=== PATIENT | male | born 1940 | race Caucasian/White ===

== ENCOUNTER 2016-08-16 10:55 | Inpatient (IN) | payer OTHER ==
[~2016-08-16] VITALS: Ht 175.3 cm; Wt 77.0 kg
[~2016-08-16 10:55] MED LIST: ALFU10TA30 PO; ASCA500 PO; ASPI81TA28 PO; CARV12.52 PO; CHOLTAB3 PO; CRAN200C PO; DTRSR4 PO; FINA5TAB PO; GABA-113 PO; GARL10007 PO; GARL400T4 PO; INSU70IN2 SC; LISI-725 PO; METF500T5 PO; MISCCAP63 PO; MULT-506 PO; OMEG10007 PO; PRLSR20 PO; RANI300T2 PO
--- NOTE | 2016-08-16 11:28 | EMERGENCY ROOM VISIT NOTE ---
History Report prepared by Pamela: Aaron Esquivel Under the Supervision of: Dr. Philip Barillas D.O. First contact with patient: 11:16 Chief Complaint: ABNORMAL LABS Stated Complaint: ABNORMAL LAB, BACK PAIN History of Present Illness The patient is a 75 year old male who presents to the Emergency Room with complaints of abnormal labs and constant back pain for the past few days that radiates into his legs. The patient states that his labs had an elevated blood count. The patient states that he got labs due to right sided chest pain, and he had fevers and chills last night, and he has some abdominal pain. He denies any nausea or vomiting. The patient states that he has never had problems like this before. The patient has an extensive history of back issues, and he has spinal stenosis and a ruptured disc which he had surgery for. He states that he has some leg numbness which is intermittent and chronic. He additionally has a history of diabetes, arthritis, and gout, and he denies any history of cancer, leukemia, or tuberculosis. Additionally he denies any tobacco or alcohol use. He states that he had an MRI for his back about a year ago. Source of History: patient Onset: past few days Position: back (lower), other (global) Quality: other (abnormal labs) Timing: constant Associated Symptoms: + fevers, + chills, + abdominal pain, No nausea, No vomiting Review of Systems See HPI for pertinent positives & negatives. A total of 10 systems reviewed and were otherwise negative. Past Medical & Surgical Medical Problems: (1) Back pain (2) Diabetes (3) Hypertension (4) Spinal stenosis Family History Diabetes mellitus Heart disease Hypertension Social History Smoking Status: Never Smoker Alcohol Use: none Marital Status: Housing Status: lives with significant other Occupation Status: retired Current/Historical Medications Scheduled Albuterol Hfa (Ventolin Hfa), 2-4 PUFFS INH Q6H Alfuzosin Hcl (Uroxatral), 10 MG PO DAILY Ascorbic Acid (Vitamin C), 500 MG PO DAILY Aspirin (Aspirin Ec), 81 MG PO DAILY Baclofen (Lioresal), 10 MG PO TID Carvedilol (Coreg), 12.5 MG PO BID Cranberry (Vaccinium Macrocarp (Cranberry Extract), 200 MG PO DAILY Finasteride (Proscar), 5 MG PO DAILY Fish Oil (Purcell-3), 1 CAP PO DAILY Gabapentin (Neurontin), 300 MG PO TID Insulin Isophan/Regular (Novolin 70/30), 25-26 UNITS SC QAM Insulin Isophan/Regular (Novolin 70/30), 15-16 UNITS SC QPM Lisinopril (Zestril), 20 MG PO DAILY Metformin Hcl Er (Glucophage Er), 500 MG PO BID Misc Natural Products ([facility]), 1 CAP PO DAILY Multivitamin (Multivitamin), 1 TAB PO DAILY Omeprazole (Prilosec), 20 MG PO DAILY Miscellaneous Medications Garlic (Garlic) Glucostix Blood Test Strips (River[employer] Ultra Blue) Naproxen (Aleve), 220 MG PO Allergies Coded Allergies: Terazosin (Verified Allergy, Unknown, unkn, 08/16/16) Physical Exam Vital Signs Date Time Temp Pulse Resp B/P (MAP) Pulse Ox O2 Delivery O2 Flow Rate FiO2 08/16/16 14:13 58 18 191/83 99 Room Air 08/16/16 12:30 58 08/16/16 12:27 61 18 142/71 96 Room Air 08/16/16 11:29 97 Room Air 08/16/16 10:59 36.4 70 18 153/67 95 Room Air Physical Exam GENERAL: Patient is awake, alert, and somewhat anxious appearing and uncomfortable. EYES: The conjunctivae are clear. The pupils are round and reactive. EARS, NOSE, MOUTH AND THROAT: The nose is without any evidence of any deformity. Mucous membranes are moist tongue is midline NECK: The neck is nontender and supple. RESPIRATORY: Normal respiratory effort is noted there is no evidence of wheezing rhonchi or rales CARDIOVASCULAR: Regular rate and rhythm noted there no murmurs rubs or gallops normal S1 normal S2 GASTROINTESTINAL: The abdomen is mildly distended but soft. No guarding or rigidity. BACK: Severe lumbar midline tenderness to percussion. Range of motion limited secondary to pain. MUSCULOSKELETAL/EXTREMITIES: There is no evidence of gross deformity full range of motion is noted in the hips and shoulders SKIN: Trace pedal edema bilaterally NEUROLOGIC: Patient is awake alert and oriented x3. Patellar reflex absent bilaterally. Great toe raise absent on the right. Achilles tendon reflex absent bilaterally. Medical Decision & Procedures ER Provider Diagnostic Interpretation: Radiology results as stated below per my review and radiologist interpretation: CHEST ONE VIEW PORTABLE CLINICAL HISTORY: Sepsis sepsis. Dyspnea. COMPARISON STUDY: 04/27/2015 FINDINGS: The bones soft tissues and hemidiaphragms are normal. The cardiomediastinal silhouette is normal. The lungs are clear. The pulmonary vasculature is normal. IMPRESSION: Negative chest. Electronically signed by: William Reddy M.D. 08/16/2016 12:01 PM Dictated Date/Time: 08/16/2016 12:01 PM MRI OF THE LUMBAR SPINE WITH AND WITHOUT CONTRAST CLINICAL HISTORY: Low back pain. Elevated white blood cell count. COMPARISON STUDY: No previous studies for comparison. TECHNIQUE: Utilizing a 1.5 Mayelin magnet and dedicated coil, multiplanar, multiecho imaging of the lumbar spine was performed before and after uneventful IV administration of 7.8 mL of Gadavist. FINDINGS: For purposes of numbering on this examination, the L5-S1 disc space is assigned to axial image 23 of 25. Alignment lumbar spine is anatomic. Vertebral body heights are maintained. There is a 2 cm T1 and T2 hyperintense lesion within the left aspect of the L1 vertebral body consistent with a hemangioma. Discogenic changes with disc space narrowing at L4-L5 are noted. There is diffuse marrow signal abnormality with markedly diminished signal within the marrow on the T1-weighted sequence throughout visualized skeletal structures. Conus terminates at the mid L1 level. There is no intracanalicular mass or fluid collection. Note is made of mild edema and enhancement within the paraspinal musculature of the lumbar spine. There is no fluid collection. L1-2: The central canal and neural foramen are patent. L2-3: The central canal and neural foramen are patent. L3-4: Is mild disc bulge with ligamentous hypertrophy and facet arthrosis. There is mild to moderate narrowing of the central canal and lateral recesses. Neural foramen are patent. L4-5: There are findings suggestive of a right hemilaminotomy at this level. There is disc space narrowing. There is a small central/right paracentral disc protrusion. There is moderate narrowing of the right lateral recess and mild narrowing of the central canal. L5-S1: Central canal and neural foramen are patent. There is an annular tear with mild disc bulge. IMPRESSION: 1. Diffuse marrow signal abnormality throughout visualized skeletal structures which is suspicious for a marrow replacement process such as leukemia. 2. Mild to moderate central canal stenosis at L3-L4 due to disc bulge, ligamentous hypertrophy and facet arthrosis. 3. Central/right paracentral disc protrusion at L4-5 with moderate narrowing of the right lateral recess and mild narrowing of the central canal. Fine suggestive of a right hemilaminotomy at this level. 4. Mild edema and enhancement within the paraspinal musculature which is nonspecific. Electronically signed by: Hermes Hodge M.D. 08/16/2016 1:42 PM Dictated Date/Time: 08/16/2016 1:[address] SCAN OF THE BRAIN WITHOUT IV CONTRAST CLINICAL HISTORY: Headache. COMPARISON STUDY: No priors. TECHNIQUE: Unenhanced axial CT scan of the brain is performed from the vertex to the skull base. FINDINGS: Brain parenchyma: There are age-related involutional changes noting mild subcortical and periventricular microangiopathic change. There is no hemorrhage, mass effect, or evidence of acute territorial ischemia by CT criteria. Jackson-white matter is preserved. No extra-axial fluid collection is seen. Ventricles, sulci, cisterns: Prominent secondary to involutional change. Intracranial vasculature: There is atherosclerotic calcification of the cavernous carotid and vertebral arteries. Calvarium: The skeletal structures are osteopenic. No destructive bony lesion is seen. Sinuses and mastoids: The visualized paranasal sinuses are clear. The mastoid air cells are well pneumatized. Orbits: The bony orbits are grossly intact. IMPRESSION: Age-related changes as above with no hemorrhage, mass effect, or evidence of acute territorial ischemia by CT criteria. Electronically signed by: Surya Pearl M.D. 08/16/2016 3:49 PM Dictated Date/Time: 08/16/2016 3:[address] OF THE ABDOMEN AND PELVIS WITH CONTRAST CLINICAL HISTORY: Chronic leukemia. COMPARISON STUDY: None. TECHNIQUE: Following IV administration of 89 mL of [id number]-320, axial images of the abdomen and pelvis were obtained from the lung bases to the proximal femurs. Images were reviewed in the axial, sagittal, and coronal planes. IV contrast was administered without complication. CT DOSE: 1192.64 mGy.cm FINDINGS: The spleen is mildly enlarged. No enlarged abdominal or pelvic lymph nodes are present. There is an indeterminate 1.8 cm left adrenal nodule. The liver, kidneys and pancreas are unremarkable. There is no biliary or pancreatic ductal dilatation. Major vasculature of the abdomen and pelvis is patent. There is no evidence for a bowel obstruction. Note is made of extensive sigmoid diverticulosis without evidence for acute diverticulitis. The appendix is normal. Prostate gland is moderately enlarged. There is no hydronephrosis. There are no suspicious osseous lesions. Diffuse marrow replacement shown on MRI is not appreciated on this study due to technique. IMPRESSION: 1. No acute process within the abdomen or pelvis. 2. Extensive sigmoid diverticulosis without evidence for acute diverticulitis. 3. No abdominal or pelvic lymphadenopathy. 4. 1.8 cm left adrenal nodule. While indeterminate, this is statistically benign. Electronically signed by: Hermes Hodge M.D. 08/16/2016 3:51 PM Dictated Date/Time: 08/16/2016 3:45 PM Laboratory Results 08/16/16 11:21 Red Blood Count 3.94, Mean Corpuscular Volume 94.9, Mean Corpuscular Hemoglobin 31.5, Mean Corpuscular Hemoglobin Concent 33.2, Mean Platelet Volume 10.4 08/16/16 11:21 Test 08/16/16 11:09 08/16/16 11:21 08/16/16 11:38 08/16/16 11:47 Urine Color YELLOW Urine Appearance CLEAR (CLEAR) Urine pH 5.0 (4.5-7.5) Urine Specific [place] 1.021 (1.000-1.030) Urine Protein NEG (NEG) Urine Glucose (UA) 3+ (NEG) Urine Ketones NEG (NEG) Urine Occult Blood NEG (NEG) Urine Nitrite NEG (NEG) Urine Bilirubin NEG (NEG) Urine Urobilinogen NEG (NEG) Urine Leukocyte Esterase NEG (NEG) Urine WBC (Auto) 1-5 /hpf (0-5) Urine RBC (Auto) 0-4 /hpf (0-4) Urine Hyaline Casts (Auto) 0 /lpf (0-5) Urine Epithelial Cells (Auto) 0-5 /lpf (0-5) Urine Bacteria (Auto) NEG (NEG) White Blood Count 42.15 K/uL (4.8-10.8) Red Blood Count 3.94 M/uL (4.7-6.1) Hemoglobin 12.4 g/dL (14.0-18.0) Hematocrit 37.4 % (42-52) Mean Corpuscular Volume 94.9 fL (80-100) Mean Corpuscular Hemoglobin 31.5 pg (25-34) Mean Corpuscular Hemoglobin Concent 33.2 g/dl (32-36) Platelet Count 251 K/uL (130-400) Mean Platelet Volume 10.4 fL (7.4-10.4) RDW Standard Deviation 51.2 fL (36.4-46.3) RDW Coefficient of Variation 14.7 % (11.5-14.5) Neutrophils % (Manual) 87.8 % Lymphocytes % (Manual) 4.3 % Monocytes % (Manual) 5.2 % Eosinophils % (Manual) 0.9 % Metamyelocytes % 0.9 % Myelocytes % 0.9 % Neutrophils # (Manual) 37.01 K/uL (1.4-6.5) Total Absolute Neutrophils 37.01 K/uL (1.4-6.5) Lymphocytes # (Manual) 1.81 K/uL (1.2-3.4) Total Absolute Lymphocytes 1.81 K/uL (1.2-3.4) Monocytes # (Manual) 2.19 K/uL (0.11-0.59) Eosinophils # (Manual) 0.38 K/uL (0-0.5) Metamyelocytes # 0.38 K/uL (0-0) Myelocytes # 0.38 K/uL (0-0) Hypogranular Neutrophils 1+ Toxic Granulation 1+ Dohle Bodies 1+ Erythrocyte Sedimentation Rate 31 mm/hr (0-14) Prothrombin Time 11.6 SECONDS (9.0-12.0) Prothromb Time International Ratio 1.1 (0.9-1.1) Activated Partial Thromboplast Time 29.2 SECONDS (21.0-31.0) Partial Thromboplastin Ratio 1.1 Anion Gap 9.0 mmol/L (3-11) Est Creatinine Clear Calc Drug Dose 52.4 ml/min Estimated GFR () 67.7 Estimated GFR (Non- 58.4 BUN/Creatinine Ratio 14.5 (10-20) Uric Acid 6.6 mg/dl (2.6-7.2) Calcium Level 9.0 mg/dl (8.5-10.1) Phosphorus Level 2.6 mg/dl (2.5-4.9) Magnesium Level 2.0 mg/dl (1.8-2.4) Total Bilirubin 0.8 mg/dl (0.2-1) Aspartate Amino Transf (AST/SGOT) 21 U/L (15-37) Alanine Aminotransferase (ALT/SGPT) 26 U/L (12-78) Alkaline Phosphatase 144 U/L (45-117) Total Creatine Kinase 298 U/L (39-308) Creatine Kinase MB 13.2 ng/ml (0.5-3.6) Creatine Kinase MB Ratio 4.4 (0-3.0) Troponin I < 0.015 ng/ml (0-0.045) C-Reactive Protein 0.91 mg/dl (0-0.29) Pro-B-Type Natriuretic Peptide 253 pg/ml (0-1800) Total Protein 7.3 gm/dl (6.4-8.2) Albumin 3.4 gm/dl (3.4-5.0) Globulin 3.9 gm/dl (2.5-4.0) Albumin/Globulin Ratio 0.9 (0.9-2) Lipase 62 U/L (73-393) Beta-Hydroxybutyric Acid 1.45 mg/dL (0.2-2.81) Lactate Dehydrogenase 247 U/L (87-241) Bedside Lactic Acid Venous 2.78 mmol/L (0.90-1.70) Laboratory results per my review. Medications Administered Medications (Trade) Dose Ordered Sig/Karla Route Start Time Stop Time Status Last Admin Dose Admin Sodium Chloride 1,000 ml @ 999 mls/hr Q1H1M STAT IV 08/16/16 11:48 08/16/16 12:48 DC 08/16/16 12:07 999 MLS/HR Sodium Chloride 1,000 ml @ 200 mls/hr Q5H STAT IV 08/16/16 11:48 08/16/16 16:47 DC 08/16/16 13:26 200 MLS/HR Vancomycin HCl 1600 mg/Sodium Chloride 532 ml @ 200 mls/hr ONE STAT IV 08/16/16 11:48 08/16/16 14:27 DC 08/16/16 13:26 200 MLS/HR Ceftriaxone Sodium 2000 mg/ Dextrose 70 ml @ 140 mls/hr ONE STAT IV 08/16/16 11:58 08/16/16 12:27 DC 08/16/16 11:58 140 MLS/HR ECG Indication: other (Abnromal labs and back pain) Rate (beats per minute): 61 Rhythm: normal sinus Findings: no ectopy, other (Diffuse T Wave flattening, no ST segment abnormalities) Comparison ECG Date: no prior available ED Course 1116: The patient was evaluated in room C3. A complete history and physical examination were performed. 1148: Vancomycin HCl 1600mg/ Sodium Chloride 532 ml @ 200 mls/hr, Rocephin Inj 2gm IV, NSS 1,000 ml @ 200 mls/hr IV, NSS 1,000 ml @ 999 mls/hr IV 1158: Ceftriaxone odium 2000mg/ Dextrose 70ml @ 140ml/hr IV 1231: I reevaluated the patient, and he was doing okay. 1422: I discussed the patient's case with Murray Villagomez. She is going to evaluate the patient for further treatment. Medical Decision Differential diagnosis: Etiologies such as musculoskeletal, disc herniation, fracture, aortic disease, metastatic disease, cord compression, discitis, infection, renal colic, gastrointestinal, acute exacerbation of chronic back pain, sciatica, cauda equina, as well as others were entertained. Patient was found to have a slightly elevated blood pressure due to circumstances. I do not believe that the patient requires hypertension monitoring. Medication Reconciliation: I attest that I have personally reviewed the patient' s current medications list. The patient is a 75-year-old male who presented to the emergency department for an evaluation of low back pain. The patient has had ongoing back pain for quite some time. He states he had an MRI approximately 1 year ago but no surgical intervention was required at that time. The patient follow-up with his primary care physician and was found to have a very elevated white blood cell count. He was sent to the emergency department for further evaluation. The patient did have a peripheral smear as an outpatient and this revealed possible leukemoid reaction or reactive elevated white blood cell count. It was not severely indicative of leukemia. For this reason I was concerned that the patient's back pain could be a result of an epidural abscess. For this reason MRI was obtained in the emergency department. I discussed the patient's MRI report with him. He was initially treated with IV antibiotics however his MRI does appear to be more consistent with leukemia or some other bone marrow abnormality with distraction of the lumbar spine. I discussed his case with the on-call [facility] hospitalist. They've agreed to evaluate the patient in emergency department for further management and disposition. Consults Time Called: 1414 Consulting Physician: Murray Villagomez Returned Call: 1422 I discussed the patient's case with Murray Villagomez. She is going to evaluate the patient for further treatment. Impression Primary Impression: Low back pain Additional Impressions: Leukemia Leukemoid reaction Scribe Attestation The scribe's documentation has been prepared under my direction and personally reviewed by me in its entirety. I confirm that the note above accurately reflects all work, treatment, procedures, and medical decision making performed by me. Departure Information Dispostion Being Evaluated By Hospitalist Referrals Royce Gaviria M.D. (PCP) Patient Instructions My [facility] Problem Qualifiers Primary Impression: Low back pain Chronicity: acute Back pain laterality: midline Sciatica presence: unspecified whether sciatica present Qualified Codes: M54.5 - Low back pain Additional Impressions: Leukemia Leukemia type: unspecified Leukemia Active/Remission status: without remission Qualified Codes: C95.90 - Leukemia, unspecified not having achieved remission
[2016-08-16 11:43] LABS: URINE APPEARANCE CLEAR (CLEAR); URINE BILIRUBIN NEG (NEG); URINE COLOR YELLOW; URINE EPITHELIAL CELL AUTO 0-5 /lpf (0-5); URINE NITRITE NEG (NEG); URINE SPECIFIC GRAVITY 1.021 (1.000-1.030); UROBILINOGEN NEG (NEG); ZZUR CULT IF INDIC CLEAN CATCH NO
[2016-08-16 11:44] LABS: MANUAL MICROSCOPIC REQUIRED? NO; REVIEW REQ? NO
[2016-08-16] MEDS ORDERED: VNTHFA/IN INH (11:47)
[2016-08-16] MEDS ORDERED: NAPR1TAB9 PO (11:47)
[2016-08-16] MEDS ORDERED: BACL10TA PO (11:47)
[2016-08-16] MEDS ORDERED: ASCA500 (11:47)
[2016-08-16] MEDS ORDERED: GLUC-221 (11:47)
[2016-08-16] MEDS ORDERED: CEFTRIAXONE SOD INJ 1 GM ADDVIAL IV STA (11:48)
[2016-08-16] MEDS ORDERED: VANCOMYCIN INJ 1,600 MG in SODIUM CHLORIDE 0.9% 500ML 500 ML IV STA (11:48)
[2016-08-16] MEDS ORDERED: SODIUM CHLORIDE 0.9% 1000ML 1,000 ML IV STA ×2 (11:48)
[2016-08-16] MEDS ORDERED: CEFTRIAXONE SOD INJ 2000 MG in DEXTROSE 5% 50ML IV STA (11:58)
--- NOTE | 2016-08-16 12:02 | DIAGNOSTIC IMAGING REPORT ---
CHEST ONE VIEW PORTABLE CLINICAL HISTORY: Sepsis sepsis. Dyspnea. COMPARISON STUDY: 04/27/2015 FINDINGS: The bones soft tissues and hemidiaphragms are normal. The cardiomediastinal silhouette is normal. The lungs are clear. The pulmonary vasculature is normal. IMPRESSION: Negative chest. Electronically signed by: William Reddy M.D. 08/16/2016 12:01 PM Dictated Date/Time: 08/16/2016 12:01 PM
[2016-08-16 12:04] LABS: INR 1.1 (0.9-1.1); PARTIAL THROMBOPLASTIN RATIO 1.1; PROTHROMBIN TIME (PATIENT) 11.6 SECONDS (9.0-12.0)
[2016-08-16 12:18] LABS: ALT/SGPT 26 U/L (12-78); BLOOD UREA NITROGEN 17 mg/dl (7-18); BUN/CREATININE RATIO 14.5 (10-20); C-REACTIVE PROTEIN 0.91 mg/dl (0-0.29); CARBON DIOXIDE 23 mmol/L (21-32); CHLORIDE 104 mmol/L (98-107); GLUCOSE 301 mg/dl (70-99); POTASSIUM 4.5 mmol/L (3.5-5.1); SODIUM 136 mmol/L (136-145); URIC ACID 6.6 mg/dl (2.6-7.2)
[2016-08-16 12:20] LABS: ALB/GLOB RATIO 0.9 (0.9-2); AST/SGOT 21 U/L (15-37); PHOSPHORUS 2.6 mg/dl (2.5-4.9)
[2016-08-16 12:28] LABS: ALKALINE PHOSPHATASE 144 U/L (45-117); BETA-HYDROXYBUTYRATE 1.45 mg/dL (0.2-2.81); CKMB/CK RATIO 4.4 (0-3.0)
[2016-08-16 12:29] LABS: HEMATOCRIT 37.4 % (42-52); MEAN CELL VOLUME 94.9 fL (80-100); MEAN CORPUSCULAR HEMOGLOBIN 31.5 pg (25-34); MEAN CORPUSCULAR HGB CONC 33.2 g/dl (32-36); MEAN PLATELET VOLUME 10.4 fL (7.4-10.4); PLATELET COUNT 251 K/uL (130-400); RED BLOOD COUNT 3.94 M/uL (4.7-6.1); WHITE BLOOD COUNT 42.15 K/uL (4.8-10.8)
[2016-08-16 12:45] LABS: COMPLETE YES; DOHLE BODIES 1+; EOSINOPHIL % 0.9 %; LYMPH ABS # 1.81 K/uL (1.2-3.4); LYMPHOCYTE % 4.3 %; META ABS # 0.38 K/uL (0-0); METAMYELOCYTE % 0.9 %; MYELOCYTE % 0.9 %; NEUTROPHILS % 87.8 %; TOXIC GRANULATION 1+
[2016-08-16] MEDS ORDERED: GADAVIST IV PRN (13:15)
--- NOTE | 2016-08-16 13:43 | DIAGNOSTIC IMAGING REPORT ---
MRI OF THE LUMBAR SPINE WITH AND WITHOUT CONTRAST CLINICAL HISTORY: Low back pain. Elevated white blood cell count. COMPARISON STUDY: No previous studies for comparison. TECHNIQUE: Utilizing a 1.5 Mayelin magnet and dedicated coil, multiplanar, multiecho imaging of the lumbar spine was performed before and after uneventful IV administration of 7.8 mL of Gadavist. FINDINGS: For purposes of numbering on this examination, the L5-S1 disc space is assigned to axial image 23 of 25. Alignment lumbar spine is anatomic. Vertebral body heights are maintained. There is a 2 cm T1 and T2 hyperintense lesion within the left aspect of the L1 vertebral body consistent with a hemangioma. Discogenic changes with disc space narrowing at L4-L5 are noted. There is diffuse marrow signal abnormality with markedly diminished signal within the marrow on the T1-weighted sequence throughout visualized skeletal structures. Conus terminates at the mid L1 level. There is no intracanalicular mass or fluid collection. Note is made of mild edema and enhancement within the paraspinal musculature of the lumbar spine. There is no fluid collection. L1-2: The central canal and neural foramen are patent. L2-3: The central canal and neural foramen are patent. L3-4: Is mild disc bulge with ligamentous hypertrophy and facet arthrosis. There is mild to moderate narrowing of the central canal and lateral recesses. Neural foramen are patent. L4-5: There are findings suggestive of a right hemilaminotomy at this level. There is disc space narrowing. There is a small central/right paracentral disc protrusion. There is moderate narrowing of the right lateral recess and mild narrowing of the central canal. L5-S1: Central canal and neural foramen are patent. There is an annular tear with mild disc bulge. IMPRESSION: 1. Diffuse marrow signal abnormality throughout visualized skeletal structures which is suspicious for a marrow replacement process such as leukemia. 2. Mild to moderate central canal stenosis at L3-L4 due to disc bulge, ligamentous hypertrophy and facet arthrosis. 3. Central/right paracentral disc protrusion at L4-5 with moderate narrowing of the right lateral recess and mild narrowing of the central canal. Fine suggestive of a right hemilaminotomy at this level. 4. Mild edema and enhancement within the paraspinal musculature which is nonspecific. Electronically signed by: Hermes Hodge M.D. 08/16/2016 1:42 PM Dictated Date/Time: 08/16/2016 1:18 PM
[2016-08-16] MEDS ORDERED: DEXTROSE 50% 50 ML SYR IV PRN (15:15)
[2016-08-16] MEDS ORDERED: GLUCAGON FOR INJ 1 MG VIAL SQ PRN (15:15)
[2016-08-16] MEDS ORDERED: POLYETHYLENE (MIRALAX) 17 GM PACK PO PRN (15:15)
[2016-08-16] MEDS ORDERED: ALUMINUM/MAGNESIUM/SIMETH (MAALOX MAX) 30 ML UDC PO PRN (15:15)
[2016-08-16] MEDS ORDERED: ACETAMINOPHEN 325 MG TAB PO PRN (15:15)
[2016-08-16] MEDS ORDERED: GLUCOSE 10 TABS/TUBE PO PRN (15:15)
[2016-08-16] MEDS ORDERED: ALBUTEROL HFA 8 GM INHALER INH PRN (15:15)
[2016-08-16] MEDS ORDERED: SODIUM CHLORIDE 0.9% 1000ML 1,000 ML IV SCH (15:15)
[2016-08-16] MEDS ORDERED: GLUCOSE 40% GEL 15 GM TUBE PO PRN (15:15)
[2016-08-16] MEDS ORDERED: ZOLPIDEM TARTRATE 5 MG TAB PO PRN (15:15)
[2016-08-16] MEDS ORDERED: ONDANSETRON INJ 2 MG/ML 2 ML VIAL IV PRN (15:15)
[2016-08-16] MEDS ORDERED: MAGNESIUM HYDROXIDE SUSP 30 ML UDC PO PRN (15:15)
--- NOTE | 2016-08-16 15:15 | History and Physical ---
History & Physical Date & Time of Service: Aug 16, 2016 at 15:15 Chief Complaint: Abnormal Lab, Back Pain Primary Care Physician: Royce Gaviria M.D. 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 , BPH, reflux esophagitis presented to ED with complain of intractable back pain Pt has been experiencing low back pain with pain radiation to right knee, dorsum of leg and rt foot for weeks Has chronic rt foot drop ever since his lumber spinal surgery in [address] Gibbs for back pain , had epidural steroid injection with no benefit has been taking gabapentin , baclofen and Naproxen PRN -which provides some improvement with discomfort last week -pt experienced chills , night sweats -was seen by his family physician lab work shows WBC elevated 38 K in 08/04/16 repeat blood work ordered a week later 08/11/16 -WBC unchanged 38 K /Hb 11 .9 / platelet 271 Peripheral smear on 08/11/16 : leukocytosis with absolute neutrophilia, monocytosis , lymphopenia , most likely reactive process /leukemoid reaction consider flow cytometry /and bone marrow biopsy if clinically indicated pt is schedule to see Hematology /Oncology Dr Jackson tomorrow his back pain continues to worsen to the point , unable to ambulate on his own asked by his PCP to follow at ED at [facility] for further evaluation during my interview , pt appears to be comfortable back pain 7/10 as long as he is lying flat , worse pain is when he tries to get up or bend over lab work shows persisted leukocytosis WBC 42 K MRI of lumber spine diffuse marrow abnormality throughout skeletal structure suspicious for marrow replacement process as Leukemia Past Medical/Surgical History Medical Problems: (1) Diabetes Status: Chronic (2) Hypertension Status: Chronic (3) Spinal stenosis Status: Chronic Family History Diabetes mellitus Heart disease Hypertension Social History Smoking Status: Never Smoker Marital Status: Occupational Status: retired Allergies Coded Allergies: Terazosin (Verified Allergy, Unknown, unkn, 08/16/16) Home Medications Scheduled Albuterol Hfa (Ventolin Hfa), 2-4 PUFFS INH Q6H Alfuzosin Hcl (Uroxatral), 10 MG PO DAILY Ascorbic Acid (Vitamin C), 500 MG PO DAILY Aspirin (Aspirin Ec), 81 MG PO DAILY Baclofen (Lioresal), 10 MG PO TID Carvedilol (Coreg), 12.5 MG PO BID Cranberry (Vaccinium Macrocarp (Cranberry Extract), 200 MG PO DAILY Finasteride (Proscar), 5 MG PO DAILY Fish Oil ([place]-3), 1 CAP PO DAILY Gabapentin (Neurontin), 300 MG PO TID Insulin Isophan/Regular (Novolin 70/30), 25-26 UNITS SC QAM Insulin Isophan/Regular (Novolin 70/30), 15-16 UNITS SC QPM Lisinopril (Zestril), 20 MG PO DAILY Metformin Hcl Er (Glucophage Er), 500 MG PO BID Misc Natural Products (Prostate Health), 1 CAP PO DAILY Multivitamin (Multivitamin), 1 TAB PO DAILY Omeprazole (Prilosec), 20 MG PO DAILY Miscellaneous Medications Garlic (Garlic) Glucostix Blood Test Strips ([facility] Ultra Blue) Naproxen (Aleve), 220 MG PO Physical Exam Vital Signs Date Time Temp Pulse Resp B/P (MAP) Pulse Ox O2 Delivery O2 Flow Rate FiO2 08/16/16 14:13 58 18 191/83 99 Room Air 08/16/16 12:30 58 08/16/16 12:27 61 18 142/71 96 Room Air 08/16/16 11:29 97 Room Air 08/16/16 10:59 36.4 70 18 153/67 95 Room Air General Appearance: no apparent distress Head: normocephalic, atraumatic Eyes: sclerae normal Neck: no adenopathy, thyroid normal Respiratory/Chest: chest non-tender, lungs clear, normal breath sounds, no respiratory distress Cardiovascular: regular rate, rhythm, no edema, no JVD Abdomen/GI: normal bowel sounds, non tender, soft Back: + pertinent finding (TENDERNESS ON PALPATION OF RT ILLIAC CREST AREA ) Extremities/Musculoskelatal: no calf tenderness, normal capillary refill, no pedal edema, + pertinent finding (PAIN ON LOW BACK / MOSTLY RT ILLIAC SPINE AREA WITH RADIATION TO RT KNEE, FOOT , RT FOOT DROP -CHRONIC ) Neurologic/Psych: alert, normal mood/affect, oriented x 3, + motor weakness ( ON RT LEG ), + pertinent finding (RT FOOT DROP ) Skin: normal color, warm/dry, no rash, + rash Lymphatic: no adenopathy Diagnostics Laboratory Results Results Past 24 Hours Test 08/16/16 11:09 08/16/16 11:21 08/16/16 11:38 08/16/16 11:47 Range/Units Urine Color YELLOW Urine Appearance CLEAR CLEAR Urine pH 5.0 4.5-7.5 Urine Specific [place] 1.021 1.000-1.030 Urine Protein NEG NEG Urine Glucose (UA) 3+ NEG Urine Ketones NEG NEG Urine Occult Blood NEG NEG Urine Nitrite NEG NEG Urine Bilirubin NEG NEG Urine Urobilinogen NEG NEG Urine Leukocyte Esterase NEG NEG Urine WBC (Auto) 1-5 0-5 /hpf Urine RBC (Auto) 0-4 0-4 /hpf Urine Hyaline Casts (Auto) 0 0-5 /lpf Urine Epithelial Cells (Auto) 0-5 0-5 /lpf Urine Bacteria (Auto) NEG NEG White Blood Count 42.15 4.8-10.8 K/uL Red Blood Count 3.94 4.7-6.1 M/uL Hemoglobin 12.4 14.0-18.0 g/dL Hematocrit 37.4 42-52 % Mean Corpuscular Volume 94.9 80-100 fL Mean Corpuscular Hemoglobin 31.5 25-34 pg Mean Corpuscular Hemoglobin Concent 33.2 32-36 g/dl Platelet Count 251 130-400 K/uL Mean Platelet Volume 10.4 7.4-10.4 fL RDW Standard Deviation 51.2 36.4-46.3 fL RDW Coefficient of Variation 14.7 11.5-14.5 % Neutrophils % (Manual) 87.8 % Lymphocytes % (Manual) 4.3 % Monocytes % (Manual) 5.2 % Eosinophils % (Manual) 0.9 % Metamyelocytes % 0.9 % Myelocytes % 0.9 % Neutrophils # (Manual) 37.01 1.4-6.5 K/uL Total Absolute Neutrophils 37.01 1.4-6.5 K/uL Lymphocytes # (Manual) 1.81 1.2-3.4 K/uL Total Absolute Lymphocytes 1.81 1.2-3.4 K/uL Monocytes # (Manual) 2.19 0.11-0.59 K/uL Eosinophils # (Manual) 0.38 0-0.5 K/uL Metamyelocytes # 0.38 0-0 K/uL Myelocytes # 0.38 0-0 K/uL Hypogranular Neutrophils 1+ Toxic Granulation 1+ Dohle Bodies 1+ Erythrocyte Sedimentation Rate 31 0-14 mm/hr Prothrombin Time 11.6 9.0-12.0 SECONDS Prothromb Time International Ratio 1.1 0.9-1.1 Activated Partial Thromboplast Time 29.2 21.0-31.0 SECONDS Partial Thromboplastin Ratio 1.1 Sodium Level 136 136-145 mmol/L Potassium Level 4.5 3.5-5.1 mmol/L Chloride Level 104 98-107 mmol/L Carbon Dioxide Level 23 21-32 mmol/L Anion Gap 9.0 3-11 mmol/L Blood Urea Nitrogen 17 7-18 mg/dl Creatinine 1.20 0.60-1.40 mg/dl Est Creatinine Clear Calc Drug Dose 52.4 ml/min Estimated GFR () 67.7 Estimated GFR (Non- 58.4 BUN/Creatinine Ratio 14.5 10-20 Random Glucose 301 70-99 mg/dl Uric Acid 6.6 2.6-7.2 mg/dl Calcium Level 9.0 8.5-10.1 mg/dl Phosphorus Level 2.6 2.5-4.9 mg/dl Magnesium Level 2.0 1.8-2.4 mg/dl Total Bilirubin 0.8 0.2-1 mg/dl Aspartate Amino Transf (AST/SGOT) 21 15-37 U/L Alanine Aminotransferase (ALT/SGPT) 26 12-78 U/L Alkaline Phosphatase 144 45-117 U/L Total Creatine Kinase 298 39-308 U/L Creatine Kinase MB 13.2 0.5-3.6 ng/ml Creatine Kinase MB Ratio 4.4 0-3.0 Troponin I < 0.015 0-0.045 ng/ml C-Reactive Protein 0.91 0-0.29 mg/dl Pro-B-Type Natriuretic Peptide 253 0-1800 pg/ml Total Protein 7.3 6.4-8.2 gm/dl Albumin 3.4 3.4-5.0 gm/dl Globulin 3.9 2.5-4.0 gm/dl Albumin/Globulin Ratio 0.9 0.9-2 Lipase 62 73-393 U/L Beta-Hydroxybutyric Acid 1.45 0.2-2.81 mg/dL Lactate Dehydrogenase 247 87-241 U/L Bedside Lactic Acid Venous 2.78 0.90-1.70 mmol/L Microbiology Results 08/16/16 Blood Culture, Received Pending 08/16/16 Blood Culture, Received Pending Diagnostic Radiology MRI OF LUMBER SPINE WITH AND WITHOUT CONTRAST : IMPRESSION: 1. Diffuse marrow signal abnormality throughout visualized skeletal structures which is suspicious for a marrow replacement process such as leukemia. 2. Mild to moderate central canal stenosis at L3-L4 due to disc bulge, ligamentous hypertrophy and facet arthrosis. 3. Central/right paracentral disc protrusion at L4-5 with moderate narrowing of the right lateral recess and mild narrowing of the central canal. Fine suggestive of a right hemilaminotomy at this level. 4. Mild edema and enhancement within the paraspinal musculature which is nonspecific. Impression Assessment and Plan INTRACTABLE BACK PAIN : due to bone marrow involvement in lumber spine symptom of back pain has been ongoing /chronic for past number of week , getting progressively worse no complain of bowel or bladder incontinence MRI of lumber spine : Diffuse marrow signal abnormality throughout visualized skeletal structures which is suspicious for a marrow replacement process such as leukemia. MRI OF LUMBER SPINE W/O CONTRAST ON 11/19/14 : spinal stenosis at L3-L , rightward disc fragment at L4-L5 impinging on nerve root has chronic rt foot drop since his lumber spinal surgery in 2000 case D/w Dr Salomon Ferguson detention deputy Hematology /Oncology pt can be admitted for pain control will need bone marrow biopsy for definitive Dx -can be done as out pt will do CT head with out contrast ( chronic headache ) CT abdomen /pelvis with IV contrast for further staging purposes cont out pain Meds of Gabapentin , Baclofen will D/C Naproxen-hx of GERD PRN Dilaudid ordered pain management consulted POSSIBLE LEUKEMIA : marked leukocytosis without any focus of infection has night sweats peripheral smear ordered for Pathology to review with evaluation for myeloproliferative disorder /leukemia repeat CBC with diff in Am Heme onc consulted TYPE 2 DM : well controlled recent Hb A1c 6.8 insulin SSI /Lantus ordered hold Novolin 70/30 insulin and PO Metformin HTN : BP was elevated in ER possible due to intractable pain Cont out pt med : Coreg 12.5 mg PO BID Lisinopril 20 mg daily pain control PRN Hydralazine 10 mg Q8hrs PRN > 160 mm hg HX OF COPD : stable , no wheeze, SOB or hypoxia cont PRN INH BPH : no urinary symptom cont Proscar GERD : cont PPI avoid NSAID 's FULL CODE : d/w pt DVT PROPHYLAXIS : Moderate to high risk sub q Lovenox DISPOSITION : expected to be discharged home when medically stable pt is a ,lives alone PT/OT eval will be requested prior to discharge will benefit form home health visiting nurse Medicine follow up with Dr Holder will need Heme/onc follow up as out pt Level of Care Med/Surg Resuscitation Status FULL RESUSCITATION VTE Prophylaxis VTE Risk Assessment Done? Y/N: Yes Risk Level: Moderate Given or contraindicated: Enoxaparin (Lovenox)SQ Additional Copies To Royce Gaviria M.D. Patel, Nilesh A., M.D.
[2016-08-16] MEDS ORDERED: OPTIRAY 320 IV PRN (15:30)
--- NOTE | 2016-08-16 15:51 | DIAGNOSTIC IMAGING REPORT ---
CT SCAN OF THE BRAIN WITHOUT IV CONTRAST CLINICAL HISTORY: Headache. COMPARISON STUDY: No priors. TECHNIQUE: Unenhanced axial CT scan of the brain is performed from the vertex to the skull base. FINDINGS: Brain parenchyma: There are age-related involutional changes noting mild subcortical and periventricular microangiopathic change. There is no hemorrhage, mass effect, or evidence of acute territorial ischemia by CT criteria. Jackson-white matter is preserved. No extra-axial fluid collection is seen. Ventricles, sulci, cisterns: Prominent secondary to involutional change. Intracranial vasculature: There is atherosclerotic calcification of the cavernous carotid and vertebral arteries. Calvarium: The skeletal structures are osteopenic. No destructive bony lesion is seen. Sinuses and mastoids: The visualized paranasal sinuses are clear. The mastoid air cells are well pneumatized. Orbits: The bony orbits are grossly intact. IMPRESSION: Age-related changes as above with no hemorrhage, mass effect, or evidence of acute territorial ischemia by CT criteria. Electronically signed by: Surya Pearl M.D. 08/16/2016 3:49 PM Dictated Date/Time: 08/16/2016 3:47 PM
--- NOTE | 2016-08-16 15:52 | DIAGNOSTIC IMAGING REPORT ---
CT OF THE ABDOMEN AND PELVIS WITH CONTRAST CLINICAL HISTORY: Chronic leukemia. COMPARISON STUDY: None. TECHNIQUE: Following IV administration of 89 mL of [id number]-320, axial images of the abdomen and pelvis were obtained from the lung bases to the proximal femurs. Images were reviewed in the axial, sagittal, and coronal planes. IV contrast was administered without complication. CT DOSE: 1192.64 mGy.cm FINDINGS: The spleen is mildly enlarged. No enlarged abdominal or pelvic lymph nodes are present. There is an indeterminate 1.8 cm left adrenal nodule. The liver, kidneys and pancreas are unremarkable. There is no biliary or pancreatic ductal dilatation. Major vasculature of the abdomen and pelvis is patent. There is no evidence for a bowel obstruction. Note is made of extensive sigmoid diverticulosis without evidence for acute diverticulitis. The appendix is normal. Prostate gland is moderately enlarged. There is no hydronephrosis. There are no suspicious osseous lesions. Diffuse marrow replacement shown on MRI is not appreciated on this study due to technique. IMPRESSION: 1. No acute process within the abdomen or pelvis. 2. Extensive sigmoid diverticulosis without evidence for acute diverticulitis. 3. No abdominal or pelvic lymphadenopathy. 4. 1.8 cm left adrenal nodule. While indeterminate, this is statistically benign. Electronically signed by: Hermes Hodge M.D. 08/16/2016 3:51 PM Dictated Date/Time: 08/16/2016 3:45 PM
[2016-08-16 16:52] VITALS: BP 175/90; PULSE 58; TEMP 36.4; O2SAT 98
[2016-08-16] MEDS: INSULIN ASPART 100 UNITS/ML 3 ML PEN SC SCH ×2 (17:00→21:01)
[2016-08-16] MEDS ORDERED: HYDROmorphone INJ 1 MG/ML SYR IV PRN (17:15)
[2016-08-16 17:25] VITALS: BP 169/78
[2016-08-16 18:00] VITALS: BMI 25.5
[2016-08-16 19:50] VITALS: BP 179/86; PULSE 63
[2016-08-16] MEDS: BACLOFEN 10 MG TAB PO SCH (19:55)
[2016-08-16] MEDS: CARVEDILOL 12.5 MG TAB PO SCH (19:55)
[2016-08-16] MEDS: GABAPENTIN 300 MG CAP PO SCH (19:55)
[2016-08-16] MEDS: ENOXAPARIN 40 MG/0.4 ML SYR SQ SCH (19:57)
--- NOTE | 2016-08-16 21:27 | Medical Consult ---
Consultation Date of Consultation: Aug 16, 2016. Attending Physician: Martita Storm M.D. History of Present Illness Hematology Consult: Evaluation and management of leukocytosis. Date of consultation: 08/16/2016: Consultation requested by Dr. Medina. HPI: 75 -year-old male, who has quite a few comorbid conditions mainly in the form of hypertension, diabetes mellitus, COPD, significant DJD, S/P surgical intervention in 2000, BPH, reflux esophagitis, has chronic back pain but for the last few weeks he complained of increasing lower back pain with some radicular pain involving lower extremities mainly in the right leg, he has chronic right foot drop since the lumbar spine surgery (2000). He follows up with Dr. Gibbs for the chronic back pain, had received epidural injection in the past, the last injection was received about 1 1/2 year back. He takes Neurontin, baclofen and naproxen for the simple treatment of back pain but unfortunately he's been continue to get worse, recently he was seen by his primary-care provider, blood workup done earlier showed leukocytosis, WBC count was around 38,000, mild anemia with a multiple of around 12 g/dL noted, normal platelet count. Now he's admitted hospital for increasing lower back pain. I reviewed his medical records. - WBC 8300, H&H of 15/42, Platelet count of 230,000 (04/27/2015) - WBC 38,300, H&H of 12.1/36, MCV 96, Platelet count of 269,000. Immature WBCs noted. (08/04/2016). - WBC 38,800, H&H of 11.9/36.6, MCV 100, Platelet count of 277,000. (08/11/2016). - Peripheral smear reviewed by the pathologist suggest macrocytic normochromic RBCs, left shift noted, neutrophilia noted, immature WBC noted. (08/11/2016). Blood workup done on 08/16/2016: - WBC 42,000, H&H of 12.4/37, MCV 94, Platelet count of 251, immature WBCs in the form of myelocytes and metamyelocytes present. - ESR --> 31 - BUN/Creatinine: 17/1.2, normal liver function test other than slightly elevated alkaline phosphatase of 144. - PT 11.6, PTT 29.2. IMAGING: - Lumbar spine MRI done on 08/16/2016 for evaluation of lower back pain suggest diffuse bone marrow signal changes throughout the visualized the bony structures suspicious for the bony replacement process. DJD with central canal stenosis with disk bulging noted. - CT scan of the head --> negative. - CT scan of the abdomen and pelvis done on 08/16/2016 showed mild splenomegaly noted, no intra-abdominal lymphadenopathy, no liver lesions. I saw him at bedside, his daughter and son-in-law that at bedside. Started him on hydromorphone for the pain management, he says that he is somewhat comfortable, denies any abdominal discomfort, no fever, no nausea, no vomiting, no leg edema, no bleeding from any sites, no headache, no focal medical symptom other than some chronic right foot drop. REVIEW OF SYSTEMS: GENERAL: No change in weight, some generalized weakness present, mild fatigue, no fever, sweats or chills. SKIN: No skin rash, no bruising. HEAD: No headache, no dizziness. EYES: No change in the vision, no diplopia, EARS: No earache ,no tinnitus, NOSE: No epistaxis, No nasal discharge or stuffiness, MOUTH: No sores, no dysphagia, no hoarseness of voice, NECK: No lumps, No swelling in thyroid area. No stiffness. PULMONARY: No cough, No shortness of breath, no hemoptysis, no chest pain, No wheezing. CARDIOVASCULAR: No anginal chest pain, no PND, no orthopnea. No palpitation, no leg edema. No syncope. GASTRIINTESTINAL: No abdominal pain, no nausea or vomiting. No diarrhea, No constipation. No blood in stool or black tarry stools. No abdominal distention. UROLOGIC: No burning urination. No hematuria. MUSCULOSKELETAL: No joint pain, No joint swelling, no muscle weakness. HEMATOLOGIC: No anemia in the past, no bleeding disorder, No bruising NEUROLOGIC: No seizures, no focal weakness, no speech difficulty, No memory disturbances. No tingling or numbness of the extremities. PSYCHRIATRIC: No depression. No anxiety. No psychosis. PAST MEDICAL/SURGICAL HISTORY: hypertension, diabetes mellitus, COPD, significant DJD, S/P surgical intervention in 2000, BPH, reflux esophagitis SOCIAL HISTORY: non-smoker, denies any EtOH abuse. FAMILY HISTORY: not significant family history of cancer diagnosis. MEDICATIONS: please review his chart for detail list of medications. ALLERGY: reported to have allergic to Terazosin. PHYSICAL EXAMINATION: GENERAL: Patient appears well, alert and oriented X3, cooperative. Not in any distress. Patient appears to be healthy and does not appeared to be depressed or anxious. HEENT: No icterus, no pallor, Throat and pharynx normal. Sinuses are non-tender. NECK: Supple and without lymphadenopathy or masses. No JVD. ABDOMEN: Soft, non-tender, no hepatomegaly, no splenomegaly. Bowel sounds are normal. NEURO exam: without any focal findings other than chronic right foot drop. EXTREMITIES: No finger clubbing, No cyanosis. No leg edema. SKIN is normal. Color, texture and tuggor are normal. No skin rash. LYMPH NODES: No palpable cervical, axillary, supraclavicular lymph nodes. LABS: as outlined above. ASSESSEMENT AND PLAN: 75-year-old female, who has few other comorbid conditions , also has chronic back pain related to underlying DJD, he had a surgical intervention only 2000, received the local store injection therapy under the guidance of Dr. Gibbs, the last injection was received over 1 1/2 year back but lately had increasing lower back pain with somewhat radicular pain in the right lower extremity, has chronic right foot drop since 2000 surgery, had a normal blood count earlier but the recent blood workup shows leukocytosis, mainly noticed to have polymorphonuclear leukocytosis but immature to babies noted, mild anemia with hemoglobin level around 12.5 g/dL, normal platelet count , imaging study showed bone marrow replacing process as well as my splenomegaly , overlooking the picture appears to be chronic myeloproliferative disorder. He's admitted hospital for increasing back pain which could be led to the bone marrow infiltrative process in addition to the underlying DJD. He will be seen by the pain specialist. Regarding myeloproliferative disorder, would like to send blood for following genetic mutations: BCR-ABL gene rearrangement, JAK2 mutation, MPL mutation,CALR mutation. Will consider for bone marrow examination is an outpatient. Would like to check LDH, uric acid level. Thanks for the consultation. Dr. Salomon Ferguson Hem/Onc (This note was completed using the dictation program Fluency Direct. As such, there may be misspellings, word substitutions, or other variations that should not change the essence of the clinical content of this encounter note. If there is need for further clarification, please direct questions to the provider listed above.) Past Medical/Surgical History Medical Problems: (1) Leukemia Status: Acute (2) Leukemoid reaction Status: Acute (3) Low back pain Status: Acute (4) Pleuritic chest pain Status: Acute Family History Diabetes mellitus Heart disease Hypertension Social History Smoking Status: Never Smoker Marital Status: Housing Status: lives with significant other Occupation Status: retired Allergies Coded Allergies: Terazosin (Verified Allergy, Unknown, unkn, 08/16/16) Current Inpatient Medications Current Inpatient Medications Medications (Trade) Dose Ordered Sig/Karla Route Start Time Stop Time Status Last Admin Dose Admin Gadobutrol (Gadavist) 7.8 mmol UD PRN IV 08/16/16 13:15 08/20/16 13:14 Enoxaparin Sodium (Lovenox Inj) 40 mg Q24H SQ 08/16/16 21:00 09/15/16 20:59 Acetaminophen (Tylenol Tab) 650 mg Q4H PRN PO 08/16/16 15:15 09/15/16 15:14 Al Hydrox/Mg Hydrox/Simethicone (Maalox Max Susp) 15 ml Q4H PRN PO 08/16/16 15:15 09/15/16 15:14 Magnesium Hydroxide (Milk Of Magnesia Susp) 30 ml Q6H PRN PO 08/16/16 15:15 09/15/16 15:14 Polyethylene (Miralax Powder Packet) 17 gm DAILY PRN PO 08/16/16 15:15 09/15/16 15:14 Zolpidem Tartrate (Ambien Tab) 5 mg HSZ PRN PO 08/16/16 15:15 09/15/16 15:14 Ondansetron HCl (Zofran Inj) 4 mg Q6H PRN IV 08/16/16 15:15 09/15/16 15:14 Insulin Aspart (novoLOG ASPART) SLIDING SCALE If C... ACHS SC 08/16/16 17:00 09/15/16 16:59 08/16/16 21:01 3 UNITS Glucose (Glucose 40% Gel) 15-30 GRAMS 15 GRAMS... UD PRN PO 08/16/16 15:15 09/15/16 15:14 Glucose (Glucose Chew Tab) 4-8 Tablets 4 Tabl... UD PRN PO 08/16/16 15:15 09/15/16 15:14 Dextrose (Dextrose 50% 50ML Syringe) 25-50ML OF 50% DW IV FOR... UD PRN IV 08/16/16 15:15 09/15/16 15:14 Glucagon (Glucagon Inj) 1 mg UD PRN SQ 08/16/16 15:15 09/15/16 15:14 Albuterol (Ventolin Hfa Inhaler) 2 puffs Q6H PRN INH 08/16/16 15:15 09/15/16 15:14 Alfuzosin HCl (Uroxatral Tab) 10 mg DAILY PO 08/17/16 08:00 09/16/16 08:59 Ascorbic Acid (Vitamin C Tab) 500 mg DAILY PO 08/17/16 08:00 09/16/16 08:59 Aspirin (Ecotrin Tab) 81 mg DAILY PO 08/17/16 08:00 09/16/16 08:59 Baclofen (Lioresal Tab) 10 mg TID PO 08/16/16 20:00 09/15/16 20:59 08/16/16 19:55 10 MG Carvedilol (Coreg Tab) 12.5 mg BID PO 08/16/16 20:00 09/15/16 20:59 08/16/16 19:55 12.5 MG Finasteride (Proscar Tab) 5 mg DAILY PO 08/17/16 08:00 09/16/16 08:59 Fish Oil ([place]-3 (Purified Fish Oil) Cap) 1 gm DAILY PO 08/17/16 08:00 09/16/16 08:59 Gabapentin (Neurontin Cap) 300 mg TID PO 08/16/16 20:00 09/15/16 20:59 08/16/16 19:55 300 MG Lisinopril (Zestril Tab) 20 mg DAILY PO 08/17/16 08:00 09/16/16 08:59 Multivitamins (Multivitamin Tab) 1 tab DAILY PO 08/17/16 08:00 09/16/16 08:59 Pantoprazole Sodium (Protonix Tab) 40 mg QAM PO 08/17/16 08:00 09/16/16 08:59 Sodium Chloride 1,000 ml @ 80 mls/hr [id number] IV 08/16/16 15:15 08/17/16 03:44 08/16/16 17:18 80 MLS/HR Ioversol (Optiray 320) 100 ml UD PRN IV 08/16/16 15:30 08/20/16 15:29 Hydromorphone HCl (Dilaudid Inj) 1 mg Q4H PRN IV 08/16/16 17:15 08/30/16 17:14 Physical Exam Date Time Temp Pulse Resp B/P (MAP) Pulse Ox O2 Delivery O2 Flow Rate FiO2 08/16/16 18:00 Room Air 08/16/16 17:25 169/78 (108) 08/16/16 16:52 36.4 58 19 175/90 (118) 98 Room Air 08/16/16 16:28 70 18 160/75 97 08/16/16 16:05 70 18 160/75 97 Room Air 08/16/16 14:13 58 18 191/83 99 Room Air 08/16/16 12:30 58 08/16/16 12:27 61 18 142/71 96 Room Air 08/16/16 11:29 97 Room Air 08/16/16 10:59 36.4 70 18 153/67 95 Room Air Laboratory Results Last 24 Hours Test 08/16/16 11:09 08/16/16 11:21 08/16/16 11:38 08/16/16 11:47 Urine Color YELLOW Urine Appearance CLEAR Urine pH 5.0 Urine Specific [place] 1.021 Urine Protein NEG Urine Glucose (UA) 3+ Urine Ketones NEG Urine Occult Blood NEG Urine Nitrite NEG Urine Bilirubin NEG Urine Urobilinogen NEG Urine Leukocyte Esterase NEG Urine WBC (Auto) 1-5 /hpf Urine RBC (Auto) 0-4 /hpf Urine Hyaline Casts (Auto) 0 /lpf Urine Epithelial Cells (Auto) 0-5 /lpf Urine Bacteria (Auto) NEG White Blood Count 42.15 K/uL Red Blood Count 3.94 M/uL Hemoglobin 12.4 g/dL Hematocrit 37.4 % Mean Corpuscular Volume 94.9 fL Mean Corpuscular Hemoglobin 31.5 pg Mean Corpuscular Hemoglobin Concent 33.2 g/dl Platelet Count 251 K/uL Mean Platelet Volume 10.4 fL RDW Standard Deviation 51.2 fL RDW Coefficient of Variation 14.7 % Neutrophils % (Manual) 87.8 % Lymphocytes % (Manual) 4.3 % Monocytes % (Manual) 5.2 % Eosinophils % (Manual) 0.9 % Metamyelocytes % 0.9 % Myelocytes % 0.9 % Neutrophils # (Manual) 37.01 K/uL Total Absolute Neutrophils 37.01 K/uL Lymphocytes # (Manual) 1.81 K/uL Total Absolute Lymphocytes 1.81 K/uL Monocytes # (Manual) 2.19 K/uL Eosinophils # (Manual) 0.38 K/uL Metamyelocytes # 0.38 K/uL Myelocytes # 0.38 K/uL Hypogranular Neutrophils 1+ Toxic Granulation 1+ Dohle Bodies 1+ Erythrocyte Sedimentation Rate 31 mm/hr Prothrombin Time 11.6 SECONDS Prothromb Time International Ratio 1.1 Activated Partial Thromboplast Time 29.2 SECONDS Partial Thromboplastin Ratio 1.1 Sodium Level 136 mmol/L Potassium Level 4.5 mmol/L Chloride Level 104 mmol/L Carbon Dioxide Level 23 mmol/L Anion Gap 9.0 mmol/L Blood Urea Nitrogen 17 mg/dl Creatinine 1.20 mg/dl Est Creatinine Clear Calc Drug Dose 52.4 ml/min Estimated GFR () 67.7 Estimated GFR (Non- 58.4 BUN/Creatinine Ratio 14.5 Random Glucose 301 mg/dl Uric Acid 6.6 mg/dl Calcium Level 9.0 mg/dl Phosphorus Level 2.6 mg/dl Magnesium Level 2.0 mg/dl Total Bilirubin 0.8 mg/dl Aspartate Amino Transf (AST/SGOT) 21 U/L Alanine Aminotransferase (ALT/SGPT) 26 U/L Alkaline Phosphatase 144 U/L Total Creatine Kinase 298 U/L Creatine Kinase MB 13.2 ng/ml Creatine Kinase MB Ratio 4.4 Troponin I < 0.015 ng/ml C-Reactive Protein 0.91 mg/dl Pro-B-Type Natriuretic Peptide 253 pg/ml Total Protein 7.3 gm/dl Albumin 3.4 gm/dl Globulin 3.9 gm/dl Albumin/Globulin Ratio 0.9 Lipase 62 U/L Beta-Hydroxybutyric Acid 1.45 mg/dL Lactate Dehydrogenase 247 U/L Bedside Lactic Acid Venous 2.78 mmol/L Test 08/16/16 17:02 08/16/16 20:34 Bedside Glucose 72 mg/dl 229 mg/dl
[2016-08-16 21:40] VITALS: BP 133/76; PULSE 62
[2016-08-16 23:00] VITALS: BP 131/73; PULSE 66; TEMP 36.5; O2SAT 98
[2016-08-17 03:57] VITALS: BP 168/72; PULSE 70; TEMP 36.8; O2SAT 100
[2016-08-17 06:15] LABS: BUN/CREATININE RATIO 16.1 (10-20); CREATININE 0.91 mg/dl (0.60-1.40); HEMATOCRIT 32.6 % (42-52); MAGNESIUM 1.9 mg/dl (1.8-2.4); MEAN CELL VOLUME 95.9 fL (80-100); MEAN CORPUSCULAR HEMOGLOBIN 31.8 pg (25-34); MEAN CORPUSCULAR HGB CONC 33.1 g/dl (32-36); MEAN PLATELET VOLUME 10.3 fL (7.4-10.4); PLATELET COUNT 188 K/uL (130-400); POTASSIUM 4.5 mmol/L (3.5-5.1); WHITE BLOOD COUNT 39.82 K/uL (4.8-10.8)
[2016-08-17 06:23] LABS: DOHLE BODIES 2+; LYMPH ABS # 2.43 K/uL (1.2-3.4); LYMPHOCYTE % 6.1 %; MYELOCYTE % 0.9 %; NEUTROPHILS % 92.1 %; TOXIC GRANULATION OCCASIONAL
[2016-08-17 07:10] LABS: CALCIUM 8.8 mg/dl (8.5-10.1)
[2016-08-17 07:39] VITALS: BP 143/76; PULSE 53; TEMP 36.7; O2SAT 98
[2016-08-17] MEDS ORDERED: ALFUZosin TAB 10 MG TAB PO SCH (08:00)
[2016-08-17] MEDS: GABAPENTIN 300 MG CAP PO SCH ×2 (08:37→14:31)
[2016-08-17] MEDS: CARVEDILOL 12.5 MG TAB PO SCH ×2 (08:37→19:55)
[2016-08-17] MEDS: BACLOFEN 10 MG TAB PO SCH ×3 (08:38→19:56)
[2016-08-17] MEDS: LISINOPRIL 20 MG TAB PO SCH (08:38)
[2016-08-17] MEDS: ASPIRIN 81 MG ECTAB PO SCH (08:39)
[2016-08-17] MEDS: FINASTERIDE 5 MG TAB PO SCH (08:39)
[2016-08-17] MEDS: ASCORBIC ACID 500 MG TAB PO SCH (08:40)
[2016-08-17] MEDS: PANTOprazole SOD 40 MG TAB PO SCH (08:40)
[2016-08-17] MEDS: MULTIVITAMIN TAB PO SCH (08:41)
[2016-08-17] MEDS: OMEGA-3 (PURIFIED FISH OIL) 1 GM CAP PO SCH (08:41)
[2016-08-17] MEDS: INSULIN ASPART 100 UNITS/ML 3 ML PEN SC SCH ×4 (08:43→20:01)
[2016-08-17 08:45] VITALS: O2SAT 98
[2016-08-17] MEDS ORDERED: TRAMADOL HCL 50 MG TAB PO PRN (09:45)
--- NOTE | 2016-08-17 10:03 | Pain Management Consultation ---
Pain Management Consultation Date of Consultation Aug 17, 2016. Reason for Consultation Low back pain History Mr. Yang is a 75 year old white male that has been seen at the [facility] for acute low back pain. Patient states that over the last week he has been experiencing night sweats as well as increased low back pain. He saw his PCP and found to have leukocytosis. Recnt lumbar MRI is suspicious for leukemia and he is following up with hematology regarding treatment options. Patient reports a deep aching pain into the low back, bilateral hips, and along both legs to the mid calves. He denies any specific dermatomal pattern into the leg pain. Patient has been taking Naproxen, Tylenol , and applying OTC cream onto the area with mild relief. Patient states that the pain is aggravated by twisting, bending, and walking. Pain is rated 4/10 currently. He does have a prior history of lumbar surgery in 2000 which did result in a chronic right foot drop. He denies any bowel/bladder incontinence, saddle anesthesia, or falls. Case discussed with Dr. Couch Past Medical/Surgical History (1) Hypertension (2) Diabetes (3) Low back pain (4) Leukemia (5) Leukemoid reaction (6) GERD (gastroesophageal reflux disease) (7) Dyslipidemia Family History Diabetes mellitus Heart disease Hypertension Social / Work History Smoking Status: Never smoker Smokeless Tobacco Use: No Alcohol Use: none Drug Use: none Marital Status: Housing Status: lives alone Occupation: retired Allergies Coded Allergies: Terazosin (Verified Allergy, Unknown, unkn, 08/16/16) Medications Current Inpatient Medications Medications (Trade) Dose Ordered Sig/Karla Route Start Time Stop Time Status Last Admin Dose Admin Gadobutrol (Gadavist) 7.8 mmol UD PRN IV 08/16/16 13:15 08/20/16 13:14 Enoxaparin Sodium (Lovenox Inj) 40 mg Q24H SQ 08/16/16 21:00 09/15/16 20:59 Acetaminophen (Tylenol Tab) 650 mg Q4H PRN PO 08/16/16 15:15 09/15/16 15:14 08/17/16 03:57 650 MG Al Hydrox/Mg Hydrox/Simethicone (Maalox Max Susp) 15 ml Q4H PRN PO 08/16/16 15:15 09/15/16 15:14 Magnesium Hydroxide (Milk Of Magnesia Susp) 30 ml Q6H PRN PO 08/16/16 15:15 09/15/16 15:14 Polyethylene (Miralax Powder Packet) 17 gm DAILY PRN PO 08/16/16 15:15 09/15/16 15:14 Zolpidem Tartrate (Ambien Tab) 5 mg HSZ PRN PO 08/16/16 15:15 09/15/16 15:14 Ondansetron HCl (Zofran Inj) 4 mg Q6H PRN IV 08/16/16 15:15 09/15/16 15:14 Insulin Aspart (novoLOG ASPART) SLIDING SCALE If C... ACHS SC 08/16/16 17:00 09/15/16 16:59 08/17/16 08:43 4 UNITS Glucose (Glucose 40% Gel) 15-30 GRAMS 15 GRAMS... UD PRN PO 08/16/16 15:15 09/15/16 15:14 Glucose (Glucose Chew Tab) 4-8 Tablets 4 Tabl... UD PRN PO 08/16/16 15:15 09/15/16 15:14 Dextrose (Dextrose 50% 50ML Syringe) 25-50ML OF 50% DW IV FOR... UD PRN IV 08/16/16 15:15 09/15/16 15:14 Glucagon (Glucagon Inj) 1 mg UD PRN SQ 08/16/16 15:15 09/15/16 15:14 Albuterol (Ventolin Hfa Inhaler) 2 puffs Q6H PRN INH 08/16/16 15:15 09/15/16 15:14 Alfuzosin HCl (Uroxatral Tab) 10 mg DAILY PO 08/17/16 08:00 09/16/16 08:59 Ascorbic Acid (Vitamin C Tab) 500 mg DAILY PO 08/17/16 08:00 09/16/16 08:59 08/17/16 08:40 500 MG Aspirin (Ecotrin Tab) 81 mg DAILY PO 08/17/16 08:00 09/16/16 08:59 08/17/16 08:39 81 MG Baclofen (Lioresal Tab) 10 mg TID PO 08/16/16 20:00 09/15/16 20:59 08/17/16 08:38 10 MG Carvedilol (Coreg Tab) 12.5 mg BID PO 08/16/16 20:00 09/15/16 20:59 08/17/16 08:37 12.5 MG Finasteride (Proscar Tab) 5 mg DAILY PO 08/17/16 08:00 09/16/16 08:59 08/17/16 08:39 5 MG Fish Oil ([place]-3 (Purified Fish Oil) Cap) 1 gm DAILY PO 08/17/16 08:00 09/16/16 08:59 08/17/16 08:41 1 GM Gabapentin (Neurontin Cap) 300 mg TID PO 08/16/16 20:00 09/15/16 20:59 08/17/16 08:37 300 MG Lisinopril (Zestril Tab) 20 mg DAILY PO 08/17/16 08:00 09/16/16 08:59 08/17/16 08:38 20 MG Multivitamins (Multivitamin Tab) 1 tab DAILY PO 08/17/16 08:00 09/16/16 08:59 08/17/16 08:41 1 TAB Pantoprazole Sodium (Protonix Tab) 40 mg QAM PO 08/17/16 08:00 09/16/16 08:59 08/17/16 08:40 40 MG Ioversol (Optiray 320) 100 ml UD PRN IV 08/16/16 15:30 08/20/16 15:29 Hydromorphone HCl (Dilaudid Inj) 1 mg Q4H PRN IV 08/16/16 17:15 08/30/16 17:14 Review of Systems Denies any constitutional, cardiac, pulmonary, neurological, GI, , extremity, endocrine, neuro, ENT, dermatological, or musculoskeletal complaints other than stated in HPI Physical Exam Height & Weight: Height 5 feet, 9.00 inches. Weight 77.300 (Kilograms) 170 (Pounds) Last Vital Signs Documentation Date Time Temp Pulse Resp B/P (MAP) Pulse Ox O2 Delivery O2 Flow Rate FiO2 08/17/16 07:39 36.7 53 98 143/76 (98) 98 Room Air Exam: GENERAL: Mr. Yang is a 75 y/o white male that appears his stated age. Speech and cognition is intact. Mood and affect is appropriate. Sitting quietly in the hospital bed, in no acute distress. HEAD: Normocephalic; atraumatic. EYES: Pupils are round, equal, and reactive to light; EOM intact. ENT: No external ear discharge or lesions. No rhinorrhea or epistaxis. No mucosal lesions. CHEST: Regular chest respiration and excursion. EXTREMITIES: Chronic right foot drop, otherwise 5/5 strength of the bilateral lower extremities. Negative SLR bilaterally. Mild diffuse tenderness of the bilateral hips, thighs and knees. BACK: Full ROM. Mild diffuse lumbosacral tenderness. No paravertebral, quadratus lumborum, gluteal, or piriformis muscle spasm or myoneural trigger point noted. NEURO: CN II-XII grossly intact with no focal deficits noted. Gait was not observed. SKIN: No lesions, erythema, or rashes noted. Laboratory Laboratory Results (Last CBC): 08/17/16 05:44 Red Blood Count 3.40 L, Mean Corpuscular Volume 95.9, Mean Corpuscular Hemoglobin 31.8, Mean Corpuscular Hemoglobin Concent 33.1, Mean Platelet Volume 10.3 Imaging MRI Findings 08/16/16 Lumbar MRI 1. Diffuse marrow signal abnormality throughout visualized skeletal structures which is suspicious for a marrow replacement process such as leukemia. 2. Mild to moderate central canal stenosis at L3-L4 due to disc bulge, ligamentous hypertrophy and facet arthrosis. 3. Central/right paracentral disc protrusion at L4-5 with moderate narrowing of the right lateral recess and mild narrowing of the central canal. Fine suggestive of a right hemilaminotomy at this level. 4. Mild edema and enhancement within the paraspinal musculature which is nonspecific. [place] Drug Monitoring Program Search Results: patient reviewed within database, no issues identified Assessment 1. Acute low back pain 2. Leukemia Recommendations 1. Will increase Gabapentin from 300mg TID to 300mg, 300mg, and 600mg daily. 2. Continue Baclofen 10mg TID 3. Voltaren gel and Lidocaine patches were ordered for the patient. 4. Tramadol was ordered. He is adamant about not taking narcotics but is agreeable to have it ordered in case of increased pain. 5. He will take Tylenol for pain. 6. Will add Cymbalta 20mg daily [employer] Voice Recognition This chart was completed in part utilizing [employer]OTRADE Voice Recognition Software. Random word insertions, pronoun errors, and incomplete sentences are an occasional consequence of this system due to software limitations and ambient noise. Any questions or concerns about the content, text or information contained within the body of this dictation should be directly addressed to the provider for clarification.
[2016-08-17 11:35] VITALS: BP 148/76; PULSE 52; TEMP 36.4; O2SAT 99
[2016-08-17] MEDS: DICLOFENAC SOD 1% GEL 100 GM TUBE EXT SCH ×2 (11:50→17:19)
[2016-08-17] MEDS: LIDODERM (LIDOCAINE) PATCH 5% TD SCH (11:50)
[2016-08-17 12:46] VITALS: Ht 175.3 cm; Wt 77.0 kg
[2016-08-17 14:12] LABS: COMPLETE YES
[2016-08-17 15:09] VITALS: BP 158/65; PULSE 51; TEMP 36.4; O2SAT 97
--- NOTE | 2016-08-17 16:25 | Discharge Instructions ---
Discharge Instructions Date of Service Aug 17, 2016. 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 Instructions / Follow-Up Instructions / Follow-Up HOSPITAL FOLLOW UP ON 08/24/2016 @ 3:[address] Royce Gaviria MD Internal Medicine [facility] LAB WORK : COMPLETE BLOOD COUNT WITH DIFFERENTIAL ON 08/24/16 NEED TO FOLLOW UP WITH HEMATOLOGY /ONCOLOGY DR SALOMON FRAGA IN [facility] FOR BONE MARROW BIOPSY APPOINTMENT SCHEDULED ON 08/30/2016 @ 1: [address] Salomon Fraga MD Hematology/Oncology [facility] Diet Patient's current hospital diet: AHA Diet (Heart Healthy), Diabetes Type 2 Diet Discharge Diet Recommended Diet: AHA Diet (Heart Healthy), Diabetes Type 2 Diet Pending Studies Studies pending at discharge: yes List of pending studies: LAB WORK : COMPLETE BLOOD COUNT WITH DIFFERENTIAL ON 08/24/16 Medical Emergencies . Who to Call and When: Medical Emergencies: If at any time you feel your situation is an emergency, please call 911 immediately. . Non-Emergent Contact Non-Emergency issues call your: Primary Care Provider . . "Provider Documentation" section prepared by Martita Storm. . VTE Core Measure Inpt VTE Proph given/why not?: Enoxaparin (Lovenox)SQ
--- NOTE | 2016-08-17 17:43 | Progress Note ---
Internal Med Progress Note Date of Service: Aug 17, 2016. Provider Documentation: SUBJECTIVE: back pain has much improved siting on chair able to get up and ambulate , has minimum discomfort with pain radiation to ant thigh OBJECTIVE: Vital Signs-as noted below Exam: General-no sign of distress Eyes-sclera non icteric ENT-NAD Neck-no JVD Lungs-CTA , no wheeze or rales Heart-regular S1/S2 Abdomen-soft, non tender Extremities-no lower ext edema , chronic rt sided foot drop Neuro-AAO x3, no focal neurological deficit Lab data as noted below. 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 MRI OF LUMBER SPINE W/O CONTRAST ON 11/19/14 : spinal stenosis at L3-L , rightward disc fragment at L4-L5 impinging on nerve root has chronic rt foot drop since his lumber spinal surgery in [address] Salomon Ferguson Hematology /Oncology cont pain control will need bone marrow biopsy for definitive Dx -can be done as out pt PRN Dilaudid ordered pain management consulted -appreciate input : Recommend : 1. Will increase Gabapentin from 300mg TID to 300mg, 300mg, and 600mg daily. 2. Continue Baclofen 10mg TID 3. Voltaren gel and Lidocaine patches were ordered for the patient. 4. Tramadol was ordered. He is adamant about not taking narcotics but is agreeable to have it ordered in case of increased pain. 5. He will take Tylenol for pain. 6. add Cymbalta 20mg daily POSSIBLE LEUKEMIA : marked leukocytosis without any focus of infection has night sweats peripheral smear ordered for Pathology to review with evaluation for myeloproliferative disorder /leukemia Heme onc consulted -appreciate possible primary bone marrow disorder reference lab ordered for BCR-ABL gene rearrangement JAK2 mutation MPL mutation CALR mutation will be discharged home when back pain controlled office follow up for Bone Marrow biopsy in clinic TYPE 2 DM : well controlled recent Hb A1c 6.8 insulin SSI /Lantus ordered hold Novolin 70/30 insulin and PO Metformin HTN : BP was elevated in ER possible due to intractable pain improved after pain control Cont out pt med : Coreg 12.5 mg PO BID Lisinopril 20 mg daily HX OF COPD : stable , no wheeze, SOB or hypoxia cont PRN INH BPH : no urinary symptom cont Proscar GERD : cont PPI avoid NSAID 's FULL CODE : d/w pt DVT PROPHYLAXIS : Moderate to high risk sub q Lovenox DISPOSITION : Possible discharge home tomorrow 08/18/16 pt is a ,lives alone PT/OT eval will be requested prior to discharge will benefit form home health visiting nurse Medicine follow up with Dr Holder will need Heme/onc follow up as out pt Vital Signs: Date Time Temp Pulse Resp B/P (MAP) Pulse Ox O2 Delivery O2 Flow Rate FiO2 08/17/16 16:00 Room Air 08/17/16 15:09 36.4 51 18 158/65 (96) 97 Room Air 08/17/16 11:35 36.4 52 18 148/76 (100) 99 Room Air 08/17/16 08:45 98 Room Air 08/17/16 07:39 36.7 53 98 143/76 (98) 98 Room Air 08/17/16 03:57 36.8 70 20 168/72 (104) 100 Room Air 08/17/16 00:00 Room Air 08/16/16 23:00 36.5 66 16 131/73 (92) 98 Room Air 08/16/16 21:40 62 133/76 (95) 08/16/16 19:50 63 179/86 (117) Lab Results: Results Past 24 Hours Test 08/16/16 20:34 08/17/16 05:44 08/17/16 07:52 08/17/16 09:22 Range/Units Bedside Glucose 229 175 70-99 mg/dl White Blood Count 39.82 4.8-10.8 K/uL Red Blood Count 3.40 4.7-6.1 M/uL Hemoglobin 10.8 14.0-18.0 g/dL Hematocrit 32.6 42-52 % Mean Corpuscular Volume 95.9 80-100 fL Mean Corpuscular Hemoglobin 31.8 25-34 pg Mean Corpuscular Hemoglobin Concent 33.1 32-36 g/dl Platelet Count 188 130-400 K/uL Mean Platelet Volume 10.3 7.4-10.4 fL RDW Standard Deviation 51.3 36.4-46.3 fL RDW Coefficient of Variation 14.8 11.5-14.5 % Neutrophils % (Manual) 92.1 % Lymphocytes % (Manual) 6.1 % Monocytes % (Manual) 0.9 % Myelocytes % 0.9 % Neutrophils # (Manual) 36.67 1.4-6.5 K/uL Total Absolute Neutrophils 36.67 1.4-6.5 K/uL Lymphocytes # (Manual) 2.43 1.2-3.4 K/uL Total Absolute Lymphocytes 2.43 1.2-3.4 K/uL Monocytes # (Manual) 0.36 0.11-0.59 K/uL Myelocytes # 0.36 0-0 K/uL Toxic Granulation OCCASIONAL Dohle Bodies 2+ Peripheral Blood Smear Path Consult Sodium Level 140 136-145 mmol/L Potassium Level 4.5 3.5-5.1 mmol/L Chloride Level 108 98-107 mmol/L Carbon Dioxide Level 26 21-32 mmol/L Anion Gap 6.0 3-11 mmol/L Blood Urea Nitrogen 15 7-18 mg/dl Creatinine 0.91 0.60-1.40 mg/dl Est Creatinine Clear Calc Drug Dose 69.1 ml/min Estimated GFR () 94.5 Estimated GFR (Non- 81.6 BUN/Creatinine Ratio 16.1 10-20 Random Glucose 184 70-99 mg/dl Lactic Acid Level 1.0 0.4-2.0 mmol/L Calcium Level 8.8 8.5-10.1 mg/dl Magnesium Level 1.9 1.8-2.4 mg/dl Test 08/17/16 11:28 08/17/16 16:34 Range/Units Bedside Glucose 228 198 70-99 mg/dl
[2016-08-17] MEDS ORDERED: NRN300 PO (18:17)
[2016-08-17] MEDS ORDERED: NRN600 PO (18:17)
[2016-08-17] MEDS ORDERED: CYM20 PO (18:17)
[2016-08-17] MEDS ORDERED: MRLP17X PO (18:17)
[2016-08-17] MEDS ORDERED: ULT50X PO (18:17)
--- NOTE | 2016-08-17 19:22 | Hematology/Oncology Prog Note ---
Hematology/Onc Progress Note Date of Service Aug 17, 2016. Subjective I saw him at bedside, he was sitting comfortable in the bed, he says that his pain is getting better, his son was also at bedside, I reviewed his blood workup done today, WBC count is around 39,000, hemoglobin level dropped down to around 10.8 g/dL, platelet count is around 188,000. Earlier in the day blood workup has been drawn for further workup for suspected myeloproliferative disorders. It may take about 1 to 2 weeks to get result back. Hemodynamically he has remained stable other than some systolic hypertension, no fever, seen by pain specialist, started him on Neurontin and Cymbalta, also on Ultram. He is on Lovenox prophylaxis. No increasing leg edema. On exam: - Alert and oriented x3, well built man, not in any distress. - HEENT: no icterus, no pallor, Throat: Normal. - Neck: No palpable cervical lymphadenopathy. - Chest: clear to auscultation. - Abdomen: soft, nontender, no hepatomegaly, no splenomegaly. - No focal neuro deficit. - Extremities: no finger clubbing, no leg edema. I would like to see him back in the clinic in about 1 to 2 weeks, by the time will have additional blood result available for the review and then will decide about Bone marrow testing. Vital Signs Vital Signs Past 12 Hours Date Time Temp Pulse Resp B/P (MAP) Pulse Ox O2 Delivery O2 Flow Rate FiO2 08/17/16 16:00 Room Air 08/17/16 15:09 36.4 51 18 158/65 (96) 97 Room Air 08/17/16 11:35 36.4 52 18 148/76 (100) 99 Room Air 08/17/16 08:45 98 Room Air 08/17/16 07:39 36.7 53 98 143/76 (98) 98 Room Air
[2016-08-17] MEDS: GABAPENTIN 600 MG TAB PO SCH (19:54)
[2016-08-17] MEDS: ALFUZosin TAB 10 MG TAB PO SCH (19:55)
[2016-08-17] MEDS: ENOXAPARIN 40 MG/0.4 ML SYR SQ SCH (19:56)
[2016-08-17 20:08] VITALS: BP 180/79; PULSE 56; TEMP 36.9; O2SAT 98
[2016-08-17] MEDS ORDERED: VANCOMYCIN CONSULT ACTIVE PRN (23:45)
[2016-08-17] MEDS ORDERED: VANCOMYCIN INJ 2,000 MG in SODIUM CHLORIDE 0.9% 500ML 500 ML IV ONE (23:45)
[2016-08-18] VITALS (8 sets, daily range): BP systolic 128–174; BP diastolic 61–83; PULSE 52–63; TEMP 36.4–36.7; O2SAT 95–99
--- NOTE | 2016-08-18 05:32 | Pharmacy Progress Note ---
Pharmacy Antibiotic Consult Date of Service: Aug 18, 2016. Pharmacy Dosing Scope Pharmacy is consulted to initiate vanc-IV dosing therapy, order appropriate labs and adjust drug dose/frequency. Subjective The patient is a 75 year old male admitted on Aug 16, 2016 at 15:08 ordered Vanc -IV for gram+cocci in 1/2 blood cultures. Objective Height (Feet): 5 Height (Inches): 9.00 Weight (Kilograms): 77.300 Lab Results (24hrs): Test 08/17/16 05:44 08/17/16 09:22 08/17/16 16:34 08/17/16 19:31 White Blood Count 39.82 K/uL (4.8-10.8) Red Blood Count 3.40 M/uL (4.7-6.1) Hemoglobin 10.8 g/dL (14.0-18.0) Hematocrit 32.6 % (42-52) Mean Corpuscular Volume 95.9 fL (80-100) Mean Corpuscular Hemoglobin 31.8 pg (25-34) Mean Corpuscular Hemoglobin Concent 33.1 g/dl (32-36) Platelet Count 188 K/uL (130-400) Mean Platelet Volume 10.3 fL (7.4-10.4) RDW Standard Deviation 51.3 fL (36.4-46.3) RDW Coefficient of Variation 14.8 % (11.5-14.5) Neutrophils % (Manual) 92.1 % Lymphocytes % (Manual) 6.1 % Monocytes % (Manual) 0.9 % Myelocytes % 0.9 % Neutrophils # (Manual) 36.67 K/uL (1.4-6.5) Total Absolute Neutrophils 36.67 K/uL (1.4-6.5) Lymphocytes # (Manual) 2.43 K/uL (1.2-3.4) Total Absolute Lymphocytes 2.43 K/uL (1.2-3.4) Monocytes # (Manual) 0.36 K/uL (0.11-0.59) Myelocytes # 0.36 K/uL (0-0) Toxic Granulation OCCASIONAL Dohle Bodies 2+ Peripheral Blood Smear Path Consult Sodium Level 140 mmol/L (136-145) Potassium Level 4.5 mmol/L (3.5-5.1) Chloride Level 108 mmol/L (98-107) Carbon Dioxide Level 26 mmol/L (21-32) Anion Gap 6.0 mmol/L (3-11) Blood Urea Nitrogen 15 mg/dl (7-18) Creatinine 0.91 mg/dl (0.60-1.40) Est Creatinine Clear Calc Drug Dose 69.1 ml/min Estimated GFR () 94.5 Estimated GFR (Non- 81.6 BUN/Creatinine Ratio 16.1 (10-20) Random Glucose 184 mg/dl (70-99) Lactic Acid Level 1.0 mmol/L (0.4-2.0) Calcium Level 8.8 mg/dl (8.5-10.1) Magnesium Level 1.9 mg/dl (1.8-2.4) Bedside Glucose 198 mg/dl (70-99) 241 mg/dl (70-99) Test 08/18/16 04:44 Micro Results: Item Value Date Time Blood Culture - Preliminary Resulted 08/16/16 1138 Blood Gram Positive Cocci Blood Culture Received 08/16/16 1121 Blood Pending Recent Pertinent Medications Pt received Vanc 1600mg (~20mg/kg) IV x 1 in ed 08/16/16 @1326 Assessment & Plan VANC-IV: * Estimated p'kinetics: Vd~0.7L/kg, Ke~0.0625hr-1, T1/2~11hrs * Loading dose: VANC 2000 mg (~25mg/kg) IV X 1 dose then: * Maintenance Dose: VANC 1100mg IV every 12 hours. * Goal trough level estimate: between 15 - 20 mcg/mL. * Ordered VANC trough @ [facility] prior to 08/19 2200 dose Pharmacy will continue to follow and will adjust dose/frequency as necessary. Thank you
[2016-08-18 06:08] LABS: HEMATOCRIT 33.3 % (42-52); MEAN CELL VOLUME 93.8 fL (80-100); MEAN CORPUSCULAR HEMOGLOBIN 31.3 pg (25-34); MEAN CORPUSCULAR HGB CONC 33.3 g/dl (32-36); MEAN PLATELET VOLUME 9.6 fL (7.4-10.4); PLATELET COUNT 189 K/uL (130-400); RED BLOOD COUNT 3.55 M/uL (4.7-6.1); WHITE BLOOD COUNT 36.98 K/uL (4.8-10.8)
[2016-08-18 06:22] LABS: BASO % 0.2 %; BASO ABS # 0.07 K/uL (0-0.2); COMPLETE YES; DOHLE BODIES 1+; EOS % 0.2 %; IG% 3.4 %; LYMPH % 6.4 %; LYMPH ABS # 2.37 K/uL (1.2-3.4); MONO % 7.9 %; NEUT % 81.9 %
[2016-08-18] MEDS: ASPIRIN 81 MG ECTAB PO SCH (08:04)
[2016-08-18] MEDS: MULTIVITAMIN TAB PO SCH (08:05)
[2016-08-18] MEDS: DULOXETINE HCL 20 MG CAP PO SCH (08:05)
[2016-08-18] MEDS: CARVEDILOL 12.5 MG TAB PO SCH ×2 (08:05→20:18)
[2016-08-18] MEDS: PANTOprazole SOD 40 MG TAB PO SCH (08:05)
[2016-08-18] MEDS: ASCORBIC ACID 500 MG TAB PO SCH (08:05)
[2016-08-18] MEDS: LISINOPRIL 20 MG TAB PO SCH (08:05)
[2016-08-18] MEDS: BACLOFEN 10 MG TAB PO SCH ×3 (08:05→20:18)
[2016-08-18] MEDS: FINASTERIDE 5 MG TAB PO SCH (08:05)
[2016-08-18] MEDS: GABAPENTIN 300 MG CAP PO SCH ×2 (08:06→14:29)
[2016-08-18] MEDS: LIDODERM (LIDOCAINE) PATCH 5% TD SCH (08:06)
[2016-08-18] MEDS: OMEGA-3 (PURIFIED FISH OIL) 1 GM CAP PO SCH (08:06)
[2016-08-18] MEDS: DICLOFENAC SOD 1% GEL 100 GM TUBE EXT SCH ×3 (08:07→17:13)
[2016-08-18] MEDS: INSULIN ASPART 100 UNITS/ML 3 ML PEN SC SCH ×4 (08:16→20:23)
[2016-08-18] MEDS ORDERED: VLTG EXT (09:58)
[2016-08-18] MEDS: VANCOMYCIN INJ 1,100 MG in SODIUM CHLORIDE 0.9% 250ML 250 ML IV SCH ×2 (10:32→22:12)
[2016-08-18] MEDS: ENOXAPARIN 40 MG/0.4 ML SYR SQ SCH (20:17)
[2016-08-18] MEDS: GABAPENTIN 600 MG TAB PO SCH (20:18)
[2016-08-18] MEDS: ALFUZosin TAB 10 MG TAB PO SCH (20:18)
--- NOTE | 2016-08-18 20:34 | Progress Note ---
Internal Med Progress Note Date of Service: Aug 18, 2016. Provider Documentation: SUBJECTIVE: Back pain minimum able to walk independently worried about one set of blood culture being positive last night started on IV Vancomycin mentions of having cold sweat this AM no fever OBJECTIVE: Vital Signs-as noted below Exam: General-no sign of distress Eyes-sclera non icteric ENT-NAD Neck-no JVD Lungs-CTA , no wheeze or rales Heart-regular S1/S2 Abdomen-soft, non tender Extremities-no lower ext edema , chronic rt sided foot drop Neuro-AAO x3, no focal neurological deficit Lab data as noted below. 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 MRI OF LUMBER SPINE W/O CONTRAST ON 11/19/14 : spinal stenosis at L3-L , rightward disc fragment at L4-L5 impinging on nerve root has chronic rt foot drop since his lumber spinal surgery in [address] Salomon Ferguson Hematology /Oncology cont pain control will need bone marrow biopsy for definitive Dx -can be done as out pt appointment scheduled with Dr Ferguson on 08/30/16 pain management consulted -appreciate input : Recommend : 1. Will increase Gabapentin from 300mg TID to 300mg, 300mg, and 600mg daily. 2. Continue Baclofen 10mg TID 3. Voltaren gel and Lidocaine patches were ordered for the patient. 4. Tramadol was ordered. He is adamant about not taking narcotics but is agreeable to have it ordered in case of increased pain. 5. He will take Tylenol for pain. 6. 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 will be discharged home office follow up for Bone Marrow biopsy in clinic TYPE 2 DM : well controlled recent Hb A1c 6.8 insulin SSI /Lantus ordered hold Novolin 70/30 insulin and PO Metformin will be resumed on discharge HTN : BP was elevated in ER possible due to intractable pain improved after pain control Cont out pt med : Coreg 12.5 mg PO BID Lisinopril 20 mg daily HX OF COPD : stable , no wheeze, SOB or hypoxia cont PRN INH BPH : no urinary symptom cont Proscar GERD : cont PPI avoid NSAID 's FULL CODE : d/w pt DVT PROPHYLAXIS : Moderate to high risk sub q Lovenox DISPOSITION : Possible discharge home tomorrow Pt/OT eval appreciated -independent in his ADL's no further PT needed Medicine follow up with Dr Holder Heme/onc follow up as out pt with Dr Salomon Ferguson on 08/30/16 Vital Signs: Date Time Temp Pulse Resp B/P (MAP) Pulse Ox O2 Delivery O2 Flow Rate FiO2 08/18/16 19:32 36.7 59 20 156/83 (107) 95 Room Air 08/18/16 16:00 Room Air 08/18/16 15:34 36.4 59 18 160/82 (108) 97 Room Air 08/18/16 11:53 36.4 58 18 166/82 (110) 99 Room Air 08/18/16 10:19 36.7 62 18 96 Room Air 08/18/16 08:00 Room Air 08/18/16 07:27 36.7 62 18 153/77 (102) 96 Room Air 08/18/16 04:27 36.6 61 18 128/61 (83) 96 Room Air 08/18/16 00:24 36.5 63 18 174/74 (107) 98 Room Air 08/18/16 00:00 Room Air Lab Results: Results Past 24 Hours Test 08/18/16 05:25 08/18/16 07:56 08/18/16 11:25 08/18/16 16:48 Range/Units White Blood Count 36.98 4.8-10.8 K/uL Red Blood Count 3.55 4.7-6.1 M/uL Hemoglobin 11.1 14.0-18.0 g/dL Hematocrit 33.3 42-52 % Mean Corpuscular Volume 93.8 80-100 fL Mean Corpuscular Hemoglobin 31.3 25-34 pg Mean Corpuscular Hemoglobin Concent 33.3 32-36 g/dl Platelet Count 189 130-400 K/uL Mean Platelet Volume 9.6 7.4-10.4 fL Neutrophils (%) (Auto) 81.9 % Lymphocytes (%) (Auto) 6.4 % Monocytes (%) (Auto) 7.9 % Eosinophils (%) (Auto) 0.2 % Basophils (%) (Auto) 0.2 % Neutrophils # (Auto) 30.30 1.4-6.5 K/uL Lymphocytes # (Auto) 2.37 1.2-3.4 K/uL Monocytes # (Auto) 2.92 0.11-0.59 K/uL Eosinophils # (Auto) 0.08 0-0.5 K/uL Basophils # (Auto) 0.07 0-0.2 K/uL RDW Standard Deviation 50.3 36.4-46.3 fL RDW Coefficient of Variation 14.6 11.5-14.5 % Immature Granulocyte % (Auto) 3.4 % Immature Granulocyte # (Auto) 1.24 0.00-0.02 K/uL Hypogranular Neutrophils OCCASIONAL Dohle Bodies 1+ Uric Acid 5.4 2.6-7.2 mg/dl Bedside Glucose 244 270 226 70-99 mg/dl Test 08/18/16 19:57 Range/Units Bedside Glucose 239 70-99 mg/dl
[2016-08-19 04:29] VITALS: BP 157/77; PULSE 60; TEMP 36.9; O2SAT 97
[2016-08-19 06:03] LABS: HEMATOCRIT 33.6 % (42-52); MEAN CELL VOLUME 93.3 fL (80-100); MEAN CORPUSCULAR HEMOGLOBIN 30.8 pg (25-34); MEAN PLATELET VOLUME 10.2 fL (7.4-10.4); PLATELET COUNT 197 K/uL (130-400); WHITE BLOOD COUNT 40.66 K/uL (4.8-10.8)
[2016-08-19 06:24] LABS: COMPLETE YES; CREATININE 0.97 mg/dl (0.60-1.40); DOHLE BODIES 1+; LYMPH ABS # 2.11 K/uL (1.2-3.4); LYMPHOCYTE % 5.2 %; META ABS # 0.37 K/uL (0-0); METAMYELOCYTE % 0.9 %; MYELOCYTE % 0.9 %; NEUTROPHILS % 91.3 %
[2016-08-19 07:42] VITALS: BP 168/79; PULSE 62; TEMP 37.2; O2SAT 97
[2016-08-19] MEDS: LIDODERM (LIDOCAINE) PATCH 5% TD SCH (08:16)
[2016-08-19] MEDS: PANTOprazole SOD 40 MG TAB PO SCH (08:17)
[2016-08-19] MEDS: OMEGA-3 (PURIFIED FISH OIL) 1 GM CAP PO SCH (08:17)
[2016-08-19] MEDS: FINASTERIDE 5 MG TAB PO SCH (08:17)
[2016-08-19] MEDS: MULTIVITAMIN TAB PO SCH (08:17)
[2016-08-19] MEDS: DULOXETINE HCL 20 MG CAP PO SCH (08:17)
[2016-08-19] MEDS: DICLOFENAC SOD 1% GEL 100 GM TUBE EXT SCH ×2 (08:17→12:24)
[2016-08-19] MEDS: LISINOPRIL 20 MG TAB PO SCH (08:18)
[2016-08-19] MEDS: ASPIRIN 81 MG ECTAB PO SCH (08:18)
[2016-08-19] MEDS: ASCORBIC ACID 500 MG TAB PO SCH (08:18)
[2016-08-19] MEDS: CARVEDILOL 12.5 MG TAB PO SCH (08:18)
[2016-08-19] MEDS: GABAPENTIN 300 MG CAP PO SCH (08:18)
[2016-08-19] MEDS: BACLOFEN 10 MG TAB PO SCH (08:18)
[2016-08-19] MEDS: INSULIN ASPART 100 UNITS/ML 3 ML PEN SC SCH ×2 (08:38→12:23)
[2016-08-19] MEDS: VANCOMYCIN INJ 1,100 MG in SODIUM CHLORIDE 0.9% 250ML 250 ML IV SCH (10:00)
[2016-08-19] MEDS ORDERED: LISI-725 PO (10:19)
[2016-08-19] MEDS ORDERED: CARV12.52 PO (10:19)
--- NOTE | 2016-08-19 11:59 | Progress Note ---
Internal Med Progress Note Date of Service: Aug 19, 2016. Provider Documentation: SUBJECTIVE: No pain or discomfort ambulating independently no fever or chills stable to be discharged home today OBJECTIVE: Vital Signs-as noted below Exam: General-no sign of distress Eyes-sclera non icteric ENT-NAD Neck-no JVD Lungs-CTA , no wheeze or rales Heart-regular S1/S2 Abdomen-soft, non tender Extremities-no lower ext edema , chronic rt sided foot drop Neuro-AAO x3, no focal neurological deficit Lab data as noted below. 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 MRI OF LUMBER SPINE W/O CONTRAST ON 11/19/14 : spinal stenosis at L3-L , rightward disc fragment at L4-L5 impinging on nerve root has chronic rt foot drop since his lumber spinal surgery in [address] Salomon Ferguson Hematology /Oncology cont pain control will need bone marrow biopsy for definitive Dx -can be done as out pt appointment scheduled with Dr Ferguson on 08/30/16 pain management consulted -appreciate input : Recommend : 1. Will increase Gabapentin from 300mg TID to 300mg, 300mg, and 600mg daily. 2. Continue Baclofen 10mg TID 3. Voltaren gel and Lidocaine patches were ordered for the patient. 4. Tramadol was ordered. He is adamant about not taking narcotics but is agreeable to have it ordered in case of increased pain. 5. He will take Tylenol for pain. 6. 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 pt is discharged home today office follow up for Bone Marrow biopsy in clinic on 08/30/16 TYPE 2 DM : well controlled recent Hb A1c 6.8 insulin SSI /Lantus ordered hold Novolin 70/30 insulin and PO Metformin resumed on discharge HTN : BP was elevated in ER possible due to intractable pain improved after pain control Cont out pt med : Coreg 12.5 mg PO BID Lisinopril 20 mg daily HX OF COPD : stable , no wheeze, SOB or hypoxia cont PRN INH BPH : no urinary symptom cont Proscar GERD : cont PPI avoid NSAID 's FULL CODE : d/w pt DVT PROPHYLAXIS : Moderate to high risk sub q Lovenox DISPOSITION : discharge home today Pt/OT eval appreciated -independent in his ADL's no further PT needed Medicine follow up with Dr Holder Heme/onc follow up as out pt with Dr Salomon Ferguson on 08/30/16 Vital Signs: Date Time Temp Pulse Resp B/P (MAP) Pulse Ox O2 Delivery O2 Flow Rate FiO2 08/19/16 08:00 Room Air 08/19/16 07:42 37.2 62 18 168/79 (108) 97 Room Air 08/19/16 04:29 36.9 60 20 157/77 (103) 97 Room Air 08/19/16 00:00 Room Air 08/18/16 23:39 36.7 52 18 148/78 (101) 97 Room Air 08/18/16 20:00 Room Air 08/18/16 19:32 36.7 59 20 156/83 (107) 95 Room Air 08/18/16 16:00 Room Air 08/18/16 15:34 36.4 59 18 160/82 (108) 97 Room Air Lab Results: Results Past 24 Hours Test 08/18/16 16:48 08/18/16 19:57 08/19/16 05:17 08/19/16 07:35 Range/Units Bedside Glucose 226 239 231 70-99 mg/dl White Blood Count 40.66 4.8-10.8 K/uL Red Blood Count 3.60 4.7-6.1 M/uL Hemoglobin 11.1 14.0-18.0 g/dL Hematocrit 33.6 42-52 % Mean Corpuscular Volume 93.3 80-100 fL Mean Corpuscular Hemoglobin 30.8 25-34 pg Mean Corpuscular Hemoglobin Concent 33.0 32-36 g/dl Platelet Count 197 130-400 K/uL Mean Platelet Volume 10.2 7.4-10.4 fL RDW Standard Deviation 49.3 36.4-46.3 fL RDW Coefficient of Variation 14.5 11.5-14.5 % Neutrophils % (Manual) 91.3 % Lymphocytes % (Manual) 5.2 % Monocytes % (Manual) 1.7 % Metamyelocytes % 0.9 % Myelocytes % 0.9 % Neutrophils # (Manual) 37.12 1.4-6.5 K/uL Total Absolute Neutrophils 37.12 1.4-6.5 K/uL Lymphocytes # (Manual) 2.11 1.2-3.4 K/uL Total Absolute Lymphocytes 2.11 1.2-3.4 K/uL Monocytes # (Manual) 0.69 0.11-0.59 K/uL Metamyelocytes # 0.37 0-0 K/uL Myelocytes # 0.37 0-0 K/uL Hypogranular Neutrophils 1+ Dohle Bodies 1+ Creatinine 0.97 0.60-1.40 mg/dl Est Creatinine Clear Calc Drug Dose 64.8 ml/min Estimated GFR () 87.5 Estimated GFR (Non- 75.5 Test 08/19/16 11:28 Range/Units Bedside Glucose 308 70-99 mg/dl
--- NOTE | 2016-08-19 12:02 | Discharge Summary ---
Discharge Summary Date of Service Aug 19, 2016. 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 Diffuse marrow signal abnormality throughout visualized skeletal structures which is suspicious for a marrow replacement process such as leukemia. 2. Mild to moderate central canal stenosis at L3-L4 due to disc bulge, ligamentous hypertrophy and facet arthrosis. 3. Central/right paracentral disc protrusion at L4-5 with moderate narrowing of the right lateral recess and mild narrowing of the central canal. Fine suggestive of a right hemilaminotomy at this level. 4. Mild edema and enhancement within the paraspinal musculature which is nonspecific. CT ABDOMEN /PELVIS : IMPRESSION: 1. No acute process within the abdomen or pelvis. 2. Extensive sigmoid diverticulosis without evidence for acute diverticulitis. 3. No abdominal or pelvic lymphadenopathy. 4. 1.8 cm left adrenal nodule. While indeterminate, this is statistically benign. Consultations: HEMATOLOGY /ONCOLOGY PAIN MANAGEMENT Medication Reconciliation New Medications: Diclofenac Sod (Voltaren) 100 Appln/100 Gm Gel 1 APPLN EXT Q8 for 3 Days, #1 TUBE for 3 days only Duloxetine HCl (Duloxetine HCl) 20 Mg Cap 20 MG PO QAM for 30 Days, #30 CAP 2 Refills Gabapentin (Gabapentin) 600 Mg Tab 600 MG PO HS for 30 Days, #30 TAB 2 Refills Gabapentin (Gabapentin) 300 Mg Cap 300 MG PO BID for 30 Days, #30 CAP 2 Refills TAKE AT MORNING AND NOON TIME Polyethylene (Miralax) 17 Gm Pow 17 GM PO DAILY PRN for Constipation for 30 Days OVER THE COUNTER CONTINUE TO TAKE WHILE TAKING TRAMADOL TO PREVENT CONSTIPATION Tramadol HCl (Tramadol HCl) 50 Mg Tab 50 MG PO Q8 PRN for pain, #30 TAB Continued Medications: Albuterol Hfa (Ventolin Hfa) 200 Puffs/98310 Mcg Aers 2-4 PUFFS INH Q6H, #1 INHALER Alfuzosin Hcl (Uroxatral) 10 Mg Tab 10 MG PO DAILY, TAB Ascorbic Acid (Vitamin C) 500 Mg Tab 500 MG PO DAILY Baclofen (Lioresal) 10 Mg Tab 10 MG PO TID, TAB Carvedilol (Coreg) 12.5 Mg Tab 12.5 MG PO BID for 30 Days, #60 TAB (This prescription has been renewed) Cranberry (Vaccinium Macrocarp (Cranberry Extract) 200 Mg Cap 200 MG PO DAILY Finasteride (Proscar) 5 Mg Tab 5 MG PO DAILY, TAB Fish Oil ([place]-3) 1 Ea Cap 1 CAP PO DAILY, CAP Garlic (Garlic) 1,000 Mg Cap Glucostix Blood Test Strips (Onetouch Ultra Blue) 1 Ea Strp Insulin Isophan/Regular (Novolin 70/30) Susp 25-26 UNITS SC QAM, BTL Insulin Isophan/Regular (Novolin 70/30) Susp 15-16 UNITS SC QPM, BTL Lisinopril (Zestril) 20 Mg Tab 20 MG PO DAILY for 30 Days, #30 TAB (This prescription has been renewed) Metformin Hcl Er (Glucophage Er) 500 Mg Tab 500 MG PO BID, TAB Misc Natural Products (Prostate Health) 1 Cap Cap 1 CAP PO DAILY Multivitamin (Multivitamin) Tab 1 TAB PO DAILY, TAB Omeprazole (Prilosec) 20 Mg Capcr 20 MG PO DAILY, CAP Discontinued Medications: Aspirin (Aspirin Ec) 81 Mg Tab 81 MG PO DAILY Gabapentin (Neurontin) 300 Mg Cap 300 MG PO TID, CAP Naproxen (Aleve) 220 Mg Tab 220 MG PO, TAB Referrals At Discharge Follow up Referrals: Oncology/Hematology Referral - 08/30/16 with Mitchell Ferguson M.D. Physician Referral - 08/24/16 with Royce Gaviria M.D. 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 , BPH, reflux esophagitis presented to ED with complain of intractable back pain Pt has been experiencing low back pain with pain radiation to right knee, dorsum of leg and rt foot for weeks Has chronic rt foot drop ever since his lumber spinal surgery in [address] Gibbs for back pain , had epidural steroid injection with no benefit has been taking gabapentin , baclofen and Naproxen PRN -which provides some improvement with discomfort last week -pt experienced chills , night sweats -was seen by his family physician lab work shows WBC elevated 38 K in 08/04/16 repeat blood work ordered a week later 08/11/16 -WBC unchanged 38 K /Hb 11 .9 / platelet 271 Peripheral smear on 08/11/16 : leukocytosis with absolute neutrophilia, monocytosis , lymphopenia , most likely reactive process /leukemoid reaction consider flow cytometry /and bone marrow biopsy if clinically indicated pt is schedule to see Hematology /Oncology Dr Jackson tomorrow his back pain continues to worsen to the point , unable to ambulate on his own asked by his PCP to follow at ED at [facility] for further evaluation during my interview , pt appears to be comfortable back pain / as long as he is lying flat , worse pain is when he tries to get up or bend over lab work shows persisted leukocytosis WBC 42 K MRI of lumber spine diffuse marrow abnormality throughout skeletal structure suspicious for marrow replacement process as Leukemia Physical Exam (per Admitting): General Appearance: no apparent distress Head: normocephalic, atraumatic Eyes: sclerae normal Neck: no adenopathy, thyroid normal Respiratory/Chest: chest non-tender, lungs clear, normal breath sounds, no respiratory distress Cardiovascular: regular rate, rhythm, no edema, no JVD Abdomen/GI: normal bowel sounds, non tender, soft Back: + pertinent finding (TENDERNESS ON PALPATION OF RT ILLIAC CREST AREA ) Extremities/Musculoskelatal: no calf tenderness, normal capillary refill, no pedal edema, + pertinent finding (PAIN ON LOW BACK / MOSTLY RT ILLIAC SPINE AREA WITH RADIATION TO RT KNEE, FOOT , RT FOOT DROP -CHRONIC ) Neurologic/Psych: alert, normal mood/affect, oriented x 3, + motor weakness (ON RT LEG ), + pertinent finding (RT FOOT DROP ) Skin: normal color, warm/dry, no rash, + rash Lymphatic: no adenopathy Hospital Course GRAM POSITIVE COCCI 1/2 BOTTLE : contamination no source of infection noted persistent leukocytosis due to underlying bone marrow malignancy given immunocompromised status pt given Iv Vancomycin for X24 hrs no evidence of infection no weakness , malaise , no fever or chills energy /appetite remains normal stable to be discharged today INTRACTABLE BACK PAIN : symptom resolved able to ambulate in hallway no discomfort noted due to bone marrow involvement in lumber spine symptom of back pain has been ongoing /chronic for past number of week , getting progressively worse no complain of bowel or bladder incontinence MRI of lumber spine : Diffuse marrow signal abnormality throughout visualized skeletal structures which is suspicious for a marrow replacement process such as leukemia. MRI OF LUMBER SPINE W/O CONTRAST ON 11/19/14 : spinal stenosis at L3-L , rightward disc fragment at L4-L5 impinging on nerve root has chronic rt foot drop since his lumber spinal surgery in [address] Mitchell Ferguson Hematology /Oncology cont pain control will need bone marrow biopsy for definitive Dx -can be done as out pt appointment scheduled with Dr Ferguson on 08/30/16 pain management consulted -appreciate input : Recommend : 1. Will increase Gabapentin from 300mg TID to 300mg, 300mg, and 600mg daily. 2. Continue Baclofen 10mg TID 3. Voltaren gel and Lidocaine patches were ordered for the patient. 4. Tramadol was ordered. He is adamant about not taking narcotics but is agreeable to have it ordered in case of increased pain. 5. He will take Tylenol for pain. 6. 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 pt is discharged home today office follow up for Bone Marrow biopsy in clinic on 08/30/16 TYPE 2 DM : well controlled recent Hb A1c 6.8 insulin SSI /Lantus ordered hold Novolin 70/30 insulin and PO Metformin resumed on discharge HTN : BP was elevated in ER possible due to intractable pain improved after pain control Cont out pt med : Coreg 12.5 mg PO BID Lisinopril 20 mg daily HX OF COPD : stable , no wheeze, SOB or hypoxia cont PRN INH BPH : no urinary symptom cont Proscar GERD : cont PPI avoid NSAID 's FULL CODE : d/w pt DVT PROPHYLAXIS : Moderate to high risk sub q Lovenox DISPOSITION : discharge home today Pt/OT anibal appreciated -independent in his ADL's no further PT needed Medicine follow up with Dr Holder Heme/onc follow up as out pt with Dr Mitchell Ferguson on 08/30/16 Total time spent on discharge = 35 MINS This includes examination of the patient, discharge planning, medication reconciliation, and communication with other providers. Discharge Instructions Discharge Instructions Date of Service Aug 17, 2016. 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 Instructions / Follow-Up Instructions / Follow-Up HOSPITAL FOLLOW UP ON 08/24/2016 @ 3:[address] Royce Gaviria MD Internal Medicine [facility] LAB WORK : COMPLETE BLOOD COUNT WITH DIFFERENTIAL ON 08/24/16 NEED TO FOLLOW UP WITH HEMATOLOGY /ONCOLOGY DR MITCHELL FERGUSON IN [facility] [place] FOR BONE MARROW BIOPSY APPOINTMENT SCHEDULED ON 08/30/2016 @ 1: [address] Mitchell Ferguson MD Hematology/Oncology [facility] Hospital Diet Patient's current hospital diet: AHA Diet (Heart Healthy), Diabetes Type 2 Diet Discharge Diet Recommended Diet: AHA Diet (Heart Healthy), Diabetes Type 2 Diet Pending Studies Studies pending at discharge: yes List of pending studies: LAB WORK : COMPLETE BLOOD COUNT WITH DIFFERENTIAL ON 08/24/16 Medical Emergencies . Who to Call and When: Medical Emergencies: If at any time you feel your situation is an emergency, please call 911 immediately. . Non-Emergent Contact Non-Emergency issues call your: Primary Care Provider . . "Provider Documentation" section prepared by Martita Storm. . VTE Core Measure Inpt VTE Proph given/why not?: Enoxaparin (Lovenox)SQ Additional Copies To Mitchell Ferguson M.D. Pilgram, Philip A., M.D.
[2016-08-19] MEDS ORDERED: VANCOMYCIN TROUGH ONE (21:30)
[2016-08-24 13:01] LABS: NEO JAK2 MUT EXON 12 MOLECULAR See Separate Report
[2016-08-24 15:00] LABS: NEO CAL-R MOLECULAR See Separate Report; NEO MPL W515 See Separate Report
[2016-08-26] MEDS ORDERED: ULT50X PO (13:15)
[2016-08-26] MEDS ORDERED: LDDP5 TD (13:15)
[2016-08-26] MEDS ORDERED: ACET-1047 PO (13:44)
[2016-08-26] MEDS ORDERED: CYM30 PO (14:20)
[2016-08-26] MEDS ORDERED: HYDR-5688 PO (14:22)
== END 2016-08-19 13:00 | disposition home or self-care (01) | DRG 565 ==
LOC: C.EDB 10:56 → C.4E 15:08 → EDBEDREQSVC 15:22 → ENRESERV 16:03
PROVIDERS: ADMIT Hospitalist; ATTEND Hospitalist
DX: M89.8X8 Other specified disorders of bone, other site (principal); C95.90 Leukemia, unspecified not having achieved remission; E11.9 Type 2 diabetes mellitus without complications; I10 Essential (primary) hypertension; J44.9 Chronic obstructive pulmonary disease, unspecified; N40.0 Benign prostatic hyperplasia without lower urinary tract symptoms; G89.29 Other chronic pain; E78.5 Hyperlipidemia, unspecified; D72.829 Elevated white blood cell count, unspecified; Z79.82 Long term (current) use of aspirin; Z79.4 Long term (current) use of insulin

== ENCOUNTER 2016-08-22 23:51 | Inpatient (IN) | payer OTHER ==
[~2016-08-22] VITALS: Ht 175.3 cm; Wt 71.8 kg
[~2016-08-22 23:51] MED LIST changes: -ASPI81TA28 PO; +BACL10TA PO; -CHOLTAB3 PO; +CYM20 PO; -DTRSR4 PO; -GABA-113 PO; -GARL400T4 PO; +GLUC-221; +MRLP17X PO; +NRN300 PO; +NRN600 PO; -RANI300T2 PO; +ULT50X PO; +VLTG EXT; +VNTHFA/IN INH
[2016-08-23] MEDS ORDERED: POLY335019 PO (00:30)
[2016-08-23] MEDS ORDERED: TRAM-10 PO (00:30)
[2016-08-23] MEDS ORDERED: ASPI81TA28 PO (00:30)
[2016-08-23] MEDS ORDERED: DICL1GEL12 TOP (00:30)
[2016-08-23] MEDS ORDERED: GABA-113 PO ×2 (00:30)
[2016-08-23] MEDS ORDERED: LISI-725 PO (00:30)
[2016-08-23] MEDS ORDERED: DIAZEPAM INJ 5 MG/ML 2 ML CARP IV ONE (00:30)
[2016-08-23] MEDS ORDERED: DULO-24 PO (00:30)
[2016-08-23] MEDS ORDERED: CARV12.5 PO (00:30)
[2016-08-23 01:13] LABS: HEMATOCRIT 33.2 % (42-52); MEAN CELL VOLUME 93.8 fL (80-100); MEAN CORPUSCULAR HEMOGLOBIN 32.2 pg (25-34); MEAN CORPUSCULAR HGB CONC 34.3 g/dl (32-36); MEAN PLATELET VOLUME 10.3 fL (7.4-10.4); PLATELET COUNT 214 K/uL (130-400); RED BLOOD COUNT 3.54 M/uL (4.7-6.1); WHITE BLOOD COUNT 41.01 K/uL (4.8-10.8)
[2016-08-23 01:18] LABS: BASO ABS # 0.74 K/uL (0-0.2); BASOPHIL % 1.8 % (0-2); COMPLETE YES; DOHLE BODIES 1+; LYMPH ABS # 1.85 K/uL (1.2-3.4); LYMPHOCYTE % 4.5 %; NEUTROPHILS % 90.1 %
[2016-08-23 01:28] LABS: BUN/CREATININE RATIO 17.7 (10-20); CALCIUM 8.6 mg/dl (8.5-10.1); POTASSIUM 4.3 mmol/L (3.5-5.1)
[2016-08-23] MEDS ORDERED: OPTIRAY 320 IV PRN (02:00)
[2016-08-23] MEDS ORDERED: MoRPHine SULFATE 4 MG/ML 1 ML CARP IV STA (02:30)
--- NOTE | 2016-08-23 03:22 | EMERGENCY ROOM VISIT NOTE ---
History Report prepared by Pamela: Chester Bob Under the Supervision of: Dr. Ahmet Cosme D.O. First contact with patient: 00:05 Chief Complaint: NECK PAIN Stated Complaint: NECK PAIN AT BASE OF HEAD History of Present Illness The patient is a 75 year old male who presents to the Emergency Room with complaints of constant right sided neck pain that began two days prior to this visit. The patient describes the pain as "sharp" and states that it is localized to the right side. His pain is worsened with movement. The patient was admitted to the Hospital on the 16 of August and discharged on the 19 of August. Documentation from this admission states that the patient has a possible primary bone marrow disorder. The patient has a follow-up bone marrow biopsy on the 30 of August to test for Leukemia. He is currently taking Gabapentin, Tramadol, and Baclofen for his pain. He denies change in vision, fevers, chest pain, shortness of breath, nausea, vomiting, diarrhea, pain with urination, and melena. 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 A total of 10 systems reviewed and were otherwise negative. Past Medical & Surgical Medical Problems: (1) Back pain (2) Diabetes (3) Dyslipidemia (4) GERD (gastroesophageal reflux disease) (5) Hypertension (6) Spinal stenosis Family History Diabetes mellitus Heart disease Hypertension Social History Smoking Status: Never Smoker Alcohol Use: none Marital Status: Housing Status: lives with significant other Occupation Status: retired Current/Historical Medications Scheduled Albuterol Hfa (Ventolin Hfa), 2-4 PUFFS INH Q6H Alfuzosin Hcl (Uroxatral), 10 MG PO DAILY Ascorbic Acid (Vitamin C), 500 MG PO DAILY Aspirin (Aspirin Ec), 81 MG PO DAILY Baclofen (Lioresal), 10 MG PO TID Carvedilol (Coreg), 12.5 MG PO BID Cranberry (Vaccinium Macrocarp (Cranberry Extract), 200 MG PO DAILY Diclofenac Sodium (Topical) (Voltaren 1% Top Gel), 1 APPLN TOP Q8 Duloxetine HCl (Cymbalta), 20 MG PO DAILY Finasteride (Proscar), 5 MG PO DAILY Fish Oil ([place]-3), 1 CAP PO DAILY Gabapentin (Neurontin), 300 MG PO BID AT AM AND NOON Gabapentin (Neurontin), 600 MG PO HS Garlic (Garlic), 1,000 MG PO DAILY Insulin Isophan/Regular (Novolin 70/30), 25-26 UNITS SC QAM Insulin Isophan/Regular (Novolin 70/30), 15-16 UNITS SC QPM Lisinopril (Zestril), 20 MG PO DAILY Metformin Hcl Er (Glucophage Er), 500 MG PO BID Misc Natural Products ([employer] [facility]), 1 CAP PO DAILY Multivitamin (Multivitamin), 1 TAB PO DAILY Omeprazole (Prilosec), 20 MG PO DAILY Polyethylene Glycol 3350 (Miralax), 17 GM PO DAILY Scheduled PRN Tramadol (Ultram), 50 MG PO Q8H PRN for Pain Allergies Coded Allergies: Terazosin (Verified Allergy, Unknown, unkn, 08/23/16) Physical Exam Vital Signs Date Time Temp Pulse Resp B/P (MAP) Pulse Ox O2 Delivery O2 Flow Rate FiO2 08/23/16 02:44 59 18 181/81 97 Room Air 08/23/16 01:55 67 18 187/86 97 Room Air 08/23/16 00:46 60 18 166/81 93 Room Air 08/22/16 23:56 36.5 58 20 159/79 98 Room Air Physical Exam GENERAL: alert, sitting up in bed, disheveled, chronically-ill appearing, in mild distress. EYE EXAM: normal conjunctiva, PERRL and EOM's intact OROPHARYNX: no exudate, no erythema, lips, buccal mucosa, and tongue normal and mucous membranes are moist NECK: supple, able to turn the neck 90 degrees to the left, 30 degrees to right with moderate pain. extension/flexion in tact. There is acute reproducible tenderness in the bilateral cervical paraspinal region. LUNGS: Clear to auscultation. Normal chest wall mechanics HEART: no murmurs, S1 normal and S2 normal ABDOMEN: abdomen soft, non-tender, normo-active bowel sounds, no masses, no rebound or guarding. BACK: Back is symmetrical on inspection and there is no deformity, no midline tenderness, no CVA tenderness. SKIN: no rashes and no bruising UPPER EXTREMITIES: Flexion/extension at the shoulder, elbows, wrists, grasps 5/ 5 bilaterally. Sensation is intact. LOWER EXTREMITIES: No pitting edema. NEURO EXAM: Normal sensorium, cranial nerves II-XII grossly intact Medical Decision & Procedures ER Provider Diagnostic Interpretation: Radiology results as stated below per my review and the radiologist's interpretation: CT C SPINE: Lucent lesion in the occipital bone measuring approximately 1.6 cm (Series 2, Image 24). This finding is nonspecific although primary bone lesion or osseous metastatic disease is not excluded. No acute fracture or traumatic subluxation of the cervical spine. Mild degenerative changes of the cervical spine. Laboratory Results 08/23/16 00:33 Red Blood Count 3.54, Mean Corpuscular Volume 93.8, Mean Corpuscular Hemoglobin 32.2, Mean Corpuscular Hemoglobin Concent 34.3, Mean Platelet Volume 10.3 08/23/16 00:33 Test 08/23/16 00:33 08/23/16 00:41 White Blood Count 41.01 K/uL (4.8-10.8) Red Blood Count 3.54 M/uL (4.7-6.1) Hemoglobin 11.4 g/dL (14.0-18.0) Hematocrit 33.2 % (42-52) Mean Corpuscular Volume 93.8 fL (80-100) Mean Corpuscular Hemoglobin 32.2 pg (25-34) Mean Corpuscular Hemoglobin Concent 34.3 g/dl (32-36) Platelet Count 214 K/uL (130-400) Mean Platelet Volume 10.3 fL (7.4-10.4) RDW Standard Deviation 50.0 fL (36.4-46.3) RDW Coefficient of Variation 14.6 % (11.5-14.5) Neutrophils % (Manual) 90.1 % Lymphocytes % (Manual) 4.5 % Monocytes % (Manual) 3.6 % Basophils % (Manual) 1.8 % (0-2) Neutrophils # (Manual) 36.95 K/uL (1.4-6.5) Total Absolute Neutrophils 36.95 K/uL (1.4-6.5) Lymphocytes # (Manual) 1.85 K/uL (1.2-3.4) Total Absolute Lymphocytes 1.85 K/uL (1.2-3.4) Monocytes # (Manual) 1.48 K/uL (0.11-0.59) Basophils # (Manual) 0.74 K/uL (0-0.2) Dohle Bodies 1+ Anion Gap 7.0 mmol/L (3-11) Est Creatinine Clear Calc Drug Dose 60.8 ml/min Estimated GFR () 84.4 Estimated GFR (Non- 72.8 BUN/Creatinine Ratio 17.7 (10-20) Calcium Level 8.6 mg/dl (8.5-10.1) Bedside Glucose 207 mg/dl (70-99) Laboratory results per my review. Medications Administered Medications (Trade) Dose Ordered Sig/Karla Route Start Time Stop Time Status Last Admin Dose Admin Diazepam (Valium Inj) 2.5 mg NOW ONCE IV 08/23/16 00:30 08/23/16 00:31 DC 08/23/16 00:42 2.5 MG Morphine Sulfate (MoRPHine SULFATE INJ) 4 mg NOW STAT IV 08/23/16 02:30 08/23/16 02:31 DC 08/23/16 02:42 4 MG ED Course ED COURSE: Vital signs were reviewed and showed hypertensive and bradycardiac vitals The patients medical record was reviewed The above diagnostic studies were performed and reviewed. ED treatments and interventions as stated above. 0011: The patient was evaluated in room A2. A complete history and physical examination was performed. 0030: Ordered Valium 2.5 mg IV. 0230: Ordered Morphine Sulfate 4 mg IV. 0230: I discussed the case with Dr. De Jesus - Hospitalist. He will evaluate the patient for further treatment. 0235: Upon reevaluation, the patient is resting in bed.I discussed my findings with the patient and he understands and agrees with the treatment plan. Based on the patients age, coexisting illnesses, exam and lab findings the decision to treat as an inpatient was made. The patient remained stable while under my care. The patient will be evaluated for further management. Medical Decision Blood Pressure Screening: The patient was found to have a slightly elevated blood pressure due to circumstances. I do not believe that the patient requires hypertension monitoring. Medication Reconciliation: I attest that I have personally reviewed the patient' s current medication list. Differential diagnosis includes; fracture, meningitis, cervical disc protrusion , leukemia, muscle strain, mass induced. Patient is a 75-year-old male who presents the ER for upper neck pain which started just prior to discharge from the hospital 2 days ago. 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 He notes he has had continued pain and is unable to get around secondary to the pain. His primary complaint tonight is the neck pain which I believe is muscle skeletal. CT head and neck shows no acute pathology with the exception of a lesion on his occiput. He is following with hematology/oncology. He was given IV Valium with improvement along with morphine. He notes he is having too much pain to go home. I discussed case with internal medicine and he'll be watched overnight. I favor this gentleman will benefit from rehabilitation. Consults Time Called: [phone] Consulting Physician: Dr. De Jesus - Kian Returned Call: [phone] I discussed the case with Dr. Neal Langston. He will evaluate the patient for further treatment. Impression Primary Impression: Acute neck pain Additional Impressions: Low back pain Leukemia Leukocytosis Scribe Attestation The scribe's documentation has been prepared under my direction and personally reviewed by me in its entirety. I confirm that the note above accurately reflects all work, treatment, procedures, and medical decision making performed by me. Departure Information Dispostion Being Evaluated By Hospitalist Referrals Royce Gaviria M.D. (PCP) Patient Instructions My [facility] Problem Qualifiers Additional Impressions: Low back pain Chronicity: acute Back pain laterality: bilateral Sciatica presence: without sciatica Qualified Codes: M54.5 - Low back pain Leukemia Leukemia type: unspecified Leukemia Active/Remission status: without remission Qualified Codes: C95.90 - Leukemia, unspecified not having achieved remission Leukocytosis Leukocytosis type: unspecified Qualified Codes: D72.829 - Elevated white blood cell count, unspecified
[2016-08-23] MEDS ORDERED: ACETAMINOPHEN 325 MG TAB PO PRN (04:00)
[2016-08-23] MEDS ORDERED: ALUMINUM/MAGNESIUM/SIMETH (MAALOX MAX) 30 ML UDC PO PRN (04:00)
[2016-08-23] MEDS ORDERED: GLUCOSE 10 TABS/TUBE PO PRN (04:00)
[2016-08-23] MEDS ORDERED: MAGNESIUM HYDROXIDE SUSP 30 ML UDC PO PRN (04:00)
[2016-08-23] MEDS ORDERED: GLUCAGON FOR INJ 1 MG VIAL SQ PRN (04:00)
[2016-08-23] MEDS ORDERED: ONDANSETRON INJ 2 MG/ML 2 ML VIAL IV PRN (04:00)
[2016-08-23] MEDS ORDERED: POLYETHYLENE (MIRALAX) 17 GM PACK PO PRN (04:00)
[2016-08-23] MEDS ORDERED: GLUCOSE 40% GEL 15 GM TUBE PO PRN (04:00)
[2016-08-23] MEDS ORDERED: DEXTROSE 50% 50 ML SYR IV PRN (04:00)
[2016-08-23 04:30] VITALS: BP 176/75; PULSE 65; TEMP 36.5; O2SAT 99; BMI 24.4
[2016-08-23] MEDS ORDERED: PHARMACY GLYCEMIC MGMT CONSULT PRN (04:30)
[2016-08-23] MEDS ORDERED: IV FLUIDS COMPLETED PRN (04:45)
[2016-08-23] MEDS: TRAMADOL HCL 50 MG TAB PO PRN ×2 (04:57→23:55)
--- NOTE | 2016-08-23 05:05 | History and Physical ---
History & Physical Date & Time of Service: Aug 23, 2016 at 04:46 Chief Complaint: Acute Neck Pain, Low Back Pain Primary Care Physician: Royce Gaviria M.D. History of Present Illness Source: patient, clinic records, hospital records This is a 75 year old male with a PMH of lumbar spinal stenosis, HTN, DM2, PVD, likely chronic myeloproliferative disorder vs. leukemia, presents with worsening low back pain and neck pain; patient was recent admitted to the hospital due to low back pain; had pain management consultation; and medications were adjusted. During that admission, hematology/oncology was consulted due to elevated WBC; recommendation made for outpatient bone marrow biopsy on August 30. He states his pain was controlled and he was discharged home , but his pain recurred and now his neck pain is a lot worse. Denies fevers/ chills, nausea/vomiting/diarrhea, chest pain/shortness of breath. Past Medical/Surgical History Medical Problems: (1) Diabetes Status: Chronic (2) Dyslipidemia Status: Chronic (3) GERD (gastroesophageal reflux disease) Status: Chronic (4) Hypertension Status: Chronic (5) Spinal stenosis Status: Chronic Family History Diabetes mellitus Heart disease Hypertension Social History Smoking Status: Never Smoker Marital Status: Housing status: lives alone Occupational Status: retired Allergies Coded Allergies: Terazosin (Verified Allergy, Unknown, unkn, 08/23/16) Home Medications Scheduled Albuterol Hfa (Ventolin Hfa), 2-4 PUFFS INH Q6H Alfuzosin Hcl (Uroxatral), 10 MG PO DAILY Ascorbic Acid (Vitamin C), 500 MG PO DAILY Aspirin (Aspirin Ec), 81 MG PO DAILY Baclofen (Lioresal), 10 MG PO TID Carvedilol (Coreg), 12.5 MG PO BID Cranberry (Vaccinium Macrocarp (Cranberry Extract), 200 MG PO DAILY Diclofenac Sodium (Topical) (Voltaren 1% Top Gel), 1 APPLN TOP Q8 Duloxetine HCl (Cymbalta), 20 MG PO DAILY Finasteride (Proscar), 5 MG PO DAILY Fish Oil (Bandana-3), 1 CAP PO DAILY Gabapentin (Neurontin), 300 MG PO BID AT AM AND NOON Gabapentin (Neurontin), 600 MG PO HS Garlic (Garlic), 1,000 MG PO DAILY Insulin Isophan/Regular (Novolin 70/30), 25-26 UNITS SC QAM Insulin Isophan/Regular (Novolin 70/30), 15-16 UNITS SC QPM Lisinopril (Zestril), 20 MG PO DAILY Metformin Hcl Er (Glucophage Er), 500 MG PO BID Misc Natural Products ([employer]), 1 CAP PO DAILY Multivitamin (Multivitamin), 1 TAB PO DAILY Omeprazole (Prilosec), 20 MG PO DAILY Polyethylene Glycol 3350 (Miralax), 17 GM PO DAILY Scheduled PRN Tramadol (Ultram), 50 MG PO Q8H PRN for Pain Review of Systems Constitutional: No fever, No chills, No weakness Respiratory: No cough, No sputum, No shortness of breath, No dyspnea on exertion, No dyspnea at rest, No hemoptysis Cardiovascular: No chest pain, No edema, No palpitations Abdomen: No pain, No nausea, No vomiting, No diarrhea, No constipation, No GI bleeding Musculoskeletal: + joint pain (neck, low back) Genitourinary - Male: No hematuria, No dysuria, No urinary frequency, No urinary urgency Neurologic: + numbness/tingling, No weakness, No vertigo, No balance problems Psychiatric: No depression symptoms Endocrine: No fatigue Hematologic / Lymphatic: No abnormal bleeding/bruising Integumentary: No rash Allergic / Immunologic: No environmental allergies, No seasonal allergies Physical Exam Vital Signs Date Time Temp Pulse Resp B/P (MAP) Pulse Ox O2 Delivery O2 Flow Rate FiO2 08/23/16 04:19 63 18 176/80 94 08/23/16 02:44 59 18 181/81 97 Room Air 08/23/16 01:55 67 18 187/86 97 Room Air 08/23/16 00:46 60 18 166/81 93 Room Air 08/22/16 23:56 36.5 58 20 159/79 98 Room Air General Appearance: + moderate distress (secondary to pain) Head: normocephalic, atraumatic ENT: hearing grossly normal Respiratory/Chest: chest non-tender, lungs clear, normal breath sounds, no respiratory distress, no accessory muscle use Cardiovascular: regular rate, rhythm, no edema, no murmur Abdomen/GI: normal bowel sounds, non tender, soft Back: + pertinent finding (decreased neck movement, head is rotated to the left due to pain, decreased/painful ROM of back) Extremities/Musculoskelatal: normal capillary refill, no pedal edema Neurologic/Psych: no motor/sensory deficits, alert, normal mood/affect Skin: normal color Lymphatic: no adenopathy Diagnostics Laboratory Results Results Past 24 Hours Test 08/23/16 00:33 08/23/16 00:41 Range/Units White Blood Count 41.01 4.8-10.8 K/uL Red Blood Count 3.54 4.7-6.1 M/uL Hemoglobin 11.4 14.0-18.0 g/dL Hematocrit 33.2 42-52 % Mean Corpuscular Volume 93.8 80-100 fL Mean Corpuscular Hemoglobin 32.2 25-34 pg Mean Corpuscular Hemoglobin Concent 34.3 32-36 g/dl Platelet Count 214 130-400 K/uL Mean Platelet Volume 10.3 7.4-10.4 fL RDW Standard Deviation 50.0 36.4-46.3 fL RDW Coefficient of Variation 14.6 11.5-14.5 % Neutrophils % (Manual) 90.1 % Lymphocytes % (Manual) 4.5 % Monocytes % (Manual) 3.6 % Basophils % (Manual) 1.8 0-2 % Neutrophils # (Manual) 36.95 1.4-6.5 K/uL Total Absolute Neutrophils 36.95 1.4-6.5 K/uL Lymphocytes # (Manual) 1.85 1.2-3.4 K/uL Total Absolute Lymphocytes 1.85 1.2-3.4 K/uL Monocytes # (Manual) 1.48 0.11-0.59 K/uL Basophils # (Manual) 0.74 0-0.2 K/uL Dohle Bodies 1+ Sodium Level 135 136-145 mmol/L Potassium Level 4.3 3.5-5.1 mmol/L Chloride Level 102 98-107 mmol/L Carbon Dioxide Level 26 21-32 mmol/L Anion Gap 7.0 3-11 mmol/L Blood Urea Nitrogen 18 7-18 mg/dl Creatinine 1.00 0.60-1.40 mg/dl Est Creatinine Clear Calc Drug Dose 60.8 ml/min Estimated GFR () 84.4 Estimated GFR (Non- 72.8 BUN/Creatinine Ratio 17.7 10-20 Random Glucose 204 70-99 mg/dl Calcium Level 8.6 8.5-10.1 mg/dl Bedside Glucose 207 70-99 mg/dl Impression Assessment and Plan This is a 75 year old male with a PMH of lumbar spinal stenosis, HTN, DM2, PVD, likely chronic myeloproliferative disorder vs. leukemia, presents with worsening low back pain and neck pain Osteoarthritis of Back/Neck Lumbar Spinal Stenosis Cervical spine CT Lucent lesion in the occipital bone measuring approximately 1.6 cm (Series 2, Image 24). This finding is nonspecific although primary bone lesion or osseous metastatic disease is not excluded. Dilaudid PRN Lidocaine patch Gabapentin increased to 600mg TID Duloxetine pain management consultation PT/OT discharge planning evaluation = may need placement Chronic Myeloproliferative Disorder/Leukemia Hem/Onc planned for bone marrow biopsy on August 30 as outpatient WBC stable no aspirin or NSAIDs due to bone marrow biopsy scheduled possible metastasis to occiput? may need oncology referral DM2 insulin 70/30 at home will continue for now, glycemic control consultation HTN continue home medications DVT ppx subq heparin FULL CODE VTE Prophylaxis VTE Risk Assessment Done? Y/N: Yes Risk Level: High
[2016-08-23] MEDS: DICLOFENAC SOD 1% GEL 100 GM TUBE EXT SCH ×3 (06:11→21:10)
[2016-08-23] MEDS: HYDROmorphone INJ 2 MG/ML SYR/VIAL IV PRN ×2 (06:15→13:06)
[2016-08-23 06:30] LABS: INR 1.1 (0.9-1.1); PROTHROMBIN TIME (PATIENT) 11.7 SECONDS (9.0-12.0)
--- NOTE | 2016-08-23 06:30 | DIAGNOSTIC IMAGING REPORT ---
CT CERVICAL SPINE WITH CT DOSE: 305.50 mGy.cm CLINICAL HISTORY: severe neck pain history of leukemia TECHNIQUE: The patient was scanned in a dynamic helical fashion during intravenous administration of 92 cc of Optiray 320. COMPARISON STUDY: None. FINDINGS: The visualized portions lung apices reveal no evidence of pneumothorax. No apical masses are visualized. There is no pathologic adenopathy. No acute fractures are visualized. There are no traumatic subluxations. There is 17 mm lytic focus within the occipital bone near the midline. There are mild degenerative changes present. IMPRESSION: 1. No acute fractures or traumatic subluxations 2. Mild degenerative changes 3. Nonspecific 17 mm lytic focus involving the occipital bone near the midline Electronically signed by: Krishna Atwood M.D. 08/23/2016 6:28 AM Dictated Date/Time: 08/23/2016 6:25 AM
[2016-08-23] MEDS: HEPARIN SOD 5000 UNIT/0.5 ML CARP SQ SCH ×4 (07:15→21:10)
[2016-08-23 07:32] VITALS: BP 164/70; PULSE 68; TEMP 36.4; O2SAT 90
[2016-08-23] MEDS ORDERED: INSULIN HUMAN 70% NPH/30% REGULAR SC SCH ×2 (08:00→21:00)
[2016-08-23] MEDS: POLYETHYLENE (MIRALAX) 17 GM PACK PO SCH (08:00)
[2016-08-23] MEDS ORDERED: ALFUZosin TAB 10 MG TAB PO SCH (08:00)
[2016-08-23] MEDS: DULOXETINE HCL 20 MG CAP PO SCH (08:18)
[2016-08-23] MEDS: PANTOprazole SOD 40 MG TAB PO SCH (08:18)
[2016-08-23] MEDS: GABAPENTIN 600 MG TAB PO SCH ×3 (08:18→21:09)
[2016-08-23] MEDS: FINASTERIDE 5 MG TAB PO SCH (08:19)
[2016-08-23] MEDS: CARVEDILOL 12.5 MG TAB PO SCH ×2 (08:20→21:09)
[2016-08-23] MEDS: BACLOFEN 10 MG TAB PO SCH ×3 (08:20→21:10)
[2016-08-23] MEDS: MULTIVITAMIN TAB PO SCH (08:21)
[2016-08-23] MEDS: LISINOPRIL 20 MG TAB PO SCH (08:22)
[2016-08-23] MEDS: LIDODERM (LIDOCAINE) PATCH 5% TD SCH (08:26)
[2016-08-23] MEDS: INSULIN ASPART 100 UNITS/ML 3 ML PEN SC SCH ×4 (08:29→21:13)
[2016-08-23] MEDS ORDERED: NURSING DECISION MEDICATION ORDER SCH (08:45)
[2016-08-23] MEDS: INSULIN GLARGINE SOLOSTAR 100 UNITS/ML 3 ML PEN SC SCH ×2 (09:58→21:14)
[2016-08-23 10:13] VITALS: BP 176/73; PULSE 69
[2016-08-23 12:30] VITALS: BP 164/72; PULSE 64
--- NOTE | 2016-08-23 12:54 | Progress Note ---
Medicine Progress Note Date & Time of Visit: Aug 23, 2016 at 12:40. Subjective Pt was seen and examined Lying in bed with no distress with family at bedside Pt said that his back pain improved with the pain med but he continue to have severe neck pain he said that the pain med does not help with the neck pain denies any chest pain, palpitation, dizziness and sob Objective Last 8 Hrs Date Time Temp Pulse Resp B/P (MAP) Pulse Ox O2 Delivery O2 Flow Rate FiO2 08/23/16 10:13 69 176/73 (107) 08/23/16 10:07 Room Air 08/23/16 07:32 36.4 68 20 164/70 (101) 90 Room Air Physical Exam: General-No acute distress Head- atraumatic Eyes- PERRL, EOMI ENT- oropharynx clear Neck- supple, no JVD Lungs- clear to auscultation Heart- regular rhythm Abdomen- normal bowel sounds, soft Extremities-no calf tenderness Neuro- alert, oriented x 3; PERRL, EOMI; no facial palsy Skin- warm & dry Laboratory Results: Last 24 Hours Test 08/23/16 00:33 08/23/16 00:41 08/23/16 06:06 08/23/16 07:53 White Blood Count 41.01 K/uL Red Blood Count 3.54 M/uL Hemoglobin 11.4 g/dL Hematocrit 33.2 % Mean Corpuscular Volume 93.8 fL Mean Corpuscular Hemoglobin 32.2 pg Mean Corpuscular Hemoglobin Concent 34.3 g/dl Platelet Count 214 K/uL Mean Platelet Volume 10.3 fL RDW Standard Deviation 50.0 fL RDW Coefficient of Variation 14.6 % Neutrophils % (Manual) 90.1 % Lymphocytes % (Manual) 4.5 % Monocytes % (Manual) 3.6 % Basophils % (Manual) 1.8 % Neutrophils # (Manual) 36.95 K/uL Total Absolute Neutrophils 36.95 K/uL Lymphocytes # (Manual) 1.85 K/uL Total Absolute Lymphocytes 1.85 K/uL Monocytes # (Manual) 1.48 K/uL Basophils # (Manual) 0.74 K/uL Dohle Bodies 1+ Sodium Level 135 mmol/L Potassium Level 4.3 mmol/L Chloride Level 102 mmol/L Carbon Dioxide Level 26 mmol/L Anion Gap 7.0 mmol/L Blood Urea Nitrogen 18 mg/dl Creatinine 1.00 mg/dl Est Creatinine Clear Calc Drug Dose 60.8 ml/min Estimated GFR () 84.4 Estimated GFR (Non- 72.8 BUN/Creatinine Ratio 17.7 Random Glucose 204 mg/dl Calcium Level 8.6 mg/dl Bedside Glucose 207 mg/dl 190 mg/dl Prothrombin Time 11.7 SECONDS Prothromb Time International Ratio 1.1 Test 08/23/16 11:50 Bedside Glucose 250 mg/dl Assessment & Plan Osteoarthritis of Back/Neck Lumbar Spinal Stenosis Cervical spine CT showed a Nonspecific 17 mm lytic focus involving the occipital bone near the midline need to r/o any metastatic disease Continue pain control with dilaudid and lidocaine and baclofen Gabapentin increased to 600mg TID Duloxetine pain management consulted PT/OT Chronic Myeloproliferative Disorder/Leukemia Hem/Onc planned for bone marrow biopsy on August 30 as outpatient WBC 41K Case discussed with Dr. Ferguson who will see pt in consultation DM2 insulin 70/30 at home Continue monitor BS HTN BP elevated, possible related to pain continue home medications will add hydralazine prn DVT ppx subq heparin CODE STATUS FULL CODE Consultants: Pain management Hem/onc Current Inpatient Medications: Current Inpatient Medications Medications (Trade) Dose Ordered Sig/Karla Route Start Time Stop Time Status Last Admin Dose Admin Ioversol (Optiray 320) 100 ml UD PRN IV 08/23/16 02:00 08/27/16 01:59 Heparin Sodium (Porcine) (Heparin Sq 5000 Unit/0.5ml) 5,000 unit Q8 SQ 08/23/16 07:15 09/22/16 07:14 Acetaminophen (Tylenol Tab) 650 mg Q4H PRN PO 08/23/16 04:00 09/22/16 03:59 Al Hydrox/Mg Hydrox/Simethicone (Maalox Max Susp) 15 ml Q4H PRN PO 08/23/16 04:00 09/22/16 03:59 Magnesium Hydroxide (Milk Of Magnesia Susp) 30 ml Q6H PRN PO 08/23/16 04:00 09/22/16 03:59 Polyethylene (Miralax Powder Packet) 17 gm DAILY PRN PO 08/23/16 04:00 09/22/16 03:59 Ondansetron HCl (Zofran Inj) 4 mg Q6H PRN IV 08/23/16 04:00 09/22/16 03:59 Baclofen (Lioresal Tab) 10 mg TID PO 08/23/16 08:00 09/22/16 08:59 08/23/16 08:20 10 MG Carvedilol (Coreg Tab) 12.5 mg BID PO 08/23/16 08:00 09/22/16 08:59 08/23/16 08:20 12.5 MG Diclofenac Sodium (Voltaren 1% Top Gel) 1 appln Q8 EXT 08/23/16 06:00 09/22/16 05:59 08/23/16 06:11 1 APPLN Duloxetine HCl (Cymbalta Cap) 20 mg DAILY PO 08/23/16 08:00 09/22/16 08:59 08/23/16 08:18 20 MG Finasteride (Proscar Tab) 5 mg DAILY PO 08/23/16 08:00 09/22/16 08:59 08/23/16 08:19 5 MG Lisinopril (Zestril Tab) 20 mg DAILY PO 08/23/16 08:00 09/22/16 08:59 08/23/16 08:22 20 MG Multivitamins (Multivitamin Tab) 1 tab DAILY PO 08/23/16 08:00 09/22/16 08:59 08/23/16 08:21 1 TAB Tramadol HCl (Ultram Tab) 100 mg Q8H PRN PO 08/23/16 04:00 09/22/16 03:59 08/23/16 04:57 100 MG Pantoprazole Sodium (Protonix Tab) 40 mg QAM PO 08/23/16 08:00 09/22/16 07:59 08/23/16 08:18 40 MG Polyethylene (Miralax Powder Packet) 17 gm QAM PO 08/23/16 08:00 09/22/16 07:59 Hydromorphone HCl (Dilaudid Inj) 2 mg Q4 PRN IV 08/23/16 04:00 09/06/16 03:59 08/23/16 06:15 2 MG Lidocaine (Lidoderm Patch 5%) 1 patch QAM TD 08/23/16 08:00 09/22/16 08:59 08/23/16 08:26 1 PATCH Miscellaneous (Remove Lidoderm Patch) 1 ea DAILY@21 N/A 08/23/16 21:00 09/22/16 20:59 Glucose (Glucose 40% Gel) 15-30 GRAMS 15 GRAMS... UD PRN PO 08/23/16 04:00 09/22/16 03:59 Glucose (Glucose Chew Tab) 4-8 Tablets 4 Tabl... UD PRN PO 08/23/16 04:00 09/22/16 03:59 Dextrose (Dextrose 50% 50ML Syringe) 25-50ML OF 50% DW IV FOR... UD PRN IV 08/23/16 04:00 09/22/16 03:59 Glucagon (Glucagon Inj) 1 mg UD PRN SQ 08/23/16 04:00 09/22/16 03:59 Miscellaneous Information (Consult Glycemic Management Pharmacy) 1 ea UD PRN N/A 08/23/16 04:30 09/22/16 04:29 Miscellaneous (Iv Fluids Completed) 1 ea PRN PRN N/A 08/23/16 04:45 08/23/17 04:44 Gabapentin (Neurontin Tab) 600 mg TID PO 08/23/16 08:00 09/22/16 07:59 08/23/16 08:18 600 MG Insulin Aspart (novoLOG ASPART) SLIDING SCALE ACHS SC 08/23/16 06:30 09/22/16 06:29 08/23/16 08:29 10 UNITS Insulin Glargine (Lantus Solostar Pen) 10 units BID SC 08/23/16 09:00 09/22/16 08:59 08/23/16 09:58 10 UNITS Alfuzosin HCl (Uroxatral Tab) 10 mg PM PO 08/24/16 21:00 09/23/16 20:59
[2016-08-23] MEDS ORDERED: HydrALAZINE HCL 20 MG/ML VIAL IV. PRN (13:15)
--- NOTE | 2016-08-23 14:25 | Pharmacy Progress Note ---
Glycemic Control Intl Consult Date of Service Aug 23, 2016. Scope Glycemic Pharmacist consulted by Dr De Jesus on 08/23/16 for glycemic control and to write orders per [facility] inpatient glycemic control protocol. Objective Weight (Kilograms): 71.800 Accuchecks BSG (last 24hrs): Test 08/23/16 00:33 08/23/16 00:41 08/23/16 07:53 08/23/16 11:50 Random Glucose 204 mg/dl (70-99) Bedside Glucose 207 mg/dl (70-99) 190 mg/dl (70-99) 250 mg/dl (70-99) Laboratory Data (last 24hrs) Test 08/23/16 00:33 Anion Gap 7.0 mmol/L BUN/Creatinine Ratio 17.7 Blood Urea Nitrogen 18 mg/dl Creatinine 1.00 mg/dl Potassium Level 4.3 mmol/L Sodium Level 135 mmol/L White Blood Count 41.01 K/uL Red Blood Count 3.54 M/uL Hemoglobin 11.4 g/dL Hematocrit 33.2 % Mean Corpuscular Volume 93.8 fL Mean Corpuscular Hemoglobin 32.2 pg Mean Corpuscular Hemoglobin Concent 34.3 g/dl Platelet Count 214 K/uL Mean Platelet Volume 10.3 fL Recent Pertinent Medications Outpatient Anti-diabetic Regimen: * Novolin 70/30 insulin * 25-26 units SQ QAM * 15-16 units SQ QPM * Metformin 500mg PO BID * A1c = pending with tomorrow's AM labs Assessment & Plan ASSESSMENT: * Patient is a 75yo diabetic male, admitted with acute neck/back pain. Pt is being evaluated for chronic myeloproliferative disorder vs leukemia, in addition to possible metastatic disease (bone lesion). Bone marrow biopsy scheduled soon. * BSGs have been elevated since admission. * Will add Lantus and utilize Novolog for correction/prandial coverage. Will avoid using 70/30 insulin during admission, due to the difficulty in managing mixed insulins in the inpatient setting and the increased risk of hypoglycemia. PLAN FOR INPATIENT GLYCEMIC CONTROL: * Holding outpatient oral diabetes medications for now * Basal insulin with LANTUS 10 units SQ BID * Correctional Insulin with NOVOLOG per scale ACHS or Q6hrs while NPO * Parameters chosen based on data from past admission; may need to loosen parameters once basal insulin is on board * Goal Range: Low 100 mg/dL - High 140 mg/dL * Correction Factor: 15 mg/dL/unit * Nutritional / Prandial insulin per carb ratio of 1 unit per 8 grams CHO consumed * Please note that the plan above was derived based on current level of insulin resistance and hospital stress. These recommendations are appropriate for inpatient admission only. Plan of care upon discharge will need to be reassessed to avoid potential outpatient hypo/hyperglycemia. Thank you.
--- NOTE | 2016-08-23 14:49 | Pain Management Consultation ---
Pain Management Consultation Date of Consultation Aug 23, 2016. Reason for Consultation Right-sided neck and occipital pain. History Ricky Dubon is a 75-year-old male with a history of leukemia who is admitted to with complaints of experiencing right- sided neck pain and occipital pain rating and right temporal and frontal region. Pain is predominantly begins in right proximal cervical spine and radiates to to the right supraorbital region. Symptoms are characterized as sharp and stabbing. Symptoms have been present for several months but have been increasing in intensity of the last several days. Pain rated as 8/10 on visual analog scale when severe and 2/10 when minimal. Activities that exacerbate patient's symptoms include any tactile stimulation of the right side of the cervical spine or any movement of the cervical spine. Activities that alleviate patient's symptoms include none. Current treatments include none opiate analgesics and IV hydromorphone as well as tramadol and baclofen with some efficacy, however patient experiencing excessive cognitive dysfunction and sedation with the IV hydromorphone. Currently he is using topical anti-inflammatory agents as well as patches. 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 Previous evaluations, managing, laboratory evaluation and other studies include CT of the cervical spine. He denies any bowel bladder incontinence, saddle anesthesia, numbness, weakness or any other neurological symptoms. He is extremely anxious and concerned regarding his diagnosis of leukemia. Past Medical: Recently diagnosis of leukemia with workup in progress Pain Location 1 - Cervical pain 2 - Radiation of paion from cervical spine Family History Diabetes mellitus Heart disease Hypertension Social / Work History Smoking Status: Never smoker Marital Status: Housing Status: lives alone Occupation: retired Allergies Coded Allergies: Terazosin (Verified Allergy, Unknown, unkn, 08/23/16) Medications Current Inpatient Medications Medications (Trade) Dose Ordered Sig/Karla Route Start Time Stop Time Status Last Admin Dose Admin Ioversol (Optiray 320) 100 ml UD PRN IV 08/23/16 02:00 08/27/16 01:59 Heparin Sodium (Porcine) (Heparin Sq 5000 Unit/0.5ml) 5,000 unit Q8 SQ 08/23/16 07:15 09/22/16 07:14 Acetaminophen (Tylenol Tab) 650 mg Q4H PRN PO 08/23/16 04:00 09/22/16 03:59 Al Hydrox/Mg Hydrox/Simethicone (Maalox Max Susp) 15 ml Q4H PRN PO 08/23/16 04:00 09/22/16 03:59 Magnesium Hydroxide (Milk Of Magnesia Susp) 30 ml Q6H PRN PO 08/23/16 04:00 09/22/16 03:59 Polyethylene (Miralax Powder Packet) 17 gm DAILY PRN PO 08/23/16 04:00 09/22/16 03:59 Ondansetron HCl (Zofran Inj) 4 mg Q6H PRN IV 08/23/16 04:00 09/22/16 03:59 Baclofen (Lioresal Tab) 10 mg TID PO 08/23/16 08:00 09/22/16 08:59 08/23/16 12:52 10 MG Carvedilol (Coreg Tab) 12.5 mg BID PO 08/23/16 08:00 09/22/16 08:59 08/23/16 08:20 12.5 MG Diclofenac Sodium (Voltaren 1% Top Gel) 1 appln Q8 EXT 08/23/16 06:00 09/22/16 05:59 08/23/16 12:52 1 APPLN Duloxetine HCl (Cymbalta Cap) 20 mg DAILY PO 08/23/16 08:00 09/22/16 08:59 08/23/16 08:18 20 MG Finasteride (Proscar Tab) 5 mg DAILY PO 08/23/16 08:00 09/22/16 08:59 08/23/16 08:19 5 MG Lisinopril (Zestril Tab) 20 mg DAILY PO 08/23/16 08:00 09/22/16 08:59 08/23/16 08:22 20 MG Multivitamins (Multivitamin Tab) 1 tab DAILY PO 08/23/16 08:00 09/22/16 08:59 08/23/16 08:21 1 TAB Tramadol HCl (Ultram Tab) 100 mg Q8H PRN PO 08/23/16 04:00 09/22/16 03:59 08/23/16 04:57 100 MG Pantoprazole Sodium (Protonix Tab) 40 mg QAM PO 08/23/16 08:00 09/22/16 07:59 08/23/16 08:18 40 MG Polyethylene (Miralax Powder Packet) 17 gm QAM PO 08/23/16 08:00 09/22/16 07:59 Hydromorphone HCl (Dilaudid Inj) 2 mg Q4 PRN IV 08/23/16 04:00 09/06/16 03:59 08/23/16 13:06 2 MG Lidocaine (Lidoderm Patch 5%) 1 patch QAM TD 08/23/16 08:00 09/22/16 08:59 08/23/16 08:26 1 PATCH Miscellaneous (Remove Lidoderm Patch) 1 ea DAILY@21 N/A 08/23/16 21:00 09/22/16 20:59 Glucose (Glucose 40% Gel) 15-30 GRAMS 15 GRAMS... UD PRN PO 08/23/16 04:00 09/22/16 03:59 Glucose (Glucose Chew Tab) 4-8 Tablets 4 Tabl... UD PRN PO 08/23/16 04:00 09/22/16 03:59 Dextrose (Dextrose 50% 50ML Syringe) 25-50ML OF 50% DW IV FOR... UD PRN IV 08/23/16 04:00 09/22/16 03:59 Glucagon (Glucagon Inj) 1 mg UD PRN SQ 08/23/16 04:00 09/22/16 03:59 Miscellaneous Information (Consult Glycemic Management Pharmacy) 1 ea UD PRN N/A 08/23/16 04:30 09/22/16 04:29 Miscellaneous (Iv Fluids Completed) 1 ea PRN PRN N/A 08/23/16 04:45 08/23/17 04:44 Gabapentin (Neurontin Tab) 600 mg TID PO 08/23/16 08:00 09/22/16 07:59 08/23/16 12:53 600 MG Insulin Aspart (novoLOG ASPART) SLIDING SCALE ACHS SC 08/23/16 06:30 09/22/16 06:29 08/23/16 12:59 14 UNITS Insulin Glargine (Lantus Solostar Pen) 10 units BID SC 08/23/16 09:00 09/22/16 08:59 08/23/16 09:58 10 UNITS Alfuzosin HCl (Uroxatral Tab) 10 mg PM PO 08/24/16 21:00 09/23/16 20:59 Hydralazine HCl (HydrALAZINE INJ) 10 mg Q6 PRN IV. 08/23/16 13:15 09/22/16 13:14 Review of Systems Denies any recent history of fever, night sweats, unexplained weight loss, or constitutional symptoms. Otherwise, 8 point review of system has been reported to be negative. Physical Exam Height & Weight: Height 5 feet, 9.00 inches. Weight 71.800 (Kilograms) 158 (Pounds) Last Vital Signs Documentation Date Time Temp Pulse Resp B/P (MAP) Pulse Ox O2 Delivery O2 Flow Rate FiO2 08/23/16 12:30 64 164/72 (102) Room Air 08/23/16 07:32 36.4 20 90 Exam: Mr. Yang is oriented but has difficulty staying awake through the interview and the exam. Mood and affect are appropriate. Short-term and long- term memory is intact. Sensorium is clear. Inspection of the cervical spine demonstrates decreased cervical lordosis. No cutaneous lesions are noted. Range of motion in all planes is restricted and with obvious pain and discomfort. Provocative testing of the facet joints joints bilaterally is difficult to assess as patient experiences pain with touch over the right side musculature. Significant myofascial tenderness without trigger points identifiable in the paraspinous musculature. Neurologically, Spurlings maneuver is negative bilaterally. Sensory exam demonstrates tactile allodynia and hyperpathia over the greater occipital nerve , temporal area as well as frontal area. Motor strength in the upper extremity are symmetrical without deficit including intrinsic muscles of the hand. No pathologic reflexes are noted in the lower extremities. Gait is unremarkable. Laboratory Laboratory Results (Last CBC): 08/23/16 00:33 Red Blood Count 3.54 L, Mean Corpuscular Volume 93.8, Mean Corpuscular Hemoglobin 32.2, Mean Corpuscular Hemoglobin Concent 34.3, Mean Platelet Volume 10.[address]: non enhanced, reports reviewed CT Findings IMPRESSION: 1. No acute fractures or traumatic subluxations 2. Mild degenerative changes 3. Nonspecific 17 mm lytic focus involving the occipital bone near the midline Assessment 1. Right-sided cervical pain and occipital pain, possibly related to leukemia. 2. Right-sided cervical myofascial pain. 3. Occipital neuralgia. 4. Extreme fear of use of opiates due to concerns with addiction and side effects. Recommendations 1. Approximately 20 minutes were spent with the patient discussing rational use of opiates. He had difficulty following the conversation as he was too sedated from recent dose of tramadol and IV hydromorphone. He offered that he will considered the alternative but would like to have time to "think about it". 2. If he does agree, would recommend hydrocodone 5/325 every 4 hours when necessary. 3. Recommend MRI of the cervical spine--ordered. 4. If patient is agreeable, recommend trying diagnostic greater occipital nerve block
[2016-08-23] MEDS ORDERED: HYDROmorphone INJ 2 MG/ML SYR/VIAL IV PRN (15:00)
[2016-08-23 15:28] VITALS: BP 168/80; PULSE 75; TEMP 36.7; O2SAT 94
[2016-08-23] MEDS: HYDROmorphone INJ 1 MG/ML SYR IV PRN (18:51)
--- NOTE | 2016-08-23 21:05 | DIAGNOSTIC IMAGING REPORT ---
MRI OF THE CERVICAL SPINE WITHOUT CONTRAST CLINICAL HISTORY: Severe right sided cervical and occipital pain. COMPARISON: CT of the cervical spine performed earlier today. TECHNIQUE: Utilizing a 1.5 Mayelin magnet and dedicated coil, multiplanar, multiecho imaging of the cervical spine was performed without IV contrast. FINDINGS: This exam is mildly compromised by motion artifact. Cervical vertebral body heights are maintained. Marrow signal is diffusely diminished on the T1-weighted sequence. This suggests a marrow replacement process. The occipital lytic lesion shown on CT of the cervical spine from earlier today represents a T2 hyperintense abnormality on this exam which likely contains CSF. This is benign. No intracranial mass or fluid collection is present. Cervical cord signal and caliber are normal. C2-C3: The central canal and neural foramen are patent. C3-C4: The central canal and neural foramen are patent. C4-C5: The central canal and neural foramen are patent. C5-C6: There is a tiny central disc protrusion. There is minimal narrowing of the central canal. There is mild narrowing of the neural foramen. C6-C7: There is a tiny central disc protrusion. There is minimal narrowing of the central canal. Neural foramen are patent. C7-T1: Central canal and neural foramen are patent. IMPRESSION: 1. Diffuse marrow signal abnormality throughout visualized skeletal structures which suggest a marrow placement process such as leukemia. 2. No cervical spine fracture. 3. Normal cervical cord signal and caliber. 4. Mild multilevel degenerative disc disease at C5-C6 and C6-C7. Electronically signed by: Hermes Hodge M.D. 08/23/2016 9:04 PM Dictated Date/Time: 08/23/2016 8:58 PM
--- NOTE | 2016-08-23 21:18 | Hematology/Oncology Prog Note ---
Hematology/Onc Progress Note Date of Service Aug 23, 2016. Subjective 75-year-old the male, who was recently admitted at [facility] and found to have elevated white blood cell, suspecting myeloproliferative disorder, workup is in progress, now readmitted after 4 days because of increasing upper back pain in the neck for the neck region which got significantly worse that he could not ambulate well because of that, no increasing nausea or vomiting, he says that his neck feels quite stiff and cannot even move his neck quite well, also has chronic lower back pain, which is somewhat better, no radicular pain noted in the upper extremities or in the lower extremities. No focal neurological symptoms. He was ambulating with the help of the walker and cane at home. No fever. No photophobia. Does complain some occipital headache. Recent workup: - C spine CT scan done on 08/23/2016 showed 1.7 cm lytic focus noted in the occipital bone near the midline. No acute fractures or dislocations noted, mild DJD noted. Blood workup done on 08/23/2016: -WBC 47669, H&H of 11.4/33, Platelet count of 214,000. ANC is around 36,900. -BUN/Creat: 18/1.0, calcium 8.6. -BCR-ABL gene rearrangement study--> negative. -WILLIAM 2 mutation and other myeloproliferative disorder FISH--> pending. Workup done during previous hospitalization: - he's admitted hospital for increasing lower back pain. I reviewed his medical records. - WBC 8300, H&H of 15/42, Platelet count of 230,000 (04/27/2015) - WBC 38,300, H&H of 12.1/36, MCV 96, Platelet count of 269,000. Immature WBCs noted. (08/04/2016). - WBC 38,800, H&H of 11.9/36.6, MCV 100, Platelet count of 277,000. (08/11/2016). - Peripheral smear reviewed by the pathologist suggest macrocytic normochromic RBCs, left shift noted, neutrophilia noted, immature WBC noted. (08/11/2016). Blood workup done on 08/16/2016: - WBC 42,000, H&H of 12.4/37, MCV 94, Platelet count of 251, immature WBCs in the form of myelocytes and metamyelocytes present. - ESR --> 31 - BUN/Creatinine: 17/1.2, normal liver function test other than slightly elevated alkaline phosphatase of 144. - PT 11.6, PTT 29.2. IMAGING: - Lumbar spine MRI done on 08/16/2016 for evaluation of lower back pain suggest diffuse bone marrow signal changes throughout the visualized the bony structures suspicious for the bony replacement process. DJD with central canal stenosis with disk bulging noted. - CT scan of the head --> negative. - CT scan of the abdomen and pelvis done on 08/16/2016 showed mild splenomegaly noted, no intra-abdominal lymphadenopathy, no liver lesions. PAST MEDICAL/SURGICAL HISTORY: hypertension, diabetes mellitus, COPD, significant DJD, S/P surgical intervention in 2000, BPH, reflux esophagitis SOCIAL HISTORY: non-smoker, denies any EtOH abuse. FAMILY HISTORY: not significant family history of cancer diagnosis. MEDICATIONS: please review his chart for detail list of medications. ALLERGY: reported to have allergic to Terazosin. On exam: - Alert and oriented x3, well built man, not in any distress. - HEENT: no icterus, no pallor, Throat: Normal. - Neck: No palpable cervical lymphadenopathy. Significant stiffness of the neck noted, - Chest: clear to auscultation. - Abdomen: soft, nontender, no hepatomegaly, no splenomegaly. - No focal neuro deficit. - Extremities: no finger clubbing, no leg edema. Blood workup as outlined above. ASSESSMENT AND PLAN: 75-year-old male, who has few other comorbid conditions, recently he was admitted for lower back pain, found to have bone marrow changes in the lumbar spine MRI, white blood cell count is around 40,000, suspecting primary bone marrow disorder in the form of myeloproliferative disorder, workup in progress, BCR-ABL gene rearrangement study by FISH negative, JAK2 mutation and other myeloproliferative disorder FISH pending. No thrombotic complications the past. Now he is admitted for new/increasing upper back pain in the never the neck with significant stiffness, cervical spine CT scan shows lytic lesions involving the occipital bone measuring 1.6 cm. Lytic lesion is not typically seen with underlying myeloproliferative disorder and may suggest some other etiology. He had MRI of the cervical spine for further evaluation, result pending. Regarding suspected myeloproliferative disorder, his hemoglobin level has remained stable around 12 g/dL, normal platelet count, will have to wait for other diagnostic workup, he may also require a bone marrow for further evaluation in the future. He does not require any specific treatment on an emergent basis at this time. Earlier CT scan of the abdomen showed only splenomegaly, no other suspicious findings noted which can explain the lytic lesions noted in the occipital bone. I would like to have some additional workup dot but Will wait for MRI of the cervical spine result. He also says that if we have to transfer him to the other hospital, he is ready to go to [facility] for further evaluation management. Would like to get PSA, SPEP, light chain assay(ordered). Would also like to have CT scan of chest with intravenous contrast and bone scan. Presently he is on Cymbalta, baclofen, Neurontin, Lidoderm patch, hydromorphone for the symptomatic treatment. Regarding pain management, will follow-up with the recommendations by pain management team. Thanks for the consultation Dr. Salomon Ferguson Hem/Onc (This note was completed using the dictation program Fluency Direct. As such, there may be misspellings, word substitutions, or other variations that should not change the essence of the clinical content of this encounter note. If there is need for further clarification, please direct questions to the provider listed above.) Vital Signs Vital Signs Past 12 Hours Date Time Temp Pulse Resp B/P (MAP) Pulse Ox O2 Delivery O2 Flow Rate FiO2 08/23/16 16:03 Room Air 08/23/16 15:28 36.7 75 13 168/80 (109) 94 Room Air 08/23/16 12:30 64 164/72 (102) Room Air 08/23/16 10:13 69 176/73 (107) 08/23/16 10:07 Room Air
[2016-08-24] VITALS: BP 172/74; PULSE 73; TEMP 36.7; O2SAT 95
[2016-08-24 01:20] VITALS: BP 166/70
[2016-08-24] MEDS: HYDROmorphone INJ 1 MG/ML SYR IV PRN ×3 (02:38→19:57)
[2016-08-24] MEDS: HEPARIN SOD 5000 UNIT/0.5 ML CARP SQ SCH ×3 (05:33→20:41)
[2016-08-24] MEDS: DICLOFENAC SOD 1% GEL 100 GM TUBE EXT SCH ×3 (05:37→20:45)
[2016-08-24 07:28] VITALS: BP 159/71; PULSE 68; TEMP 36.6; O2SAT 98
[2016-08-24] MEDS: DULOXETINE HCL 20 MG CAP PO SCH (08:00)
[2016-08-24] MEDS: POLYETHYLENE (MIRALAX) 17 GM PACK PO SCH (08:00)
[2016-08-24] MEDS: GABAPENTIN 600 MG TAB PO SCH ×3 (08:01→19:59)
[2016-08-24] MEDS: FINASTERIDE 5 MG TAB PO SCH (08:01)
[2016-08-24] MEDS: BACLOFEN 10 MG TAB PO SCH ×3 (08:01→19:59)
[2016-08-24] MEDS: PANTOprazole SOD 40 MG TAB PO SCH (08:01)
[2016-08-24] MEDS: CARVEDILOL 12.5 MG TAB PO SCH ×2 (08:01→19:58)
[2016-08-24] MEDS: LISINOPRIL 20 MG TAB PO SCH (08:01)
[2016-08-24] MEDS: MULTIVITAMIN TAB PO SCH (08:02)
[2016-08-24] MEDS: LIDODERM (LIDOCAINE) PATCH 5% TD SCH (08:02)
[2016-08-24] MEDS: INSULIN GLARGINE SOLOSTAR 100 UNITS/ML 3 ML PEN SC SCH ×2 (08:04→20:03)
[2016-08-24 08:23] LABS: BUN/CREATININE RATIO 21.5 (10-20); CREATININE 1.1 mg/dl (0.60-1.40)
[2016-08-24 09:00] LABS: ESTIMATED AVERAGE GLUCOSE 197 mg/dl; HA1C FLAG Normal (Normal)
[2016-08-24] MEDS: INSULIN ASPART 100 UNITS/ML 3 ML PEN SC SCH ×4 (09:06→20:50)
[2016-08-24 09:10] LABS: HEMATOCRIT 34.9 % (42-52); MEAN CELL VOLUME 94.1 fL (80-100); MEAN CORPUSCULAR HEMOGLOBIN 32.3 pg (25-34); MEAN CORPUSCULAR HGB CONC 34.4 g/dl (32-36); MEAN PLATELET VOLUME 10.6 fL (7.4-10.4); PLATELET COUNT 220 K/uL (130-400); RED BLOOD COUNT 3.71 M/uL (4.7-6.1)
--- NOTE | 2016-08-24 09:58 | Pharmacy Progress Note ---
Glycemic: Assessment & Plan Date of Service Aug 24, 2016. Assessment & Plan Outpatient Anti-diabetic Regimen: * Novolin 70/30 insulin * 25-26 units SQ QAM * 15-16 units SQ QPM * Metformin 500mg PO BID * A1c = pending with tomorrow's AM labs ASSESSMENT: 08/24/16 * Patient with persistent hyperglycemia, despite the addition of basal insulin yesterday. * Will increase Lantus today and consider tightening Novolog parameters, although parameters are already fairly aggressive. * Patient with severe hyperglycemia today pre-lunch (BSG 396mg/dL). Give 8 units IV insulin x1 dose. Patient will receive quite a large dose of Novolog in addition d/t elevated BSG, so no change to correctional parameters at this time. May tighten further tomorrow. 08/23/16 * Patient is a 75yo diabetic male, admitted with acute neck/back pain. Pt is being evaluated for chronic myeloproliferative disorder vs leukemia, in addition to possible metastatic disease (bone lesion). Bone marrow biopsy scheduled soon. * BSGs have been elevated since admission. * Will add Lantus and utilize Novolog for correction/prandial coverage. Will avoid using 70/30 insulin during admission, due to the difficulty in managing mixed insulins in the inpatient setting and the increased risk of hypoglycemia. PLAN FOR INPATIENT GLYCEMIC CONTROL: * Holding outpatient oral diabetes medications for now * Increase basal insulin to LANTUS 15 units SQ BID * Correctional Insulin with NOVOLOG per scale ACHS or Q6hrs while NPO * Goal Range: Low 100 mg/dL - High 140 mg/dL * Correction Factor: 15 mg/dL/unit * Nutritional / Prandial insulin per carb ratio of 1 unit per 8 grams CHO consumed * Please note that the plan above was derived based on current level of insulin resistance and hospital stress. These recommendations are appropriate for inpatient admission only. Plan of care upon discharge will need to be reassessed to avoid potential outpatient hypo/hyperglycemia. Thank you.
--- NOTE | 2016-08-24 10:01 | Pain Management Progress Note ---
Pain Management Progress Note Date of Service Aug 24, 2016. Subjective Continues to complain of right upper cervical/occipital pain. He describes a deep aching and intermittent sharp pain. He reports difficulty moving his neck due to pain. Patient reports increased anxiety and depression related to the pain and the new leukemia diagnosis. He did try Tramadol yesterday which was mildly efficacious. He has used IV Dilaudid for pain relief but reports drowsiness, weakness, and "unable to function". Pain is currently 8/10. Mr. Yang is feeling discouraged about his diagnoses and side effects from narcotics. He denies any fevers, chills, abdominal pain, constipation, radicular symptoms. Case discussed with Dr. Couch Objective Vital Signs: Last Vital Signs Documentation Date Time Temp Pulse Resp B/P (MAP) Pulse Ox O2 Delivery O2 Flow Rate FiO2 08/24/16 07:28 36.6 68 18 159/71 (100) 98 Room Air Physical Exam: GENERAL: Mr. Yang is a 75 y/o white male that appears his stated age. Depressed mood. Does not appear in acute distress. NECK: Minimal ROM in all planes. There is tenderness along the right upper cervical joints with moderate right paracervical/trapezius muscle spasm without trigger points. No midline tenderness. NEURO: Patient is lethargic and slow to respond to questions. He is oriented x 3. Laboratory Laboratory Findings 08/24/16 07:36 Assessment 1. Right-sided cervical pain and occipital pain, possibly related to leukemia. 2. Myofascial pain. Recommendations 1. Cymbalta was increased from 20mg to 30mg daily. 2. IV Dilaudid was decreased from 1mg to 0.5mg IV x 4 hrs PRN breakthrough pain 3. I have emphasized the importance of taking Tramadol 100mg first for pain to see if effective. It is ordered for every 8 hours. 4. If oral Tramadol is not effective, he has been advised to take Hydrocodone 5 /325mg if needed. Ordered for every 8 hours. 5. Patient is lethargic and mildly confused so the instructions were also relayed to his nurse. [employer] Voice Recognition This chart was completed in part utilizing [employer] Voice Recognition Software. Random word insertions, pronoun errors, and incomplete sentences are an occasional consequence of this system due to software limitations and ambient noise. Any questions or concerns about the content, text or information contained within the body of this dictation should be directly addressed to the provider for clarification.
[2016-08-24] MEDS: TRAMADOL HCL 50 MG TAB PO PRN (10:25)
[2016-08-24] MEDS ORDERED: INSULIN REGULAR 8 UNITS in SYRINGE 7.92 ML IV SCH (11:45)
[2016-08-24 12:39] VITALS: Ht 175.3 cm; Wt 71.8 kg
[2016-08-24] MEDS ORDERED: OPTIRAY 320 IV PRN (13:00)
--- NOTE | 2016-08-24 14:48 | DIAGNOSTIC IMAGING REPORT ---
(CHEST) THORAX WITH HISTORY:75 yearsMalePossibe form of myeloproliferative disorder, r/o any mets. Patient presents with neck and back pain. History of leukemia. COMPARISON: Chest radiograph 08/16/2016, CT abdomen and pelvis 08/16/2016. TECHNIQUE: Multiple axial CT images of the chest were obtained following the intravenous administration of 89 mL Optiray 320. FINDINGS: No dominant thyroid nodule identified. There is borderline left paratracheal adenopathy with largest node seen measuring up to 1.8 x 1.0 cm seen on image 23 of the axial series. The heart is normal in size without pericardial effusion. There is mild atherosclerotic plaquing of the thoracic aorta. There is no pulmonary embolus identified. There is no pneumothorax, pleural effusion or focal airspace consolidation. Linear pleural-based subsegmental opacities of the dependent lung bases suggest areas of atelectasis. Subtle tree-in-bud opacities are present within the medial segment of the right middle lobe. There is a 4 mm noncalcified pulmonary nodule of the apical posterior segment left upper lobe. Airways are patent. The upper abdominal structures are within normal limits with exception of a 1.8 x 1.3 cm soft tissue attenuating lesion of the left adrenal gland, nonspecific. There is moderate pancreatic atrophy. Soft tissues are within normal limits. There is a hemangioma of the L1 vertebral body only partially imaged measuring 1.9 x 1.4 cm. Multilevel anterior endplate osteophytosis is present. IMPRESSION: 1. Minimal borderline left paratracheal adenopathy is likely reactive. No pathologically enlarged lymph nodes are seen by CT size criteria. 2. Subsegmental tree-in-bud opacities within the medial segment left middle lobe suggest infectious bronchiolitis. 3. 4 mm noncalcified pulmonary nodule of the left upper lobe. 4. 1.8 cm lesion of the left adrenal gland again noted. Please refer to below summary of Fleischner criteria recommendations for follow-up of incidental CT nodules (Ector Urrutia, Guidelines for management of small pulmonary nodules detected on CT scans: A statement from the Fleischner Society, Radiology 237: [id number].) SOLID NODULES Solitary nodule size: <6 mm * Low risk patients: no follow-up needed * high risk patients: optional CT at 12 months Note: newly detected indeterminate nodule in persons 35 years of age or older. * Low risk patients: minimal or absent history of smoking and/or other known risk factors * high risk patients: history of smoking or of other known risk factors (e.g. first degree relative with lung cancer, or exposure to asbestos, radon, uranium) * if a nodule up to 8 mm is partly solid or is ground glass further follow-up is required after 24 months to exclude possible slow growing adenocarcinoma (RANDAL) The above report was generated using voice recognition software. It may contain grammatical, syntax or spelling errors. Electronically signed by: Abram Whittington 08/24/2016 2:47 PM Dictated Date/Time: 08/24/2016 2:39 PM
[2016-08-24] MEDS ORDERED: SODIUM CHLORIDE 0.9% 500ML 500 ML IV SCH (19:15)
--- NOTE | 2016-08-24 19:28 | Progress Note ---
Medicine Progress Note Date & Time of Visit: Aug 24, 2016 at 19:14. Subjective Pt was seen and examined Lying in bed with no distress Pt said that he is having a lot of pain in the back of his head he said that he feels the pain is radiating to his parietal area Pt seems a little sleepy today he is very anxious denies any chest pain, palpitation, dizziness, numbness Objective Physical Exam: General-No acute distress Head- atraumatic Eyes- PERRL, EOMI ENT- oropharynx clear Neck- supple, no JVD Lungs- clear to auscultation Heart- regular rhythm Abdomen- normal bowel sounds, soft Extremities-no calf tenderness Neuro- alert, oriented x 3; PERRL, EOMI; no facial palsy Skin- warm & dry Laboratory Results: Last 24 Hours Test 08/23/16 20:33 08/23/16 21:40 08/24/16 07:19 08/24/16 07:36 Bedside Glucose 226 mg/dl 282 mg/dl Prostate Specific Antigen 1.290 ng/ml White Blood Count 50.50 K/uL Red Blood Count 3.71 M/uL Hemoglobin 12.0 g/dL Hematocrit 34.9 % Mean Corpuscular Volume 94.1 fL Mean Corpuscular Hemoglobin 32.3 pg Mean Corpuscular Hemoglobin Concent 34.4 g/dl RDW Standard Deviation 50.0 fL RDW Coefficient of Variation 14.6 % Platelet Count 220 K/uL Mean Platelet Volume 10.6 fL Sodium Level 130 mmol/L Potassium Level 5.0 mmol/L Chloride Level 99 mmol/L Carbon Dioxide Level 24 mmol/L Anion Gap 7.0 mmol/L Blood Urea Nitrogen 24 mg/dl Creatinine 1.10 mg/dl Est Creatinine Clear Calc Drug Dose 57.2 ml/min Estimated GFR () 75.2 Estimated GFR (Non- 64.9 BUN/Creatinine Ratio 21.5 Random Glucose 291 mg/dl Estimated Average Glucose 197 mg/dl Hemoglobin A1c 8.5 % Calcium Level 9.0 mg/dl Test 08/24/16 11:22 08/24/16 11:24 08/24/16 14:45 08/24/16 16:43 Bedside Glucose 396 mg/dl 412 mg/dl 328 mg/dl 196 mg/dl Assessment & Plan Osteoarthritis of Back/Neck Lumbar Spinal Stenosis Cervical spine CT showed a Nonspecific 17 mm lytic focus involving the occipital bone near the midline need to r/o any metastatic disease Continue pain control with dilaudid and lidocaine and baclofen Gabapentin increased to 600mg TID Cervical MRI showed diffuse marrow signal abnormality throughout visualized skeletal structures which suggest a marrow placement process such as leukemia. Duloxetine pain management on board PT/OT Chronic Myeloproliferative Disorder/Leukemia Hem/Onc planned for bone marrow biopsy on August 30 as outpatient WBC increased to 50K Case discussed with Dr. Ferguson recommended to get a bone scan and CT chest with contrast DM2 Hba1c 8.5- uncontrolled insulin 70/30 at home Continue monitor BS Pharmacy on board HTN BP elevated, possible related to pain continue home medications Continue hydralazine prn DVT ppx subq heparin CODE STATUS FULL CODE Consultants: Pain management Hem/onc Current Inpatient Medications: Current Inpatient Medications Medications (Trade) Dose Ordered Sig/Karla Route Start Time Stop Time Status Last Admin Dose Admin Ioversol (Optiray 320) 100 ml UD PRN IV 08/23/16 02:00 08/27/16 01:59 Heparin Sodium (Porcine) (Heparin Sq 5000 Unit/0.5ml) 5,000 unit Q8 SQ 08/23/16 07:15 09/22/16 07:14 Acetaminophen (Tylenol Tab) 650 mg Q4H PRN PO 08/23/16 04:00 09/22/16 03:59 Al Hydrox/Mg Hydrox/Simethicone (Maalox Max Susp) 15 ml Q4H PRN PO 08/23/16 04:00 09/22/16 03:59 Magnesium Hydroxide (Milk Of Magnesia Susp) 30 ml Q6H PRN PO 08/23/16 04:00 09/22/16 03:59 Polyethylene (Miralax Powder Packet) 17 gm DAILY PRN PO 08/23/16 04:00 09/22/16 03:59 Ondansetron HCl (Zofran Inj) 4 mg Q6H PRN IV 08/23/16 04:00 09/22/16 03:59 08/24/16 02:39 4 MG Baclofen (Lioresal Tab) 10 mg TID PO 08/23/16 08:00 09/22/16 08:59 08/24/16 13:11 10 MG Carvedilol (Coreg Tab) 12.5 mg BID PO 08/23/16 08:00 09/22/16 08:59 08/24/16 08:01 12.5 MG Diclofenac Sodium (Voltaren 1% Top Gel) 1 appln Q8 EXT 08/23/16 06:00 09/22/16 05:59 08/24/16 12:01 1 APPLN Finasteride (Proscar Tab) 5 mg DAILY PO 08/23/16 08:00 09/22/16 08:59 08/24/16 08:01 5 MG Lisinopril (Zestril Tab) 20 mg DAILY PO 08/23/16 08:00 09/22/16 08:59 08/24/16 08:01 20 MG Multivitamins (Multivitamin Tab) 1 tab DAILY PO 08/23/16 08:00 09/22/16 08:59 08/24/16 08:02 1 TAB Tramadol HCl (Ultram Tab) 100 mg Q8H PRN PO 08/23/16 04:00 09/22/16 03:59 08/24/16 10:25 100 MG Pantoprazole Sodium (Protonix Tab) 40 mg QAM PO 08/23/16 08:00 09/22/16 07:59 08/24/16 08:01 40 MG Polyethylene (Miralax Powder Packet) 17 gm QAM PO 08/23/16 08:00 09/22/16 07:59 Lidocaine (Lidoderm Patch 5%) 1 patch QAM TD 08/23/16 08:00 09/22/16 08:59 08/24/16 08:02 1 PATCH Miscellaneous (Remove Lidoderm Patch) 1 ea DAILY@21 N/A 08/23/16 21:00 09/22/16 20:59 08/23/16 21:10 1 EA Glucose (Glucose 40% Gel) 15-30 GRAMS 15 GRAMS... UD PRN PO 08/23/16 04:00 09/22/16 03:59 Glucose (Glucose Chew Tab) 4-8 Tablets 4 Tabl... UD PRN PO 08/23/16 04:00 09/22/16 03:59 Dextrose (Dextrose 50% 50ML Syringe) 25-50ML OF 50% DW IV FOR... UD PRN IV 08/23/16 04:00 09/22/16 03:59 Glucagon (Glucagon Inj) 1 mg UD PRN SQ 08/23/16 04:00 8/4/17 03:59 Miscellaneous Information (Consult Glycemic Management Pharmacy) 1 ea UD PRN N/A 08/23/16 04:30 09/22/16 04:29 Miscellaneous (Iv Fluids Completed) 1 ea PRN PRN N/A 08/23/16 04:45 08/23/17 04:44 Gabapentin (Neurontin Tab) 600 mg TID PO 08/23/16 08:00 09/22/16 07:59 08/24/16 13:11 600 MG Insulin Aspart (novoLOG ASPART) SLIDING SCALE ACHS SC 08/23/16 06:30 09/22/16 06:29 08/24/16 18:25 9 UNITS Alfuzosin HCl (Uroxatral Tab) 10 mg PM PO 08/24/16 21:00 09/23/16 20:59 Hydralazine HCl (HydrALAZINE INJ) 10 mg Q6 PRN IV. 08/23/16 13:15 09/22/16 13:14 08/24/16 00:05 10 MG Insulin Glargine (Lantus Solostar Pen) 15 units BID SC 08/24/16 08:00 09/23/16 07:59 08/24/16 08:04 15 UNITS Hydromorphone HCl (Dilaudid Inj) 0.5 mg Q4 PRN IV 08/24/16 12:00 09/06/16 03:59 Acetaminophen/ Hydrocodone Bitart (Macon 5/325 Tab) 1 tab Q8 PRN PO 08/24/16 08:45 09/07/16 08:44 Duloxetine HCl (Cymbalta Cap) 30 mg QAM PO 08/25/16 08:00 09/24/16 07:59 Insulin Aspart (novoLOG ASPART) SLIDING SCALE TODAY@0200 ONCE SC 08/25/16 02:00 08/25/16 02:01 Ioversol (Optiray 320) 125 ml UD PRN IV 08/24/16 13:00 08/28/16 12:59
--- NOTE | 2016-08-24 19:43 | DIAGNOSTIC IMAGING REPORT ---
BONE SCAN WHOLE BODY CLINICAL HISTORY: Myeloproliferative disorder COMPARISON STUDY: CT scan the abdomen pelvis dated 08/08/2016, CT scan of chest dated 08/24/2016 FINDINGS: Patient was injected with 27.3 mCi of technetium 99m MDP. Three-hour delayed whole body images were acquired. There is intense increased activity involving the medial aspect of the right forefoot. Plain film correlation is advocated. There is a focus of increased activity within the left wrist, likely degenerative. There is unexplained focus of increased activity visualized lateral to the left orbit. There is intense focus of increased activity at the level of the right first costochondral junction. There are no definite corresponding lesions on the recent CT scan. There are foci of increased activity involving the L4 and L5 vertebra. The findings are likely arthritic given the significant degenerative changes at the L4-5 level on the most recent scan. IMPRESSION: 1. Unexplained intense focus of increased activity involving the right first costochondral junction 2. Unexplained focus of intense increased activity involving the right medial forefoot. Plain films of the right foot are recommended in follow-up 3. Unexplained focus of increased activity involving the lateral aspect of the left orbit 4. Moderately intense foci of increased activity within the lower lumbar spine, likely arthritic Electronically signed by: Krishna Atwood M.D. 08/24/2016 7:41 PM Dictated Date/Time: 08/24/2016 7:35 PM
[2016-08-24] MEDS: ALFUZosin TAB 10 MG TAB PO SCH (20:46)
[2016-08-24 23:57] VITALS: BP 162/74; PULSE 71; O2SAT 95
[2016-08-25] MEDS: HYDROmorphone INJ 1 MG/ML SYR IV PRN (01:09)
[2016-08-25] MEDS ORDERED: INSULIN ASPART 100 UNITS/ML 3 ML PEN SC ONE (02:00)
[2016-08-25] MEDS: DICLOFENAC SOD 1% GEL 100 GM TUBE EXT SCH ×3 (05:33→21:19)
[2016-08-25] MEDS: HEPARIN SOD 5000 UNIT/0.5 ML CARP SQ SCH ×4 (05:35→21:22)
[2016-08-25 06:51] VITALS: BP 152/79; PULSE 67; TEMP 36.6; O2SAT 98
[2016-08-25 08:31] LABS: HEMATOCRIT 32.7 % (42-52); MEAN CELL VOLUME 92.1 fL (80-100); MEAN CORPUSCULAR HEMOGLOBIN 31.5 pg (25-34); MEAN CORPUSCULAR HGB CONC 34.3 g/dl (32-36); MEAN PLATELET VOLUME 10.1 fL (7.4-10.4); PLATELET COUNT 220 K/uL (130-400); RED BLOOD COUNT 3.55 M/uL (4.7-6.1); WHITE BLOOD COUNT 47.15 K/uL (4.8-10.8)
[2016-08-25] MEDS: POLYETHYLENE (MIRALAX) 17 GM PACK PO SCH (08:39)
[2016-08-25] MEDS: CARVEDILOL 12.5 MG TAB PO SCH ×2 (08:39→21:20)
[2016-08-25] MEDS: BACLOFEN 10 MG TAB PO SCH ×3 (08:39→21:21)
[2016-08-25] MEDS: LIDODERM (LIDOCAINE) PATCH 5% TD SCH (08:40)
[2016-08-25] MEDS: MULTIVITAMIN TAB PO SCH (08:40)
[2016-08-25] MEDS: PANTOprazole SOD 40 MG TAB PO SCH (08:40)
[2016-08-25] MEDS: FINASTERIDE 5 MG TAB PO SCH (08:40)
[2016-08-25] MEDS: LISINOPRIL 20 MG TAB PO SCH (08:40)
[2016-08-25] MEDS: GABAPENTIN 600 MG TAB PO SCH ×3 (08:40→21:21)
[2016-08-25] MEDS: HYDROCODONE/ACETAMOPHEN 5/325MG TAB PO PRN ×2 (08:41→21:25)
[2016-08-25 08:43] LABS: CALCIUM 8.9 mg/dl (8.5-10.1); CREATININE 1.1 mg/dl (0.60-1.40); POTASSIUM 4.3 mmol/L (3.5-5.1)
[2016-08-25] MEDS: INSULIN ASPART 100 UNITS/ML 3 ML PEN SC SCH ×4 (08:55→21:29)
[2016-08-25] MEDS: INSULIN GLARGINE SOLOSTAR 100 UNITS/ML 3 ML PEN SC SCH ×2 (08:56→21:30)
[2016-08-25] MEDS ORDERED: INSULIN REGULAR 7 UNITS in SYRINGE 6.93 ML IV ONE (11:30)
--- NOTE | 2016-08-25 11:44 | Pharmacy Progress Note ---
Glycemic Control Progress Note Date of Service Aug 25, 2016. Scope Glycemic Pharmacist consulted for glycemic control to write orders per [facility] inpatient glycemic control protocol. Objective Accuchecks BSG (last 24hrs): Test 08/24/16 14:45 08/24/16 16:43 08/24/16 20:22 08/25/16 02:05 Bedside Glucose 328 mg/dl (70-99) 196 mg/dl (70-99) 169 mg/dl (70-99) 216 mg/dl (70-99) Test 08/25/16 07:34 08/25/16 07:59 08/25/16 11:13 Bedside Glucose 160 mg/dl (70-99) 352 mg/dl (70-99) Random Glucose 165 mg/dl (70-99) HbA1c: Test 08/24/16 07:36 Hemoglobin A1c 8.5 % (4.5-5.6) H Recent Pertinent Medications Outpatient Anti-diabetic Regimen: * Novolin 70/30 insulin * 25-26 units SQ QAM * 15-16 units SQ QPM * Metformin 500mg PO BID * A1c = pending with tomorrow's AM labs The patient is currently receiving: * Basal insulin: Lantus 15 units every 12 hours * Correctional Insulin: Novolog Correction per scale ACHS Goal Range: Low 100 mg/dL - High 140 mg/dL Correction Factor: 15 mg/dL/unit * Prandial insulin: Per carb ratio of 1 unit per 8 grams CHO consumed * Oral Agents: On hold Assessment & Plan ASSESSMENT: * See progress note from 08/23 for more background info, in short: * Pt receiving SQ basal bolus insulin regimen for hyperglycemia secondary to baseline DM * Patient is currently receiving an average of 85 units of insulin per day * 30 units of basal insulin * 55 units of prandial/correctional insulin * BSGs ranging 160 - 396 mg/dl over the past 24hrs * Changes needed to insulin regimen: * AM Fasting BSG = 160 mg/dl. This is in slightly above goal range for patient based on inpatient targets and co-morbidities. Therefore Basal insulin needs to be further increased. * Post-prandial BSGs are elevated, especially at lunchtime. Tighten carb ratio. I confirmed with RN that patient is not consuming additional uncovered carbs throughout the day. * Total daily dose = 85 units (65% bolus/35% basal). Will attempt to re- distribute regimen 50%:50% basal:prandial to prevent hypo/hyperglycemia. Continue tight bolus control for now until BSGs improve with additional Lantus. Will likely back of bolus insulin on 7/8 am. PLAN FOR INPATIENT GLYCEMIC CONTROL: * Oral Agents * Continue to hold outpatient oral diabetes medications. * Regular IV insulin 7 units x 1 dose for BSG > 350 mg/dL * Basal insulin * Lantus 15-20 units SQ BID based on BSG * BSG less than 140 mg/dL -> 15 units * BSG 140 mg/dL or more -> 20 units * Bolus insulin * NovoLog per scale ACHS + 0200 check with coverage * Goal Range: Low 100 mg/dL - High 140 mg/dL * Correction Factor: 15 mg/dL/unit * Nutritional / Prandial insulin per carb ratio of 1 unit per 5 grams CHO consumed RECOMMENDATIONS FOR DISCHARGE: * * Please note that the plan above was derived based on current level of insulin resistance and hospital stress. These recommendations are appropriate for inpatient admission only. Plan of care upon discharge will need to be reassessed to avoid potential outpatient hypo/hyperglycemia. Thank you.
[2016-08-25] MEDS: DULOXETINE (CYMBALTA) 30 MG CAP PO SCH (13:17)
[2016-08-25 14:52] VITALS: BP 115/70; PULSE 63; TEMP 36.6; O2SAT 98
[2016-08-25 15:13] LABS: ALBUMIN 3.3 G/DL (3.8-4.8); FREE KAPPA 37.4 MG/L (3.3-19.4); FREE KAPPA/LAMBDA RATIO 1.59 (0.26-1.65); FREE LAMBDA 23.5 MG/L (5.7-26.3); TOTAL PROTEIN 6.3 G/DL (6.2-8.3)
--- NOTE | 2016-08-25 18:16 | Progress Note ---
Medicine Progress Note Date & Time of Visit: Aug 25, 2016 at 18:02. Subjective Pt was seen and examined sitting in chair comfortable with no distress Pt said that the pain medication helps with the pain he walked around today he said that he does have a slight blurry vision that might be related to the pain med denies any chest pain, palpitation, dizziness and sob Objective Last 8 Hrs Date Time Temp Pulse Resp B/P (MAP) Pulse Ox O2 Delivery O2 Flow Rate FiO2 08/25/16 14:52 36.6 63 18 115/70 (85) 98 Room Air 08/25/16 10:19 Room Air Physical Exam: General-No acute distress Head- atraumatic Eyes- PERRL, EOMI ENT- oropharynx clear Neck- supple, no JVD Lungs- clear to auscultation Heart- regular rhythm Abdomen- normal bowel sounds, soft Extremities-no calf tenderness Neuro- alert, oriented x 3; PERRL, EOMI; no facial palsy Skin- warm & dry Laboratory Results: Last 24 Hours Test 08/24/16 20:22 08/25/16 02:05 08/25/16 07:34 08/25/16 07:59 Bedside Glucose 169 mg/dl 216 mg/dl 160 mg/dl White Blood Count 47.15 K/uL Red Blood Count 3.55 M/uL Hemoglobin 11.2 g/dL Hematocrit 32.7 % Mean Corpuscular Volume 92.1 fL Mean Corpuscular Hemoglobin 31.5 pg Mean Corpuscular Hemoglobin Concent 34.3 g/dl RDW Standard Deviation 49.7 fL RDW Coefficient of Variation 14.5 % Platelet Count 220 K/uL Mean Platelet Volume 10.1 fL Sodium Level 134 mmol/L Potassium Level 4.3 mmol/L Chloride Level 101 mmol/L Carbon Dioxide Level 25 mmol/L Anion Gap 8.0 mmol/L Blood Urea Nitrogen 22 mg/dl Creatinine 1.10 mg/dl Est Creatinine Clear Calc Drug Dose 57.2 ml/min Estimated GFR () 75.2 Estimated GFR (Non- 64.9 BUN/Creatinine Ratio 20.0 Random Glucose 165 mg/dl Calcium Level 8.9 mg/dl Test 08/25/16 11:13 08/25/16 16:31 Bedside Glucose 352 mg/dl 153 mg/dl Assessment & Plan Osteoarthritis of Back/Neck Lumbar Spinal Stenosis Cervical spine CT showed a Nonspecific 17 mm lytic focus involving the occipital bone near the midline need to r/o any metastatic disease Continue pain control with dilaudid and lidocaine and baclofen Gabapentin increased to 600mg TID Cervical MRI showed diffuse marrow signal abnormality throughout visualized skeletal structures which suggest a marrow placement process such as leukemia. Duloxetine pain management on board his pain is better controlled today Continue pain control PT/OT Chronic Myeloproliferative Disorder/Leukemia Hem/Onc plan for bone marrow biopsy on August 30 as outpatient WBC increased to 47K today Case discussed with Dr. Ferguson Bone scan done showed: 1. Unexplained intense focus of increased activity involving the right first costochondral junction 2. Unexplained focus of intense increased activity involving the right medial forefoot. 3. Unexplained focus of increased activity involving the lateral aspect of the left orbit 4. Moderately intense foci of increased activity within the lower lumbar spine CT chest with IV Contrast showed: 4 mm noncalcified pulmonary nodule of the left upper lobe. 4. 1.8 cm lesion of the left adrenal gland again noted. DM2 Hba1c 8.5- uncontrolled insulin 70/30 at home Continue monitor BS Pharmacy on board HTN BP stable continue home medications Continue hydralazine prn DVT ppx subq heparin CODE STATUS FULL CODE DISPOSITION Possible discharge home tomorrow Consultants: Pain management Hem/onc Current Inpatient Medications: Current Inpatient Medications Medications (Trade) Dose Ordered Sig/Karla Route Start Time Stop Time Status Last Admin Dose Admin Ioversol (Optiray 320) 100 ml UD PRN IV 08/23/16 02:00 08/27/16 01:59 Heparin Sodium (Porcine) (Heparin Sq 5000 Unit/0.5ml) 5,000 unit Q8 SQ 08/23/16 07:15 09/22/16 07:14 08/25/16 05:35 5,000 UNIT Acetaminophen (Tylenol Tab) 650 mg Q4H PRN PO 08/23/16 04:00 09/22/16 03:59 Al Hydrox/Mg Hydrox/Simethicone (Maalox Max Susp) 15 ml Q4H PRN PO 08/23/16 04:00 09/22/16 03:59 Magnesium Hydroxide (Milk Of Magnesia Susp) 30 ml Q6H PRN PO 08/23/16 04:00 09/22/16 03:59 Polyethylene (Miralax Powder Packet) 17 gm DAILY PRN PO 08/23/16 04:00 09/22/16 03:59 Ondansetron HCl (Zofran Inj) 4 mg Q6H PRN IV 08/23/16 04:00 09/22/16 03:59 08/24/16 02:39 4 MG Baclofen (Lioresal Tab) 10 mg TID PO 08/23/16 08:00 09/22/16 08:59 08/25/16 13:17 10 MG Carvedilol (Coreg Tab) 12.5 mg BID PO 08/23/16 08:00 09/22/16 08:59 08/25/16 08:39 12.5 MG Diclofenac Sodium (Voltaren 1% Top Gel) 1 appln Q8 EXT 08/23/16 06:00 09/22/16 05:59 08/25/16 13:17 1 APPLN Finasteride (Proscar Tab) 5 mg DAILY PO 08/23/16 08:00 09/22/16 08:59 08/25/16 08:40 5 MG Lisinopril (Zestril Tab) 20 mg DAILY PO 08/23/16 08:00 09/22/16 08:59 08/25/16 08:40 20 MG Multivitamins (Multivitamin Tab) 1 tab DAILY PO 08/23/16 08:00 09/22/16 08:59 08/25/16 08:40 1 TAB Tramadol HCl (Ultram Tab) 100 mg Q8H PRN PO 08/23/16 04:00 09/22/16 03:59 08/24/16 10:25 100 MG Pantoprazole Sodium (Protonix Tab) 40 mg QAM PO 08/23/16 08:00 09/22/16 07:59 08/25/16 08:40 40 MG Polyethylene (Miralax Powder Packet) 17 gm QAM PO 08/23/16 08:00 09/22/16 07:59 Lidocaine (Lidoderm Patch 5%) 1 patch QAM TD 08/23/16 08:00 09/22/16 08:59 08/25/16 08:40 1 PATCH Miscellaneous (Remove Lidoderm Patch) 1 ea DAILY@21 N/A 08/23/16 21:00 09/22/16 20:59 08/24/16 20:41 1 EA Glucose (Glucose 40% Gel) 15-30 GRAMS 15 GRAMS... UD PRN PO 08/23/16 04:00 09/22/16 03:59 Glucose (Glucose Chew Tab) 4-8 Tablets 4 Tabl... UD PRN PO 08/23/16 04:00 09/22/16 03:59 Dextrose (Dextrose 50% 50ML Syringe) 25-50ML OF 50% DW IV FOR... UD PRN IV 08/23/16 04:00 09/22/16 03:59 Glucagon (Glucagon Inj) 1 mg UD PRN SQ 08/23/16 04:00 09/22/16 03:59 Miscellaneous Information (Consult Glycemic Management Pharmacy) 1 ea UD PRN N/A 08/23/16 04:30 09/22/16 04:29 Miscellaneous (Iv Fluids Completed) 1 ea PRN PRN N/A 08/23/16 04:45 08/23/17 04:44 Gabapentin (Neurontin Tab) 600 mg TID PO 08/23/16 08:00 09/22/16 07:59 08/25/16 13:17 600 MG Insulin Aspart (novoLOG ASPART) SLIDING SCALE ACHS SC 08/23/16 06:30 09/22/16 06:29 08/25/16 17:56 8 UNITS Alfuzosin HCl (Uroxatral Tab) 10 mg PM PO 08/24/16 21:00 09/23/16 20:59 08/24/16 20:46 10 MG Hydralazine HCl (HydrALAZINE INJ) 10 mg Q6 PRN IV. 08/23/16 13:15 09/22/16 13:14 08/24/16 00:05 10 MG Hydromorphone HCl (Dilaudid Inj) 0.5 mg Q4 PRN IV 08/24/16 12:00 09/06/16 03:59 08/25/16 01:09 0.5 MG Acetaminophen/ Hydrocodone Bitart ([place] 5/325 Tab) 1 tab Q8 PRN PO 08/24/16 08:45 09/07/16 08:44 08/25/16 08:41 1 TAB Duloxetine HCl (Cymbalta Cap) 30 mg QAM PO 08/25/16 08:00 09/24/16 07:59 08/25/16 13:17 30 MG Ioversol (Optiray 320) 125 ml UD PRN IV 08/24/16 13:00 08/28/16 12:59 Insulin Glargine (Lantus Solostar Pen) SEE PROTOCOL TEXT BID SC 08/25/16 20:00 09/24/16 19:59 Insulin Aspart (novoLOG ASPART) SLIDING SCALE 0200 SC 08/26/16 02:00 08/26/16 04:00
[2016-08-25 21:13] VITALS: BP 149/92; PULSE 62
[2016-08-25] MEDS: ALFUZosin TAB 10 MG TAB PO SCH (21:22)
[2016-08-26 00:07] VITALS: BP 145/75; PULSE 61; TEMP 36.4; O2SAT 97
[2016-08-26] MEDS ORDERED: INSULIN ASPART 100 UNITS/ML 3 ML PEN SC SCH (02:00)
[2016-08-26] MEDS: HEPARIN SOD 5000 UNIT/0.5 ML CARP SQ SCH ×2 (05:29→12:43)
[2016-08-26] MEDS: HYDROCODONE/ACETAMOPHEN 5/325MG TAB PO PRN ×2 (06:35→14:51)
[2016-08-26] MEDS: DICLOFENAC SOD 1% GEL 100 GM TUBE EXT SCH ×2 (06:35→13:36)
[2016-08-26 06:47] LABS: HEMATOCRIT 30.7 % (42-52); MEAN CELL VOLUME 92.7 fL (80-100); MEAN CORPUSCULAR HEMOGLOBIN 31.7 pg (25-34); MEAN CORPUSCULAR HGB CONC 34.2 g/dl (32-36); MEAN PLATELET VOLUME 10.1 fL (7.4-10.4); PLATELET COUNT 241 K/uL (130-400); RED BLOOD COUNT 3.31 M/uL (4.7-6.1); WHITE BLOOD COUNT 37.26 K/uL (4.8-10.8)
[2016-08-26 07:58] VITALS: BP 140/62; PULSE 53; TEMP 36.5; O2SAT 98
[2016-08-26] MEDS: POLYETHYLENE (MIRALAX) 17 GM PACK PO SCH (08:00)
[2016-08-26] MEDS: CARVEDILOL 12.5 MG TAB PO SCH (08:00)
[2016-08-26] MEDS: GABAPENTIN 600 MG TAB PO SCH ×2 (08:20→14:07)
[2016-08-26] MEDS: DULOXETINE (CYMBALTA) 30 MG CAP PO SCH (08:20)
[2016-08-26] MEDS: MULTIVITAMIN TAB PO SCH (08:20)
[2016-08-26] MEDS: BACLOFEN 10 MG TAB PO SCH ×2 (08:20→13:35)
[2016-08-26] MEDS: FINASTERIDE 5 MG TAB PO SCH (08:21)
[2016-08-26] MEDS: LISINOPRIL 20 MG TAB PO SCH (08:21)
[2016-08-26] MEDS: PANTOprazole SOD 40 MG TAB PO SCH (08:21)
[2016-08-26] MEDS: LIDODERM (LIDOCAINE) PATCH 5% TD SCH (08:23)
[2016-08-26] MEDS: INSULIN ASPART 100 UNITS/ML 3 ML PEN SC SCH ×2 (08:26→12:47)
[2016-08-26] MEDS: INSULIN GLARGINE SOLOSTAR 100 UNITS/ML 3 ML PEN SC SCH (08:26)
[2016-08-26 11:53] VITALS: BP 140/62; PULSE 53; TEMP 36.5; O2SAT 98
--- NOTE | 2016-08-26 13:10 | Progress Note ---
Medicine Progress Note Date & Time of Visit: Aug 26, 2016 at 12:58. Subjective Pt was seen and examined Sitting in chair comfortable with family member present in the room Pt said that he is pain is better He did not ask for the pain med this morning because pain is better control Denies any chest pain, palpitation, dizziness and SOB Objective Last 8 Hrs Date Time Temp Pulse Resp B/P (MAP) Pulse Ox O2 Delivery O2 Flow Rate FiO2 08/26/16 11:53 36.5 53 16 98 Room Air 08/26/16 10:10 Room Air 08/26/16 07:58 36.5 53 16 140/62 (88) 98 Room Air Physical Exam: General-No acute distress Head- atraumatic Eyes- PERRL, EOMI ENT- oropharynx clear Neck- supple, no JVD Lungs- clear to auscultation Heart- regular rhythm Abdomen- normal bowel sounds, soft Extremities-no calf tenderness Neuro- alert, oriented x 3; PERRL, EOMI; no facial palsy Skin- warm & dry Laboratory Results: Last 24 Hours Test 08/25/16 16:31 08/25/16 20:41 08/26/16 02:03 08/26/16 05:55 Bedside Glucose 153 mg/dl 136 mg/dl 97 mg/dl White Blood Count 37.26 K/uL Red Blood Count 3.31 M/uL Hemoglobin 10.5 g/dL Hematocrit 30.7 % Mean Corpuscular Volume 92.7 fL Mean Corpuscular Hemoglobin 31.7 pg Mean Corpuscular Hemoglobin Concent 34.2 g/dl RDW Standard Deviation 49.9 fL RDW Coefficient of Variation 14.6 % Platelet Count 241 K/uL Mean Platelet Volume 10.1 fL Test 08/26/16 07:49 08/26/16 11:44 Bedside Glucose 97 mg/dl 260 mg/dl Assessment & Plan Osteoarthritis of Back/Neck Lumbar Spinal Stenosis Cervical spine CT showed a Nonspecific 17 mm lytic focus involving the occipital bone near the midline need to r/o any metastatic disease Continue pain control with dilaudid and lidocaine and baclofen Gabapentin increased to 600mg TID Cervical MRI showed diffuse marrow signal abnormality throughout visualized skeletal structures which suggest a marrow placement process such as leukemia. Duloxetine pain management on board his pain is better controlled today Continue pain control with tramadol prn advised pt not to drive or operate any machine while taking tramadol PT/OT Chronic Myeloproliferative Disorder/Leukemia Hem/Onc plan for bone marrow biopsy on August 30 as outpatient WBC increased to 37K today Case discussed with Dr. Ferguson Bone scan done showed: 1. Unexplained intense focus of increased activity involving the right first costochondral junction 2. Unexplained focus of intense increased activity involving the right medial forefoot. 3. Unexplained focus of increased activity involving the lateral aspect of the left orbit 4. Moderately intense foci of increased activity within the lower lumbar spine CT chest with IV Contrast showed: 4 mm noncalcified pulmonary nodule of the left upper lobe. 4. 1.8 cm lesion of the left adrenal gland again noted. DM2 Hba1c 8.5- uncontrolled insulin 70/30 at home Continue monitor BS Pharmacy on board HTN BP stable continue home medications Continue hydralazine prn DVT ppx subq heparin CODE STATUS FULL CODE DISPOSITION Possible discharge home today with home health care Continue PT Consultants: Pain management Hem/onc Current Inpatient Medications: Current Inpatient Medications Medications (Trade) Dose Ordered Sig/Karla Route Start Time Stop Time Status Last Admin Dose Admin Ioversol (Optiray 320) 100 ml UD PRN IV 08/23/16 02:00 08/27/16 01:59 Heparin Sodium (Porcine) (Heparin Sq 5000 Unit/0.5ml) 5,000 unit Q8 SQ 08/23/16 07:15 09/22/16 07:14 Acetaminophen (Tylenol Tab) 650 mg Q4H PRN PO 08/23/16 04:00 09/22/16 03:59 08/26/16 02:58 650 MG Al Hydrox/Mg Hydrox/Simethicone (Maalox Max Susp) 15 ml Q4H PRN PO 08/23/16 04:00 09/22/16 03:59 Magnesium Hydroxide (Milk Of Magnesia Susp) 30 ml Q6H PRN PO 08/23/16 04:00 09/22/16 03:59 Polyethylene (Miralax Powder Packet) 17 gm DAILY PRN PO 08/23/16 04:00 09/22/16 03:59 Ondansetron HCl (Zofran Inj) 4 mg Q6H PRN IV 08/23/16 04:00 09/22/16 03:59 08/24/16 02:39 4 MG Baclofen (Lioresal Tab) 10 mg TID PO 08/23/16 08:00 09/22/16 08:59 08/26/16 08:20 10 MG Carvedilol (Coreg Tab) 12.5 mg BID PO 08/23/16 08:00 09/22/16 08:59 08/25/16 21:20 12.5 MG Diclofenac Sodium (Voltaren 1% Top Gel) 1 appln Q8 EXT 08/23/16 06:00 09/22/16 05:59 08/26/16 06:35 1 APPLN Finasteride (Proscar Tab) 5 mg DAILY PO 08/23/16 08:00 09/22/16 08:59 08/26/16 08:21 5 MG Lisinopril (Zestril Tab) 20 mg DAILY PO 08/23/16 08:00 09/22/16 08:59 08/26/16 08:21 20 MG Multivitamins (Multivitamin Tab) 1 tab DAILY PO 08/23/16 08:00 09/22/16 08:59 08/26/16 08:20 1 TAB Tramadol HCl (Ultram Tab) 100 mg Q8H PRN PO 08/23/16 04:00 09/22/16 03:59 08/24/16 10:25 100 MG Pantoprazole Sodium (Protonix Tab) 40 mg QAM PO 08/23/16 08:00 09/22/16 07:59 08/26/16 08:21 40 MG Polyethylene (Miralax Powder Packet) 17 gm QAM PO 08/23/16 08:00 09/22/16 07:59 Lidocaine (Lidoderm Patch 5%) 1 patch QAM TD 08/23/16 08:00 09/22/16 08:59 08/26/16 08:23 1 PATCH Miscellaneous (Remove Lidoderm Patch) 1 ea DAILY@21 N/A 08/23/16 21:00 09/22/16 20:59 08/25/16 21:21 1 EA Glucose (Glucose 40% Gel) 15-30 GRAMS 15 GRAMS... UD PRN PO 08/23/16 04:00 09/22/16 03:59 Glucose (Glucose Chew Tab) 4-8 Tablets 4 Tabl... UD PRN PO 08/23/16 04:00 09/22/16 03:59 Dextrose (Dextrose 50% 50ML Syringe) 25-50ML OF 50% DW IV FOR... UD PRN IV 08/23/16 04:00 09/22/16 03:59 Glucagon (Glucagon Inj) 1 mg UD PRN SQ 08/23/16 04:00 09/22/16 03:59 Miscellaneous Information (Consult Glycemic Management Pharmacy) 1 ea UD PRN N/A 08/23/16 04:30 09/22/16 04:29 Miscellaneous (Iv Fluids Completed) 1 ea PRN PRN N/A 08/23/16 04:45 08/23/17 04:44 Gabapentin (Neurontin Tab) 600 mg TID PO 08/23/16 08:00 09/22/16 07:59 08/26/16 08:20 600 MG Insulin Aspart (novoLOG ASPART) SLIDING SCALE ACHS SC 08/23/16 06:30 09/22/16 06:29 08/26/16 12:47 18 UNITS Alfuzosin HCl (Uroxatral Tab) 10 mg PM PO 08/24/16 21:00 09/23/16 20:59 08/25/16 21:22 10 MG Hydralazine HCl (HydrALAZINE INJ) 10 mg Q6 PRN IV. 08/23/16 13:15 09/22/16 13:14 08/24/16 00:05 10 MG Hydromorphone HCl (Dilaudid Inj) 0.5 mg Q4 PRN IV 08/24/16 12:00 09/06/16 03:59 08/25/16 01:09 0.5 MG Acetaminophen/ Hydrocodone Bitart ([place] 5/325 Tab) 1 tab Q8 PRN PO 08/24/16 08:45 09/07/16 08:44 08/26/16 06:35 1 TAB Duloxetine HCl (Cymbalta Cap) 30 mg QAM PO 08/25/16 08:00 09/24/16 07:59 08/26/16 08:20 30 MG Ioversol (Optiray 320) 125 ml UD PRN IV 08/24/16 13:00 08/28/16 12:59 Insulin Glargine (Lantus Solostar Pen) SEE PROTOCOL TEXT BID SC 08/25/16 20:00 09/24/16 19:59 08/26/16 08:26 15 UNITS
[2016-08-26] MEDS ORDERED: LDDP5 TD (13:15)
[2016-08-26] MEDS ORDERED: ULT50X PO (13:15)
--- NOTE | 2016-08-26 13:38 | Discharge Instructions ---
Discharge Instructions Date of Service Aug 26, 2016. Admission Reason for Admission: Acute Neck Pain, Low Back Pain Discharge Discharge Diagnosis / Problem: Osteoarthritis of Back/Neck, Chronic Myeloproliferative Disorder, DM type 2 Discharge Goals Goal(s): Decrease discomfort, Improve function, Improve disease control Activity Recommendations Activity Limitations: resume your previous activity . Instructions / Follow-Up Instructions / Follow-Up Discharge home with home health services Follow up appointment with your primary care physician Dr. Gaviria on 09/01 @ 1: 00 PM Follow up with oncology Dr. Salomon Ferguson on 08/30 @1:00 pm Continue to hold aspirin for the bone marrow biopsy Hold Voltaren cream for the biopsy Take Matthews 1 tab every 12 hrs as needed for for moderate to severe pain, hold next dose if you become drowsy take the Matthews as prescribed Do not drive or operate any machine after taking the Matthews Take Tylenol as needed for mild pain Cymbalta was increased to 30mg daily Fall precaution Continue physical therapy Monitor blood sugar Current Hospital Diet Patient's current hospital diet: Diabetes Type 2 Diet Discharge Diet Recommended Diet: Diabetes Type 2 Diet Pending Studies Studies pending at discharge: no Laboratory Results Hemoglobin A1c Test 08/24/16 07:36 Range/Units Estimated Average Glucose 197 mg/dl Hemoglobin A1c 8.5 H 4.5-5.6 % Medical Emergencies . Who to Call and When: Medical Emergencies: If at any time you feel your situation is an emergency, please call 911 immediately. . Non-Emergent Contact Non-Emergency issues call your: Primary Care Provider Call Non-Emergent contact if: your pain is not controlled, you have any medication questions . . "Provider Documentation" section prepared by Kristie Ring. . VTE Core Measure Inpt VTE Proph given/why not?: Unfractionated heparin SQ [place] Drug Monitoring Program Search Results: patient reviewed within database, no issues identified
[2016-08-26] MEDS ORDERED: ACET-1047 PO (13:44)
[2016-08-26] MEDS ORDERED: CYM30 PO (14:20)
[2016-08-26] MEDS ORDERED: HYDR-5688 PO (14:22)
--- NOTE | 2016-09-01 09:43 | Discharge Summary ---
Discharge Summary Date of Service Sep 01, 2016. Discharge Summary Admission Date: Aug 24, 2016 at 19:15 Discharge Date: Aug 26, 2016 Discharge Disposition: Home with services Principal Diagnosis: Osteoarthritis of Back/Neck Lumbar Spinal Stenosis Secondary Diagnoses/Problems: Chronic Myeloproliferative Disorder/Leukemia DM type 2 HTN Procedures: BONE SCAN WHOLE BODY CLINICAL HISTORY: Myeloproliferative disorder COMPARISON STUDY: CT scan the abdomen pelvis dated 08/08/2016, CT scan of chest dated 08/24/2016 FINDINGS: Patient was injected with 27.3 mCi of technetium 99m MDP. Three-hour delayed whole body images were acquired. There is intense increased activity involving the medial aspect of the right forefoot. Plain film correlation is advocated. There is a focus of increased activity within the left wrist, likely degenerative. There is unexplained focus of increased activity visualized lateral to the left orbit. There is intense focus of increased activity at the level of the right first costochondral junction. There are no definite corresponding lesions on the recent CT scan. There are foci of increased activity involving the L4 and L5 vertebra. The findings are likely arthritic given the significant degenerative changes at the L4-5 level on the most recent scan. IMPRESSION: 1. Unexplained intense focus of increased activity involving the right first costochondral junction 2. Unexplained focus of intense increased activity involving the right medial forefoot. Plain films of the right foot are recommended in follow-up 3. Unexplained focus of increased activity involving the lateral aspect of the left orbit 4. Moderately intense foci of increased activity within the lower lumbar spine, likely arthritic Electronically signed by: Krishna Atwood M.D. 08/24/2016 7:41 PM Dictated Date/Time: 08/24/2016 7:35 PM CHEST) THORAX WITH HISTORY:75 yearsMalePossibe form of myeloproliferative disorder, r/o any mets. Patient presents with neck and back pain. History of leukemia. COMPARISON: Chest radiograph 08/16/2016, CT abdomen and pelvis 08/16/2016. TECHNIQUE: Multiple axial CT images of the chest were obtained following the intravenous administration of 89 mL Optiray 320. FINDINGS: No dominant thyroid nodule identified. There is borderline left paratracheal adenopathy with largest node seen measuring up to 1.8 x 1.0 cm seen on image 23 of the axial series. The heart is normal in size without pericardial effusion. There is mild atherosclerotic plaquing of the thoracic aorta. There is no pulmonary embolus identified. There is no pneumothorax, pleural effusion or focal airspace consolidation. Linear pleural-based subsegmental opacities of the dependent lung bases suggest areas of atelectasis. Subtle tree-in-bud opacities are present within the medial segment of the right middle lobe. There is a 4 mm noncalcified pulmonary nodule of the apical posterior segment left upper lobe. Airways are patent. The upper abdominal structures are within normal limits with exception of a 1.8 x 1.3 cm soft tissue attenuating lesion of the left adrenal gland, nonspecific. There is moderate pancreatic atrophy. Soft tissues are within normal limits. There is a hemangioma of the L1 vertebral body only partially imaged measuring 1.9 x 1.4 cm. Multilevel anterior endplate osteophytosis is present. IMPRESSION: 1. Minimal borderline left paratracheal adenopathy is likely reactive. No pathologically enlarged lymph nodes are seen by CT size criteria. 2. Subsegmental tree-in-bud opacities within the medial segment left middle lobe suggest infectious bronchiolitis. 3. 4 mm noncalcified pulmonary nodule of the left upper lobe. 4. 1.8 cm lesion of the left adrenal gland again noted. Please refer to below summary of Fleischner criteria recommendations for follow-up of incidental CT nodules (H Renan, Guidelines for management of small pulmonary nodules detected on CT scans: A statement from the Fleischner Society, Radiology 237: [id number].) SOLID NODULES Solitary nodule size: <6 mm * Low risk patients: no follow-up needed * high risk patients: optional CT at 12 months Note: newly detected indeterminate nodule in persons 35 years of age or older. * Low risk patients: minimal or absent history of smoking and/or other known risk factors * high risk patients: history of smoking or of other known risk factors (e.g. first degree relative with lung cancer, or exposure to asbestos, radon, uranium) * if a nodule up to 8 mm is partly solid or is ground glass further follow-up is required after 24 months to exclude possible slow growing adenocarcinoma (RANDAL) The above report was generated using voice recognition software. It may contain grammatical, syntax or spelling errors. Electronically signed by: Abram Whittington 08/24/2016 2:47 PM Dictated Date/Time: 08/24/2016 2:39 PM MRI OF THE CERVICAL SPINE WITHOUT CONTRAST CLINICAL HISTORY: Severe right sided cervical and occipital pain. COMPARISON: CT of the cervical spine performed earlier today. TECHNIQUE: Utilizing a 1.5 Mayelin magnet and dedicated coil, multiplanar, multiecho imaging of the cervical spine was performed without IV contrast. FINDINGS: This exam is mildly compromised by motion artifact. Cervical vertebral body heights are maintained. Marrow signal is diffusely diminished on the T1-weighted sequence. This suggests a marrow replacement process. The occipital lytic lesion shown on CT of the cervical spine from earlier today represents a T2 hyperintense abnormality on this exam which likely contains CSF. This is benign. No intracranial mass or fluid collection is present. Cervical cord signal and caliber are normal. C2-C3: The central canal and neural foramen are patent. C3-C4: The central canal and neural foramen are patent. C4-C5: The central canal and neural foramen are patent. C5-C6: There is a tiny central disc protrusion. There is minimal narrowing of the central canal. There is mild narrowing of the neural foramen. C6-C7: There is a tiny central disc protrusion. There is minimal narrowing of the central canal. Neural foramen are patent. C7-T1: Central canal and neural foramen are patent. IMPRESSION: 1. Diffuse marrow signal abnormality throughout visualized skeletal structures which suggest a marrow placement process such as leukemia. 2. No cervical spine fracture. 3. Normal cervical cord signal and caliber. 4. Mild multilevel degenerative disc disease at C5-C6 and C6-C7. Electronically signed by: Hermes Hodge M.D. 08/23/2016 9:04 PM Dictated Date/Time: 08/23/2016 8:[address] CERVICAL SPINE WITH CT DOSE: 305.50 mGy.cm CLINICAL HISTORY: severe neck pain history of leukemia TECHNIQUE: The patient was scanned in a dynamic helical fashion during intravenous administration of 92 cc of Optiray 320. COMPARISON STUDY: None. FINDINGS: The visualized portions lung apices reveal no evidence of pneumothorax. No apical masses are visualized. There is no pathologic adenopathy. No acute fractures are visualized. There are no traumatic subluxations. There is 17 mm lytic focus within the occipital bone near the midline. There are mild degenerative changes present. IMPRESSION: 1. No acute fractures or traumatic subluxations 2. Mild degenerative changes 3. Nonspecific 17 mm lytic focus involving the occipital bone near the midline Electronically signed by: Krishna Atwood M.D. 08/23/2016 6:28 AM Dictated Date/Time: 08/23/2016 6:25 AM Consultations: Pain management Hem/onc Medication Reconciliation New Medications: Acetaminophen (Mapap) 325 Mg Tab 650 MG PO Q8 PRN for Headache or Pain for 5 Days, #30 TAB Duloxetine HCl (Duloxetine HCl) 30 Mg Cap 30 MG PO QAM for 30 Days, CAP Hydrocodone/Acetaminophen 5MG/325MG ([place] 5MG/325MG) Tab 1 TAB PO Q12 PRN for Pain for 7 Days, #14 TAB PRN PAIN. Please hold for lethargy Lidocaine (Lidocaine) 1 Patch Tdsy 1 PATCH TD QAM for 7 Days Continued Medications: Albuterol Hfa (Ventolin Hfa) 200 Puffs/69969 Mcg Aers 2-4 PUFFS INH Q6H, #1 INHALER Alfuzosin Hcl (Uroxatral) 10 Mg Tab 10 MG PO DAILY, TAB Ascorbic Acid (Vitamin C) 500 Mg Tab 500 MG PO DAILY Aspirin (Aspirin Ec) 81 Mg Tab 81 MG PO DAILY Baclofen (Lioresal) 10 Mg Tab 10 MG PO TID, TAB Carvedilol (Coreg) 12.5 Mg Tab 12.5 MG PO BID, TAB Cranberry (Vaccinium Macrocarp (Cranberry Extract) 200 Mg Cap 200 MG PO DAILY Diclofenac Sodium (Topical) (Voltaren 1% Top Gel) 1 % Gel 1 APPLN TOP Q8 FOR 3 DAYS ONLY Finasteride (Proscar) 5 Mg Tab 5 MG PO DAILY, TAB Fish Oil (Depew-3) 1 Ea Cap 1 CAP PO DAILY, CAP Gabapentin (Neurontin) 300 Mg Cap 300 MG PO BID AT AM AND NOON, CAP Gabapentin (Neurontin) 300 Mg Cap 600 MG PO HS, CAP Garlic (Garlic) 1,000 Mg Cap 1000 MG PO DAILY Insulin Isophan/Regular (Novolin 70/30) Susp 25-26 UNITS SC QAM, BTL Insulin Isophan/Regular (Novolin 70/30) Susp 15-16 UNITS SC QPM, BTL Lisinopril (Zestril) 20 Mg Tab 20 MG PO DAILY, TAB Metformin Hcl Er (Glucophage Er) 500 Mg Tab 500 MG PO BID, TAB Misc Natural Products (Prostate Health) 1 Cap Cap 1 CAP PO DAILY Multivitamin (Multivitamin) Tab 1 TAB PO DAILY, TAB Omeprazole (Prilosec) 20 Mg Capcr 20 MG PO DAILY, CAP Polyethylene Glycol 3350 (Miralax) 1 Pow Pow 17 GM PO DAILY, #527 GM TAKE DAILY WHILE TAKING TRAMADOL Discontinued Medications: Tramadol (Ultram) 50 Mg Tab 50 MG PO Q8H PRN for Pain, TAB Admission Information HPI (per Admitting provider): This is a 75 year old male with a PMH of lumbar spinal stenosis, HTN, DM2, PVD, likely chronic myeloproliferative disorder vs. leukemia, presents with worsening low back pain and neck pain; patient was recent admitted to the hospital due to low back pain; had pain management consultation; and medications were adjusted. During that admission, hematology/oncology was consulted due to elevated WBC; recommendation made for outpatient bone marrow biopsy on August 30. He states his pain was controlled and he was discharged home , but his pain recurred and now his neck pain is a lot worse. Denies fevers/ chills, nausea/vomiting/diarrhea, chest pain/shortness of breath. Physical Exam (per Admitting): General Appearance: + moderate distress (secondary to pain) Head: normocephalic, atraumatic ENT: hearing grossly normal Respiratory/Chest: chest non-tender, lungs clear, normal breath sounds, no respiratory distress, no accessory muscle use Cardiovascular: regular rate, rhythm, no edema, no murmur Abdomen/GI: normal bowel sounds, non tender, soft Back: + pertinent finding (decreased neck movement, head is rotated to the left due to pain, decreased/painful ROM of back) Extremities/Musculoskelatal: normal capillary refill, no pedal edema Neurologic/Psych: no motor/sensory deficits, alert, normal mood/affect Skin: normal color Lymphatic: no adenopathy Hospital Course Osteoarthritis of Back/Neck Lumbar Spinal Stenosis Cervical spine CT showed a Nonspecific 17 mm lytic focus involving the occipital bone near the midline need to r/o any metastatic disease Continue pain control with dilaudid and lidocaine and baclofen Gabapentin increased to 600mg TID Cervical MRI showed diffuse marrow signal abnormality throughout visualized skeletal structures which suggest a marrow placement process such as leukemia. Duloxetine pain management on board his pain is better controlled today Continue pain control with tramadol prn advised pt not to drive or operate any machine while taking tramadol PT/OT Chronic Myeloproliferative Disorder/Leukemia Hem/Onc plan for bone marrow biopsy on August 30 as outpatient WBC increased to 37K today Case discussed with Dr. Ferguson Bone scan done showed: 1. Unexplained intense focus of increased activity involving the right first costochondral junction 2. Unexplained focus of intense increased activity involving the right medial forefoot. 3. Unexplained focus of increased activity involving the lateral aspect of the left orbit 4. Moderately intense foci of increased activity within the lower lumbar spine CT chest with IV Contrast showed: 4 mm noncalcified pulmonary nodule of the left upper lobe. 4. 1.8 cm lesion of the left adrenal gland again noted. DM2 Hba1c 8.5- uncontrolled insulin 70/30 at home Continue monitor [facility] on board HTN BP stable continue home medications Continue hydralazine prn DVT ppx subq heparin CODE STATUS FULL CODE DISPOSITION Possible discharge home today with home health care Continue PT Total time spent on discharge = 35 minutes This includes examination of the patient, discharge planning, medication reconciliation, and communication with other providers. Discharge Instructions Discharge Instructions Date of Service Aug 26, 2016. Admission Reason for Admission: Acute Neck Pain, Low Back Pain Discharge Discharge Diagnosis / Problem: Osteoarthritis of Back/Neck, Chronic Myeloproliferative Disorder, DM type 2 Discharge Goals Goal(s): Decrease discomfort, Improve function, Improve disease control Activity Recommendations Activity Limitations: resume your previous activity . Instructions / Follow-Up Instructions / Follow-Up Discharge home with home health services Follow up appointment with your primary care physician Dr. Gaviria on 09/01 @ 1: 00 PM Follow up with oncology Dr. Salomon Ferguson on 08/30 @1:00 pm Continue to hold aspirin for the bone marrow biopsy Hold Voltaren cream for the biopsy Take [place] 1 tab every 12 hrs as needed for for moderate to severe pain, hold next dose if you become drowsy take the [place] as prescribed Do not drive or operate any machine after taking the [place] Take Tylenol as needed for mild pain Cymbalta was increased to 30mg daily Fall precaution Continue physical therapy Monitor blood sugar Current Hospital Diet Patient's current hospital diet: Diabetes Type 2 Diet Discharge Diet Recommended Diet: Diabetes Type 2 Diet Pending Studies Studies pending at discharge: no Laboratory Results Hemoglobin A1c Test 08/24/16 07:36 Range/Units Estimated Average Glucose 197 mg/dl Hemoglobin A1c 8.5 H 4.5-5.6 % Medical Emergencies . Who to Call and When: Medical Emergencies: If at any time you feel your situation is an emergency, please call 911 immediately. . Non-Emergent Contact Non-Emergency issues call your: Primary Care Provider Call Non-Emergent contact if: your pain is not controlled, you have any medication questions . . "Provider Documentation" section prepared by Kristie Ring. . VTE Core Measure Inpt VTE Proph given/why not?: Unfractionated heparin SQ [place] Drug Monitoring Program Search Results: patient reviewed within database, no issues identified Additional Copies To Royce Gaviria M.D.
== END 2016-08-26 15:20 | disposition home or self-care (01) | DRG 841 ==
LOC: C.EDB 23:51 → C.4E 08-23 03:56 → ENRESERV 08-23 04:05 → OBSVTOIN 08-24 19:15
PROVIDERS: ADMIT Family Medicine; ATTEND Internal Medicine
DX: C94.6 Myelodysplastic disease, not elsewhere classified (principal); C95.90 Leukemia, unspecified not having achieved remission; C79.51 Secondary malignant neoplasm of bone; M89.9 Disorder of bone, unspecified; E11.9 Type 2 diabetes mellitus without complications; E78.5 Hyperlipidemia, unspecified; K21.9 Gastro-esophageal reflux disease without esophagitis; I10 Essential (primary) hypertension; Z79.82 Long term (current) use of aspirin; Z79.4 Long term (current) use of insulin; M48.06 Spinal stenosis, lumbar region; M47.9 Spondylosis, unspecified

== ENCOUNTER 2017-03-30 07:53 | Emergency (ER) | payer OTHER ==
[~2017-03-30] VITALS: Ht 172.7 cm; Wt 81.5 kg
[~2017-03-30 07:53] MED LIST changes: +ACET-1047 PO; -ALFU10TA30 PO; -ASCA500 PO; +ASPI81TA28 PO; -BACL10TA PO; +CARV12.5 PO; -CARV12.52 PO; -CRAN200C PO; -CYM20 PO; +CYM30 PO; +DICL1GEL12 TOP; -FINA5TAB PO; +GABA-113 PO; -GARL10007 PO; -GLUC-221; +HYDR-5688 PO; +LDDP5 TD; -METF500T5 PO; -MISCCAP63 PO; -MRLP17X PO; -MULT-506 PO; -NRN300 PO; -NRN600 PO; -OMEG10007 PO; +POLY335019 PO; -PRLSR20 PO; -ULT50X PO; -VLTG EXT; -VNTHFA/IN INH
[2017-03-30 07:56] VITALS: Ht 172.7 cm; Wt 81.5 kg
[2017-03-30] MEDS ORDERED: ONDANSETRON INJ 2 MG/ML 2 ML VIAL IV STA (08:12)
[2017-03-30] MEDS ORDERED: MoRPHine SULFATE 4 MG/ML 1 ML CARP\\VIAL IV STA (08:12)
[2017-03-30] MEDS ORDERED: INSU1INJ17 SQ (08:28)
[2017-03-30] MEDS ORDERED: ALL300 PO (08:28)
[2017-03-30] MEDS ORDERED: HYDR500C3 PO (08:28)
--- NOTE | 2017-03-30 08:37 | EMERGENCY ROOM VISIT NOTE ---
History Report prepared by Pamela: Phu Roche Under the Supervision of: Dr. Shannon Atkinson M.D. First contact with patient: 08:04 Chief Complaint: SHOULDER PAIN Stated Complaint: SHOULDER PAIN History of Present Illness The patient is a 76 year old male who presents to the Emergency Room with complaints of constant left shoulder pain for one week. He notes that the pain worsened last night. He currently rates his pain a 10/10 in severity. He reports his pain is worsened with movement. He also reports red spots on his left shoulder. He notes pain in his left knee as well that began yesterday. He recently saw Dr. Ferguson on Sunday for the pain. He denies any recent falls. He notes a dry cough. He notes mild shortness of breath and slight pain to his left chest. 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 Source of History: patient Onset: one week Position: shoulder (left) Symptom Intensity: 10/10 Timing: constant Modifying Factors (Worsening): movement Associated Symptoms: + cough, + chest pain (slight pain to left chest), + SOB, + rash (red spots on left shoulder) Note: He notes left knee pain. He denies any recent falls. Review of Systems See HPI for pertinent positives & negatives. A total of 10 systems reviewed and were otherwise negative. Past Medical & Surgical Medical Problems: (1) Back pain (2) Diabetes (3) Dyslipidemia (4) GERD (gastroesophageal reflux disease) (5) Hypertension (6) Leukemia (7) Prostate disorder (8) Spinal stenosis Surgical Problems: (1) History of back surgery Family History Cancer Diabetes mellitus Heart disease Hypertension Social History Smoking Status: Never Smoker Smokeless Tobacco Use: No Alcohol Use: none Drug Use: none Marital Status: Housing Status: lives alone Occupation Status: retired Current/Historical Medications Scheduled Albuterol Hfa (Ventolin Hfa), 2-4 PUFFS INH Q6H Alfuzosin Hcl (Uroxatral), 10 MG PO DAILY Allopurinol (Allopurinol), 300 MG PO DAILY Ascorbic Acid (Vitamin C), 500 MG PO DAILY Aspirin (Aspirin Ec), 81 MG PO DAILY Baclofen (Lioresal), 10 MG PO TID Carvedilol (Coreg), 12.5 MG PO BID Cranberry (Vaccinium Macrocarp (Cranberry Extract), 200 MG PO DAILY Duloxetine HCl (Duloxetine HCl), 30 MG PO QAM Finasteride (Proscar), 5 MG PO DAILY Fish Oil (Helena-3), 1 CAP PO DAILY Gabapentin (Neurontin), 300 MG PO BID AT AM AND NOON Gabapentin (Neurontin), 600 MG PO HS Garlic (Garlic), 1,000 MG PO DAILY Insulin Isophane & Reg (Human) (Novolin 70/30 Relion), 34-35 UNITS SQ AMPM Lisinopril (Zestril), 20 MG PO DAILY Metformin Hcl Er (Glucophage Er), 1,000 MG PO BID Misc Natural Products (Prostate Health), 1 CAP PO DAILY Multivitamin (Multivitamin), 1 TAB PO DAILY Omeprazole (Prilosec), 20 MG PO DAILY Scheduled PRN Acetaminophen (Mapap), 650 MG PO Q8 PRN for Headache or Pain Hydrocodone/Acetaminophen 5MG/325MG (Champlain 5MG/325MG), 0.5-1 TABLET PO Q6 PRN for Pain Allergies Coded Allergies: Terazosin (Verified Allergy, Unknown, unkn, 03/30/17) Physical Exam Vital Signs Date Time Temp Pulse Resp B/P (MAP) Pulse Ox O2 Delivery O2 Flow Rate FiO2 03/30/17 12:19 37.1 75 18 143/87 95 03/30/17 10:46 71 03/30/17 10:00 85 18 148/82 95 Room Air 03/30/17 07:56 36.4 71 18 163/74 99 Room Air Physical Exam Vital signs reviewed. General: Chronically ill-appearing, in no significant distress. HEENT: No scleral icterus, PERRLA, neck supple. Atraumatic. Cardiovascular: Regular rate and rhythm, no extra sounds. Pulmonary: Clear to auscultation bilaterally, normal work of breathing. Abdomen: Soft, nontender, nondistended, positive bowel sounds. Musculoskeletal: Atraumatic, no peripheral edema. Diffuse tenderness along cervical spine and thoracic spine; no step-offs, no swelling, and no deformities. Tenderness to palpation over the left trapezius muscle, the deltoid , and the upper chest with a patchy erythematous rash along anterior left shoulder, no vesicles appreciated. He has discomfort with any motion of left shoulder, no appreciable deformity. Neurologic: Patient awake alert and oriented x 3 Skin: Warm, dry, no rash Medical Decision & Procedures ER Provider Diagnostic Interpretation: Radiology results as stated below per my review and radiologist interpretation: CT OF THE CERVICAL SPINE CLINICAL HISTORY: cervical radiculopathy, L shoulder pain, leukemia COMPARISON STUDY: 08/23/2016 CT DOSE: 313.77 mGy.cm TECHNIQUE: CT scan of the cervical spine was performed from the skull base to the thoracic inlet. Images are reviewed in the axial, sagittal, and coronal planes. IV contrast was not administered for this examination. A dose lowering technique was utilized adhering to the principles of ALARA. FINDINGS: The visualized portions of the lung apices reveal no evidence of pneumothorax. The prevertebral soft tissues are normal. No fractures or subluxations are visualized. There are degenerative changes most pronounced the C5-6 and C6-7 levels. It should be noted that and MRI study would be considered the test of choice for the evaluation of spinal cord, disc, and marrow abnormalities. There is a relatively stable 18 mm lytic focus involving the occipital bone near the midline. IMPRESSION: 1. No acute fractures or traumatic subluxations 2. Mild degenerative changes most pronounced the C5-6 and C6-7 levels Electronically signed by: Krishna Atwood M.D. 03/30/2017 9:49 AM Dictated Date/Time: 03/30/2017 9:45 AM LEFT SHOULDER 3 VIEWS CLINICAL HISTORY: Fall with left shoulder pain. FINDINGS: 3 views of the left shoulder are obtained. No prior studies are available for comparison at the time of dictation. The skeletal structures are osteopenic. No fracture or dislocation is seen. The glenohumeral and acromioclavicular joints are preserved. The overlying soft tissues are within normal limits. The imaged left upper lobe lung parenchyma appears clear. IMPRESSION: Osteopenia with no radiographic evidence of left shoulder fracture or dislocation. Electronically signed by: Surya Pearl M.D. 03/30/2017 10:16 AM Dictated Date/Time: 03/30/2017 10:15 AM Laboratory Results 03/30/17 08:40 Red Blood Count 2.47, Mean Corpuscular Volume 114.2, Mean Corpuscular Hemoglobin 39.3, Mean Corpuscular Hemoglobin Concent 34.4, Mean Platelet Volume 9.4 03/30/17 08:40 Test 03/30/17 08:40 03/30/17 08:50 White Blood Count 45.04 K/uL (4.8-10.8) Red Blood Count 2.47 M/uL (4.7-6.1) Hemoglobin 9.7 g/dL (14.0-18.0) Hematocrit 28.2 % (42-52) Mean Corpuscular Volume 114.2 fL (80-100) Mean Corpuscular Hemoglobin 39.3 pg (25-34) Mean Corpuscular Hemoglobin Concent 34.4 g/dl (32-36) Platelet Count 74 K/uL (130-400) Mean Platelet Volume 9.4 fL (7.4-10.4) RDW Standard Deviation 61.5 fL (36.4-46.3) RDW Coefficient of Variation 15.0 % (11.5-14.5) Neutrophils % (Manual) 94.0 % Lymphocytes % (Manual) 4.3 % Monocytes % (Manual) 1.7 % Neutrophils # (Manual) 42.34 K/uL (1.4-6.5) Total Absolute Neutrophils 42.34 K/uL (1.4-6.5) Lymphocytes # (Manual) 1.94 K/uL (1.2-3.4) Total Absolute Lymphocytes 1.94 K/uL (1.2-3.4) Monocytes # (Manual) 0.77 K/uL (0.11-0.59) Toxic Granulation 1+ Dohle Bodies 1+ Anion Gap 8.0 mmol/L (3-11) Est Creatinine Clear Calc Drug Dose 53.4 ml/min Estimated GFR () 73.0 Estimated GFR (Non- 63.0 BUN/Creatinine Ratio 15.8 (10-20) Calcium Level 8.8 mg/dl (8.5-10.1) Total Bilirubin 0.5 mg/dl (0.2-1) Direct Bilirubin 0.2 mg/dl (0-0.2) Aspartate Amino Transf (AST/SGOT) 27 U/L (15-37) Alanine Aminotransferase (ALT/SGPT) 28 U/L (12-78) Alkaline Phosphatase 121 U/L (45-117) Total Creatine Kinase 404 U/L (39-308) Creatine Kinase MB 12.7 ng/ml (0.5-3.6) Creatine Kinase MB Ratio 3.1 (0-3.0) Total Protein 7.3 gm/dl (6.4-8.2) Albumin 3.5 gm/dl (3.4-5.0) Bedside Troponin I < 0.030 ng/ml (0-0.045) Laboratory results per my review. Medications Administered Medications (Trade) Dose Ordered Sig/Karla Route Start Time Stop Time Status Last Admin Dose Admin Ondansetron HCl (Zofran Inj) 4 mg NOW STAT IV 03/30/17 08:12 03/30/17 08:17 DC 03/30/17 09:19 4 MG Fentanyl Citrate (Fentanyl Inj) 50 mcg NOW STAT IV 03/30/17 09:17 03/30/17 09:18 DC 03/30/17 09:23 50 MCG ECG Indication: other (left shoulder pain) Rate (beats per minute): 66 Rhythm: sinus rhythm Findings: nonspecific-ST abn (Inferior and Lateral), no acute ischemic change, no ectopy, other (QTC is 398) Change: Patient's electrocardiogram interpreted by me. ED Course 0810: Past medical records reviewed. The patient was evaluated in room A4B. A complete history and physical examination was performed. 0812: Ordered Zofran 4 mg Iv and Morphine Sulfate 4 mg IV 0815: The patient refused the Morphine Sulfate. 0917: Ordered Fentanyl Citrate 50 mcg IV 1038: I reassessed the patient at this time. 1136: I reassessed the patient at this time. He is resting comfortably. I discussed the results and treatment plan with the patient. I answered all pertaining questions that he had. He expressed understanding and verbalized agreement. The patient will be discharged home. 1157: I spoke with Dr. Ferguson, [facility] oncology. We discussed the patient's case. He states his myeloproliferative disease is progressing. He reports this is chronic pain. He will follow up with the him as an outpatient. Medical Decision The patient is a 76 year old male who presents to the ED with complaints of left shoulder pain. Differentials include metastatic lesions, disc herniation, bony fracture, radiculopathy, shingles, and muscular spasm. This patient was evaluated and appeared to be in significant discomfort. IV access was obtained and laboratory work was drawn. Patient is found to have an elevated white blood cell count of 45,000, platelet count is 74,000. Patient is also mildly anemic. He has not been on any chemotherapy lately. CT scan of the cervical spine was performed and reveals degenerative changes. There is no evidence of acute fracture or dislocation of the left shoulder on x-ray. Patient was advised of the findings. He did have some relief with IV Zofran and IV fentanyl. I do suspect the patient's pain is neuropathic given its distribution. I've spoken with Dr. Ferguson, the patient's oncologist who feels that this is a chronic pain. He was given a prescription for Champlain to be used as needed for severe pain. Patient also has gabapentin and baclofen to be taken as needed for muscular spasm. He'll follow-up with his physicians for reevaluation and return to the ER for worsening of symptoms or any medical concerns. Medication Reconcilliation Current Medication List: was personally reviewed by me Blood Pressure Screening Patient's blood pressure: Elevated blood pressure Blood pressure disposition: Elevated BP felt to be situational Consults Time Called: 1040 Consulting Physician: Dr. Ferguson, [facility] oncology Returned Call: [address] Ferguson, [facility] onc[facility]. We discussed the patient's case. He states his myeloproliferative disease is progressing. He reports this is chronic pain. He will follow up with the him as an outpatient. Impression Primary Impression: Neuropathic pain of left shoulder Scribe Attestation The scribe's documentation has been prepared under my direction and personally reviewed by me in its entirety. I confirm that the note above accurately reflects all work, treatment, procedures, and medical decision making performed by me. Departure Information Dispostion Home / Self-Care Prescriptions Hydrocodone/Acetaminophen 5MG/325MG (Champlain 5MG/325MG) Tab 0.5-1 TABLET PO Q6 Y for Pain, #20 TAB Prov: Shannon Atkinson M.D. 03/30/17 Referrals Royce Gaviria M.D. (PCP) Forms HOME CARE DOCUMENTATION FORM, IMPORTANT VISIT INFORMATION Patient Instructions My [facility] Additional Instructions Diagnosis: Neuropathic pain of the left shoulder Champlain one half to one tab every 6 hours as needed for severe pain. Do not drive while taking this medication. Tylenol 650 mg every 6-8 hours as needed for severe pain. Do not exceed 3 g of Tylenol and any 24 hour period. Follow-up with your physician, Dr. Ferguson, within the next several days for reevaluation. Return to the emergency department for worsening of symptoms, worsening of rash , fever or any medical concerns.
[2017-03-30 09:10] LABS: HEMATOCRIT 28.2 % (42-52); HEMOGLOBIN 9.7 g/dL (14.0-18.0); MEAN CELL VOLUME 114.2 fL (80-100); MEAN CORPUSCULAR HEMOGLOBIN 39.3 pg (25-34); MEAN CORPUSCULAR HGB CONC 34.4 g/dl (32-36); MEAN PLATELET VOLUME 9.4 fL (7.4-10.4); PLATELET COUNT 74 K/uL (130-400); RED CELL DISTRIBUTION WIDTH SD 61.5 fL (36.4-46.3); WHITE BLOOD COUNT 45.04 K/uL (4.8-10.8)
[2017-03-30 09:13] LABS: ALBUMIN 3.5 gm/dl (3.4-5.0); CALCIUM 8.8 mg/dl (8.5-10.1); CREATININE 1.12 mg/dl (0.60-1.40); POTASSIUM 4.9 mmol/L (3.5-5.1)
[2017-03-30] MEDS ORDERED: FENTANYL CITRATE INJ 50 MCG/1 ML 2 ML VIAL IV STA (09:17)
[2017-03-30 09:18] LABS: CKMB 12.7 ng/ml (0.5-3.6); TOTAL PROTEIN 7.3 gm/dl (6.4-8.2)
--- NOTE | 2017-03-30 09:51 | DIAGNOSTIC IMAGING REPORT ---
CT OF THE CERVICAL SPINE CLINICAL HISTORY: cervical radiculopathy, L shoulder pain, leukemia COMPARISON STUDY: 08/23/2016 CT DOSE: 313.77 mGy.cm TECHNIQUE: CT scan of the cervical spine was performed from the skull base to the thoracic inlet. Images are reviewed in the axial, sagittal, and coronal planes. IV contrast was not administered for this examination. A dose lowering technique was utilized adhering to the principles of ALARA. FINDINGS: The visualized portions of the lung apices reveal no evidence of pneumothorax. The prevertebral soft tissues are normal. No fractures or subluxations are visualized. There are degenerative changes most pronounced the C5-6 and C6-7 levels. It should be noted that and MRI study would be considered the test of choice for the evaluation of spinal cord, disc, and marrow abnormalities. There is a relatively stable 18 mm lytic focus involving the occipital bone near the midline. IMPRESSION: 1. No acute fractures or traumatic subluxations 2. Mild degenerative changes most pronounced the C5-6 and C6-7 levels Electronically signed by: Krishna Atwood M.D. 03/30/2017 9:49 AM Dictated Date/Time: 03/30/2017 9:45 AM
--- NOTE | 2017-03-30 10:17 | DIAGNOSTIC IMAGING REPORT ---
LEFT SHOULDER 3 VIEWS CLINICAL HISTORY: Fall with left shoulder pain. FINDINGS: 3 views of the left shoulder are obtained. No prior studies are available for comparison at the time of dictation. The skeletal structures are osteopenic. No fracture or dislocation is seen. The glenohumeral and acromioclavicular joints are preserved. The overlying soft tissues are within normal limits. The imaged left upper lobe lung parenchyma appears clear. IMPRESSION: Osteopenia with no radiographic evidence of left shoulder fracture or dislocation. Electronically signed by: Surya Pearl M.D. 03/30/2017 10:16 AM Dictated Date/Time: 03/30/2017 10:15 AM
[2017-03-30] MEDS ORDERED: VNTHFA/IN INH (11:47)
[2017-03-30] MEDS ORDERED: BACL10TA PO (11:47)
[2017-03-30] MEDS ORDERED: HYDR-5688 PO (11:55)
[2017-03-30 12:19] VITALS: BP 143/87; PULSE 75; TEMP 37.1; O2SAT 95
[2017-03-30] MEDS ORDERED: CRAN200C PO (14:51)
[2017-03-30] MEDS ORDERED: ASCA500 PO (14:51)
[2017-03-30] MEDS ORDERED: GARL10007 PO (14:51)
[2017-03-30] MEDS ORDERED: MISCCAP63 PO (14:51)
[2017-03-30] MEDS ORDERED: ALFU10TA2 PO (14:51)
[2017-03-30] MEDS ORDERED: OMEG10007 PO (14:51)
[2017-03-30] MEDS ORDERED: MULT-506 PO (14:51)
[2017-03-30] MEDS ORDERED: PRLSR20 PO (14:51)
[2017-03-30] MEDS ORDERED: FINA5TAB PO (14:51)
[2017-03-30] MEDS ORDERED: METF500T5 PO (14:51)
[2017-03-31] MEDS ORDERED: ACET-1256 PO (10:51)
== END 2017-03-30 12:20 | disposition home or self-care (01) ==
LOC: C.EDB 07:54 → C.EDA 12:20
DX: M25.512 Pain in left shoulder (principal); E11.9 Type 2 diabetes mellitus without complications; E78.5 Hyperlipidemia, unspecified; K21.9 Gastro-esophageal reflux disease without esophagitis; I10 Essential (primary) hypertension; N42.9 Disorder of prostate, unspecified; Z83.3 Family history of diabetes mellitus; Z82.49 Family history of ischemic heart disease and other diseases of the circulatory system; Z79.82 Long term (current) use of aspirin; Z79.4 Long term (current) use of insulin

== ENCOUNTER 2017-03-31 09:44 | Inpatient (IN) | payer OTHER ==
[~2017-03-31] VITALS: Ht 172.7 cm; Wt 81.2 kg
[~2017-03-31 09:44] MED LIST changes: +ALFU10TA2 PO; +ALL300 PO; +ASCA500 PO; +BACL10TA PO; +CRAN200C PO; -DICL1GEL12 TOP; +FINA5TAB PO; +GARL10007 PO; +INSU1INJ17 SQ; -INSU70IN2 SC; -LDDP5 TD; +METF500T5 PO; +MISCCAP63 PO; +MULT-506 PO; +OMEG10007 PO; -POLY335019 PO; +PRLSR20 PO; +VNTHFA/IN INH
[2017-03-31] MEDS ORDERED: SODIUM CHLORIDE 0.9% 1000ML 1,000 ML IV STA (10:23)
[2017-03-31] MEDS ORDERED: ONDANSETRON INJ 2 MG/ML 2 ML VIAL IV STA (10:23)
[2017-03-31] MEDS ORDERED: MoRPHine SULFATE 4 MG/ML 1 ML CARP\\VIAL IV STA ×2 (10:23→13:49)
--- NOTE | 2017-03-31 10:23 | EMERGENCY ROOM VISIT NOTE ---
History Report prepared by Pamela: Vicente Zurita Under the Supervision of: Dr. Mike Figueroa M.D. First contact with patient: 10:00 Chief Complaint: PAIN (GENERALIZED) Stated Complaint: PAIN IN SHOULDER, LEG,AND BACK BLK SPOTS IN FRONT History of Present Illness The patient is a 76 year old male who presents to the Emergency Room with complaints of constant, generalized, pain beginning 1.5 weeks ago. The patient states he is experiencing pain in his arms, back, shoulders, and legs. He reports he was here yesterday for similar symptoms, and his leg pain has gotten better. The patient notes he was given hydrocodone and fentanyl, but it is not helping. He states he is also experiencing black dots in his vision, a severe headache, and shortness of breath. The patient denies falling, losing consciousness, chest pain, a history of smoking, a history of COPD, a history of asthma, fevers, difficulty urinating, constipation, blood in his stool, and blood in his urine. He notes he has a history of myelodysplastic syndrome. The patient states he he was told to stop taking his cancer medication because his platelet count was low and his WBC were high. He reports he has to wait for the rest of his blood panel to stabilize before he can take his medication again. Source of History: patient Onset: 1.5 weeks ago Position: other (global) Quality: other (gout-like pain) Timing: constant Associated Symptoms: + headache, + SOB, No LOC, No fevers, No chest pain, No urinary symptoms Note: Associated symptoms: black dots in his vision Denies: constipation, blood in stool Review of Systems See HPI for pertinent positives and negatives. A total of ten systems were reviewed and were otherwise negative. Past Medical & Surgical Medical Problems: (1) Back pain (2) Diabetes (3) Dyslipidemia (4) GERD (gastroesophageal reflux disease) (5) Hypertension (6) Leukemia (7) Prostate disorder (8) Spinal stenosis Surgical Problems: (1) History of back surgery Family History Cancer Diabetes mellitus Heart disease Hypertension Social History Smoking Status: Never Smoker Alcohol Use: none Drug Use: none Marital Status: Housing Status: lives alone Occupation Status: retired Current/Historical Medications Scheduled Albuterol Hfa (Ventolin Hfa), 2-4 PUFFS INH Q6H Alfuzosin Hcl (Uroxatral), 10 MG PO DAILY Allopurinol (Allopurinol), 300 MG PO DAILY Ascorbic Acid (Vitamin C), 500 MG PO DAILY Aspirin (Aspirin Ec), 81 MG PO DAILY Baclofen (Lioresal), 10 MG PO TID Carvedilol (Coreg), 12.5 MG PO BID Cranberry (Vaccinium Macrocarp (Cranberry Extract), 200 MG PO DAILY Duloxetine HCl (Duloxetine HCl), 30 MG PO QAM Finasteride (Proscar), 5 MG PO DAILY Fish Oil ([place]-3), 1 CAP PO DAILY Gabapentin (Neurontin), 300 MG PO BID AT AM AND NOON Gabapentin (Neurontin), 600 MG PO HS Garlic (Garlic), 1,000 MG PO DAILY Insulin Isophane & Reg (Human) (Novolin 70/30 Relion), 34-35 UNITS SQ AMPM Lisinopril (Zestril), 20 MG PO DAILY Metformin Hcl Er (Glucophage Er), 1,000 MG PO BID Global [employer]cessc Natural Products (Prostate Health), 1 CAP PO DAILY Multivitamin (Multivitamin), 1 TAB PO DAILY Omeprazole (Prilosec), 20 MG PO DAILY Scheduled PRN Acetaminophen (Tylenol), 500 MG PO Q6H PRN for Pain or Fever Hydrocodone/Acetaminophen 5MG/325MG ([place]ois 5MG/325MG), 0.5-1 TABLET PO Q6 PRN for Pain Allergies Coded Allergies: Terazosin (Verified Allergy, Unknown, unkn, 03/31/17) Physical Exam Vital Signs Date Time Temp Pulse Resp B/P (MAP) Pulse Ox O2 Delivery O2 Flow Rate FiO2 03/31/17 15:55 74 161/83 99 03/31/17 15:30 73 20 161/83 97 Nasal Cannula 2.0 03/31/17 14:01 76 20 145/77 95 Room Air 03/31/17 13:45 76 03/31/17 13:00 74 20 148/72 92 Room Air 03/31/17 11:44 81 20 155/79 91 Room Air 03/31/17 10:13 70 03/31/17 09:54 36.3 74 16 151/79 95 Room Air Physical Exam Physical Exam GENERAL: He is oriented to person, place, and time. He appears well-developed and well-nourished. He does not appear distressed. ____ HENT: Exam performed. Head: Normocephalic and atraumatic. Right Ear: External ear normal. No mastoid tenderness. Left Ear: External ear normal. No mastoid tenderness. Mouth/Throat: The oropharynx is clear and moist. No trismus in the jaw. No dental abscesses or uvula swelling. No oropharyngeal exudate or tonsillar abscesses. ____ EYES: Conjunctivae and EOM are normal. Pupils are equal, round, and reactive to light. Right eye exhibits no discharge. Left eye exhibits no discharge. No scleral icterus. Funduscopic exam shows no AV nicking or papilledema bilaterally____ NECK: Normal range of motion. Neck supple. No JVD present. No spinous process tenderness present. No carotid bruit present. No rigidity. No tracheal deviation and normal range of motion present. No Brudzinski's sign and no Kernig 's sign noted. ____ CV: Normal rate, regular rhythm, normal heart sounds and intact distal pulses. There is no peripheral edema. Palpable radial pulses bue. ____ PULM/CHEST: Effort normal and breath sounds normal. No respiratory distress. No stridor. He has no wheezes. He has no rales. Chest Wall: He exhibits no tenderness. ____ ABD: The abdomen is soft. Bowel sounds are normal. He has no distension. No mass is present. There is no tenderness. There is no rebound, no guarding, no Kendrick's sign and no tenderness at McBurney's point. Rovsig negative MUSC/SKEL: Normal range of motion. There is no peripheral edema or deformity. Tenderness to palpation to the left shoulder and left popliteal area. LYMPH: No cervical adenopathy. ____ NEURO: He is alert and oriented to person, place, and time. He has normal strength. No cranial nerve deficit or sensory deficit. Coordination and gait normal. GCS eye subscore is 4. GCS verbal subscore is 5. GCS motor subscore is 6. cerbellar tests wnl. ____ SKIN: Skin is warm and dry. He is not diaphoretic. ____ PSYCH: He has a normal mood and affect. His behavior is normal. Judgment and thought content normal. ____ Medical Decision & Procedures ER Provider Diagnostic Interpretation: Radiology results as stated below per my review and radiologist interpretation: VENOUS DOPPLER LWR EXT BILA CLINICAL HISTORY: 76 years-old Male presenting with r/o dvt, pain in the shoulder, leg, and back, clinical concern for deep venous thrombosis. TECHNIQUE: Real-time grayscale and color and spectral Doppler ultrasound imaging of the veins of the bilateral lower extremities was performed. Compression and augmentation were also utilized. COMPARISON: None. FINDINGS: Right: Common femoral vein: Patent. Greater saphenous vein: Patent. Deep femoral vein: Patent. Femoral vein: Patent. Popliteal vein: Patent. Calf veins: Patent. Left: Common femoral vein: Patent. Greater saphenous vein: Patent. Deep femoral vein: Patent. Femoral vein: Patent. Popliteal vein: Patent. Calf veins: Patent. Other: None. IMPRESSION: No evidence of deep venous thrombosis. Electronically signed by: Sammy Conte M.D. 03/31/2017 12:31 PM Dictated Date/Time: 03/31/2017 12:30 PM HEAD WITHOUT CONTRAST (CT) CLINICAL HISTORY: 76 years-old Male presenting with headache w/ seeing floaters hx of myeloplastic syndrome. TECHNIQUE: Multidetector CT imaging of the head was performed without the use of intravenous contrast. IV contrast: None. A dose lowering technique was used consistent with the principles of ALARA (as low as reasonably achievable). COMPARISON: 08/16/2016. CT DOSE (mGy.cm): The estimated cumulative dose is 1141 inclusive of multiple additional CT scans. FINDINGS: Seeing Eye Dog Trainer topogram: Unremarkable. Ventricles and sulci normal in size. Periventricular and subcortical white matter hypoattenuation, nonspecific but likely indicative of chronic small vessel ischemic change. No mass effect or midline shift. No hemorrhage or acute territorial infarct. No extra-axial fluid collection. Paranasal sinuses and mastoid air cells clear. Calvarium intact. IMPRESSION: 1. Chronic small vessel ischemic change. No acute intracranial abnormality. Electronically signed by: Sammy Conte M.D. 03/31/2017 11:42 AM Dictated Date/Time: 03/31/2017 11:40 AM (CHEST FOR PE) ANGIO WITH CLINICAL HISTORY: 76 years-old Male presenting with ^sob r/o pe, left shoulder pain, clinical concern for pulmonary embolus. TECHNIQUE: Multidetector CT angiography of the chest was performed after administration of intravenous contrast. 3-D volumetric and/or maximum intensity projection (MIP) images were subsequently reconstructed for review. IV contrast: 94 mL of Optiray 320. A dose lowering technique was used consistent with the principles of ALARA (as low as reasonably achievable). COMPARISON: 08/24/2016. CT DOSE (mGy.cm): The estimated cumulative dose is 1141.07 mGy.cm. FINDINGS: Seeing Eye Dog Trainer topogram: Left hemidiaphragm elevation. Pulmonary vasculature: The study is adequate for assessment of the pulmonary vascular tree. No filling defect within the pulmonary arteries to suggest embolus. Main pulmonary artery is not enlarged. No flattening of the interventricular septum. No intracardiac filling defect. Reflux of contrast into the intrahepatic IVC. Remaining chest: On soft tissue windows, normal thyroid and thoracic inlet. No axillary, supraclavicular, hilar, or mediastinal lymphadenopathy. Atherosclerosis of the aorta. Normal heart size. Coronary artery calcification. No pericardial or pleural effusion. Nodularity of the adrenal glands, nonspecific. On lung windows, minimal dependent changes likely atelectasis. 5 mm solid pulmonary nodule in the right upper lobe (see series 6 image 192), new from prior solid 5 mm nodule at the right lower lobe (series 6 image 75), not clearly visualized on the prior exam though there was basilar atelectasis in this region previously. Mild bronchial wall thickening. Central airways patent. On bone windows, degenerative changes of the spine. IMPRESSION: 1. No evidence of pulmonary embolus. No acute intrathoracic pathology. 2. Solid pulmonary nodules measuring up to 5 mm in the right lung. Follow-up per [place] Society 2017 recommendations below. 3. Nonspecific nodularity of the adrenal glands. Attention on follow-up. Please refer to below summary of Fleischner Society 2017 recommendations for follow-up of incidental CT nodules (H Renan et al. Guidelines for management of incidental pulmonary nodules detected on CT images: From the Fleischner Society 2017. Radiology 2017; 284: 228-243.) SOLID NODULES Single nodule; size < 6 mm * Low risk patients: No routine follow-up * High risk patients: Optional CT at 12 months Single nodule; size 6-8 mm * Low risk patients: CT at 6-12 months, then consider CT at 18-24 months * High risk patients: CT at 6-12 months, then at 18-24 months Single nodule; size > 8 mm * Either low or high risk patients: Considered CT at 3 months, PET/CT, or tissue sampling Multiple nodules; size < 6 mm * Low risk patients: No routine follow up * High risk patients: Optional CT at 12 months Multiple nodules; size 6-8 mm * Low risk patients: CT at 3-6 months, then consider CT at 18-24 months * High risk patients: CT at 3-6 months, then at 18-24 months Multiple nodules; size > 8 mm * Low risk patients: CT at 3-6 months, then consider at 18-24 months * High risk patients: CT at 3-6 months, then at 18-24 months Note: These guidelines apply to incidental nodules. These guidelines do not apply to patients younger than 35 years, immunocompromised patients, or patients with cancer. * Low risk patients: Minimal or absent history of smoking and/or other known risk factors * High risk patients: History of smoking, exposure to other carcinogens, emphysema, fibrosis, upper lobe location, family history of lung cancer, etc. * If a nodule up to 8 mm is partly solid or is ground glass, further follow-up is required after 24 months to exclude possible slow growing adenocarcinoma. SUBSOLID NODULES Single ground-glass nodule * Nodule size < 6 mm: No routine follow-up * Nodule size > or = 6 mm: CT at 6-12 months to confirm persistence, then CT every 2 years until 5 years Single part-solid nodule * Nodule size < 6 mm: No routine follow-up * Nodules size > or = 6 mm: CT at 3-6 months to confirm persistence. If unchanged and solid component remains < 6 mm, annual CT should be performed for 5 years Multiple nodules * Nodule size < 6 mm: CT at 3-6 months. If stable, consider CT at 2 and 4 years. * Nodules size > or = 6 mm: CT at 3-6 months. Subsequent management based on the most suspicious nodule(s) Electronically signed by: Sammy Conte M.D. 03/31/2017 11:50 AM Dictated Date/Time: 03/31/2017 11:43 AM Laboratory Results 03/31/17 10:15 Red Blood Count 2.56, Mean Corpuscular Volume 113.3, Mean Corpuscular Hemoglobin 37.9, Mean Corpuscular Hemoglobin Concent 33.4, Mean Platelet Volume 10.0 03/31/17 11:10 Test 03/31/17 10:15 03/31/17 11:10 03/31/17 11:15 03/31/17 12:06 White Blood Count 44.34 K/uL (4.8-10.8) Red Blood Count 2.56 M/uL (4.7-6.1) Hemoglobin 9.7 g/dL (14.0-18.0) Hematocrit 29.0 % (42-52) Mean Corpuscular Volume 113.3 fL (80-100) Mean Corpuscular Hemoglobin 37.9 pg (25-34) Mean Corpuscular Hemoglobin Concent 33.4 g/dl (32-36) Platelet Count 71 K/uL (130-400) Mean Platelet Volume 10.0 fL (7.4-10.4) RDW Standard Deviation 60.8 fL (36.4-46.3) RDW Coefficient of Variation 14.9 % (11.5-14.5) Neutrophils % (Manual) 90.3 % Lymphocytes % (Manual) 4.4 % Monocytes % (Manual) 4.4 % Myelocytes % 0.9 % Neutrophils # (Manual) 40.04 K/uL (1.4-6.5) Total Absolute Neutrophils 40.04 K/uL (1.4-6.5) Lymphocytes # (Manual) 1.95 K/uL (1.2-3.4) Total Absolute Lymphocytes 1.95 K/uL (1.2-3.4) Monocytes # (Manual) 1.95 K/uL (0.11-0.59) Myelocytes # 0.40 K/uL (0-0) Toxic Vacuolation 1+ Dohle Bodies 2+ Platelet Estimate DECREASED Macrocytosis PRESENT Anion Gap 9.0 mmol/L (3-11) Est Creatinine Clear Calc Drug Dose 48.6 ml/min Estimated GFR () 65.2 Estimated GFR (Non- 56.3 BUN/Creatinine Ratio 16.1 (10-20) Lactic Acid Level 2.9 mmol/L (0.4-2.0) Calcium Level 8.8 mg/dl (8.5-10.1) Total Bilirubin 0.6 mg/dl (0.2-1) Aspartate Amino Transf (AST/SGOT) 23 U/L (15-37) Alanine Aminotransferase (ALT/SGPT) 29 U/L (12-78) Alkaline Phosphatase 117 U/L (45-117) Total Creatine Kinase 318 U/L (39-308) Troponin I < 0.015 ng/ml (0-0.045) Total Protein 7.2 gm/dl (6.4-8.2) Albumin 3.3 gm/dl (3.4-5.0) Globulin 3.9 gm/dl (2.5-4.0) Albumin/Globulin Ratio 0.9 (0.9-2) Lipase 48 U/L (73-393) Urine Color YELLOW Urine Appearance CLEAR (CLEAR) Urine pH 7.5 (4.5-7.5) Urine Specific [place] 1.022 (1.000-1.030) Urine Protein NEG (NEG) Urine Glucose (UA) 3+ (NEG) Urine Ketones 1+ (NEG) Urine Occult Blood TRACE (NEG) Urine Nitrite NEG (NEG) Urine Bilirubin NEG (NEG) Urine Urobilinogen NEG (NEG) Urine Leukocyte Esterase NEG (NEG) Urine WBC (Auto) 1-5 /hpf (0-5) Urine RBC (Auto) 0-4 /hpf (0-4) Urine Hyaline Casts (Auto) 0 /lpf (0-5) Urine Epithelial Cells (Auto) 20-30 /lpf (0-5) Urine Bacteria (Auto) NEG (NEG) Urine Crystals (NONE PRSENT) Prothrombin Time 10.9 SECONDS (9.0-12.0) Prothromb Time International Ratio 1.0 (0.9-1.1) Activated Partial Thromboplast Time 28.1 SECONDS (21.0-31.0) Partial Thromboplastin Ratio 1.1 Laboratory results reviewed by me Medications Administered Medications (Trade) Dose Ordered Sig/Karla Route Start Time Stop Time Status Last Admin Dose Admin Sodium Chloride 1,000 ml @ 125 mls/hr Q8H STAT IV 03/31/17 10:23 03/31/17 18:22 03/31/17 11:08 125 MLS/HR Morphine Sulfate (MoRPHine SULFATE INJ) 4 mg NOW STAT IV 03/31/17 10:23 03/31/17 10:27 DC 03/31/17 11:09 4 MG Ondansetron HCl (Zofran Inj) 4 mg NOW STAT IV 03/31/17 10:23 03/31/17 10:27 DC 03/31/17 11:09 4 MG Morphine Sulfate (MoRPHine SULFATE INJ) 4 mg NOW STAT IV 03/31/17 13:49 03/31/17 13:50 DC 03/31/17 14:00 4 MG ECG Indication: back/shoulder pain Rate (beats per minute): 69 Rhythm: sinus rhythm Findings: no acute ischemic change, no ectopy, other (Baseline wander and artifact. HI, QRS QTc is within normal limits. No ST depression or elevation.) Change: Patient's electrocardiogram was interpreted by me. ED Course 1013: The patient was evaluated in room A12B. A complete history and physical exam was performed 1023: Ordered Zofran Inj 4 mg IV, Morphine Sulfate 4 mg IV, Sodium Chloride 1000 ml @ 999 mls/hr IV. 1102: I reviewed the patient's EMR. The patient was seen yesterday with a WBC count of 45.04, hemoglobin of 9.7, and a platelet count of 74. Today, his WBC count shows minimal improvement at 44.34, his hemoglobin is stable at 9.7, and his platelets have mildly decreased at 71. The patient had a negative cervical spine CT and a shoulder X-ray yesterday. 1349: I re-evaluated the patient and he is still complaining of pain. I discussed the option of admission for pain managment with the patient and his family at bedside. Family states that they preferred the patient to be admitted for pain control and state they cannot keep bring him to the hospital when his pain gets out of hand, the patient verbalized agreement. Ordered Morphine Sulfate 4 mg IV 1405: I discussed the patient's case with Dr. Neal Gao Hospitalist. The patient will be evaluated for further management and care. Medical Decision I reviewed the patient's EMR. The patient was seen yesterday with a WBC count of 45.04, hemoglobin of 9.7, and a platelet count of 74. Today, his WBC count shows minimal improvement at 44.34, his hemoglobin is stable at 9.7, and his platelets have mildly decreased at 71. The patient had a negative cervical spine CT and a shoulder X-ray yesterday. Today lactic is mildly elevated. I re-evaluated the patient and he is still complaining of pain. I discussed the option of admission for pain managment with the patient and his family at bedside. Family states that they preferred the patient to be admitted for pain control and state they cannot keep bring him to the hospital when his pain gets out of hand, the patient verbalized agreement. Ordered Morphine Sulfate 4 mg IV Medication Reconcilliation Current Medication List: was personally reviewed by me Blood Pressure Screening Patient's blood pressure: Elevated blood pressure Blood pressure disposition: Elevated BP felt to be situational Consults Time Called: 1349 Consulting Physician: Dr. Neal Gao Hospitalist Returned Call: [phone] I discussed the patient's case with Dr. Neal Langston. The patient will be evaluated for further management and care. Impression Primary Impression: Uncontrolled pain Scribe Attestation The scribe's documentation has been prepared under my direction and personally reviewed by me in its entirety. I confirm that the note above accurately reflects all work, treatment, procedures, and medical decision making performed by me. The chart was completed utilizing [employer] Speech voice recognition software. Grammatical errors, random word insertions, pronoun errors, and incomplete sentences are an occasional consequence of this system due to software limitations, ambient noise, and hardware issues. Any formal questions or concerns about the content, text, or information contained within the body of this dictation should be directly addressed to the physician for clarification. Departure Information Dispostion Being Evaluated By Hospitalist Referrals Royce Gaviria M.D. (PCP) Patient Instructions My [facility]
[2017-03-31] MEDS ORDERED: OPTIRAY 320 IV PRN (10:30)
[2017-03-31] MEDS ORDERED: ACET-1256 PO (10:51)
[2017-03-31 11:01] LABS: HEMOGLOBIN 9.7 g/dL (14.0-18.0); MEAN CELL VOLUME 113.3 fL (80-100); MEAN CORPUSCULAR HEMOGLOBIN 37.9 pg (25-34); MEAN CORPUSCULAR HGB CONC 33.4 g/dl (32-36); PLATELET COUNT 71 K/uL (130-400); RED CELL DISTRIBUTION WIDTH CV 14.9 % (11.5-14.5); RED CELL DISTRIBUTION WIDTH SD 60.8 fL (36.4-46.3); WHITE BLOOD COUNT 44.34 K/uL (4.8-10.8)
--- NOTE | 2017-03-31 11:43 | DIAGNOSTIC IMAGING REPORT ---
HEAD WITHOUT CONTRAST (CT) CLINICAL HISTORY: 76 years-old Male presenting with headache w/ seeing floaters hx of myeloplastic syndrome. TECHNIQUE: Multidetector CT imaging of the head was performed without the use of intravenous contrast. IV contrast: None. A dose lowering technique was used consistent with the principles of ALARA (as low as reasonably achievable). COMPARISON: 08/16/2016. CT DOSE (mGy.cm): The estimated cumulative dose is 1141 inclusive of multiple additional CT scans. FINDINGS: Oyster Culturist topogram: Unremarkable. Ventricles and sulci normal in size. Periventricular and subcortical white matter hypoattenuation, nonspecific but likely indicative of chronic small vessel ischemic change. No mass effect or midline shift. No hemorrhage or acute territorial infarct. No extra-axial fluid collection. Paranasal sinuses and mastoid air cells clear. Calvarium intact. IMPRESSION: 1. Chronic small vessel ischemic change. No acute intracranial abnormality. Electronically signed by: Sammy Conte M.D. 03/31/2017 11:42 AM Dictated Date/Time: 03/31/2017 11:40 AM
--- NOTE | 2017-03-31 11:52 | DIAGNOSTIC IMAGING REPORT ---
(CHEST FOR PE) ANGIO WITH CLINICAL HISTORY: 76 years-old Male presenting with ^sob r/o pe, left shoulder pain, clinical concern for pulmonary embolus. TECHNIQUE: Multidetector CT angiography of the chest was performed after administration of intravenous contrast. 3-D volumetric and/or maximum intensity projection (MIP) images were subsequently reconstructed for review. IV contrast: 94 mL of Optiray 320. A dose lowering technique was used consistent with the principles of ALARA (as low as reasonably achievable). COMPARISON: 08/24/2016. CT DOSE (mGy.cm): The estimated cumulative dose is 1141.07 mGy.cm. FINDINGS: Senior Policy Associate topogram: Left hemidiaphragm elevation. Pulmonary vasculature: The study is adequate for assessment of the pulmonary vascular tree. No filling defect within the pulmonary arteries to suggest embolus. Main pulmonary artery is not enlarged. No flattening of the interventricular septum. No intracardiac filling defect. Reflux of contrast into the intrahepatic IVC. Remaining chest: On soft tissue windows, normal thyroid and thoracic inlet. No axillary, supraclavicular, hilar, or mediastinal lymphadenopathy. Atherosclerosis of the aorta. Normal heart size. Coronary artery calcification. No pericardial or pleural effusion. Nodularity of the adrenal glands, nonspecific. On lung windows, minimal dependent changes likely atelectasis. 5 mm solid pulmonary nodule in the right upper lobe (see series 6 image 192), new from prior solid 5 mm nodule at the right lower lobe (series 6 image 75), not clearly visualized on the prior exam though there was basilar atelectasis in this region previously. Mild bronchial wall thickening. Central airways patent. On bone windows, degenerative changes of the spine. IMPRESSION: 1. No evidence of pulmonary embolus. No acute intrathoracic pathology. 2. Solid pulmonary nodules measuring up to 5 mm in the right lung. Follow-up per [employer] 2017 recommendations below. 3. Nonspecific nodularity of the adrenal glands. Attention on follow-up. Please refer to below summary of Fleischner Society 2017 recommendations for follow-up of incidental CT nodules (Ector Urrutia et al. Guidelines for management of incidental pulmonary nodules detected on CT images: From the Fleischner Society 2017. Radiology 2017; 284: 228-243.) SOLID NODULES Single nodule; size < 6 mm * Low risk patients: No routine follow-up * High risk patients: Optional CT at 12 months Single nodule; size 6-8 mm * Low risk patients: CT at 6-12 months, then consider CT at 18-24 months * High risk patients: CT at 6-12 months, then at 18-24 months Single nodule; size > 8 mm * Either low or high risk patients: Considered CT at 3 months, PET/CT, or tissue sampling Multiple nodules; size < 6 mm * Low risk patients: No routine follow up * High risk patients: Optional CT at 12 months Multiple nodules; size 6-8 mm * Low risk patients: CT at 3-6 months, then consider CT at 18-24 months * High risk patients: CT at 3-6 months, then at 18-24 months Multiple nodules; size > 8 mm * Low risk patients: CT at 3-6 months, then consider at 18-24 months * High risk patients: CT at 3-6 months, then at 18-24 months Note: These guidelines apply to incidental nodules. These guidelines do not apply to patients younger than 35 years, immunocompromised patients, or patients with cancer. * Low risk patients: Minimal or absent history of smoking and/or other known risk factors * High risk patients: History of smoking, exposure to other carcinogens, emphysema, fibrosis, upper lobe location, family history of lung cancer, etc. * If a nodule up to 8 mm is partly solid or is ground glass, further follow-up is required after 24 months to exclude possible slow growing adenocarcinoma. SUBSOLID NODULES Single ground-glass nodule * Nodule size < 6 mm: No routine follow-up * Nodule size > or = 6 mm: CT at 6-12 months to confirm persistence, then CT every 2 years until 5 years Single part-solid nodule * Nodule size < 6 mm: No routine follow-up * Nodules size > or = 6 mm: CT at 3-6 months to confirm persistence. If unchanged and solid component remains < 6 mm, annual CT should be performed for 5 years Multiple nodules * Nodule size < 6 mm: CT at 3-6 months. If stable, consider CT at 2 and 4 years. * Nodules size > or = 6 mm: CT at 3-6 months. Subsequent management based on the most suspicious nodule(s) Electronically signed by: Sammy Conte M.D. 03/31/2017 11:50 AM Dictated Date/Time: 03/31/2017 11:43 AM
[2017-03-31 12:16] LABS: ALBUMIN 3.3 gm/dl (3.4-5.0); ALT/SGPT 29 U/L (12-78); BLOOD UREA NITROGEN 20 mg/dl (7-18); CALCIUM 8.8 mg/dl (8.5-10.1); CARBON DIOXIDE 24 mmol/L (21-32); CREATININE 1.23 mg/dl (0.60-1.40); GLUCOSE 235 mg/dl (70-99); LIPASE 48 U/L (73-393); POTASSIUM 4.2 mmol/L (3.5-5.1); SODIUM 132 mmol/L (136-145)
[2017-03-31 12:23] LABS: PTT PATIENT 28.1 SECONDS (21.0-31.0)
[2017-03-31 12:28] LABS: ALKALINE PHOSPHATASE 117 U/L (45-117); AST/SGOT 23 U/L (15-37); TOTAL PROTEIN 7.2 gm/dl (6.4-8.2)
--- NOTE | 2017-03-31 12:32 | DIAGNOSTIC IMAGING REPORT ---
VENOUS DOPPLER LWR EXT BILA CLINICAL HISTORY: 76 years-old Male presenting with r/o dvt, pain in the shoulder, leg, and back, clinical concern for deep venous thrombosis. TECHNIQUE: Real-time grayscale and color and spectral Doppler ultrasound imaging of the veins of the bilateral lower extremities was performed. Compression and augmentation were also utilized. COMPARISON: None. FINDINGS: Right: Common femoral vein: Patent. Greater saphenous vein: Patent. Deep femoral vein: Patent. Femoral vein: Patent. Popliteal vein: Patent. Calf veins: Patent. Left: Common femoral vein: Patent. Greater saphenous vein: Patent. Deep femoral vein: Patent. Femoral vein: Patent. Popliteal vein: Patent. Calf veins: Patent. Other: None. IMPRESSION: No evidence of deep venous thrombosis. Electronically signed by: Sammy Conte M.D. 03/31/2017 12:31 PM Dictated Date/Time: 03/31/2017 12:30 PM
--- NOTE | 2017-03-31 15:52 | DIAGNOSTIC IMAGING REPORT ---
L KNEE 3 VIEWS CLINICAL HISTORY: 76 years-old Male presenting with left knee pain. TECHNIQUE: Frontal, lateral, and sunrise views of the left knee were obtained. COMPARISON: None. FINDINGS: No significant knee joint effusion. Prominent enthesophyte at the insertion of the quadriceps tendon. No acute fracture or malalignment. Osteophytosis at the patellofemoral compartment. No radiographic soft tissue abnormality. IMPRESSION: 1. No acute osseous injury. 2. Mild degenerative changes at the patellofemoral compartment. Electronically signed by: Sammy Conte M.D. 03/31/2017 3:50 PM Dictated Date/Time: 03/31/2017 3:49 PM
[2017-03-31] MEDS ORDERED: GLUCOSE 10 TABS/TUBE PO PRN (16:15)
[2017-03-31] MEDS ORDERED: DEXTROSE 50% 50 ML SYR IV PRN (16:15)
[2017-03-31] MEDS ORDERED: GLUCAGON FOR INJ 1 MG VIAL SQ PRN (16:15)
[2017-03-31] MEDS ORDERED: DC ALL PREVIOUSLY ORDERED DIABETES MEDS ONE (16:15)
[2017-03-31] MEDS ORDERED: GLUCOSE 40% GEL 15 GM TUBE PO PRN (16:15)
[2017-03-31 17:15] VITALS: BP 169/70; PULSE 83; TEMP 36.5; O2SAT 98
--- NOTE | 2017-03-31 17:32 | History and Physical ---
History & Physical Date & Time of Service: Mar 31, 2017 at 16:15 Chief Complaint: Pain In Shoulder, Leg,And Back Blk Spots In Front Primary Care Physician: Royce Gaviria M.D. History of Present Illness Source: patient, clinic records, hospital records This is a 76 year old male with a PMH of myeloproliferative disorder, HTN, HLD, insulin dependent DM2, BPH - presents with severe cervical, L shoulder, and L knee pain. He presented to the ER on 03/30 with similar symptoms and was sent home with a prescription for [place]. He states that this did not work for his pain and he came back to the ER. He has had issues with cervical neck pain; was admitted in August 2016 with similar symptoms. Was seen by pain management then and medications were adjusted. He tells me he is extremely sensitive to narcotics as it makes him "loopy" and he wants to continue to function. He tells me he would like to continue driving as well and would avoid narcotics if it's possible. He is having extreme pain at the L shoulder, painful/tender to light palpation - no rash or skin changes noted around the area. He has trouble bending his L knee. Cervical spine CT performed yesterday (03/30) and only degenerative changes noted. Past Medical/Surgical History Medical Problems: (1) Back pain Status: Chronic (2) Diabetes Status: Chronic (3) Dyslipidemia Status: Chronic (4) GERD (gastroesophageal reflux disease) Status: Chronic (5) Hypertension Status: Chronic (6) Leukemia Status: Chronic (7) Prostate disorder Status: Chronic (8) Spinal stenosis Status: Chronic Surgical Problems: (1) History of back surgery Status: Resolved Family History Cancer Diabetes mellitus Heart disease Hypertension Social History Smoking Status: Never Smoker Drug Use: none Marital Status: Housing status: lives alone Occupational Status: retired Allergies Coded Allergies: Terazosin (Verified Allergy, Unknown, unkn, 03/31/17) Home Medications Scheduled Albuterol Hfa (Ventolin Hfa), 2-4 PUFFS INH Q6H Alfuzosin Hcl (Uroxatral), 10 MG PO DAILY Allopurinol (Allopurinol), 300 MG PO DAILY Ascorbic Acid (Vitamin C), 500 MG PO DAILY Aspirin (Aspirin Ec), 81 MG PO DAILY Baclofen (Lioresal), 10 MG PO TID Carvedilol (Coreg), 12.5 MG PO BID Cranberry (Vaccinium Macrocarp (Cranberry Extract), 200 MG PO DAILY Duloxetine HCl (Duloxetine HCl), 30 MG PO QAM Finasteride (Proscar), 5 MG PO DAILY Fish Oil (Deal-3), 1 CAP PO DAILY Gabapentin (Neurontin), 300 MG PO BID AT AM AND NOON Gabapentin (Neurontin), 600 MG PO HS Garlic (Garlic), 1,000 MG PO DAILY Insulin Isophane & Reg (Human) (Novolin 70/30 Relion), 34-35 UNITS SQ AMPM Lisinopril (Zestril), 20 MG PO DAILY Metformin Hcl Er (Glucophage Er), 1,000 MG PO BID Misc Natural Products (Prostate Health), 1 CAP PO DAILY Multivitamin (Multivitamin), 1 TAB PO DAILY Omeprazole (Prilosec), 20 MG PO DAILY Scheduled PRN Acetaminophen (Tylenol), 500 MG PO Q6H PRN for Pain or Fever Hydrocodone/Acetaminophen 5MG/325MG ([place] 5MG/325MG), 0.5-1 TABLET PO Q6 PRN for Pain Review of Systems Constitutional: No fever, No chills, No sweats, No weakness, No fatigue Eyes: No worsening of vision ENT: No hearing loss Respiratory: No cough, No sputum, No wheezing, No shortness of breath, No dyspnea on exertion Cardiovascular: No chest pain, No edema, No palpitations Abdomen: No pain, No nausea, No vomiting, No diarrhea, No constipation Musculoskeletal: + joint pain (cervical neck pain, L shoulder pain, L knee pain ), + muscle pain, No swelling, No calf pain Genitourinary - Male: No hematuria, No dysuria, No urinary frequency, No urinary urgency Neurologic: + balance problems, No paralysis, No weakness, No numbness/tingling , No vertigo Psychiatric: No depression symptoms, No anxiety, No insomnia Endocrine: No fatigue Hematologic / Lymphatic: No abnormal bleeding/bruising Integumentary: No rash Allergic / Immunologic: No environmental allergies, No seasonal allergies Physical Exam Vital Signs Date Time Temp Pulse Resp B/P (MAP) Pulse Ox O2 Delivery O2 Flow Rate FiO2 03/31/17 15:55 74 161/83 99 03/31/17 15:30 73 20 161/83 97 Nasal Cannula 2.0 03/31/17 14:01 76 20 145/77 95 Room Air 03/31/17 13:45 76 03/31/17 13:00 74 20 148/72 92 Room Air 03/31/17 11:44 81 20 155/79 91 Room Air 03/31/17 10:13 70 03/31/17 09:54 36.3 74 16 151/79 95 Room Air General Appearance: + moderate distress (secondary to pain) Head: normocephalic, atraumatic Eyes: normal inspection ENT: hearing grossly normal Neck: supple Respiratory/Chest: chest non-tender, lungs clear, normal breath sounds, no respiratory distress, no accessory muscle use Cardiovascular: regular rate, rhythm, no edema, no murmur Abdomen/GI: normal bowel sounds, non tender, soft Back: normal inspection, no CVA tenderness, no muscle spasm, normal range of motion, + pertinent finding (decreased neck ROM due to pain, no muscle spasms noted; severe pain) Extremities/Musculoskelatal: normal capillary refill, no pedal edema, + pertinent finding (painful ROM of the L shoulder, L knee; no deformities noted) Neurologic/Psych: no motor/sensory deficits, alert, normal mood/affect, oriented x 3 Skin: normal color Lymphatic: no adenopathy Diagnostics Laboratory Results Results Past 24 Hours Test 03/31/17 10:15 03/31/17 11:10 03/31/17 11:15 03/31/17 12:06 Range/Units White Blood Count 44.34 4.8-10.8 K/uL Red Blood Count 2.56 4.7-6.1 M/uL Hemoglobin 9.7 14.0-18.0 g/dL Hematocrit 29.0 42-52 % Mean Corpuscular Volume 113.3 80-100 fL Mean Corpuscular Hemoglobin 37.9 25-34 pg Mean Corpuscular Hemoglobin Concent 33.4 32-36 g/dl Platelet Count 71 130-400 K/uL Mean Platelet Volume 10.0 7.4-10.4 fL RDW Standard Deviation 60.8 36.4-46.3 fL RDW Coefficient of Variation 14.9 11.5-14.5 % Neutrophils % (Manual) 90.3 % Lymphocytes % (Manual) 4.4 % Monocytes % (Manual) 4.4 % Myelocytes % 0.9 % Neutrophils # (Manual) 40.04 1.4-6.5 K/uL Total Absolute Neutrophils 40.04 1.4-6.5 K/uL Lymphocytes # (Manual) 1.95 1.2-3.4 K/uL Total Absolute Lymphocytes 1.95 1.2-3.4 K/uL Monocytes # (Manual) 1.95 0.11-0.59 K/uL Myelocytes # 0.40 0-0 K/uL Toxic Vacuolation 1+ Dohle Bodies 2+ Platelet Estimate DECREASED Macrocytosis PRESENT Sodium Level 132 136-145 mmol/L Potassium Level 4.2 3.5-5.1 mmol/L Chloride Level 99 98-107 mmol/L Carbon Dioxide Level 24 21-32 mmol/L Anion Gap 9.0 3-11 mmol/L Blood Urea Nitrogen 20 7-18 mg/dl Creatinine 1.23 0.60-1.40 mg/dl Est Creatinine Clear Calc Drug Dose 48.6 ml/min Estimated GFR () 65.2 Estimated GFR (Non- 56.3 BUN/Creatinine Ratio 16.1 10-20 Random Glucose 235 70-99 mg/dl Lactic Acid Level 2.9 0.4-2.0 mmol/L Calcium Level 8.8 8.5-10.1 mg/dl Total Bilirubin 0.6 0.2-1 mg/dl Aspartate Amino Transf (AST/SGOT) 23 15-37 U/L Alanine Aminotransferase (ALT/SGPT) 29 12-78 U/L Alkaline Phosphatase 117 45-117 U/L Total Creatine Kinase 318 39-308 U/L Troponin I < 0.015 0-0.045 ng/ml Total Protein 7.2 6.4-8.2 gm/dl Albumin 3.3 3.4-5.0 gm/dl Globulin 3.9 2.5-4.0 gm/dl Albumin/Globulin Ratio 0.9 0.9-2 Lipase 48 73-393 U/L Urine Color YELLOW Urine Appearance CLEAR CLEAR Urine pH 7.5 4.5-7.5 Urine Specific [place] 1.022 1.000-1.030 Urine Protein NEG NEG Urine Glucose (UA) 3+ NEG Urine Ketones 1+ NEG Urine Occult Blood TRACE NEG Urine Nitrite NEG NEG Urine Bilirubin NEG NEG Urine Urobilinogen NEG NEG Urine Leukocyte Esterase NEG NEG Urine WBC (Auto) 1-5 0-5 /hpf Urine RBC (Auto) 0-4 0-4 /hpf Urine Hyaline Casts (Auto) 0 0-5 /lpf Urine Epithelial Cells (Auto) 20-30 0-5 /lpf Urine Bacteria (Auto) NEG NEG Urine Crystals NONE PRSENT Prothrombin Time 10.9 9.0-12.0 SECONDS Prothromb Time International Ratio 1.0 0.9-1.1 Activated Partial Thromboplast Time 28.1 21.0-31.0 SECONDS Partial Thromboplastin Ratio 1.1 Microbiology Results 03/31/17 Blood Culture, Received Pending 03/31/17 Blood Culture, Received Pending Diagnostic Radiology VENOUS DOPPLER LWR EXT BILA CLINICAL HISTORY: 76 years-old Male presenting with r/o dvt, pain in the shoulder, leg, and back, clinical concern for deep venous thrombosis. TECHNIQUE: Real-time grayscale and color and spectral Doppler ultrasound imaging of the veins of the bilateral lower extremities was performed. Compression and augmentation were also utilized. COMPARISON: None. FINDINGS: Right: Common femoral vein: Patent. Greater saphenous vein: Patent. Deep femoral vein: Patent. Femoral vein: Patent. Popliteal vein: Patent. Calf veins: Patent. Left: Common femoral vein: Patent. Greater saphenous vein: Patent. Deep femoral vein: Patent. Femoral vein: Patent. Popliteal vein: Patent. Calf veins: Patent. Other: None. IMPRESSION: No evidence of deep venous thrombosis. HEAD WITHOUT CONTRAST (CT) CLINICAL HISTORY: 76 years-old Male presenting with headache w/ seeing floaters hx of myeloplastic syndrome. TECHNIQUE: Multidetector CT imaging of the head was performed without the use of intravenous contrast. IV contrast: None. A dose lowering technique was used consistent with the principles of ALARA (as low as reasonably achievable). COMPARISON: 08/16/2016. CT DOSE (mGy.cm): The estimated cumulative dose is 1141 inclusive of multiple additional CT scans. FINDINGS: Nutrition Worker topogram: Unremarkable. Ventricles and sulci normal in size. Periventricular and subcortical white matter hypoattenuation, nonspecific but likely indicative of chronic small vessel ischemic change. No mass effect or midline shift. No hemorrhage or acute territorial infarct. No extra-axial fluid collection. Paranasal sinuses and mastoid air cells clear. Calvarium intact. IMPRESSION: 1. Chronic small vessel ischemic change. No acute intracranial abnormality. (CHEST FOR PE) ANGIO WITH CLINICAL HISTORY: 76 years-old Male presenting with ^sob r/o pe, left shoulder pain, clinical concern for pulmonary embolus. TECHNIQUE: Multidetector CT angiography of the chest was performed after administration of intravenous contrast. 3-D volumetric and/or maximum intensity projection (MIP) images were subsequently reconstructed for review. IV contrast: 94 mL of Optiray 320. A dose lowering technique was used consistent with the principles of ALARA (as low as reasonably achievable). COMPARISON: 08/24/2016. CT DOSE (mGy.cm): The estimated cumulative dose is 1141.07 mGy.cm. FINDINGS: Nutrition Worker topogram: Left hemidiaphragm elevation. Pulmonary vasculature: The study is adequate for assessment of the pulmonary vascular tree. No filling defect within the pulmonary arteries to suggest embolus. Main pulmonary artery is not enlarged. No flattening of the interventricular septum. No intracardiac filling defect. Reflux of contrast into the intrahepatic IVC. Remaining chest: On soft tissue windows, normal thyroid and thoracic inlet. No axillary, supraclavicular, hilar, or mediastinal lymphadenopathy. Atherosclerosis of the aorta. Normal heart size. Coronary artery calcification. No pericardial or pleural effusion. Nodularity of the adrenal glands, nonspecific. On lung windows, minimal dependent changes likely atelectasis. 5 mm solid pulmonary nodule in the right upper lobe (see series 6 image 192), new from prior solid 5 mm nodule at the right lower lobe (series 6 image 75), not clearly visualized on the prior exam though there was basilar atelectasis in this region previously. Mild bronchial wall thickening. Central airways patent. On bone windows, degenerative changes of the spine. IMPRESSION: 1. No evidence of pulmonary embolus. No acute intrathoracic pathology. 2. Solid pulmonary nodules measuring up to 5 mm in the right lung. Follow-up per [employer] Society 2017 recommendations below. 3. Nonspecific nodularity of the adrenal glands. Attention on follow-up. L KNEE 3 VIEWS CLINICAL HISTORY: 76 years-old Male presenting with left knee pain. TECHNIQUE: Frontal, lateral, and sunrise views of the left knee were obtained. COMPARISON: None. FINDINGS: No significant knee joint effusion. Prominent enthesophyte at the insertion of the quadriceps tendon. No acute fracture or malalignment. Osteophytosis at the patellofemoral compartment. No radiographic soft tissue abnormality. IMPRESSION: 1. No acute osseous injury. 2. Mild degenerative changes at the patellofemoral compartment. EKG Normal sinus rhythm Nonspecific T wave abnormality Impression Assessment and Plan This is a 76 year old male with a PMH of myeloproliferative disorder, HTN, HLD, insulin dependent DM2, BPH - presents with severe cervical, L shoulder, and L knee pain. Uncontrolled Joint Pain secondary to Myeloproliferative Disease patient presents with multiple joint pain, L shoulder, L knee, L cervical pain has had issues with this pain before Cervical CT - degenerative changes L shoulder and L knee - no acute issues plan is to check a uric acid level possibly change allopurinol to colchicine if this is gouty arthritis for now, will start tramadol PRN for pain, morphine PRN will increase gabapentin to 600mg TID, increase Cymbalta to 60mg daily continue Baclofen dose pain management consulted for further input hem/onc consulted regarding hydroxyurea, which has been held due to thrombocytopenia Insulin Dependent DM2 last ha1c on 03/20/17 = 7.2% uses NPH 70/30 35 units twice a day while inpatient, we will switch to Lantus 20 units BID and sliding scale insulin Leukocytosis and Lactic Acidosis likely secondary to Myeloproliferative Disease Hem/onc consulted, monitor and adjust accordingly BPH continue home medications DVT ppx Lovenox, monitor platelets FULL CODE VTE Prophylaxis VTE Risk Assessment Done? Y/N: Yes Risk Level: Moderate
[2017-03-31] MEDS: ACETAMINOPHEN 325 MG TAB PO PRN (17:36)
[2017-03-31] MEDS ORDERED: ENOXAPARIN 40 MG/0.4 ML SYR SQ SCH (18:00)
[2017-03-31] MEDS: ALBUTEROL HFA 8 GM INHALER INH SCH ×2 (18:00→23:52)
[2017-03-31 18:04] VITALS: BP 169/70; PULSE 83; TEMP 36.5; Ht 172.7 cm; Wt 81.2 kg
[2017-03-31] MEDS: TRAMADOL HCL 50 MG TAB PO PRN (20:07)
[2017-03-31] MEDS: CARVEDILOL 12.5 MG TAB PO SCH (20:08)
[2017-03-31] MEDS: BACLOFEN 10 MG TAB PO SCH (20:08)
[2017-03-31] MEDS: GABAPENTIN 600 MG TAB PO SCH (20:08)
[2017-03-31 20:10] VITALS: BP 158/69; PULSE 89
[2017-03-31] MEDS: INSULIN GLARGINE SOLOSTAR 100 UNITS/ML 3 ML PEN SC SCH (20:10)
[2017-03-31] MEDS: INSULIN ASPART 100 UNITS/ML 3 ML PEN SC SCH (20:10)
[2017-03-31 22:58] VITALS: BP 165/76; PULSE 81; TEMP 36.6; O2SAT 95
[2017-03-31] MEDS: MoRPHine SULFATE 2 MG/ML CARP IV PRN (23:51)
[2017-04-01] MEDS: TRAMADOL HCL 50 MG TAB PO PRN ×3 (03:40→17:45)
[2017-04-01 05:39] LABS: CALCIUM 8.3 mg/dl (8.5-10.1); CREATININE 1.26 mg/dl (0.60-1.40); POTASSIUM 4.5 mmol/L (3.5-5.1)
[2017-04-01 05:42] LABS: HEMATOCRIT 25.8 % (42-52); HEMOGLOBIN 8.7 g/dL (14.0-18.0); MEAN CELL VOLUME 113.7 fL (80-100); MEAN CORPUSCULAR HEMOGLOBIN 38.3 pg (25-34); MEAN CORPUSCULAR HGB CONC 33.7 g/dl (32-36); MEAN PLATELET VOLUME 9.9 fL (7.4-10.4); PLATELET COUNT 62 K/uL (130-400); RED CELL DISTRIBUTION WIDTH CV 15.1 % (11.5-14.5); RED CELL DISTRIBUTION WIDTH SD 61.5 fL (36.4-46.3); WHITE BLOOD COUNT 47.69 K/uL (4.8-10.8)
[2017-04-01 06:40] VITALS: BP 154/63; PULSE 83; TEMP 36.4; O2SAT 94
[2017-04-01] MEDS: ALBUTEROL HFA 8 GM INHALER INH SCH ×2 (06:40→12:53)
[2017-04-01] MEDS: MoRPHine SULFATE 2 MG/ML CARP IV PRN (07:37)
[2017-04-01] MEDS: GABAPENTIN 600 MG TAB PO SCH ×3 (07:37→19:44)
[2017-04-01] MEDS: BACLOFEN 10 MG TAB PO SCH ×3 (07:38→19:44)
[2017-04-01] MEDS: ALFUZosin TAB 10 MG TAB PO SCH (07:38)
[2017-04-01] MEDS: CARVEDILOL 12.5 MG TAB PO SCH ×2 (07:38→19:44)
[2017-04-01] MEDS: ASCORBIC ACID 500 MG TAB PO SCH (07:39)
[2017-04-01] MEDS: FINASTERIDE 5 MG TAB PO SCH (07:39)
[2017-04-01] MEDS: ASPIRIN 81 MG ECTAB PO SCH (07:40)
[2017-04-01] MEDS: ALLOPURINOL 300 MG TAB PO SCH (07:40)
[2017-04-01] MEDS: PANTOprazole SOD 40 MG TAB PO SCH (07:40)
[2017-04-01] MEDS: MULTIVITAMIN TAB PO SCH (07:40)
[2017-04-01] MEDS: LISINOPRIL 20 MG TAB PO SCH (07:41)
[2017-04-01] MEDS ORDERED: DULOXETINE (CYMBALTA) 30 MG CAP PO SCH (08:00)
[2017-04-01] MEDS: INSULIN ASPART 100 UNITS/ML 3 ML PEN SC SCH ×5 (08:32→21:13)
[2017-04-01] MEDS: INSULIN GLARGINE SOLOSTAR 100 UNITS/ML 3 ML PEN SC SCH ×2 (08:33→20:22)
[2017-04-01] MEDS ORDERED: LIDODERM (LIDOCAINE) PATCH 5% TD ONE (08:44)
--- NOTE | 2017-04-01 10:34 | Progress Note ---
Medicine Progress Note Date & Time of Visit: Apr 01, 2017 at 10:21. Subjective seen resting in bedside chair still has pain, mostly on the left shoulder, radiating to the left side of the neck, also has pain on the back of the knee denies any other symptoms Objective Last 8 Hrs Date Time Temp Pulse Resp B/P (MAP) Pulse Ox O2 Delivery O2 Flow Rate FiO2 04/01/17 06:40 36.4 83 20 154/63 (93) 94 Room Air Physical Exam: General- oriented x 3, not in distress, speaks in sentences with no effort Head- atraumatic Eyes- PERRL, EOMI, anicteric ENT- oropharynx clear Neck- supple, no JVD, no adenopathy, no thyromegaly moderate tenderness to palpation, left posterior neck Lungs- clear to auscultation bilaterally Heart- regular rhythm; no murmur, normal rate Abdomen- normal bowel sounds, soft, nontender Extremities- no pretibial edema, no calf tenderness; peripheral pulses intact Shoulder- left: (+) moderate edema, warmth, (+) exquisitely tender to touch, poor ROM due to pain Knee- left: mild tenderness, popliteal region Neuro- alert, oriented x 3; no gross focal deficits Skin- warm & dry Laboratory Results: Last 24 Hours Test 03/31/17 11:10 03/31/17 11:15 03/31/17 12:06 03/31/17 17:19 Sodium Level 132 mmol/L Potassium Level 4.2 mmol/L Chloride Level 99 mmol/L Carbon Dioxide Level 24 mmol/L Anion Gap 9.0 mmol/L Blood Urea Nitrogen 20 mg/dl Creatinine 1.23 mg/dl Est Creatinine Clear Calc Drug Dose 48.6 ml/min Estimated GFR () 65.2 Estimated GFR (Non- 56.3 BUN/Creatinine Ratio 16.1 Random Glucose 235 mg/dl Lactic Acid Level 2.9 mmol/L Uric Acid 3.6 mg/dl Calcium Level 8.8 mg/dl Total Bilirubin 0.6 mg/dl Aspartate Amino Transf (AST/SGOT) 23 U/L Alanine Aminotransferase (ALT/SGPT) 29 U/L Alkaline Phosphatase 117 U/L Total Creatine Kinase 318 U/L Troponin I < 0.015 ng/ml Total Protein 7.2 gm/dl Albumin 3.3 gm/dl Globulin 3.9 gm/dl Albumin/Globulin Ratio 0.9 Lipase 48 U/L Urine Color YELLOW Urine Appearance CLEAR Urine pH 7.5 Urine Specific Forrest 1.022 Urine Protein NEG Urine Glucose (UA) 3+ Urine Ketones 1+ Urine Occult Blood TRACE Urine Nitrite NEG Urine Bilirubin NEG Urine Urobilinogen NEG Urine Leukocyte Esterase NEG Urine WBC (Auto) 1-5 /hpf Urine RBC (Auto) 0-4 /hpf Urine Hyaline Casts (Auto) 0 /lpf Urine Epithelial Cells (Auto) 20-30 /lpf Urine Bacteria (Auto) NEG Urine Crystals Prothrombin Time 10.9 SECONDS Prothromb Time International Ratio 1.0 Activated Partial Thromboplast Time 28.1 SECONDS Partial Thromboplastin Ratio 1.1 Bedside Glucose 122 mg/dl Test 03/31/17 19:49 04/01/17 05:13 04/01/17 07:58 Bedside Glucose 203 mg/dl 241 mg/dl White Blood Count 47.69 K/uL Red Blood Count 2.27 M/uL Hemoglobin 8.7 g/dL Hematocrit 25.8 % Mean Corpuscular Volume 113.7 fL Mean Corpuscular Hemoglobin 38.3 pg Mean Corpuscular Hemoglobin Concent 33.7 g/dl RDW Standard Deviation 61.5 fL RDW Coefficient of Variation 15.1 % Platelet Count 62 K/uL Mean Platelet Volume 9.9 fL Sodium Level 132 mmol/L Potassium Level 4.5 mmol/L Chloride Level 100 mmol/L Carbon Dioxide Level 26 mmol/L Anion Gap 6.0 mmol/L Blood Urea Nitrogen 21 mg/dl Creatinine 1.26 mg/dl Est Creatinine Clear Calc Drug Dose 47.5 ml/min Estimated GFR () 63.3 Estimated GFR (Non- 54.7 BUN/Creatinine Ratio 16.6 Random Glucose 258 mg/dl Lactic Acid Level 1.0 mmol/L Calcium Level 8.3 mg/dl Magnesium Level 2.0 mg/dl Thyroid Stimulating Hormone (TSH) 2.950 uIu/ml Date/Time Source Procedure Growth Status 03/31/17 11:10 Blood Blood Culture Pending Received 03/31/17 11:00 Blood Blood Culture Pending Received Assessment & Plan This is a 76 year old male with a PMH of myeloproliferative disorder, HTN, HLD, insulin dependent DM2, BPH - presents with severe cervical, L shoulder, and L knee pain. LEFT SHOULDER, KNEE PAIN patient presents with multiple joint pain, L shoulder, L knee, L cervical pain has had issues with this pain before Cervical CT - degenerative changes L shoulder and L knee - no acute issues Uric acid level 3.6 -- start trial of Prednisone 40mg po daily monitor BSG closely - added tramadol PRN for pain, morphine PRN increased gabapentin to 600mg TID, increased Cymbalta to 60mg daily continued Baclofen dose ortho consulted pain management consulted for further input hem/onc consulted regarding hydroxyurea, which has been held due to thrombocytopenia Insulin Dependent DM2 last ha1c on 03/20/17 = 7.2% uses NPH 70/30 35 units twice a day -- on Lantus and ISS Pharmacy consulted, patient now on Prednisone HTN -- continue Co Reg, Lisinopril Leukocytosis and Lactic Acidosis likely secondary to Myeloproliferative Disease Hem/onc consulted, monitor and adjust accordingly Lung Nodule - ff up as outpatient BPH continue home medications DVT ppx SCDs only Plt < 100 Current Inpatient Medications: Current Inpatient Medications Medications (Trade) Dose Ordered Sig/Karla Route Start Time Stop Time Status Last Admin Dose Admin Ioversol (Optiray 320) 100 ml UD PRN IV 03/31/17 10:30 04/04/17 10:29 Enoxaparin Sodium (Lovenox Inj) 40 mg Q24H SQ 03/31/17 18:00 04/30/17 17:59 Acetaminophen (Tylenol Tab) 650 mg Q4H PRN PO 03/31/17 15:15 04/30/17 15:14 03/31/17 17:36 650 MG Albuterol (Ventolin Hfa Inhaler) 2 puffs Q6 INH 03/31/17 18:00 04/30/17 17:59 Alfuzosin HCl (Uroxatral Tab) 10 mg DAILY PO 04/01/17 08:00 05/01/17 08:59 04/01/17 07:38 10 MG Allopurinol (Zyloprim Tab) 300 mg DAILY PO 04/01/17 08:00 05/01/17 08:59 04/01/17 07:40 300 MG Ascorbic Acid (Vitamin C Tab) 500 mg DAILY PO 04/01/17 08:00 05/01/17 08:59 04/01/17 07:39 500 MG Aspirin (Ecotrin Tab) 81 mg DAILY PO 04/01/17 08:00 05/01/17 08:59 04/01/17 07:40 81 MG Baclofen (Lioresal Tab) 10 mg TID PO 03/31/17 20:00 04/30/17 20:59 04/01/17 07:38 10 MG Carvedilol (Coreg Tab) 12.5 mg BID PO 03/31/17 20:00 04/30/17 20:59 04/01/17 07:38 12.5 MG Duloxetine HCl (Cymbalta Cap) 60 mg QAM PO 04/01/17 08:00 05/01/17 08:59 04/01/17 07:39 60 MG Finasteride (Proscar Tab) 5 mg DAILY PO 04/01/17 08:00 05/01/17 08:59 04/01/17 07:39 5 MG Lisinopril (Zestril Tab) 20 mg DAILY PO 04/01/17 08:00 05/01/17 08:59 04/01/17 07:41 20 MG Multivitamins (Multivitamin Tab) 1 tab DAILY PO 04/01/17 08:00 05/01/17 08:59 04/01/17 07:40 1 TAB Pantoprazole Sodium (Protonix Tab) 40 mg DAILY PO 04/01/17 08:00 05/01/17 08:59 04/01/17 07:40 40 MG Gabapentin (Neurontin Tab) 600 mg TID PO 03/31/17 20:00 04/30/17 20:59 04/01/17 07:37 600 MG Tramadol HCl (Ultram Tab) 100 mg Q6 PRN PO 03/31/17 15:15 04/30/17 15:14 04/01/17 03:40 100 MG Morphine Sulfate (MoRPHine SULFATE INJ) 2 mg Q4 PRN IV 03/31/17 15:15 04/14/17 15:14 04/01/17 07:37 2 MG Insulin Glargine (Lantus Solostar Pen) 20 units Q12 SC 03/31/17 21:00 04/30/17 20:59 04/01/17 08:33 20 UNITS Insulin Aspart (novoLOG ASPART) SLIDING SCALE If C... ACHS SC 03/31/17 21:00 04/30/17 20:59 04/01/17 08:32 9 UNITS Glucose (Glucose 40% Gel) 15-30 GRAMS 15 GRAMS... UD PRN PO 03/31/17 16:15 04/30/17 16:14 Glucose (Glucose Chew Tab) 4-8 Tablets 4 Tabl... UD PRN PO 03/31/17 16:15 04/30/17 16:14 Dextrose (Dextrose 50% 50ML Syringe) 25-50ML OF 50% DW IV FOR... UD PRN IV 03/31/17 16:15 04/30/17 16:14 Glucagon (Glucagon Inj) 1 mg UD PRN SQ 03/31/17 16:15 04/30/17 16:14 Lidocaine (Lidoderm Patch 5%) 1 patch QAM TD 04/02/17 08:00 05/02/17 07:59 Miscellaneous (Remove Lidoderm Patch) 1 ea DAILY@21 N/A 04/01/17 21:00 05/01/17 20:59 Prednisone (PredniSONE TAB) 40 mg DAILY PO 04/02/17 08:00 05/02/17 07:59 UNV Miscellaneous Information (Consult Glycemic Management Pharmacy) 1 ea NOW STAT N/A 04/01/17 10:20 04/01/17 10:21 UNV
[2017-04-01] MEDS ORDERED: PHARMACY GLYCEMIC MGMT CONSULT PRN (10:37)
--- NOTE | 2017-04-01 12:02 | DIAGNOSTIC IMAGING REPORT ---
L SHOULDER MIN 2 VIEWS ROUTINE CLINICAL HISTORY: Left shoulder pain pain COMPARISON: None. DISCUSSION: The bones and joint spaces appear intact. There is no evidence of fracture, dislocation or bony disease. There is no evidence for soft tissue swelling. IMPRESSION: Negative study. The above report was generated using voice recognition software. It may contain grammatical, syntax or spelling errors. Electronically signed by: William Reddy M.D. 04/01/2017 12:01 PM Dictated Date/Time: 04/01/2017 12:00 PM
[2017-04-01] MEDS ORDERED: INSULIN HUMAN REGULAR IV BOLUS 5 UNIT in SYRINGE 0 ML IV SCH (12:30)
--- NOTE | 2017-04-01 14:13 | Pharmacy Progress Note ---
Glycemic Control Intl Consult Date of Service Apr 01, 2017. Scope Glycemic Pharmacist consulted by Dr Appiah on 04/01/17 for glycemic control and to write orders per [facility] inpatient glycemic control protocol Objective Weight (Kilograms): 81.200 Accuchecks BSG (last 24hrs): Test 03/31/17 17:19 03/31/17 19:49 04/01/17 05:13 04/01/17 07:58 Bedside Glucose 122 mg/dl (70-99) 203 mg/dl (70-99) 241 mg/dl (70-99) Random Glucose 258 mg/dl (70-99) Test 04/01/17 11:53 Bedside Glucose 291 mg/dl (70-99) Laboratory Data (last 24hrs) Test 04/01/17 05:13 Anion Gap 6.0 mmol/L BUN/Creatinine Ratio 16.6 Blood Urea Nitrogen 21 mg/dl Creatinine 1.26 mg/dl Potassium Level 4.5 mmol/L Sodium Level 132 mmol/L White Blood Count 47.69 K/uL Recent Pertinent Medications Outpatient Anti-diabetic Regimen: * Novolin 70/30 34-35 units twice daily * A1c = 7.2 % 03/20/17 The patient is currently receiving: * Basal insulin: Lantus 20 units every 12 hours * Correctional Insulin: Novolog Correction per scale ACHS Goal Range: Low 140 mg/dL - High 180 mg/dL Correction Factor: 20 mg/dL/unit * Prandial insulin: Per carb ratio of 1 unit per 10 grams CHO consumed Risk Factors for Insulin Resistance: * Steroids: prednisone 40 mg PO daily starting today * Diet: type 2 diabetic diet Assessment & Plan ASSESSMENT: * Mr Yang is a 76 y/o M with a PMH of myeloproliferative disorder, HTN, HLD , and BPH who presents with uncontrollable pain. He is a type 2 diabetic currently well controlled on insulin. He will be started on prednisone today. * The patient received his home Novoloin 70/30 prior to admission then received 20 units of Lantus last night. His blood sugar was 203 mg/dL last night. His fasting today is 241 mg/dL. He received Novolog 9 units and breakfast and his lunch blood sugar is 291 mg/dL. Gave 5 units of IV insulin to prevent blood sugar from increasing into the 300s. * The patient is not responding well to basal-bolus with Lantus and Novolog compared to his home regimen. At home, he receives around 50 units of basal insulin - with current strategy attempting to reorganize to a 50/50 split of basal-bolus. Patient's blood sugar may also be elevated secondary to stress/ pain. Therefore do not want to vicente blood sugars with Lantus. Will be more aggressive on Novolog front. * For Lantus, provided a slightly higher dose of Lantus for this evening if blood sugars are significantly elevated above 200 mg/dL. Reasonable as the patient typically receives about 50 units of basal at home. For Novolog, utilized weight-based stress of 3 especially since on prednisone dose. May need tightened again with supper. Add overnight accheck. * Tomorrow consider addition of NPH with prednisone dose. PLAN FOR INPATIENT GLYCEMIC CONTROL: * Basal insulin with LANTUS 20-25 units SQ BID * Correctional Insulin with NOVOLOG / REGULAR per scale ACHS or Q6hrs while NPO * Goal Range: Low 110 mg/dL - High 140 mg/dL * Correction Factor: 20 mg/dL/unit * Nutritional / Prandial insulin per carb ratio of 1 unit per 7 grams CHO consumed * Please note that the plan above was derived based on current level of insulin resistance and hospital stress. These recommendations are appropriate for inpatient admission only. Plan of care upon discharge will need to be reassessed to avoid potential outpatient hypo/hyperglycemia. Thank you.
--- NOTE | 2017-04-01 14:22 | Orthopedic Consultation ---
Orthopedic Consultation Date of Consultation: Apr 01, 2017. Attending Physician: Klaus Appiah MD Reason for Consultation: Left shoulder pain History of Present Illness Mr. Yang is a 76 year old right hand dominant male with a 2 week history of worsening left shoulder pain without any obvious trauma or other inciting event. He does report a history of gout (primarily in left thumb), and has had several similar episodes of left shoulder pain in the past, although never this severe. He has had a steroid injection in his shoulder in the past for one of these episodes. He has also been told by his oncologist that his gout will likely worsen with his current chemotherapy regimen. He has pain with any shoulder motion, which makes activities of daily living difficult. He does report his pain is better now than it was yesterday, after getting a pain patch and oral prednisone. He denies any fevers or chills. Past Medical/Surgical History Medical Problems: (1) Acute neck pain Status: Acute (2) Leukemia Status: Acute (3) Leukemia Status: Acute (4) Leukemoid reaction Status: Acute (5) Leukocytosis Status: Acute (6) Low back pain Status: Acute (7) Low back pain Status: Acute (8) Neuropathic pain of left shoulder Status: Acute (9) Pleuritic chest pain Status: Acute (10) Uncontrolled pain Status: Acute Family History Cancer Diabetes mellitus Heart disease Hypertension Social History Smoking Status: Unknown if Ever Smoked Drug Use: none Marital Status: Housing Status: lives alone Occupation Status: retired Allergies Coded Allergies: Terazosin (Verified Allergy, Unknown, unkn, 03/31/17) Home Medications Scheduled Albuterol Hfa (Ventolin Hfa), 2-4 PUFFS INH Q6H Alfuzosin Hcl (Uroxatral), 10 MG PO DAILY Allopurinol (Allopurinol), 300 MG PO DAILY Ascorbic Acid (Vitamin C), 500 MG PO DAILY Aspirin (Aspirin Ec), 81 MG PO DAILY Baclofen (Lioresal), 10 MG PO TID Carvedilol (Coreg), 12.5 MG PO BID Cranberry (Vaccinium Macrocarp (Cranberry Extract), 200 MG PO DAILY Duloxetine HCl (Duloxetine HCl), 30 MG PO QAM Finasteride (Proscar), 5 MG PO DAILY Fish Oil (Lake-3), 1 CAP PO DAILY Gabapentin (Neurontin), 300 MG PO BID AT AM AND NOON Gabapentin (Neurontin), 600 MG PO HS Garlic (Garlic), 1,000 MG PO DAILY Insulin Isophane & Reg (Human) (Novolin 70/30 Relion), 34-35 UNITS SQ AMPM Lisinopril (Zestril), 20 MG PO DAILY Metformin Hcl Er (Glucophage Er), 1,000 MG PO BID Misc Natural Products (Proxeon Health), 1 CAP PO DAILY Multivitamin (Multivitamin), 1 TAB PO DAILY Omeprazole (Prilosec), 20 MG PO DAILY Scheduled PRN Acetaminophen (Tylenol), 500 MG PO Q6H PRN for Pain or Fever Hydrocodone/Acetaminophen 5MG/325MG (Topanga 5MG/325MG), 0.5-1 TABLET PO Q6 PRN for Pain Current Inpatient Medications Current Inpatient Medications Medications (Trade) Dose Ordered Sig/Karla Route Start Time Stop Time Status Last Admin Dose Admin Ioversol (Optiray 320) 100 ml UD PRN IV 03/31/17 10:30 04/04/17 10:29 Acetaminophen (Tylenol Tab) 650 mg Q4H PRN PO 03/31/17 15:15 04/30/17 15:14 03/31/17 17:36 650 MG Albuterol (Ventolin Hfa Inhaler) 2 puffs Q6 INH 03/31/17 18:00 04/30/17 17:59 Alfuzosin HCl (Uroxatral Tab) 10 mg DAILY PO 04/01/17 08:00 05/01/17 08:59 04/01/17 07:38 10 MG Allopurinol (Zyloprim Tab) 300 mg DAILY PO 04/01/17 08:00 05/01/17 08:59 04/01/17 07:40 300 MG Ascorbic Acid (Vitamin C Tab) 500 mg DAILY PO 04/01/17 08:00 05/01/17 08:59 04/01/17 07:39 500 MG Aspirin (Ecotrin Tab) 81 mg DAILY PO 04/01/17 08:00 05/01/17 08:59 04/01/17 07:40 81 MG Baclofen (Lioresal Tab) 10 mg TID PO 03/31/17 20:00 04/30/17 20:59 04/01/17 07:38 10 MG Carvedilol (Coreg Tab) 12.5 mg BID PO 03/31/17 20:00 04/30/17 20:59 04/01/17 07:38 12.5 MG Duloxetine HCl (Cymbalta Cap) 60 mg QAM PO 04/01/17 08:00 05/01/17 08:59 04/01/17 07:39 60 MG Finasteride (Proscar Tab) 5 mg DAILY PO 04/01/17 08:00 05/01/17 08:59 04/01/17 07:39 5 MG Lisinopril (Zestril Tab) 20 mg DAILY PO 04/01/17 08:00 05/01/17 08:59 04/01/17 07:41 20 MG Multivitamins (Multivitamin Tab) 1 tab DAILY PO 04/01/17 08:00 05/01/17 08:59 04/01/17 07:40 1 TAB Pantoprazole Sodium (Protonix Tab) 40 mg DAILY PO 04/01/17 08:00 05/01/17 08:59 04/01/17 07:40 40 MG Gabapentin (Neurontin Tab) 600 mg TID PO 03/31/17 20:00 04/30/17 20:59 04/01/17 07:37 600 MG Tramadol HCl (Ultram Tab) 100 mg Q6 PRN PO 03/31/17 15:15 04/30/17 15:14 04/01/17 10:25 100 MG Morphine Sulfate (MoRPHine SULFATE INJ) 2 mg Q4 PRN IV 03/31/17 15:15 04/14/17 15:14 04/01/17 07:37 2 MG Insulin Aspart (novoLOG ASPART) SLIDING SCALE If C... ACHS SC 03/31/17 21:00 04/30/17 20:59 04/01/17 12:52 17 UNITS Glucose (Glucose 40% Gel) 15-30 GRAMS 15 GRAMS... UD PRN PO 03/31/17 16:15 04/30/17 16:14 Glucose (Glucose Chew Tab) 4-8 Tablets 4 Tabl... UD PRN PO 03/31/17 16:15 04/30/17 16:14 Dextrose (Dextrose 50% 50ML Syringe) 25-50ML OF 50% DW IV FOR... UD PRN IV 03/31/17 16:15 04/30/17 16:14 Glucagon (Glucagon Inj) 1 mg UD PRN SQ 03/31/17 16:15 04/30/17 16:14 Lidocaine (Lidoderm Patch 5%) 1 patch QAM TD 04/02/17 08:00 05/02/17 07:59 Miscellaneous (Remove Lidoderm Patch) 1 ea DAILY@21 N/A 04/01/17 21:00 05/01/17 20:59 Prednisone (PredniSONE TAB) 40 mg DAILY PO 04/01/17 12:00 05/01/17 11:59 04/01/17 12:53 40 MG Miscellaneous Information (Consult Glycemic Management Pharmacy) 1 ea UD PRN N/A 04/01/17 10:37 05/01/17 10:36 Insulin Glargine (Lantus Solostar Pen) SEE PROTOCOL TEXT Q12 SC 04/01/17 21:00 05/01/17 20:59 Enteral Nutritional Formula (Boost Glucose Control) 1 can HS PO 04/01/17 21:00 05/01/17 20:59 Review of Systems Constitutional: No fever, No chills, No sweats Musculoskeletal: + joint pain Physical Exam Date Time Temp Pulse Resp B/P (MAP) Pulse Ox O2 Delivery O2 Flow Rate FiO2 04/01/17 08:00 Room Air 04/01/17 06:40 36.4 83 20 154/63 (93) 94 Room Air 04/01/17 00:00 Room Air 03/31/17 22:58 36.6 81 16 165/76 (105) 95 Room Air 03/31/17 20:10 89 158/69 (98) 03/31/17 20:00 Room Air 03/31/17 18:04 36.5 83 18 169/70 Room Air 03/31/17 17:15 36.5 83 18 169/70 (103) 98 Nasal Cannula 2.0 03/31/17 15:55 74 161/83 99 03/31/17 15:30 73 20 161/83 97 Nasal Cannula 2.0 General: Pt was sleeping comfortably when I entered the room. No apparent distress. After waking, he was alert and oriented. Pleasant mood and affect. Right shoulder: Exam of right shoulder reveals no gross deformity on inspection. No obvious swelling, effusion, erythema, or induration. He is globally tender to palpation around the shoulder, with no focal tenderness. He has significant pain with any attempts at shoulder abduction or rotation, making evaluation of ROM and strength difficult. No instability. Motor and sensory intact in median, ulnar, radial, and axillary nerve distributions. Hand is warm and well perfused. General Appearance: no apparent distress Extremities/Musculoskelatal: normal inspection, normal capillary refill Laboratory Results Last 24 Hours Test 03/31/17 17:19 03/31/17 19:49 04/01/17 05:13 04/01/17 07:58 Bedside Glucose 122 mg/dl 203 mg/dl 241 mg/dl White Blood Count 47.69 K/uL Red Blood Count 2.27 M/uL Hemoglobin 8.7 g/dL Hematocrit 25.8 % Mean Corpuscular Volume 113.7 fL Mean Corpuscular Hemoglobin 38.3 pg Mean Corpuscular Hemoglobin Concent 33.7 g/dl RDW Standard Deviation 61.5 fL RDW Coefficient of Variation 15.1 % Platelet Count 62 K/uL Mean Platelet Volume 9.9 fL Sodium Level 132 mmol/L Potassium Level 4.5 mmol/L Chloride Level 100 mmol/L Carbon Dioxide Level 26 mmol/L Anion Gap 6.0 mmol/L Blood Urea Nitrogen 21 mg/dl Creatinine 1.26 mg/dl Est Creatinine Clear Calc Drug Dose 47.5 ml/min Estimated GFR () 63.3 Estimated GFR (Non- 54.7 BUN/Creatinine Ratio 16.6 Random Glucose 258 mg/dl Lactic Acid Level 1.0 mmol/L Calcium Level 8.3 mg/dl Magnesium Level 2.0 mg/dl Thyroid Stimulating Hormone (TSH) 2.950 uIu/ml Test 04/01/17 11:53 Bedside Glucose 291 mg/dl Radiology: Right shoulder Xrays and CT chest were independently reviewed by me. 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 No obvious glenohumeral joint effusion on CT. Assessment & Plan (1) Left shoulder pain Assessment & Plan: He has a 2 week history of worsening left shoulder pain without injury, but with previous history of similar left shoulder pain episodes in the past and a history of gout on allopurinol. Clinical exam not consistent with septic joint, but does have significant pain with shoulder range of motion. Peripheral WBC count markedly elevated with myeloproliferative disorder. I would recommend an ultrasound of the shoulder to evaluate for glenohumeral joint effusion. If there is an effusion, I would recommend a fluoroscopically-guided glenohumeral joint aspiration with evaluation of the joint fluid for crystals, bacteria, and cell count. If there is no effusion, I would then recommend an MRI of the shoulder to eval for other pain generators, such as osteonecrosis from myeloproliferative disorder? I am covering Orthopedic Surgery call for Dr. Purcell, who is unavailable. Zeus Maki MD Problem Qualifiers (1) Left shoulder pain: Chronicity: acute Qualified Codes: M25.512 - Pain in left shoulder
[2017-04-01 14:55] VITALS: BP 127/57; PULSE 83; TEMP 37; O2SAT 93
--- NOTE | 2017-04-01 17:23 | DIAGNOSTIC IMAGING REPORT ---
L EXTREMITY NONVASCULAR LIMITED CLINICAL HISTORY: Left shoulder pain pain TECHNIQUE: Ultrasound left shoulder COMPARISON STUDY: None FINDINGS: No evidence for joint effusion based on ultrasound criteria. Echogenicity of the subcutaneous tissues appear unremarkable. IMPRESSION: Negative study based on ultrasound criteria. The above report was generated using voice recognition software. It may contain grammatical, syntax or spelling errors. Electronically signed by: William Reddy M.D. 04/01/2017 5:21 PM Dictated Date/Time: 04/01/2017 5:21 PM
[2017-04-01] MEDS ORDERED: ALBUTEROL HFA 8 GM INHALER INH PRN (18:00)
[2017-04-01 19:42] VITALS: BP 130/68; PULSE 75
[2017-04-01] MEDS: BOOST GLUCOSE CONTROL PO SCH (20:22)
--- NOTE | 2017-04-01 22:08 | DIAGNOSTIC IMAGING REPORT ---
L UPPER EXT JOINT WITHOUT CLINICAL HISTORY: left shoulder pain, myeloproliferative disorder pain TECHNIQUE: MRI multi axial acquisition. COMPARISON STUDY: None FINDINGS: Heterogeneous bone marrow signal characteristics throughout. This includes patchy areas of abnormal signal involving the humeral neck and proximal shaft, as well as components of the glenoid and coracoid process. There are findings of nonspecific edematous change of the subcutaneous fat as well as the muscle bundles surrounding the shoulder. There is small amount of fluid within the acromioclavicular joint with moderate hypertrophic change. There is moderate tendinopathy of the supraspinatus tendon. Infraspinatus and subscapularis tendons are intact. Glenoid labrum shows a moderate degree of age-related subsidence deterioration no major tears appreciated. There is degenerative thinning of the articular services the glenohumeral joint. There is a mild Hill-Sachs type deformity lateral aspect humeral head. There is no significant joint effusion. IMPRESSION: 1. Marked geographic heterogeneity of bone marrow signal of the bulk of the osseous structures of the shoulder. 2. Although components of this potentially relate to red-yellow bone marrow differentiation, its overall appearance raises the possibility of metastatic bone marrow replacing process. 3. Generalized soft tissue edematous change of the muscular as well as subcutaneous fat around the shoulder although this predominates in the deltoid region. 4. Moderate tendinopathy of the supraspinatus possibly with a small partial tear. There is no evidence for full-thickness rotator cuff tear. 5. Moderate deterioration of the substance of the biceps tendon with considerable thinning of its diameter at the level of the bicipital groove 6. Consideration may be given to a repeat exam with gadolinium enhancement versus possibility of bone scanning or bone marrow aspiration. The above report was generated using voice recognition software. It may contain grammatical, syntax or spelling errors. Electronically signed by: William Reddy M.D. 04/01/2017 10:06 PM Dictated Date/Time: 04/01/2017 10:01 PM
[2017-04-02 00:16] VITALS: BP 148/76; PULSE 72; TEMP 36.6; O2SAT 93
[2017-04-02] MEDS ORDERED: INSULIN ASPART 100 UNITS/ML 3 ML PEN SC SCH (02:00)
[2017-04-02] MEDS ORDERED: INSULIN HUMAN REGULAR PER UNIT 5 UNITS in SYRINGE 4.95 ML IV SCH (02:15)
[2017-04-02 06:55] VITALS: BP 150/67; PULSE 69; TEMP 36.3; O2SAT 98
[2017-04-02] MEDS: DULOXETINE (CYMBALTA) 30 MG CAP PO SCH (07:37)
[2017-04-02] MEDS: ALLOPURINOL 300 MG TAB PO SCH (07:37)
[2017-04-02] MEDS: ASPIRIN 81 MG ECTAB PO SCH (07:37)
[2017-04-02] MEDS: TRAMADOL HCL 50 MG TAB PO PRN ×2 (07:37→21:12)
[2017-04-02] MEDS: GABAPENTIN 600 MG TAB PO SCH ×3 (07:37→21:09)
[2017-04-02] MEDS: BACLOFEN 10 MG TAB PO SCH ×3 (07:38→21:09)
[2017-04-02] MEDS: FINASTERIDE 5 MG TAB PO SCH (07:38)
[2017-04-02] MEDS: ALFUZosin TAB 10 MG TAB PO SCH (07:38)
[2017-04-02] MEDS: MULTIVITAMIN TAB PO SCH (07:38)
[2017-04-02] MEDS: PANTOprazole SOD 40 MG TAB PO SCH (07:38)
[2017-04-02] MEDS: LISINOPRIL 20 MG TAB PO SCH (07:38)
[2017-04-02] MEDS: ASCORBIC ACID 500 MG TAB PO SCH (07:39)
[2017-04-02] MEDS: CARVEDILOL 12.5 MG TAB PO SCH ×2 (07:40→21:09)
[2017-04-02 07:54] VITALS: BP 162/78; PULSE 68; TEMP 36.2; O2SAT 96
[2017-04-02] MEDS ORDERED: LIDODERM (LIDOCAINE) PATCH 5% TD SCH (08:00)
[2017-04-02] MEDS: INSULIN ASPART 100 UNITS/ML 3 ML PEN SC SCH ×4 (08:47→19:53)
[2017-04-02] MEDS: INSULIN HUMAN NPH SC SCH (08:48)
[2017-04-02] MEDS: INSULIN GLARGINE SOLOSTAR 100 UNITS/ML 3 ML PEN SC SCH ×2 (08:48→21:10)
[2017-04-02 09:45] VITALS: O2SAT 96
--- NOTE | 2017-04-02 09:54 | Pain Management Consultation ---
Pain Management Consultation Date of Consultation Apr 02, 2017. Reason for Consultation Left neck, left shoulder, left knee pain Pain Location 1 - 2 - 3 - History This is a 76 y/o white male that has been seen in consultation at the [facility] for left cervical, left shoulder, and left knee pain. Patient does have a significant history of myeloproliferative disorder, Diabetes , and Gout. Patient states that the pain has been gradually worsening over the last 2 weeks without any known injury. He describes a sharp, burning, and aching pain. Over the last 24 hours he states that his pain is improving. He was not able to move the left shoulder yesterday due to increased pain and now he is able to reach out with the left arm. The ROM is not back to baseline but he is pleased with the results today. He is on Prednisone PO, Lidocaine patch, Gabapentin 600mg TID, Cymbalta 30mg daily, Baclofen 10mg TID, Tramadol 100mg x 6 hours, and Morphine IV PRN. The left knee pain is almost resolved today. There is no headache, dizziness, vision changes, right sided pain, CP, SOB, dropping of objects. Case discussed with Dr. Winnie Couch Past Medical/Surgical History (1) Myeloproliferative disorder (2) Neuropathic pain of left shoulder (3) Uncontrolled pain (4) Left shoulder pain (5) Leukemia (6) Prostate disorder (7) Hypertension (8) Diabetes (9) Spinal stenosis (10) GERD (gastroesophageal reflux disease) (11) Dyslipidemia (12) History of back surgery Family History Cancer Diabetes mellitus Heart disease Hypertension Social / Work History Smoking Status: Never smoker Smokeless Tobacco Use: Yes Alcohol Use: none Marital Status: Housing Status: lives alone Occupation: retired Allergies Coded Allergies: Terazosin (Verified Allergy, Unknown, unkn, 03/31/17) Medications Current Inpatient Medications Medications (Trade) Dose Ordered Sig/Karla Route Start Time Stop Time Status Last Admin Dose Admin Ioversol (Optiray 320) 100 ml UD PRN IV 03/31/17 10:30 04/04/17 10:29 Acetaminophen (Tylenol Tab) 650 mg Q4H PRN PO 03/31/17 15:15 04/30/17 15:14 03/31/17 17:36 650 MG Alfuzosin HCl (Uroxatral Tab) 10 mg DAILY PO 04/01/17 08:00 05/01/17 08:59 04/02/17 07:38 10 MG Allopurinol (Zyloprim Tab) 300 mg DAILY PO 04/01/17 08:00 05/01/17 08:59 04/02/17 07:37 300 MG Ascorbic Acid (Vitamin C Tab) 500 mg DAILY PO 04/01/17 08:00 05/01/17 08:59 04/02/17 07:39 500 MG Aspirin (Ecotrin Tab) 81 mg DAILY PO 04/01/17 08:00 05/01/17 08:59 04/02/17 07:37 81 MG Baclofen (Lioresal Tab) 10 mg TID PO 03/31/17 20:00 04/30/17 20:59 04/02/17 07:38 10 MG Carvedilol (Coreg Tab) 12.5 mg BID PO 03/31/17 20:00 04/30/17 20:59 04/02/17 07:40 12.5 MG Finasteride (Proscar Tab) 5 mg DAILY PO 04/01/17 08:00 05/01/17 08:59 04/02/17 07:38 5 MG Lisinopril (Zestril Tab) 20 mg DAILY PO 04/01/17 08:00 05/01/17 08:59 04/02/17 07:38 20 MG Multivitamins (Multivitamin Tab) 1 tab DAILY PO 04/01/17 08:00 05/01/17 08:59 04/02/17 07:38 1 TAB Pantoprazole Sodium (Protonix Tab) 40 mg DAILY PO 04/01/17 08:00 05/01/17 08:59 04/02/17 07:38 40 MG Gabapentin (Neurontin Tab) 600 mg TID PO 03/31/17 20:00 04/30/17 20:59 04/02/17 07:37 600 MG Tramadol HCl (Ultram Tab) 100 mg Q6 PRN PO 03/31/17 15:15 04/30/17 15:14 04/02/17 07:37 100 MG Morphine Sulfate (MoRPHine SULFATE INJ) 2 mg Q4 PRN IV 03/31/17 15:15 04/14/17 15:14 04/01/17 07:37 2 MG Insulin Aspart (novoLOG ASPART) SLIDING SCALE If C... ACHS SC 03/31/17 21:00 04/30/17 20:59 04/02/17 08:47 14 UNITS Glucose (Glucose 40% Gel) 15-30 GRAMS 15 GRAMS... UD PRN PO 03/31/17 16:15 04/30/17 16:14 Glucose (Glucose Chew Tab) 4-8 Tablets 4 Tabl... UD PRN PO 03/31/17 16:15 04/30/17 16:14 Dextrose (Dextrose 50% 50ML Syringe) 25-50ML OF 50% DW IV FOR... UD PRN IV 03/31/17 16:15 04/30/17 16:14 Glucagon (Glucagon Inj) 1 mg UD PRN SQ 03/31/17 16:15 04/30/17 16:14 Lidocaine (Lidoderm Patch 5%) 1 patch QAM TD 04/02/17 08:00 05/02/17 07:59 04/02/17 07:39 1 PATCH Miscellaneous (Remove Lidoderm Patch) 1 ea DAILY@21 N/A 04/01/17 21:00 05/01/17 20:59 04/01/17 20:22 1 EA Prednisone (PredniSONE TAB) 40 mg DAILY PO 04/01/17 12:00 05/01/17 11:59 04/02/17 07:39 40 MG Miscellaneous Information (Consult Glycemic Management Pharmacy) 1 ea UD PRN N/A 04/01/17 10:37 05/01/17 10:36 Insulin Glargine (Lantus Solostar Pen) SEE PROTOCOL TEXT Q12 SC 04/01/17 21:00 05/01/17 20:59 04/02/17 08:48 25 UNITS Enteral Nutritional Formula (Boost Glucose Control) 1 can HS PO 04/01/17 21:00 05/01/17 20:59 04/01/17 20:22 1 CAN Albuterol (Ventolin Hfa Inhaler) 2 puffs Q6 PRN INH 04/01/17 18:00 04/30/17 17:59 Duloxetine HCl (Cymbalta Cap) 30 mg QAM PO 04/02/17 08:00 05/01/17 08:59 04/02/17 07:37 30 MG Insulin Human NPH (novoLIN-N NPH) 32 units DAILY SC 04/02/17 08:00 05/02/17 07:59 04/02/17 08:48 32 UNITS Review of Systems Denies any constitutional, cardiac, pulmonary, neurological, GI, , extremity, endocrine, neuro, ENT, dermatological, or musculoskeletal complaints other than stated in HPI Physical Exam Height & Weight: Height 5 feet, 8.00 inches. Weight 81.200 (Kilograms) 179 (Pounds) Last Vital Signs Documentation Date Time Temp Pulse Resp B/P (MAP) Pulse Ox O2 Delivery O2 Flow Rate FiO2 04/02/17 07:54 36.2 68 22 162/78 (106) 96 Room Air 03/31/17 17:15 2.0 Exam: GENERAL: This is a 76 y/o WM that appears his stated age. Speech and cognition is intact. Mood and affect is appropriate. Sitting quietly in the exam room, no acute distress. HEAD: Normocephalic; atraumatic. EYES: Pupils are round, equal, and reactive to light; EOM intact. ENT: No external ear discharge or lesions. No rhinorrhea or epistaxis. No mucosal lesions. NECK: Full ROM; There is no focal midline or facet joints tenderness. There is allodynia along the left trapezius muscle with mild spasm, no trigger points noted. Spurling maneuver increases axial pain. CHEST: Regular chest respiration and excursion. EXTREMITIES: Left shoulder abduction and flexion to 45. Tender over the left deltoid region. Mild tenderness along the left posterior knee. There is 4/5 right hand grasp, otherwise 5/5 strength bilaterally. NEURO: CN II-XII grossly intact with no focal deficits noted. SKIN: No lesions, erythema, or rashes noted. Laboratory Laboratory Results (Last CBC): 04/01/17 05:13 Imaging MRI Findings Left Upper extremity MRI 1. Marked geographic heterogeneity of bone marrow signal of the bulk of the osseous structures of the shoulder. 2. Although components of this potentially relate to red-yellow bone marrow differentiation, its overall appearance raises the possibility of metastatic bone marrow replacing process. 3. Generalized soft tissue edematous change of the muscular as well as subcutaneous fat around the shoulder although this predominates in the deltoid region. 4. Moderate tendinopathy of the supraspinatus possibly with a small partial tear. There is no evidence for full-thickness rotator cuff tear. 5. Moderate deterioration of the substance of the biceps tendon with considerable thinning of its diameter at the level of the bicipital groove 6. Consideration may be given to a repeat exam with gadolinium enhancement versus possibility of bone scanning or bone marrow aspiration. The above report was generated using voice recognition software. It may contain grammatical, syntax or spelling errors. Electronically signed by: William Reddy M.D. 04/01/2017 10:06 PM Dictated Date/Time: 04/01/2017 10:[address] IMPRESSION: 1. No acute fractures or traumatic subluxations 2. Mild degenerative changes most pronounced the C5-6 and C6-7 levels Electronically signed by: Krishna Atwood M.D. 03/30/2017 9:49 AM Dictated Date/Time: 03/30/2017 9:45 AM Radiology Findings L knee xray IMPRESSION: 1. No acute osseous injury. 2. Mild degenerative changes at the patellofemoral compartment. Electronically signed by: Sammy Conte M.D. 03/31/2017 3:50 PM Dictated Date/Time: 03/31/2017 3:49 PM Assessment 1. Myeloproliferative disease 2. Left cervical, shoulder, and knee pain 3. Diabetes Mellitus Recommendations 1. Patient is reporting moderate relief of symptoms with the current regimen. I suspect oral steroids are providing relief. Continue current medication regimen and see the patient tomorrow to make any further adjustments.
[2017-04-02] MEDS ORDERED: NURSING VERBAL MED ORDER ONE (11:30)
[2017-04-02] MEDS ORDERED: LIDODERM (LIDOCAINE) PATCH 5% TD ONE (11:45)
[2017-04-02] MEDS: MoRPHine SULFATE 2 MG/ML CARP IV PRN (12:29)
[2017-04-02] MEDS ORDERED: INSULIN HUMAN REGULAR IV BOLUS 3 UNIT in SYRINGE 0 ML IV SCH (14:30)
[2017-04-02] MEDS ORDERED: INSULIN IV INFUSION PROTOCOL STA (14:39)
[2017-04-02] MEDS: INSULIN REGULAR 250 UNITS in SODIUM CHLORIDE 0.9% 250ML 250 ML IV SCH ×5 (14:41→21:05)
[2017-04-02] MEDS ORDERED: SEVERE STRESS LEVEL ONE (14:45)
[2017-04-02] MEDS ORDERED: INSULIN PROTOCOL GOAL RANGE ONE (14:45)
--- NOTE | 2017-04-02 15:03 | Pharmacy Progress Note ---
Pharmacy Glycemic Short Note 2 Date of Service Apr 02, 2017. OUTPATIENT ANTIDIABETIC REGIMEN: * Novolin 70/30 premixed insulin 34-35 units SQ BIDM * Metformin 1,000mg PO BIDM Item Value Date Time Bedside Glucose 330 mg/dl H 04/02/17 1412 Bedside Glucose 392 mg/dl *H 04/02/17 1112 Bedside Glucose 237 mg/dl H 04/02/17 0757 Bedside Glucose 388 mg/dl *H 04/02/17 0156 Bedside Glucose 438 mg/dl *H 04/01/17 2009 Bedside Glucose 247 mg/dl H 04/01/17 1640 Bedside Glucose 291 mg/dl H 04/01/17 1153 Bedside Glucose 241 mg/dl H 04/01/17 0758 ASSESSMENT: * 76yo T2DM male with significant/severe steroid induced hyperglycemia * Outpatient control of diabetes is adequate based on recent A1c of 7.2% * BSGs all above 250mg/dl (and higher) despite 100+ units of SQ insulin (plus 2 IV boluses) * IV insulin infusion is needed for short term control of severe hyperglycemia PLAN FOR INPATIENT GLYCEMIC CONTROL: * Hold outpatient oral diabetes medications * Basal insulin * Continue Lantus 20-25 units SQ BID while premixed sq outpatient insulin is on hold for admission * Add NPH 32 units (0.4 units/kg) to cover steroid induced hyperglycemia secondary to 40mg of PO Prednisone Daily * Bolus insulin * NovoLog per scale ACHS or Q6hrs while NPO * Goal Range: Low 110 mg/dL - High 140 mg/dL * Correction Factor: 15 mg/dL/unit * Nutritional / Prandial insulin per carb ratio of 1 unit per 5 grams CHO consumed * IV insulin infusion per severe stress protocol * Goal range = 140 - 180 mg/dl * May discontinue/stop IV insulin infusion once SQ insulin at steady state, when, BSG < 180 mg/dl x 2 AND IV insulin infusion rate is below 2 units/hr.
[2017-04-02 15:35] VITALS: BP 128/67; PULSE 67; TEMP 36.6; O2SAT 95
[2017-04-02 15:56] LABS: HEMATOCRIT 24.5 % (42-52); HEMOGLOBIN 8.6 g/dL (14.0-18.0); MEAN CELL VOLUME 109.9 fL (80-100); MEAN CORPUSCULAR HEMOGLOBIN 38.6 pg (25-34); MEAN CORPUSCULAR HGB CONC 35.1 g/dl (32-36); MEAN PLATELET VOLUME 9.6 fL (7.4-10.4); PLATELET COUNT 74 K/uL (130-400); RED CELL DISTRIBUTION WIDTH CV 14.8 % (11.5-14.5); RED CELL DISTRIBUTION WIDTH SD 58.3 fL (36.4-46.3)
[2017-04-02 16:04] LABS: CALCIUM 8.3 mg/dl (8.5-10.1); CREATININE 1.52 mg/dl (0.60-1.40); POTASSIUM 4.8 mmol/L (3.5-5.1)
[2017-04-02] MEDS: DC IV INSULIN INFUSION SCH ×4 (17:50→23:33)
--- NOTE | 2017-04-02 18:09 | Medical Consult ---
Consultation Date of Consultation: Apr 02, 2017. Attending Physician: Klaus Appiah MD History of Present Illness ONCOLOGY HEMATOLOGY CONSULT: Evaluation and management of myeloproliferative disorder. Date of consult: 04/02/2017 HPI: 76-year-old male, a case of myeloproliferative disorder, JAK2 mutation negative, started her Hydroxyurea in September 2016. Recently I saw him in the office on 03/20/2017, platelet count was around 70,000 , WBC count was around 18,000, H&H of 9.3/, decided to hold Hydroxyurea at that time. He is also on allopurinol prophylaxis. Has underlying gout. Now he's admitted at [facility] for increasing left shoulder/ proximal humerus pain, left knee joint pain, lower extremity edema, I saw him at bedside, he is sitting in the bed, receiving IV fluid and IV insulin, seen by orthopedic, workup as follows: - Doppler evaluation --> Negative for DVT - Head CT --> Chronic vessel ischemic changes. No acute changes. - CT chest --> No evidence of pulmonary embolism, 5 mm right lung noted. Nonspecific nodular changes noted in adrenal glands. - Ultrasound of the upper extremity arrow negative for joint effusion. - Upper extremity MRI done on 04/01/2017 --> Heterogenous bone marrow signal changes in the humeral neck and proximal soft as well as component of the glenoid and coracoid process. Moderate tendinopathy of the supraspinatus tendon noted. - WBC 44,000, H&H of 9.7/29, Platelet count of 71,000 (03/31/2017) - WBC count increased to around 65,000 as of today, hemoglobin level dropped down to around 8.6 g/dL, platelet count is around 74,000. Started him on prednisone on 04/01/2017. He is on insulin, Cymbalta, Neurontin and lidocaine patch. No fever, no nausea or vomiting, no bleeding from any sites. Leg pain edema is slightly improved. Still complains of for left shoulder pain, here is significantly restricted movements which has improved to some extent. REVIEW OF SYSTEMS: GENERAL: No recent change in weight, denies weakness present, no fever. Sweats present.. SKIN: No skin rash, no bruising. HEAD: No new headache, no dizziness. EYES: No recent change in the vision, no diplopia, EARS: No earache ,no tinnitus, NOSE: No epistaxis, No nasal discharge or stuffiness, MOUTH: No sores, no dysphagia, no hoarseness of voice, NECK: No lumps, No swelling in thyroid area. No stiffness. PULMONARY: No cough, No shortness of breath at rest, no hemoptysis, no chest pain, No wheezing. CARDIOVASCULAR: No anginal chest pain, no PND, no orthopnea. No palpitation, no leg edema. No syncope. GASTRIINTESTINAL: No abdominal pain, no nausea or vomiting. No diarrhea, No constipation. No blood in stool or black tarry stools. No abdominal distention. UROLOGIC: No burning urination. No hematuria. MUSCULOSKELETAL: left shoulder pain present, left knee joint pain present but gradually better,. HEMATOLOGIC: No anemia, no bleeding disorder, No bruising. NEUROLOGIC: No seizures, no focal weakness, no speech difficulty, No memory disturbances. No tingling or numbness of the extremities. PSYCHRIATRIC: No depression. No anxiety. No psychosis. PAST MEDICAL/SURGICAL HISTORY: - Diabetes mellitus, hyperlipidemia, GERD, hypertension. - Spinal stenosis. History of back surgery. SOCIAL HISTORY: non-smoker, denies any EtOH abuse. He lives by himself. FAMILY HISTORY: not significant. MEDICATIONS: please review his chart for detailed list of medications. On exam: - Alert and oriented x3, well built man, not in any distress. - HEENT: no icterus, no pallor, Throat: Normal. - Neck: No palpable cervical lymphadenopathy. - Chest: clear to auscultation. - Abdomen: soft, nontender, no hepatomegaly, no splenomegaly. - No focal neuro deficit. - Extremities: no finger clubbing, no leg edema. LABS: as outlined above. ASSESSMENT AND PLAN: 76-year-old male, a case of myeloproliferative disorder, he presented with her leucocytosis, JAK2 mutation positive, started him on Hydroxyurea in September 2016 , recent blood workup showed drop in the platelet count around 70,000 and so decided to hold Hydroxyurea, his white blood cell count was around 18,000 at that time. Now he's admitted hospital for increasing left shoulder pain, restricted the left shoulder joint moments, since yesterday started him on prednisone therapy, on admission WBC was around 40,000, now white blood cell count has increased and 60,000, has mild anemia, stable but low platelet count around 70,000, no new bleeding complications. Recent left shoulder MRI shows some bone marrow changes in the left proximal humerus which is expected with the underlying myeloproliferative disorder. Regarding treatment for underlying myeloproliferative disorder, I do not have really good options especially with the platelet count dropping to around 70, 000 while he is off the hydroxyuera for the last 2 weeks or so. Will see how he does with the current pain management and the steroid therapy but if he continues to have increasing pain, we may consider for radiation treatment to that area. We can start hydroxyuera at a lower dose at 500 mg once-a-day and watch platelet count carefully. If platelet count dropped down to less than 50,000, will hold Hydroxyurea at that time. Thanks for the consultation. Salomon Ferguson MD Hem/Onc Past Medical/Surgical History Medical Problems: (1) Acute neck pain Status: Acute (2) Leukemia Status: Acute (3) Leukemia Status: Acute (4) Leukemoid reaction Status: Acute (5) Leukocytosis Status: Acute (6) Low back pain Status: Acute (7) Low back pain Status: Acute (8) Neuropathic pain of left shoulder Status: Acute (9) Pleuritic chest pain Status: Acute (10) Uncontrolled pain Status: Acute Family History Cancer Diabetes mellitus Heart disease Hypertension Social History Smoking Status: Unknown if Ever Smoked Smokeless Tobacco Use: Yes Alcohol Use: none Drug Use: none Marital Status: Housing Status: lives alone Occupation Status: retired Allergies Coded Allergies: Terazosin (Verified Allergy, Unknown, unkn, 03/31/17) Current Inpatient Medications Current Inpatient Medications Medications (Trade) Dose Ordered Sig/Karla Route Start Time Stop Time Status Last Admin Dose Admin Ioversol (Optiray 320) 100 ml UD PRN IV 03/31/17 10:30 04/04/17 10:29 Acetaminophen (Tylenol Tab) 650 mg Q4H PRN PO 03/31/17 15:15 04/30/17 15:14 03/31/17 17:36 650 MG Alfuzosin HCl (Uroxatral Tab) 10 mg DAILY PO 04/01/17 08:00 05/01/17 08:59 04/02/17 07:38 10 MG Allopurinol (Zyloprim Tab) 300 mg DAILY PO 04/01/17 08:00 05/01/17 08:59 04/02/17 07:37 300 MG Ascorbic Acid (Vitamin C Tab) 500 mg DAILY PO 04/01/17 08:00 05/01/17 08:59 04/02/17 07:39 500 MG Aspirin (Ecotrin Tab) 81 mg DAILY PO 04/01/17 08:00 05/01/17 08:59 04/02/17 07:37 81 MG Baclofen (Lioresal Tab) 10 mg TID PO 03/31/17 20:00 04/30/17 20:59 04/02/17 13:14 10 MG Carvedilol (Coreg Tab) 12.5 mg BID PO 03/31/17 20:00 04/30/17 20:59 04/02/17 07:40 12.5 MG Finasteride (Proscar Tab) 5 mg DAILY PO 04/01/17 08:00 05/01/17 08:59 04/02/17 07:38 5 MG Lisinopril (Zestril Tab) 20 mg DAILY PO 04/01/17 08:00 05/01/17 08:59 04/02/17 07:38 20 MG Multivitamins (Multivitamin Tab) 1 tab DAILY PO 04/01/17 08:00 05/01/17 08:59 04/02/17 07:38 1 TAB Pantoprazole Sodium (Protonix Tab) 40 mg DAILY PO 04/01/17 08:00 05/01/17 08:59 04/02/17 07:38 40 MG Gabapentin (Neurontin Tab) 600 mg TID PO 03/31/17 20:00 04/30/17 20:59 04/02/17 13:14 600 MG Tramadol HCl (Ultram Tab) 100 mg Q6 PRN PO 03/31/17 15:15 04/30/17 15:14 04/02/17 07:37 100 MG Morphine Sulfate (MoRPHine SULFATE INJ) 2 mg Q4 PRN IV 03/31/17 15:15 04/14/17 15:14 04/02/17 12:29 2 MG Insulin Aspart (novoLOG ASPART) SLIDING SCALE If C... ACHS SC 03/31/17 21:00 04/30/17 20:59 04/02/17 17:50 14 UNITS Glucose (Glucose 40% Gel) 15-30 GRAMS 15 GRAMS... UD PRN PO 03/31/17 16:15 04/30/17 16:14 Glucose (Glucose Chew Tab) 4-8 Tablets 4 Tabl... UD PRN PO 03/31/17 16:15 04/30/17 16:14 Dextrose (Dextrose 50% 50ML Syringe) 25-50ML OF 50% DW IV FOR... UD PRN IV 03/31/17 16:15 04/30/17 16:14 Glucagon (Glucagon Inj) 1 mg UD PRN SQ 03/31/17 16:15 04/30/17 16:14 Prednisone (PredniSONE TAB) 40 mg DAILY PO 04/01/17 12:00 05/01/17 11:59 04/02/17 07:39 40 MG Miscellaneous Information (Consult Glycemic Management Pharmacy) 1 ea UD PRN N/A 04/01/17 10:37 05/01/17 10:36 Insulin Glargine (Lantus Solostar Pen) SEE PROTOCOL TEXT Q12 SC 04/01/17 21:00 05/01/17 20:59 04/02/17 08:48 25 UNITS Enteral Nutritional Formula (Boost Glucose Control) 1 can HS PO 04/01/17 21:00 05/01/17 20:59 04/01/17 20:22 1 CAN Albuterol (Ventolin Hfa Inhaler) 2 puffs Q6 PRN INH 04/01/17 18:00 04/30/17 17:59 Duloxetine HCl (Cymbalta Cap) 30 mg QAM PO 04/02/17 08:00 05/01/17 08:59 04/02/17 07:37 30 MG Insulin Human NPH (novoLIN-N NPH) 32 units DAILY SC 04/02/17 08:00 05/02/17 07:59 04/02/17 08:48 32 UNITS Lidocaine (Lidoderm Patch 5%) 2 patch QAM TD 04/03/17 08:00 05/03/17 07:59 Miscellaneous (Remove Lidoderm Patch) 1 ea DAILY@21 N/A 04/02/17 21:00 05/02/17 20:59 Insulin Human Regular 250 units/ Sodium Chloride 252.5 ml @ 0 mls/hr Q24H IV 04/02/17 14:30 05/02/17 14:29 04/02/17 16:46 4.3 MLS/HR Miscellaneous Information (Dc Iv Insulin Infusion) 1 ea Q2H N/A 04/02/17 18:00 05/02/17 17:59 Physical Exam Date Time Temp Pulse Resp B/P (MAP) Pulse Ox O2 Delivery O2 Flow Rate FiO2 04/02/17 15:35 36.6 67 18 128/67 (87) 95 Room Air 67 04/02/17 09:45 96 Room Air 04/02/17 08:00 Room Air 04/02/17 07:54 36.2 68 22 162/78 (106) 96 Room Air 04/02/17 06:55 36.3 69 18 150/67 (94) 98 Room Air 04/02/17 00:25 Room Air 04/02/17 00:16 36.6 72 20 148/76 (100) 93 Room Air 04/01/17 19:50 Room Air 04/01/17 19:42 75 130/68 (88) Laboratory Results Last 24 Hours Test 04/01/17 20:09 04/02/17 01:56 04/02/17 07:57 04/02/17 11:12 Bedside Glucose 438 mg/dl 388 mg/dl 237 mg/dl 392 mg/dl Test 04/02/17 14:12 04/02/17 15:36 04/02/17 15:47 04/02/17 16:44 Bedside Glucose 330 mg/dl 298 mg/dl 270 mg/dl White Blood Count 65.20 K/uL Red Blood Count 2.23 M/uL Hemoglobin 8.6 g/dL Hematocrit 24.5 % Mean Corpuscular Volume 109.9 fL Mean Corpuscular Hemoglobin 38.6 pg Mean Corpuscular Hemoglobin Concent 35.1 g/dl Platelet Count 74 K/uL Mean Platelet Volume 9.6 fL RDW Standard Deviation 58.3 fL RDW Coefficient of Variation 14.8 % Neutrophils % (Manual) 92.2 % Lymphocytes % (Manual) 3.9 % Monocytes % (Manual) 2.6 % Myelocytes % 1.3 % Neutrophils # (Manual) 60.11 K/uL Total Absolute Neutrophils 60.11 K/uL Lymphocytes # (Manual) 2.54 K/uL Total Absolute Lymphocytes 2.54 K/uL Monocytes # (Manual) 1.70 K/uL Myelocytes # 0.85 K/uL Toxic Granulation 2+ Dohle Bodies 2+ Macrocytosis PRESENT Sodium Level 131 mmol/L Potassium Level 4.8 mmol/L Chloride Level 98 mmol/L Carbon Dioxide Level 22 mmol/L Anion Gap 11.0 mmol/L Creatinine 1.52 mg/dl Est Creatinine Clear Calc Drug Dose 39.4 ml/min Estimated GFR () 50.5 Estimated GFR (Non- 43.6 BUN/Creatinine Ratio 22.2 Random Glucose 269 mg/dl Calcium Level 8.3 mg/dl Test 04/02/17 17:47 Bedside Glucose 224 mg/dl
--- NOTE | 2017-04-02 18:28 | Orthopedic Progress Note ---
Orthopedic Progress Note Date of Service Apr 02, 2017. Subjective Additional Notes: Patient seen sitting in chair, reports slight improvement with pain. No acute issues overnight. 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 decreases strength LUE. No erythema or effusion. Date Time Temp Pulse Resp B/P (MAP) Pulse Ox O2 Delivery O2 Flow Rate FiO2 04/02/17 15:35 36.6 67 18 128/67 (87) 95 Room Air 67 04/02/17 09:45 96 Room Air 04/02/17 08:00 Room Air 04/02/17 07:54 36.2 68 22 162/78 (106) 96 Room Air 04/02/17 06:55 36.3 69 18 150/67 (94) 98 Room Air 04/02/17 00:25 Room Air 04/02/17 00:16 36.6 72 20 148/76 (100) 93 Room Air 04/01/17 19:50 Room Air 04/01/17 19:42 75 130/68 (88) Laboratory Results 24 Hours: Test 04/02/17 15:36 White Blood Count 65.20 K/uL Red Blood Count 2.23 M/uL Hemoglobin 8.6 g/dL Hematocrit 24.5 % Mean Corpuscular Volume 109.9 fL Mean Corpuscular Hemoglobin 38.6 pg Mean Corpuscular Hemoglobin Concent 35.1 g/dl Platelet Count 74 K/uL Mean Platelet Volume 9.6 fL Assessment & Plan Assessment: LUE acute on chronic atraumatic shoulder pain Plan: I discussed with the patient has MRI findings which include myeloproliferative bone marrow changes, mild to moderate DJD, tendinopathy and partial supraspinatus tear. For his rotator cuff cuff tendinopathy, partial tear and moderate DJD will recommend physical therapy. He is unable to take anti- inflammatories so would like him to continue with prednisone treatment and tylenol PRN. Would consider steroid injection in the future however not at this time secondary to difficulty controlling blood sugar and current oral prednisone treatment. Pain also likely due to underlining myeloproliferative disease, and which will refer to heme/onc consultation and recommendations. He may weight-bear as he tolerates to his left upper extremity. I do not suspect infectious processes or gouty flare at this time. (1) Left shoulder pain
[2017-04-02] MEDS ORDERED: SODIUM CHLORIDE 0.9% 1000ML 1,000 ML IV SCH (19:45)
[2017-04-02] MEDS: BOOST GLUCOSE CONTROL PO SCH (19:52)
[2017-04-03] MEDS ORDERED: NURSING VERBAL MED ORDER ONE ×2 (00:30→08:15)
[2017-04-03 01:12] VITALS: BP 131/68; PULSE 64; TEMP 36.4; O2SAT 98
[2017-04-03] MEDS: MoRPHine SULFATE 2 MG/ML CARP IV PRN (03:10)
[2017-04-03] MEDS: TRAMADOL HCL 50 MG TAB PO PRN (05:23)
[2017-04-03 06:13] LABS: HEMATOCRIT 24.9 % (42-52); HEMOGLOBIN 8.5 g/dL (14.0-18.0); MEAN CELL VOLUME 111.7 fL (80-100); MEAN CORPUSCULAR HEMOGLOBIN 38.1 pg (25-34); MEAN CORPUSCULAR HGB CONC 34.1 g/dl (32-36); MEAN PLATELET VOLUME 10.4 fL (7.4-10.4); PLATELET COUNT 76 K/uL (130-400); RED CELL DISTRIBUTION WIDTH CV 14.7 % (11.5-14.5); RED CELL DISTRIBUTION WIDTH SD 58.1 fL (36.4-46.3); WHITE BLOOD COUNT 47.97 K/uL (4.8-10.8)
[2017-04-03 06:28] LABS: CREATININE 1.28 mg/dl (0.60-1.40)
--- NOTE | 2017-04-03 07:04 | Progress Note ---
Medicine Progress Note Date & Time of Visit: Apr 03, 2017 at 06:59. Subjective seen resting in bed states pain is slightly improved denies bleeding, fever, shortness of breath, dizziness no other symptoms Objective Last 8 Hrs Date Time Temp Pulse Resp B/P (MAP) Pulse Ox O2 Delivery O2 Flow Rate FiO2 04/03/17 01:12 36.4 64 20 131/68 (89) 98 Room Air 04/03/17 00:15 Room Air Physical Exam: General- oriented x 3, not in distress, speaks in sentences with no effort Eyes- anicteric Neck- supple, no JVD Lungs- clear breath sounds bilaterally Heart- regular rhythm; no murmur, normal rate Abdomen- normal bowel sounds, soft, nontender Extremities- no pretibial edema, no calf tenderness Shoulder- left: (+) moderate edema, mild warmth, (+) mildly tender to touch, poor ROM due to pain Neuro- alert, oriented x 3; no gross focal deficits Skin- warm & dry Laboratory Results: Last 24 Hours Test 04/02/17 07:57 04/02/17 11:12 04/02/17 14:12 04/02/17 15:36 Bedside Glucose 237 mg/dl 392 mg/dl 330 mg/dl White Blood Count 65.20 K/uL Red Blood Count 2.23 M/uL Hemoglobin 8.6 g/dL Hematocrit 24.5 % Mean Corpuscular Volume 109.9 fL Mean Corpuscular Hemoglobin 38.6 pg Mean Corpuscular Hemoglobin Concent 35.1 g/dl Platelet Count 74 K/uL Mean Platelet Volume 9.6 fL RDW Standard Deviation 58.3 fL RDW Coefficient of Variation 14.8 % Neutrophils % (Manual) 92.2 % Lymphocytes % (Manual) 3.9 % Monocytes % (Manual) 2.6 % Myelocytes % 1.3 % Neutrophils # (Manual) 60.11 K/uL Total Absolute Neutrophils 60.11 K/uL Lymphocytes # (Manual) 2.54 K/uL Total Absolute Lymphocytes 2.54 K/uL Monocytes # (Manual) 1.70 K/uL Myelocytes # 0.85 K/uL Toxic Granulation 2+ Dohle Bodies 2+ Macrocytosis PRESENT Sodium Level 131 mmol/L Potassium Level 4.8 mmol/L Chloride Level 98 mmol/L Carbon Dioxide Level 22 mmol/L Anion Gap 11.0 mmol/L Blood Urea Nitrogen 34 mg/dl Creatinine 1.52 mg/dl Est Creatinine Clear Calc Drug Dose 39.4 ml/min Estimated GFR () 50.5 Estimated GFR (Non- 43.6 BUN/Creatinine Ratio 22.2 Random Glucose 269 mg/dl Calcium Level 8.3 mg/dl Test 04/02/17 15:47 04/02/17 16:44 04/02/17 17:47 04/02/17 18:46 Bedside Glucose 298 mg/dl 270 mg/dl 224 mg/dl 235 mg/dl Test 04/02/17 19:44 04/02/17 21:02 04/02/17 22:01 04/02/17 23:01 Bedside Glucose 190 mg/dl 215 mg/dl 194 mg/dl 133 mg/dl Test 04/02/17 23:23 04/02/17 23:43 04/03/17 00:08 04/03/17 00:23 Bedside Glucose 127 mg/dl 127 mg/dl 118 mg/dl 99 mg/dl Test 04/03/17 05:26 White Blood Count 47.97 K/uL Red Blood Count 2.23 M/uL Hemoglobin 8.5 g/dL Hematocrit 24.9 % Mean Corpuscular Volume 111.7 fL Mean Corpuscular Hemoglobin 38.1 pg Mean Corpuscular Hemoglobin Concent 34.1 g/dl RDW Standard Deviation 58.1 fL RDW Coefficient of Variation 14.7 % Platelet Count 76 K/uL Mean Platelet Volume 10.4 fL Creatinine 1.28 mg/dl Est Creatinine Clear Calc Drug Dose 46.7 ml/min Estimated GFR () 62.2 Estimated GFR (Non- 53.6 Assessment & Plan This is a 76 year old male with a PMH of myeloproliferative disorder, HTN, HLD, insulin dependent DM2, BPH - presents with severe cervical, L shoulder, and L knee pain. LEFT SHOULDER, KNEE PAIN patient presents with multiple joint pain, L shoulder, L knee, L cervical pain has had issues with this pain before Cervical CT - degenerative changes L shoulder and L knee - no acute issues Uric acid level 3.6 -- started trial of Prednisone 40mg po daily (on Insulin drip for increasing BSGs) placed on tramadol PRN for pain, morphine PRN increased gabapentin to 600mg TID, continued Baclofen dose -- pain slightly improving ortho consulted pain management consulted hem/onc consulted monitor Insulin Dependent DM2 last ha1c on 03/20/17 = 7.2% uses NPH 70/30 35 units twice a day -- BSGs elevated from Prednisone Pharmacy consulted, on Insulin drip HTN -- continue Co Reg, Lisinopril Leukocytosis and Lactic Acidosis likely secondary to Myeloproliferative Disease Hem/onc consulted -- recommend to resume Hydroxyurea 500mg po daily Lung Nodule - ff up as outpatient BPH continue home medications DVT ppx SCDs, early ambulation no lovenox/heparin, Plt < 100 Current Inpatient Medications: Current Inpatient Medications Medications (Trade) Dose Ordered Sig/Karla Route Start Time Stop Time Status Last Admin Dose Admin Ioversol (Optiray 320) 100 ml UD PRN IV 03/31/17 10:30 04/04/17 10:29 Acetaminophen (Tylenol Tab) 650 mg Q4H PRN PO 03/31/17 15:15 04/30/17 15:14 03/31/17 17:36 650 MG Alfuzosin HCl (Uroxatral Tab) 10 mg DAILY PO 04/01/17 08:00 05/01/17 08:59 04/02/17 07:38 10 MG Allopurinol (Zyloprim Tab) 300 mg DAILY PO 04/01/17 08:00 05/01/17 08:59 04/02/17 07:37 300 MG Ascorbic Acid (Vitamin C Tab) 500 mg DAILY PO 04/01/17 08:00 05/01/17 08:59 04/02/17 07:39 500 MG Aspirin (Ecotrin Tab) 81 mg DAILY PO 04/01/17 08:00 05/01/17 08:59 04/02/17 07:37 81 MG Baclofen (Lioresal Tab) 10 mg TID PO 03/31/17 20:00 04/30/17 20:59 04/02/17 21:09 10 MG Carvedilol (Coreg Tab) 12.5 mg BID PO 03/31/17 20:00 04/30/17 20:59 04/02/17 21:09 12.5 MG Finasteride (Proscar Tab) 5 mg DAILY PO 04/01/17 08:00 05/01/17 08:59 04/02/17 07:38 5 MG Multivitamins (Multivitamin Tab) 1 tab DAILY PO 04/01/17 08:00 05/01/17 08:59 04/02/17 07:38 1 TAB Pantoprazole Sodium (Protonix Tab) 40 mg DAILY PO 04/01/17 08:00 05/01/17 08:59 04/02/17 07:38 40 MG Gabapentin (Neurontin Tab) 600 mg TID PO 03/31/17 20:00 04/30/17 20:59 04/02/17 21:09 600 MG Tramadol HCl (Ultram Tab) 100 mg Q6 PRN PO 03/31/17 15:15 04/30/17 15:14 04/03/17 05:23 100 MG Morphine Sulfate (MoRPHine SULFATE INJ) 2 mg Q4 PRN IV 03/31/17 15:15 04/14/17 15:14 04/03/17 03:10 2 MG Insulin Aspart (novoLOG ASPART) SLIDING SCALE If C... ACHS SC 03/31/17 21:00 04/30/17 20:59 04/02/17 19:53 7 UNITS Glucose (Glucose 40% Gel) 15-30 GRAMS 15 GRAMS... UD PRN PO 03/31/17 16:15 04/30/17 16:14 Glucose (Glucose Chew Tab) 4-8 Tablets 4 Tabl... UD PRN PO 03/31/17 16:15 04/30/17 16:14 Dextrose (Dextrose 50% 50ML Syringe) 25-50ML OF 50% DW IV FOR... UD PRN IV 03/31/17 16:15 04/30/17 16:14 Glucagon (Glucagon Inj) 1 mg UD PRN SQ 03/31/17 16:15 04/30/17 16:14 Prednisone (PredniSONE TAB) 40 mg DAILY PO 04/01/17 12:00 05/01/17 11:59 04/02/17 07:39 40 MG Miscellaneous Information (Consult Glycemic Management Pharmacy) 1 ea UD PRN N/A 04/01/17 10:37 05/01/17 10:36 Insulin Glargine (Lantus Solostar Pen) SEE PROTOCOL TEXT Q12 SC 04/01/17 21:00 05/01/17 20:59 04/02/17 21:10 20 UNITS Enteral Nutritional Formula (Boost Glucose Control) 1 can HS PO 04/01/17 21:00 05/01/17 20:59 04/02/17 19:52 1 CAN Albuterol (Ventolin Hfa Inhaler) 2 puffs Q6 PRN INH 04/01/17 18:00 04/30/17 17:59 Duloxetine HCl (Cymbalta Cap) 30 mg QAM PO 04/02/17 08:00 05/01/17 08:59 04/02/17 07:37 30 MG Insulin Human NPH (novoLIN-N NPH) 32 units DAILY SC 04/02/17 08:00 05/02/17 07:59 04/02/17 08:48 32 UNITS Lidocaine (Lidoderm Patch 5%) 2 patch QAM TD 04/03/17 08:00 05/03/17 07:59 Miscellaneous (Remove Lidoderm Patch) 1 ea DAILY@21 N/A 04/02/17 21:00 05/02/17 20:59 04/02/17 21:12 1 EA Insulin Human Regular 250 units/ Sodium Chloride 252.5 ml @ 0 mls/hr Q24H IV 04/02/17 14:30 05/02/17 14:29 Future Hold 04/02/17 21:05 6.2 MLS/HR Sodium Chloride 1,000 ml @ 80 mls/hr [id number] IV 04/02/17 19:45 05/02/17 19:44 04/02/17 19:52 80 MLS/HR Hydroxyurea (Hydrea Cap) 500 mg QAM PO 04/03/17 08:00 05/03/17 07:59
[2017-04-03] MEDS: MULTIVITAMIN TAB PO SCH (07:45)
[2017-04-03] MEDS: ASCORBIC ACID 500 MG TAB PO SCH (07:45)
[2017-04-03] MEDS: FINASTERIDE 5 MG TAB PO SCH (07:45)
[2017-04-03] MEDS: ALLOPURINOL 300 MG TAB PO SCH (07:45)
[2017-04-03] MEDS: CARVEDILOL 12.5 MG TAB PO SCH ×2 (07:45→20:52)
[2017-04-03] MEDS: ALFUZosin TAB 10 MG TAB PO SCH (07:45)
[2017-04-03] MEDS: ASPIRIN 81 MG ECTAB PO SCH (07:45)
[2017-04-03] MEDS: GABAPENTIN 600 MG TAB PO SCH ×3 (07:46→20:51)
[2017-04-03] MEDS: DULOXETINE (CYMBALTA) 30 MG CAP PO SCH (07:46)
[2017-04-03] MEDS: PANTOprazole SOD 40 MG TAB PO SCH (07:46)
[2017-04-03] MEDS: LIDODERM (LIDOCAINE) PATCH 5% TD SCH (07:46)
[2017-04-03] MEDS: BACLOFEN 10 MG TAB PO SCH ×3 (07:46→20:51)
[2017-04-03] MEDS: HYDROXYUREA 500 MG CAP PO SCH (07:48)
[2017-04-03] MEDS: INSULIN HUMAN NPH SC SCH (07:48)
[2017-04-03] MEDS: INSULIN GLARGINE SOLOSTAR 100 UNITS/ML 3 ML PEN SC SCH ×2 (07:49→20:59)
[2017-04-03] MEDS: ACETAMINOPHEN 325 MG TAB PO PRN ×2 (07:56→15:15)
[2017-04-03 07:59] VITALS: BP 163/73; PULSE 63; TEMP 36.3; O2SAT 97
[2017-04-03] MEDS ORDERED: COUGH DROP (SUGAR FREE) LOZ 24 LOZ/1 BOX LOZ ONE (08:01)
[2017-04-03] MEDS: INSULIN ASPART 100 UNITS/ML 3 ML PEN SC SCH ×4 (09:06→20:58)
[2017-04-03 11:55] VITALS: BP 142/74; PULSE 64; TEMP 36.5; O2SAT 97
--- NOTE | 2017-04-03 13:05 | Pharmacy Progress Note ---
Pharmacy Glycemic Short Note 2 Date of Service Apr 03, 2017. OUTPATIENT ANTIDIABETIC REGIMEN: * Novolin 70/30 premixed insulin 34-35 units SQ BIDM * Metformin 1,000mg PO BIDM ASSESSMENT: * 76yo T2DM male with significant/severe steroid induced hyperglycemia yesterday despite adequate outpatient control based on recent A1c of 7.2% * IV insulin infusion was needed for short term control of severe hyperglycemia yesterday despite 100+ units of SQ insulin (plus 2 IV boluses) * IV insulin infusion was needed for about 10 hrs yesterday * BSGs all in goal range today * Prednisone continues at 40mg PO daily * Will continue NPH 0.4 units/kg to cover steroid induced hyperglycemia secondary to 40mg of PO Prednisone Daily * Pt is on pre-mixed insulin of Novolin 70/30 as an outpatient * Pre-mixed insulin is difficult to titrate since it is already in a fixed distribution of basal:prandial insulin. Continuing pre-mixed insulin for admission typically lead to hypoglycemia d/t changing PO status but rapid acting insulin is unable to be held. * Home regimen held for admission per pharmacy consult. Will utilize recommended regimen of SQ basal bolus insulin regimen with Lantus + NovoLog (CF+ CR) * Will continue to titrate regimen based on prednisone dosing and BSG trends PLAN FOR INPATIENT GLYCEMIC CONTROL: * Hold outpatient pre-mixed insulin & metformin * Basal insulin * Continue Lantus 15-20 units SQ BID based on BSG while premixed sq outpatient insulin is on hold for admission * Add NPH 32 units (0.4 units/kg) to cover steroid induced hyperglycemia secondary to 40mg of PO Prednisone Daily * Bolus insulin * NovoLog per scale ACHS or Q6hrs while NPO * Goal Range: Low 110 mg/dL - High 140 mg/dL * Correction Factor: 20mg/dL/unit * Nutritional / Prandial insulin per carb ratio of 1 unit per 6 grams CHO consumed
[2017-04-03 15:03] VITALS: BP 154/78; PULSE 63; TEMP 36.5; O2SAT 98
--- NOTE | 2017-04-03 15:46 | Progress Note ---
Internal Med Progress Note Date of Service: Apr 03, 2017. Provider Documentation: SUBJECTIVE: Seen and examined at bedside States Left shoulder and left knee pain is better Denies chest pain, SOB, dizziness No other complaints OBJECTIVE: Vital Signs-as noted below Physical Exam: General Appearance:Moderately built and nourished, no apparent distress Head: normocephalic, Atraumatic Eyes: normal inspection, EOMI, PERRL Neck: supple, Trachea midline Respiratory/Chest: Normal breath sounds, CTA Cardiovascular: S1, S2, No murmur Abdomen/GI:Soft, Non tender, Bowel sounds present Extremities/Musculoskelatal:normal inspection, no edema, LUE decreased ROM, mild shoulder tenderness Neurologic/Psych:AAOX3, grossly no focal neurological deficits Skin: normal color, warm Lab data as noted below. ASSESSMENT & PLAN: Patient is a 76 yr male with a PMH of myeloproliferative disorder, HTN, HLD, insulin dependent DM II, BPH - presents with severe cervical, L shoulder, and L knee pain. Left Shoulder/Knee Pain: Likely secondary to myeloproliferative bone marrow changes, mild to moderate DJD, tendinopathy and partial supraspinatus tear patient presents with multiple joint pain, L shoulder, L knee, L cervical pain has had issues with this pain before Cervical CT - degenerative changes L shoulder and L knee X ray - no acute issues Uric acid level 3.6 Left shoulder MRI as below Continue Prednisone: Taper as able Tramadol/Morphine PRN Continue Gabapentin increased to 600mg TID Continued Baclofen Appreciate Ortho/ Pain Management Input Appreciate hem/onc Input May need radiation therapy if pain worsens PT/OT Hydroxyurea started, monitor platelets (Hold if platelet drop to <50,000) DM II last ha1c on 03/20/17 = 7.2% uses NPH 70/30 35 units twice a day BSGs elevated from Prednisone Pharmacy consulted HTN continue Coreg, Lisinopril Leukocytosis and Lactic Acidosis likely secondary to Myeloproliferative Disease Hem/onc on board resumed Hydroxyurea 500mg po daily Lung Nodule ff up as outpatient Needs repeat C in 12 months BPH continue home medications DVT px SCDs, early ambulation no Lovenox/heparin, Plt < 100 Dispositions: Expect to discharge home. Needs home PT PROCEDURES: l SHOULDER mri: 1. Marked geographic heterogeneity of bone marrow signal of the bulk of the osseous structures of the shoulder. 2. Although components of this potentially relate to red-yellow bone marrow differentiation, its overall appearance raises the possibility of metastatic bone marrow replacing process. 3. Generalized soft tissue edematous change of the muscular as well as subcutaneous fat around the shoulder although this predominates in the deltoid region. 4. Moderate tendinopathy of the supraspinatus possibly with a small partial tear. There is no evidence for full-thickness rotator cuff tear. 5. Moderate deterioration of the substance of the biceps tendon with considerable thinning of its diameter at the level of the bicipital groove 6. Consideration may be given to a repeat exam with gadolinium enhancement versus possibility of bone scanning or bone marrow aspiration. Vital Signs: Date Time Temp Pulse Resp B/P (MAP) Pulse Ox O2 Delivery O2 Flow Rate FiO2 04/03/17 15:03 36.5 63 18 154/78 (103) 98 Room Air 04/03/17 11:55 36.5 64 16 142/74 (96) 97 04/03/17 08:40 Room Air 04/03/17 08:00 Room Air 04/03/17 07:59 36.3 63 20 163/73 (103) 97 Room Air 04/03/17 01:12 36.4 64 20 131/68 (89) 98 Room Air 04/03/17 00:15 Room Air 04/02/17 16:30 Room Air Lab Results: Results Past 24 Hours Test 04/02/17 16:44 04/02/17 17:47 04/02/17 18:46 04/02/17 19:44 Range/Units Bedside Glucose 270 224 235 190 70-99 mg/dl Test 04/02/17 21:02 04/02/17 22:01 04/02/17 23:01 04/02/17 23:23 Range/Units Bedside Glucose 215 194 133 127 70-99 mg/dl Test 04/02/17 23:43 04/03/17 00:08 04/03/17 00:23 04/03/17 05:26 Range/Units Bedside Glucose 127 118 99 70-99 mg/dl White Blood Count 47.97 4.8-10.8 K/uL Red Blood Count 2.23 4.7-6.1 M/uL Hemoglobin 8.5 14.0-18.0 g/dL Hematocrit 24.9 42-52 % Mean Corpuscular Volume 111.7 80-100 fL Mean Corpuscular Hemoglobin 38.1 25-34 pg Mean Corpuscular Hemoglobin Concent 34.1 32-36 g/dl RDW Standard Deviation 58.1 36.4-46.3 fL RDW Coefficient of Variation 14.7 11.5-14.5 % Platelet Count 76 130-400 K/uL Mean Platelet Volume 10.4 7.4-10.4 fL Creatinine 1.28 0.60-1.40 mg/dl Est Creatinine Clear Calc Drug Dose 46.7 ml/min Estimated GFR () 62.2 Estimated GFR (Non- 53.6 Test 04/03/17 07:45 04/03/17 11:35 Range/Units Bedside Glucose 85 141 70-99 mg/dl
[2017-04-03] MEDS: BOOST GLUCOSE CONTROL PO SCH (20:05)
[2017-04-03 20:50] VITALS: BP 154/70; PULSE 64
[2017-04-03 23:54] VITALS: BP 143/68; PULSE 65; TEMP 36.6; O2SAT 95
[2017-04-04] VITALS (7 sets, daily range): BP systolic 143–201; BP diastolic 67–79; PULSE 64–76; TEMP 36.3–36.5; O2SAT 96–97
[2017-04-04] MEDS: TRAMADOL HCL 50 MG TAB PO PRN ×2 (03:14→19:53)
[2017-04-04] MEDS: ACETAMINOPHEN 325 MG TAB PO PRN ×2 (05:27→17:30)
[2017-04-04 06:18] LABS: HEMATOCRIT 25.3 % (42-52); HEMOGLOBIN 8.5 g/dL (14.0-18.0); MEAN CELL VOLUME 113.5 fL (80-100); MEAN CORPUSCULAR HEMOGLOBIN 38.1 pg (25-34); MEAN CORPUSCULAR HGB CONC 33.6 g/dl (32-36); MEAN PLATELET VOLUME 10.3 fL (7.4-10.4); PLATELET COUNT 86 K/uL (130-400); RED CELL DISTRIBUTION WIDTH CV 14.8 % (11.5-14.5); RED CELL DISTRIBUTION WIDTH SD 59.8 fL (36.4-46.3); WHITE BLOOD COUNT 46.87 K/uL (4.8-10.8)
[2017-04-04 06:44] LABS: CALCIUM 8.6 mg/dl (8.5-10.1); CREATININE 1.31 mg/dl (0.60-1.40); POTASSIUM 4.1 mmol/L (3.5-5.1)
[2017-04-04] MEDS: FINASTERIDE 5 MG TAB PO SCH (07:53)
[2017-04-04] MEDS: MULTIVITAMIN TAB PO SCH (07:53)
[2017-04-04] MEDS: ASCORBIC ACID 500 MG TAB PO SCH (07:53)
[2017-04-04] MEDS: ASPIRIN 81 MG ECTAB PO SCH (07:53)
[2017-04-04] MEDS: PANTOprazole SOD 40 MG TAB PO SCH (07:53)
[2017-04-04] MEDS: ALFUZosin TAB 10 MG TAB PO SCH (07:53)
[2017-04-04] MEDS: LIDODERM (LIDOCAINE) PATCH 5% TD SCH (07:53)
[2017-04-04] MEDS: GABAPENTIN 600 MG TAB PO SCH ×3 (07:53→19:49)
[2017-04-04] MEDS: DULOXETINE (CYMBALTA) 30 MG CAP PO SCH (07:53)
[2017-04-04] MEDS: ALLOPURINOL 300 MG TAB PO SCH (07:53)
[2017-04-04] MEDS: BACLOFEN 10 MG TAB PO SCH ×3 (07:53→19:48)
[2017-04-04] MEDS: HYDROXYUREA 500 MG CAP PO SCH (07:54)
[2017-04-04] MEDS: CARVEDILOL 12.5 MG TAB PO SCH ×2 (07:54→19:48)
[2017-04-04] MEDS ORDERED: INSULIN HUMAN NPH SC SCH ×2 (08:00→17:00)
[2017-04-04] MEDS: INSULIN ASPART 100 UNITS/ML 3 ML PEN SC SCH ×4 (09:19→21:25)
--- NOTE | 2017-04-04 12:55 | Pharmacy Progress Note ---
Pharmacy Glycemic Short Note 2 Date of Service Apr 04, 2017. OUTPATIENT ANTIDIABETIC REGIMEN: * Novolin 70/30 premixed insulin 34-35 units SQ BIDM * Metformin 1,000mg PO BIDM ASSESSMENT: * 76yo T2DM male initially with significant/severe steroid induced hyperglycemia yesterday despite adequate outpatient control based on recent A1c of 7.2% * IV insulin infusion was needed for short term control of severe hyperglycemia yesterday despite 100+ units of SQ insulin (plus 2 IV boluses) * IV insulin infusion was needed for about 10 hrs 04/02 - 04/03 * Pt transitioned off of IV insulin infusion and initiated on SQ basal bolus insulin regimen 04/03 AM * Prednisone tapered from 40mg PO daily to 30mg daily today * Will insulin dosing in accordance with step down in steroid dosing * Pt is on pre-mixed insulin of Novolin 70/30 as an outpatient * Pre-mixed insulin is difficult to titrate since it is already in a fixed distribution of basal:prandial insulin. Continuing pre-mixed insulin for admission typically lead to hypoglycemia d/t changing PO status but rapid acting insulin is unable to be held. * Home regimen held for admission per pharmacy consult. Utilizing SQ basal bolus insulin regimen with Lantus + NovoLog + NPH (NPH for steroid induced hyperglycemia secondary to once daily prednisone) * Will simplify regimen and start preparing for discharge --> change to just NPH + NovoLog to facilitate transition back to premixed insulin without Lantus ( 24hr insulin) on board. PLAN FOR INPATIENT GLYCEMIC CONTROL: * Hold outpatient pre-mixed insulin & metformin * Basal insulin * Stop Lantus and just use NPH as basal insulin * NPH 35 units SQ daily in the morning + NPH 15 units SQ daily in the evening * Bolus insulin * NovoLog per scale ACHS or Q6hrs while NPO * Goal Range: Low 110 mg/dL - High 140 mg/dL * Correction Factor: 20mg/dL/unit * Nutritional / Prandial insulin per carb ratio of 1 unit per 6 grams CHO consumed
[2017-04-04] MEDS ORDERED: LISINOPRIL 20 MG TAB PO ONE (15:30)
--- NOTE | 2017-04-04 17:23 | Progress Note ---
Internal Med Progress Note Date of Service: Apr 04, 2017. Provider Documentation: SUBJECTIVE: Seen and examined at bedside States Left shoulder is intermittently worse Had dizziness this morning which improved Denies chest pain, SOB, dizziness No other complaints OBJECTIVE: Vital Signs-as noted below Physical Exam: General Appearance:Moderately built and nourished, no apparent distress Head: normocephalic, Atraumatic Eyes: normal inspection, EOMI, PERRL Neck: supple, Trachea midline Respiratory/Chest: Normal breath sounds, CTA Cardiovascular: S1, S2, No murmur Abdomen/GI:Soft, Non tender, Bowel sounds present Extremities/Musculoskelatal:normal inspection, no edema, LUE decreased ROM, mild shoulder tenderness Neurologic/Psych:AAOX3, grossly no focal neurological deficits Skin: normal color, warm Lab data as noted below. ASSESSMENT & PLAN: Patient is a 76 yr male with a PMH of myeloproliferative disorder, HTN, HLD, insulin dependent DM II, BPH - presents with severe cervical, L shoulder, and L knee pain. Left Shoulder/Knee Pain: Likely secondary to myeloproliferative bone marrow changes, mild to moderate DJD, tendinopathy and partial supraspinatus tear patient presents with multiple joint pain, L shoulder, L knee, L cervical pain has had issues with this pain before Cervical CT - degenerative changes L shoulder and L knee X ray - no acute issues Uric acid level 3.6 Left shoulder MRI as below Continue Prednisone: Taper as able Tramadol/Morphine PRN Continue Gabapentin increased to 600mg TID Continued Baclofen Appreciate Ortho/ Pain Management Input Appreciate hem/onc Input Discussed with on 04/04/17 May need radiation therapy if pain worsens PT/OT Continue Hydroxyurea, monitor platelets (Hold if platelet drop to <50,000) DM II last ha1c on 03/20/17 = 7.2% uses NPH 70/30 35 units twice a day BSGs elevated from Prednisone Pharmacy consulted HTN Labile likely secondary to pain continue Coreg, Lisinopril Leukocytosis and Lactic Acidosis likely secondary to Myeloproliferative Disease and prednisone Hem/onc on board continue Hydroxyurea 500mg po daily Lung Nodule ff up as outpatient Needs repeat C in 12 months BPH continue home medications DVT px SCDs, early ambulation no Lovenox/heparin, Plt < 100 Dispositions: Expect to discharge home Vs Rehab if qualifies Needs home PT PROCEDURES: l SHOULDER mri: 1. Marked geographic heterogeneity of bone marrow signal of the bulk of the osseous structures of the shoulder. 2. Although components of this potentially relate to red-yellow bone marrow differentiation, its overall appearance raises the possibility of metastatic bone marrow replacing process. 3. Generalized soft tissue edematous change of the muscular as well as subcutaneous fat around the shoulder although this predominates in the deltoid region. 4. Moderate tendinopathy of the supraspinatus possibly with a small partial tear. There is no evidence for full-thickness rotator cuff tear. 5. Moderate deterioration of the substance of the biceps tendon with considerable thinning of its diameter at the level of the bicipital groove 6. Consideration may be given to a repeat exam with gadolinium enhancement versus possibility of bone scanning or bone marrow aspiration. Vital Signs: Date Time Temp Pulse Resp B/P (MAP) Pulse Ox O2 Delivery O2 Flow Rate FiO2 04/04/17 16:00 Room Air 04/04/17 14:58 76 174/72 (106) 04/04/17 14:52 36.3 70 18 201/71 (114) 97 Room Air 04/04/17 11:38 36.5 66 20 150/77 (101) 96 Room Air 04/04/17 09:07 Room Air 04/04/17 08:44 36.4 70 20 164/79 (107) 96 Room Air 04/04/17 08:42 96 Room Air 04/04/17 00:15 Room Air 04/03/17 23:54 36.6 65 18 143/68 (93) 95 Room Air 04/03/17 20:50 64 154/70 (98) Lab Results: Results Past 24 Hours Test 04/03/17 20:17 04/04/17 05:15 04/04/17 07:37 04/04/17 11:34 Range/Units Bedside Glucose 209 104 180 70-99 mg/dl White Blood Count 46.87 4.8-10.8 K/uL Red Blood Count 2.23 4.7-6.1 M/uL Hemoglobin 8.5 14.0-18.0 g/dL Hematocrit 25.3 42-52 % Mean Corpuscular Volume 113.5 80-100 fL Mean Corpuscular Hemoglobin 38.1 25-34 pg Mean Corpuscular Hemoglobin Concent 33.6 32-36 g/dl RDW Standard Deviation 59.8 36.4-46.3 fL RDW Coefficient of Variation 14.8 11.5-14.5 % Platelet Count 86 130-400 K/uL Mean Platelet Volume 10.3 7.4-10.4 fL Sodium Level 137 136-145 mmol/L Potassium Level 4.1 3.5-5.1 mmol/L Chloride Level 103 98-107 mmol/L Carbon Dioxide Level 25 21-32 mmol/L Anion Gap 9.0 3-11 mmol/L Blood Urea Nitrogen 34 7-18 mg/dl Creatinine 1.31 0.60-1.40 mg/dl Est Creatinine Clear Calc Drug Dose 45.7 ml/min Estimated GFR () 60.4 Estimated GFR (Non- 52.1 BUN/Creatinine Ratio 26.3 10-20 Random Glucose 85 70-99 mg/dl Calcium Level 8.6 8.5-10.1 mg/dl Test 04/04/17 16:26 Range/Units Bedside Glucose 123 70-99 mg/dl
[2017-04-04] MEDS: BOOST GLUCOSE CONTROL PO SCH (19:50)
[2017-04-04] MEDS ORDERED: CLONIDINE HCL 0.1 MG TAB PO PRN (20:00)
[2017-04-05] VITALS: O2SAT 96
[2017-04-05] MEDS: TRAMADOL HCL 50 MG TAB PO PRN ×2 (04:32→17:05)
[2017-04-05 06:27] LABS: HEMATOCRIT 25.7 % (42-52); HEMOGLOBIN 8.8 g/dL (14.0-18.0); MEAN CELL VOLUME 111.7 fL (80-100); MEAN CORPUSCULAR HEMOGLOBIN 38.3 pg (25-34); MEAN CORPUSCULAR HGB CONC 34.2 g/dl (32-36); MEAN PLATELET VOLUME 9.1 fL (7.4-10.4); PLATELET COUNT 81 K/uL (130-400); RED CELL DISTRIBUTION WIDTH SD 59.6 fL (36.4-46.3); WHITE BLOOD COUNT 43.79 K/uL (4.8-10.8)
[2017-04-05 07:18] VITALS: BP 150/70; PULSE 59; TEMP 36.5; O2SAT 95
[2017-04-05] MEDS: CARVEDILOL 12.5 MG TAB PO SCH (07:43)
[2017-04-05] MEDS: GABAPENTIN 600 MG TAB PO SCH ×2 (07:43→14:48)
[2017-04-05] MEDS: MULTIVITAMIN TAB PO SCH (07:43)
[2017-04-05] MEDS: DULOXETINE (CYMBALTA) 30 MG CAP PO SCH (07:43)
[2017-04-05] MEDS: ALLOPURINOL 300 MG TAB PO SCH (07:44)
[2017-04-05] MEDS: PANTOprazole SOD 40 MG TAB PO SCH (07:44)
[2017-04-05] MEDS: ASPIRIN 81 MG ECTAB PO SCH (07:44)
[2017-04-05] MEDS: BACLOFEN 10 MG TAB PO SCH ×2 (07:44→14:48)
[2017-04-05] MEDS: ALFUZosin TAB 10 MG TAB PO SCH (07:45)
[2017-04-05] MEDS: FINASTERIDE 5 MG TAB PO SCH (07:45)
[2017-04-05] MEDS: ASCORBIC ACID 500 MG TAB PO SCH (07:45)
[2017-04-05] MEDS: LIDODERM (LIDOCAINE) PATCH 5% TD SCH (07:46)
[2017-04-05] MEDS: HYDROXYUREA 500 MG CAP PO SCH (07:53)
[2017-04-05] MEDS ORDERED: LISINOPRIL 20 MG TAB PO SCH (08:00)
[2017-04-05] MEDS: ACETAMINOPHEN 325 MG TAB PO PRN (08:01)
[2017-04-05 08:30] VITALS: O2SAT 95
[2017-04-05] MEDS: INSULIN ASPART 100 UNITS/ML 3 ML PEN SC SCH ×2 (09:12→12:31)
[2017-04-05] MEDS ORDERED: INSULIN HUMAN NPH SC ONE ×2 (10:15→10:45)
--- NOTE | 2017-04-05 11:48 | Progress Note ---
Internal Med Progress Note Date of Service: Apr 05, 2017. Provider Documentation: SUBJECTIVE: Seen and examined at bedside states Left shoulder is much improved Feels well today Denies chest pain, SOB, dizziness No other complaints OBJECTIVE: Vital Signs-as noted below Physical Exam: General Appearance:Moderately built and nourished, no apparent distress Head: normocephalic, Atraumatic Eyes: normal inspection, EOMI, PERRL Neck: supple, Trachea midline Respiratory/Chest: Normal breath sounds, CTA Cardiovascular: S1, S2, No murmur Abdomen/GI:Soft, Non tender, Bowel sounds present Extremities/Musculoskelatal:normal inspection, no edema, LUE decreased ROM, mild shoulder tenderness Neurologic/Psych:AAOX3, grossly no focal neurological deficits Skin: normal color, warm Lab data as noted below. ASSESSMENT & PLAN: Patient is a 76 yr male with a PMH of myeloproliferative disorder, HTN, HLD, insulin dependent DM II, BPH - presents with severe cervical, L shoulder, and L knee pain. Left Shoulder/Knee Pain: Likely secondary to myeloproliferative bone marrow changes, mild to moderate DJD, tendinopathy and partial supraspinatus tear patient presents with multiple joint pain, L shoulder, L knee, L cervical pain has had issues with this pain before Cervical CT - degenerative changes L shoulder and L knee X ray - no acute issues Uric acid level 3.6 Left shoulder MRI as below Continue Prednisone: Taper as able Tramadol/Morphine PRN Continue Gabapentin increased to 600mg TID Continued Baclofen Appreciate Ortho/ Pain Management Input Appreciate hem/onc Input Discussed with on 04/04/17 No plan for radiation therapy as pain improved PT/OT Continue Hydroxyurea, monitor platelets (Hold if platelet drop to <50,000) Plan to discharge home with home health and home PT DM II last ha1c on 03/20/17 = 7.2% uses NPH 70/30 35 units twice a day BSGs elevated from Prednisone Pharmacy consulted HTN BP better Labile likely secondary to pain continue Coreg, Lisinopril Leukocytosis and Lactic Acidosis likely secondary to Myeloproliferative Disease and prednisone Hem/onc on board continue Hydroxyurea 500mg po daily Lung Nodule ff up as outpatient Needs repeat C in 12 months BPH continue home medications DVT px SCDs, early ambulation no Lovenox/heparin, Plt < 100 Dispositions: Plan to discharge home today Needs home PT Follow up with your PCP Dr. Gaviria on 04/09/17 at 2:45pm Follow up with your Oncologist in 1 week as advised Complete the prednisone course as prescribed (Start taking prednisone 20mg for 2 days , then 10 mg daily for 3 days and stop) Seek immediate medical attention if your symptoms reoccur or worsen PROCEDURES: L shoulder MRIi: 1. Marked geographic heterogeneity of bone marrow signal of the bulk of the osseous structures of the shoulder. 2. Although components of this potentially relate to red-yellow bone marrow differentiation, its overall appearance raises the possibility of metastatic bone marrow replacing process. 3. Generalized soft tissue edematous change of the muscular as well as subcutaneous fat around the shoulder although this predominates in the deltoid region. 4. Moderate tendinopathy of the supraspinatus possibly with a small partial tear. There is no evidence for full-thickness rotator cuff tear. 5. Moderate deterioration of the substance of the biceps tendon with considerable thinning of its diameter at the level of the bicipital groove 6. Consideration may be given to a repeat exam with gadolinium enhancement versus possibility of bone scanning or bone marrow aspiration. Vital Signs: Date Time Temp Pulse Resp B/P (MAP) Pulse Ox O2 Delivery O2 Flow Rate FiO2 04/05/17 08:30 95 Room Air 04/05/17 07:18 36.5 59 18 150/70 (96) 95 Room Air 04/05/17 00:00 96 Room Air 04/04/17 23:32 36.5 64 20 143/74 (97) 97 Room Air 04/04/17 19:45 70 183/67 (105) Room Air 04/04/17 16:00 Room Air 04/04/17 14:58 76 174/72 (106) 04/04/17 14:52 36.3 70 18 201/71 (114) 97 Room Air Lab Results: Results Past 24 Hours Test 04/04/17 16:26 04/04/17 20:10 04/05/17 05:27 04/05/17 07:26 Range/Units Bedside Glucose 123 291 169 70-99 mg/dl White Blood Count 43.79 4.8-10.8 K/uL Red Blood Count 2.30 4.7-6.1 M/uL Hemoglobin 8.8 14.0-18.0 g/dL Hematocrit 25.7 42-52 % Mean Corpuscular Volume 111.7 80-100 fL Mean Corpuscular Hemoglobin 38.3 25-34 pg Mean Corpuscular Hemoglobin Concent 34.2 32-36 g/dl RDW Standard Deviation 59.6 36.4-46.3 fL RDW Coefficient of Variation 15.0 11.5-14.5 % Platelet Count 81 130-400 K/uL Mean Platelet Volume 9.1 7.4-10.4 fL
[2017-04-05] MEDS ORDERED: GABA-113 PO (11:56)
[2017-04-05] MEDS ORDERED: ULT50X PO (11:56)
[2017-04-05] MEDS ORDERED: HYD500 PO (11:56)
[2017-04-05] MEDS ORDERED: LDDP5 TD (11:56)
[2017-04-05] MEDS ORDERED: PRED10TA PO (11:59)
--- NOTE | 2017-04-05 12:02 | Discharge Summary ---
Discharge Summary Date of Service Apr 05, 2017. Discharge Summary Admission Date: Mar 31, 2017 at 15:11 Discharge Date: Apr 05, 2017 Discharge Disposition: Home with services Principal Diagnosis: Left shoulder Pain, MDS Procedures: LUE MRI: 1. Marked geographic heterogeneity of bone marrow signal of the bulk of the osseous structures of the shoulder. 2. Although components of this potentially relate to red-yellow bone marrow differentiation, its overall appearance raises the possibility of metastatic bone marrow replacing process. 3. Generalized soft tissue edematous change of the muscular as well as subcutaneous fat around the shoulder although this predominates in the deltoid region. 4. Moderate tendinopathy of the supraspinatus possibly with a small partial tear. There is no evidence for full-thickness rotator cuff tear. 5. Moderate deterioration of the substance of the biceps tendon with considerable thinning of its diameter at the level of the bicipital groove 6. Consideration may be given to a repeat exam with gadolinium enhancement versus possibility of bone scanning or bone marrow aspiration. CTA: 1. No evidence of pulmonary embolus. No acute intrathoracic pathology. 2. Solid pulmonary nodules measuring up to 5 mm in the right lung. Follow-up per [employer] 2017 recommendations below. 3. Nonspecific nodularity of the adrenal glands. Attention on follow-up. Please refer to below summary of Fleischner Society 2017 recommendations for follow-up of incidental CT nodules (H Renan et al. Guidelines for management of incidental pulmonary nodules detected on CT images: From the Fleischner Society 2017. Radiology 2017; 284: 228-243.) CT head: Chronic small vessel ischemic change. No acute intracranial abnormality. Consultations: Oncology, Orthopedics Pending Studies/Follow-Up: Follow up with your PCP Dr. Gaviria on 04/09/17 at 2:45pm Follow up with your Oncologist in 1 week as advised Your Gabapentin dose is increased to 600mg three times a day Complete the prednisone course as prescribed (Start taking prednisone 20mg daily for 2 days , then 10 mg daily for 3 days and stop) Seek immediate medical attention if your symptoms reoccur or worsen Medication Reconciliation New Medications: Prednisone Tab (Prednisone) 10 Mg Tab 10 MG PO UD for 5 Days, #7 TAB Start taking prednisone 20mg daily for 2 days, then 10 mg daily for 3 days and stop Hydroxyurea (Hydroxyurea) 500 Mg Cap 500 MG PO QAM for 14 Days, #14 CAP Lidocaine (Lidocaine) 1 Patch Tdsy 2 PATCH TD QAM for 15 Days, #15 EA Tramadol HCl (Tramadol HCl) 50 Mg Tab 100 MG PO Q6 PRN for Pain for 10 Days, #20 TAB Changed Medications: Gabapentin (Neurontin) 300 Mg Cap 600 MG PO BID AT AM AND NOON for 30 Days, #60 CAP (Changed from: 300 MG) Continued Medications: Acetaminophen (Tylenol) 500 Mg Tab 500 MG PO Q6H PRN for Pain or Fever, TAB Albuterol Hfa (Ventolin Hfa) 200 Puffs/57066 Mcg Aers 2-4 PUFFS INH Q6H, #1 INHALER Alfuzosin Hcl (Uroxatral) 10 Mg Tab 10 MG PO DAILY, TAB Allopurinol (Allopurinol) 300 Mg Tab 300 MG PO DAILY Ascorbic Acid (Vitamin C) 500 Mg Tab 500 MG PO DAILY Aspirin (Aspirin Ec) 81 Mg Tab 81 MG PO DAILY Baclofen (Lioresal) 10 Mg Tab 10 MG PO TID, TAB Carvedilol (Coreg) 12.5 Mg Tab 12.5 MG PO BID, TAB Cranberry (Vaccinium Macrocarp (Cranberry Extract) 200 Mg Cap 200 MG PO DAILY Duloxetine HCl (Duloxetine HCl) 30 Mg Cap 30 MG PO QAM for 30 Days, CAP Finasteride (Proscar) 5 Mg Tab 5 MG PO DAILY, TAB Fish Oil ([place]-3) 1 Ea Cap 1 CAP PO DAILY, CAP Gabapentin (Neurontin) 300 Mg Cap 600 MG PO HS, CAP Garlic (Garlic) 1,000 Mg Cap 1000 MG PO DAILY Insulin Isophane & Reg (Human) (Novolin 70/30 Relion) 1 Inj Inj 34-35 UNITS SQ AMPM Lisinopril (Zestril) 20 Mg Tab 20 MG PO DAILY, TAB Metformin Hcl Er (Glucophage Er) 500 Mg Tab 1000 MG PO BID, TAB Misc Natural Products (Prostate Health) 1 Cap Cap 1 CAP PO DAILY Multivitamin (Multivitamin) Tab 1 TAB PO DAILY, TAB Omeprazole (Prilosec) 20 Mg Capcr 20 MG PO DAILY, CAP Discontinued Medications: Hydrocodone/Acetaminophen 5MG/325MG ([place] 5MG/325MG) Tab 0.5-1 TABLET PO Q6 PRN for Pain, #20 TAB Admission Information HPI (per Admitting provider): This is a 76 year old male with a PMH of myeloproliferative disorder, HTN, HLD, insulin dependent DM2, BPH - presents with severe cervical, L shoulder, and L knee pain. He presented to the ER on 03/30 with similar symptoms and was sent home with a prescription for [place]. He states that this did not work for his pain and he came back to the ER. He has had issues with cervical neck pain; was admitted in August 2016 with similar symptoms. Was seen by pain management then and medications were adjusted. He tells me he is extremely sensitive to narcotics as it makes him "loopy" and he wants to continue to function. He tells me he would like to continue driving as well and would avoid narcotics if it's possible. He is having extreme pain at the L shoulder, painful/tender to light palpation - no rash or skin changes noted around the area. He has trouble bending his L knee. Cervical spine CT performed yesterday (03/30) and only degenerative changes noted. Physical Exam (per Admitting): General Appearance: + moderate distress (secondary to pain) Head: normocephalic, atraumatic Eyes: normal inspection ENT: hearing grossly normal Neck: supple Respiratory/Chest: chest non-tender, lungs clear, normal breath sounds, no respiratory distress, no accessory muscle use Cardiovascular: regular rate, rhythm, no edema, no murmur Abdomen/GI: normal bowel sounds, non tender, soft Back: normal inspection, no CVA tenderness, no muscle spasm, normal range of motion, + pertinent finding (decreased neck ROM due to pain, no muscle spasms noted; severe pain) Extremities/Musculoskelatal: normal capillary refill, no pedal edema, + pertinent finding (painful ROM of the L shoulder, L knee; no deformities noted) Neurologic/Psych: no motor/sensory deficits, alert, normal mood/affect, oriented x 3 Skin: normal color Lymphatic: no adenopathy Hospital Course Patient is a 76 yr male with a PMH of myeloproliferative disorder, HTN, HLD, insulin dependent DM II, BPH - presents with severe cervical, L shoulder, and L knee pain. Left Shoulder/Knee Pain: Likely secondary to myeloproliferative bone marrow changes, mild to moderate DJD, tendinopathy and partial supraspinatus tear patient presents with multiple joint pain, L shoulder, L knee, L cervical pain has had issues with this pain before Cervical CT - degenerative changes L shoulder and L knee X ray - no acute issues Uric acid level 3.6 Left shoulder MRI as below Continue Prednisone: Taper as able Tramadol/Morphine PRN Continue Gabapentin increased to 600mg TID Continued Baclofen Appreciate Ortho/ Pain Management Input Appreciate hem/onc Input Discussed with on 04/04/17 No plan for radiation therapy as pain improved PT/OT Continue Hydroxyurea, monitor platelets (Hold if platelet drop to <50,000) Plan to discharge home with home health and home PT DM II last ha1c on 03/20/17 = 7.2% uses NPH 70/30 35 units twice a day BSGs elevated from Prednisone Pharmacy consulted HTN BP better Labile likely secondary to pain continue Coreg, Lisinopril Leukocytosis and Lactic Acidosis likely secondary to Myeloproliferative Disease and prednisone Hem/onc on board continue Hydroxyurea 500mg po daily Lung Nodule ff up as outpatient Needs repeat C in 12 months BPH continue home medications DVT px SCDs, early ambulation no Lovenox/heparin, Plt < 100 Dispositions: Plan to discharge home today Needs home PT Follow up with your PCP Dr. Gaviria on 04/09/17 at 2:45pm Follow up with your Oncologist in 1 week as advised Complete the prednisone course as prescribed (Start taking prednisone 20mg for 2 days , then 10 mg daily for 3 days and stop) Seek immediate medical attention if your symptoms reoccur or worsen PROCEDURES: L shoulder MRIi: 1. Marked geographic heterogeneity of bone marrow signal of the bulk of the osseous structures of the shoulder. 2. Although components of this potentially relate to red-yellow bone marrow differentiation, its overall appearance raises the possibility of metastatic bone marrow replacing process. 3. Generalized soft tissue edematous change of the muscular as well as subcutaneous fat around the shoulder although this predominates in the deltoid region. 4. Moderate tendinopathy of the supraspinatus possibly with a small partial tear. There is no evidence for full-thickness rotator cuff tear. 5. Moderate deterioration of the substance of the biceps tendon with considerable thinning of its diameter at the level of the bicipital groove 6. Consideration may be given to a repeat exam with gadolinium enhancement versus possibility of bone scanning or bone marrow aspiration. Total time spent on discharge = 34 minutes This includes examination of the patient, discharge planning, medication reconciliation, and communication with other providers. Discharge Instructions Discharge Instructions Date of Service Apr 05, 2017. Admission Reason for Admission: Neuropathic Pain Of Lt Shoulder Discharge Discharge Diagnosis / Problem: Left shoulder Pain Discharge Goals Goal(s): Decrease discomfort, Improve function Activity Recommendations Activity Limitations: resume your previous activity Exercise/Sports Limitations: as tolerated . Instructions / Follow-Up Instructions / Follow-Up Follow up with your PCP Dr. Gaviria on 04/09/17 at 2:45pm Follow up with your Oncologist in 1 week as advised Your Gabapentin dose is increased to 600mg three times a day Complete the prednisone course as prescribed (Start taking prednisone 20mg daily for 2 days , then 10 mg daily for 3 days and stop) Seek immediate medical attention if your symptoms reoccur or worsen Current Hospital Diet Patient's current hospital diet: Diabetes Type 2 Diet Discharge Diet Recommended Diet: Diabetes Type 2 Diet Pending Studies Studies pending at discharge: no Medical Emergencies . Who to Call and When: Medical Emergencies: If at any time you feel your situation is an emergency, please call 911 immediately. . Non-Emergent Contact Non-Emergency issues call your: Primary Care Provider, Oncologist Call Non-Emergent contact if: you have a fever, your pain is not controlled, your pain is worsening, your pain is unusual for you, your pain is concerning you, you have any medication questions Seek immediate medical attention if your symptoms reoccur or worsen . . "Provider Documentation" section prepared by Alex Gallagher. . VTE Core Measure Inpt VTE Proph given/why not?: SCD's
--- NOTE | 2017-04-05 15:06 | Pharmacy Progress Note ---
Pharmacy Glycemic Short Note 2 Date of Service Apr 05, 2017. OUTPATIENT ANTIDIABETIC REGIMEN: * Novolin 70/30 premixed insulin 34-35 units SQ BIDM * Metformin 1,000mg PO BIDM ASSESSMENT: Initial: * 76yo T2DM male initially with significant/severe steroid induced hyperglycemia yesterday despite adequate outpatient control based on recent A1c of 7.2% * IV insulin infusion was needed for short term control of severe hyperglycemia yesterday despite 100+ units of SQ insulin (plus 2 IV boluses) * IV insulin infusion was needed for about 10 hrs 04/02 - 04/03 * Pt transitioned off of IV insulin infusion and initiated on SQ basal bolus insulin regimen 04/03 AM * Prednisone tapered from 40mg PO daily to 30mg daily today * Will insulin dosing in accordance with step down in steroid dosing * Pt is on pre-mixed insulin of Novolin 70/30 as an outpatient * Pre-mixed insulin is difficult to titrate since it is already in a fixed distribution of basal:prandial insulin. Continuing pre-mixed insulin for admission typically lead to hypoglycemia d/t changing PO status but rapid acting insulin is unable to be held. * Home regimen held for admission per pharmacy consult. Utilizing SQ basal bolus insulin regimen with Lantus + NovoLog + NPH (NPH for steroid induced hyperglycemia secondary to once daily prednisone) * Will simplify regimen and start preparing for discharge --> change to just NPH + NovoLog to facilitate transition back to premixed insulin without Lantus ( 24hr insulin) on board. 04/05/17: * BSGs from the previous 24 hours: 104, 180, 123, 291 mg/dL * Patient received 92 units of insulin over the past 24 hours * Prednisone dose was decreased to 20 mg today, therefore I anticipate improvement in post prandial BSGs. * Lunch BSG of 340 mg/dL today was drawn only 1 hour after morning dose of NPH was given, therefore I will not react to this value. Current NPH dosing worked well for patient over the past 24 hours and steroid dose decreased. PLAN FOR INPATIENT GLYCEMIC CONTROL: * Hold outpatient pre-mixed insulin & metformin * Basal insulin * NPH 35 units SQ daily in the morning + NPH 15 units SQ daily in the evening * Bolus insulin * NovoLog per scale ACHS or Q6hrs while NPO * Goal Range: Low 110 mg/dL - High 140 mg/dL * Correction Factor: 20mg/dL/unit * Nutritional / Prandial insulin per carb ratio of 1 unit per 6 grams CHO consumed Recommendations for discharge: * Patient will require additional insulin as outpatient due to steroid taper * I recommend the following adjustments while on prednisone * While on Prednisone 20 mg: Novolin 70/30 45 units SQ with breakfast, 39 units SQ with dinner * While on Prednisone 10 mg: Novolin 70/30 39 units SQ with breakfast, 37 units SQ with dinner * Once Prednisone is complete: resume Novolin 70/30 34 units SQ BIDM
[2017-04-05 15:54] VITALS: BP 132/70; PULSE 64; TEMP 35.8; O2SAT 96
[2017-04-06] MEDS ORDERED: INSULIN ASPART 100 UNITS/ML 3 ML PEN SC SCH
== END 2017-04-05 17:15 | disposition home health service (06) | DRG 812 ==
LOC: C.EDB 09:46 → C.4E 15:11 → ENRESERV 15:35
PROVIDERS: ADMIT Family Medicine; ATTEND Internal Medicine
DX: D46.9 Myelodysplastic syndrome, unspecified (principal); E87.2 Acidosis; G89.3 Neoplasm related pain (acute) (chronic); M25.512 Pain in left shoulder; M25.562 Pain in left knee; M54.2 Cervicalgia; T38.0X5A Adverse effect of glucocorticoids and synthetic analogues, initial encounter; R91.1 Solitary pulmonary nodule; M19.012 Primary osteoarthritis, left shoulder; M75.102 Unspecified rotator cuff tear or rupture of left shoulder, not specified as traumatic; M10.9 Gout, unspecified; E11.9 Type 2 diabetes mellitus without complications; I10 Essential (primary) hypertension; E78.5 Hyperlipidemia, unspecified; K21.9 Gastro-esophageal reflux disease without esophagitis; N40.0 Benign prostatic hyperplasia without lower urinary tract symptoms; Z79.899 Other long term (current) drug therapy; Z79.4 Long term (current) use of insulin; Z79.82 Long term (current) use of aspirin; Z88.1 Allergy status to other antibiotic agents; Z83.3 Family history of diabetes mellitus; Z82.49 Family history of ischemic heart disease and other diseases of the circulatory system

== ENCOUNTER 2017-05-25 14:08 | Inpatient (IN) | payer OTHER ==
[2017-05-25] VITALS (8 sets, daily range): BP systolic 155–177; BP diastolic 64–87; PULSE 79–97; TEMP 36.4–37.5; O2SAT 91–96; Ht 172.7 cm; Wt 80.0 kg
[~2017-05-25] VITALS: Ht 172.7 cm; Wt 80.0 kg
[~2017-05-25 14:08] MED LIST changes: -ACET-1047 PO; +ACET-1256 PO; -ASPI81TA28 PO; -HYDR-5688 PO; +LDDP5 TD; +ULT50X PO
--- NOTE | 2017-05-25 15:29 | EMERGENCY ROOM VISIT NOTE ---
History Report prepared by Pamela: Cynthia Albrecht Under the Supervision of: Dr. Karthik Appiah M.D. 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 He has a persistent cough, chest pain, SOB, muscle aches, and weakness. He denies any nausea, vomiting, or urinary symptoms. The patient has also noticed that his legs are swollen which is abnormal for him. He is accompanied by his daughter who notes that he has been complaining of constantly being cold. He also states that he has an "awful taste in his mouth and throat" and gags when he tried to eat. The patient has leukemia and his current chemotherapy doctor is Dr. Ferguson and he notes that the last time he had oral chemotherapy was 4 weeks ago because his red counts have been abnormally low. 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 Review of Systems See HPI for pertinent positives & negatives. A total of 10 systems reviewed and were otherwise negative. Past Medical & Surgical Medical Problems: (1) Back pain (2) Diabetes (3) Dyslipidemia (4) GERD (gastroesophageal reflux disease) (5) Hypertension (6) Leukemia (7) Myeloproliferative disorder (8) Prostate disorder (9) Spinal stenosis Surgical Problems: (1) History of back surgery Old medical records were reviewed. Nurse's notes were reviewed and I agree with. Family History Cancer Diabetes mellitus Heart disease Hypertension Social History Smoking Status: Never Smoker Alcohol Use: none Drug Use: none Marital Status: Housing Status: lives alone Occupation Status: retired Current/Historical Medications Scheduled Albuterol Hfa (Ventolin Hfa), 2-4 PUFFS INH Q6H Alfuzosin Hcl (Uroxatral), 10 MG PO DAILY Allopurinol (Allopurinol), 300 MG PO DAILY Ascorbic Acid (Vitamin C), 500 MG PO DAILY Baclofen (Lioresal), 10 MG PO TID Carvedilol (Coreg), 12.5 MG PO BID Cranberry (Vaccinium Macrocarp (Cranberry Extract), 200 MG PO DAILY Duloxetine HCl (Duloxetine HCl), 30 MG PO QAM Finasteride (Proscar), 5 MG PO DAILY Fish Oil ([place]-3), 1 CAP PO DAILY Gabapentin (Neurontin), 300 MG PO UD Garlic (Garlic), 1,000 MG PO DAILY Hydroxyurea (Hydrea Cap), 1,000 MG PO DAILY Insulin Isophane & Reg (Human) (Novolin 70/30 Relion), 36-40 UNITS SQ AMPM Lisinopril (Zestril), 20 MG PO DAILY Metformin Hcl (Glucophage), 2 TABS PO BIDM Misc Natural Products (Prostate Health), 1 CAP PO DAILY Multivitamin (Multivitamin), 1 TAB PO DAILY Omeprazole (Prilosec), 20 MG PO DAILY Scheduled PRN Acetaminophen (Tylenol), 500 MG PO Q6H PRN for Pain or Fever Allergies Coded Allergies: Terazosin (Verified Allergy, Unknown, unkn, 05/25/17) Physical Exam Vital Signs Date Time Temp Pulse Resp B/P (MAP) Pulse Ox O2 Delivery O2 Flow Rate FiO2 05/25/17 15:55 77 18 148/68 93 Room Air 05/25/17 14:16 36.5 79 16 128/58 97 Room Air Physical Exam General: Non-ill appearing older male, mildly pale, in no acute distress. HEENT: Normal cephalic atraumatic. Pupils are equal round and reactive to light. Extraocular movements are intact. Oropharynx is pink with moist mucous membranes. No swelling of the mouth lips or tongue. Neck: Supple with a midline trachea. No meningeal signs or stiffness, no JVD or bruits. No Stridor. Chest: Clear to auscultation bilaterally. No wheezes or rhonchi. No increased work of breathing. Heart: regular rate and rhythm. Abdomen: Soft nontender, nondistended without rebound guarding or rigidity. Extremities: No cyanosis clubbing or edema. No calf tenderness or assymetry Spine/Back. Non tender to palpation. No CVA tenderness Skin: Good turgor without rashes. Neurologic exam: Cranial nerves two through 12 are intact. Motor and sensation are intact and symmetrical throughout. Medical Decision & Procedures ER Provider Diagnostic Interpretation: Radiology results as stated below per my review and radiologist interpretation: CHEST ONE VIEW PORTABLE CLINICAL HISTORY: Atypical chest pain COMPARISON STUDY: August 16, 2016 FINDINGS: The heart is at the upper limits of normal in size. Since prior study, the patient developed bilateral reticulonodular opacities. This could represent either atypical pulmonary edema, or a bilateral infectious/inflammatory process. Clinical and radiographic follow-up is recommended. There are small bilateral pleural effusions[ IMPRESSION: Interval development of bilateral reticulonodular airspace opacities. Likely diagnostic considerations include atypical pulmonary edema, or a bilateral infectious/inflammatory process. Clinical and radiographic follow-up is recommended. Electronically signed by: Krishna Atwood M.D. 05/25/2017 3:52 PM Dictated Date/Time: 05/25/2017 3:51 PM Laboratory Results 05/25/17 15:38 Red Blood Count 2.27, Mean Corpuscular Volume 99.6, Mean Corpuscular Hemoglobin 33.5, Mean Corpuscular Hemoglobin Concent 33.6, Mean Platelet Volume 10.6, Neutrophils (%) (Auto) 89.4, Lymphocytes (%) (Auto) 5.4, Monocytes (%) (Auto) 3.4, Eosinophils (%) (Auto) 0.2, Basophils (%) (Auto) 0.1, Neutrophils # (Auto) 33.55, Lymphocytes # (Auto) 2.01, Monocytes # (Auto) 1.29, Eosinophils # (Auto) 0.08, Basophils # (Auto) 0.04 05/25/17 15:38 Test 05/25/17 15:38 05/25/17 15:43 White Blood Count 37.54 K/uL (4.8-10.8) Red Blood Count 2.27 M/uL (4.7-6.1) Hemoglobin 7.6 g/dL (14.0-18.0) Hematocrit 22.6 % (42-52) Mean Corpuscular Volume 99.6 fL (80-100) Mean Corpuscular Hemoglobin 33.5 pg (25-34) Mean Corpuscular Hemoglobin Concent 33.6 g/dl (32-36) Platelet Count 32 K/uL (130-400) Mean Platelet Volume 10.6 fL (7.4-10.4) Neutrophils (%) (Auto) 89.4 % Lymphocytes (%) (Auto) 5.4 % Monocytes (%) (Auto) 3.4 % Eosinophils (%) (Auto) 0.2 % Basophils (%) (Auto) 0.1 % Neutrophils # (Auto) 33.55 K/uL (1.4-6.5) Lymphocytes # (Auto) 2.01 K/uL (1.2-3.4) Monocytes # (Auto) 1.29 K/uL (0.11-0.59) Eosinophils # (Auto) 0.08 K/uL (0-0.5) Basophils # (Auto) 0.04 K/uL (0-0.2) RDW Standard Deviation 75.5 fL (36.4-46.3) RDW Coefficient of Variation 21.3 % (11.5-14.5) Immature Granulocyte % (Auto) 1.5 % Immature Granulocyte # (Auto) 0.57 K/uL (0.00-0.02) Hypogranular Neutrophils 1+ Dohle Bodies 1+ Anisocytosis PRESENT Anion Gap 9.0 mmol/L (3-11) Est Creatinine Clear Calc Drug Dose 37.4 ml/min Estimated GFR () 47.5 Estimated GFR (Non- 40.9 BUN/Creatinine Ratio 19.6 (10-20) Calcium Level 8.3 mg/dl (8.5-10.1) Total Bilirubin 0.7 mg/dl (0.2-1) Direct Bilirubin 0.2 mg/dl (0-0.2) Aspartate Amino Transf (AST/SGOT) 28 U/L (15-37) Alanine Aminotransferase (ALT/SGPT) 26 U/L (12-78) Alkaline Phosphatase 97 U/L (45-117) Total Creatine Kinase 273 U/L (39-308) Creatine Kinase MB 7.0 ng/ml (0.5-3.6) Creatine Kinase MB Ratio 2.6 (0-3.0) Pro-B-Type Natriuretic Peptide 891 pg/ml (0-1800) Total Protein 7.2 gm/dl (6.4-8.2) Albumin 3.1 gm/dl (3.4-5.0) Lipase 68 U/L (73-393) Procalcitonin 1.01 ng/ml (0-0.5) Bedside Troponin I < 0.030 ng/ml (0-0.045) Laboratory studies as stated above per my review. Medications Administered Medications (Trade) Dose Ordered Sig/Karla Route Start Time Stop Time Status Last Admin Dose Admin Cefepime HCl 2000 mg/Dextrose 112.5 ml @ 200 mls/hr ONE STAT IV 05/25/17 16:51 05/25/17 17:24 DC 05/25/17 16:51 200 MLS/HR ECG Per My Interpretation Indication: other (headache) Rate (beats per minute): 77 Rhythm: normal sinus Findings: no ectopy, other (nonspecific T wave abnormality) Comparison ECG Date: March 31, 2017 Change: no significant change ED Course 151: Past medical records reviewed. The patient was evaluated in room A9, and a complete history and physical examination were performed. 1651: Cefepime HCl 2000 mg/Dextrose 112.5 ml @ 200 mls/hr IV 165: Discussed the patient's case with Murray West PA-C. The patient will be evaluated for further management. I also talked to the patient' s family. They are in agreement with the plan. Medical Decision Differential diagnosis: Etiologies such as anemia, cardiac disease, CHF, complication related to cancer , electrolyte or metabolic abnormality as well as others were entertained. This patient comes in as described above. He was placed in room A9. He has a history of a myeloproliferative disorder and they have been holding his chemo as his counts have been low he is required several transfusions as of late he has symptoms of feeling weak and short of breath he is a mild headache he has been coughing he does not think he has had a fever and is afebrile here. He has had no fall or trauma. He has had no chest pain. IV access was established and blood work was obtained including blood cultures. Chest x-ray shows some increased interstitial markings which may be either infectious or fluid overload. EKG does not suggest any acute ischemic changes and his troponin is not significantly elevated. His white count is actually elevated but lower than before. His hemoglobin in the 7 range. His platelets are also lower. On exam, he have a scattered petechiae or 2 but no diffuse petechiae. I did a CAT scan of his head and was unremarkable. There is no acute intracranial hemorrhage. He was given IV Cefepime for broad-spectrum coverage to cover the possibility for pneumonia. I do think he needs to be admitted/ observe likely have a blood transfusion and further observation. I have consulted the [facility] hospitalist to see the patient in the ER for these measures. Medication Reconcilliation Current Medication List: was personally reviewed by me Blood Pressure Screening Patient's blood pressure: Low blood pressure Blood pressure disposition: Did not require urgent referral Consults Time Called: 1647 Consulting Physician: Murray West PA-C Returned Call: 1651 She will further evaluate the patient. Impression Primary Impression: Anemia Additional Impressions: Pneumonia Thrombocytopenia Weakness Scribe Attestation The scribe's documentation has been prepared under my direction and personally reviewed by me in its entirety. I confirm that the note above accurately reflects all work, treatment, procedures, and medical decision making performed by me. Departure Information Dispostion Being Evaluated By Hospitalist Referrals Royce Gaviria M.D. (PCP) Patient Instructions My [facility] Problem Qualifiers
--- NOTE | 2017-05-25 15:53 | DIAGNOSTIC IMAGING REPORT ---
CHEST ONE VIEW PORTABLE CLINICAL HISTORY: Atypical chest pain COMPARISON STUDY: August 16, 2016 FINDINGS: The heart is at the upper limits of normal in size. Since prior study, the patient developed bilateral reticulonodular opacities. This could represent either atypical pulmonary edema, or a bilateral infectious/inflammatory process. Clinical and radiographic follow-up is recommended. There are small bilateral pleural effusions[ IMPRESSION: Interval development of bilateral reticulonodular airspace opacities. Likely diagnostic considerations include atypical pulmonary edema, or a bilateral infectious/inflammatory process. Clinical and radiographic follow-up is recommended. Electronically signed by: Krishna Atwood M.D. 05/25/2017 3:52 PM Dictated Date/Time: 05/25/2017 3:51 PM
[2017-05-25] MEDS ORDERED: GABA-113 PO (16:20)
[2017-05-25] MEDS ORDERED: HYDR500C3 PO (16:20)
[2017-05-25 16:22] LABS: ALBUMIN 3.1 gm/dl (3.4-5.0); CALCIUM 8.3 mg/dl (8.5-10.1); CREATININE 1.6 mg/dl (0.60-1.40); POTASSIUM 4.3 mmol/L (3.5-5.1)
[2017-05-25 16:26] LABS: HEMATOCRIT 22.6 % (42-52); HEMOGLOBIN 7.6 g/dL (14.0-18.0); MEAN CELL VOLUME 99.6 fL (80-100); MEAN CORPUSCULAR HEMOGLOBIN 33.5 pg (25-34); MEAN CORPUSCULAR HGB CONC 33.6 g/dl (32-36); MEAN PLATELET VOLUME 10.6 fL (7.4-10.4); PLATELET COUNT 32 K/uL (130-400); RED CELL DISTRIBUTION WIDTH CV 21.3 % (11.5-14.5); RED CELL DISTRIBUTION WIDTH SD 75.5 fL (36.4-46.3); WHITE BLOOD COUNT 37.54 K/uL (4.8-10.8)
[2017-05-25 16:28] LABS: TOTAL PROTEIN 7.2 gm/dl (6.4-8.2)
[2017-05-25 16:45] LABS: BASO % 0.1 %; BASO ABS # 0.04 K/uL (0-0.2); EOS % 0.2 %; EOS ABS # 0.08 K/uL (0-0.5); IG# 0.57 K/uL (0.00-0.02); LYMPH % 5.4 %; LYMPH ABS # 2.01 K/uL (1.2-3.4); MONO % 3.4 %; MONO ABS # 1.29 K/uL (0.11-0.59); NEUT % 89.4 %; NEUT ABS # 33.55 K/uL (1.4-6.5)
[2017-05-25] MEDS ORDERED: CEFEPIME IV 2,000 MG in DEXTROSE 5% 100ML 100 ML IV STA (16:51)
--- NOTE | 2017-05-25 17:18 | DIAGNOSTIC IMAGING REPORT ---
CT HEAD WITHOUT CONTRAST (CT) CLINICAL HISTORY: Severe headache. Low platelets. Possible intracranial hemorrhage. COMPARISON STUDY: 03/31/2017 TECHNIQUE: Axial CT of the brain is performed from the vertex to the skull base. IV contrast was not administered for this examination. A dose lowering technique was utilized adhering to the principles of ALARA. CT DOSE: 709.48 mGy.cm FINDINGS: No intra or extra-axial mass lesions are visualized. There is no CT evidence of acute cortical infarction. There is no evidence of midline shift. There is no acute hemorrhage. No calvarial fractures are visualized. There are patchy white matter hypodensities likely on a small vessel basis. There is no evidence of pathologic ventricular dilatation. There is no evidence of acute sinusitis IMPRESSION: No acute intracranial findings Electronically signed by: Krishna Atwood M.D. 05/25/2017 5:16 PM Dictated Date/Time: 05/25/2017 5:15 PM
[2017-05-25] MEDS ORDERED: TRAMADOL HCL 50 MG TAB PO PRN (18:00)
[2017-05-25] MEDS ORDERED: GLUCOSE 10 TABS/TUBE PO PRN (18:00)
[2017-05-25] MEDS ORDERED: GLUCOSE 40% GEL 15 GM TUBE PO PRN (18:00)
[2017-05-25] MEDS ORDERED: ALUMINUM/MAGNESIUM/SIMETH (MAALOX MAX) 30 ML UDC PO PRN (18:00)
[2017-05-25] MEDS ORDERED: GLUCAGON FOR INJ 1 MG VIAL SQ PRN (18:00)
[2017-05-25] MEDS ORDERED: POLYETHYLENE (MIRALAX) 17 GM PACK PO PRN (18:00)
[2017-05-25] MEDS ORDERED: DEXTROSE 50% 50 ML SYR IV PRN (18:00)
[2017-05-25] MEDS ORDERED: ONDANSETRON INJ 2 MG/ML 2 ML VIAL IV PRN (18:00)
--- NOTE | 2017-05-25 18:04 | History and Physical ---
History & Physical Date & Time of Service: May 25, 2017 at 18:03 Chief Complaint: Headache, Shortness Of Breath, Body Aches, Weak Primary Care Physician: Royce Gaviria M.D. History of Present Illness Source: patient, clinic records, hospital records Patient is a 76-year-old male with a past medical history of myeloproliferative disorder, thrombocytopenia, DM 2, HTN, BPH and other medical problems listed below who presents with worsening shortness of breath over the past 4 days. Patient has been congested and developed a cough with productive yellow sputum. Also endorses for episodes of hemoptysis over the past few days, which he has not experienced in the past. Endorses chills and subjective fever. Also endorses SOB at rest, lightheadedness and fatigue as well as a dull frontal headache. Denies syncopal events, confusion, sore throat, palpitations, chest pain, orthopnea, PND, wheezing, abdominal pain, nausea, vomiting, bowel or bladder changes or worsening LE swelling. Follows with Dr. Ferguson and was receiving hydroxy urea treatment until this past February, when patient developed thrombocytopenia. Medication has been on hold since then. Has required multiple transfusions of PRBCs over the past few months, most recently last week. Maintains a persistent elevated white count, which is currently at baseline. Past Medical/Surgical History Medical Problems: (1) Back pain Status: Chronic (2) BPH (benign prostatic hyperplasia) Status: Chronic (3) Diabetes Status: Chronic (4) Dyslipidemia Status: Chronic (5) GERD (gastroesophageal reflux disease) Status: Chronic (6) Hypertension Status: Chronic (7) Left shoulder pain Status: Chronic (8) Myeloproliferative disorder Status: Chronic (9) Spinal stenosis Status: Chronic Surgical Problems: (1) History of back surgery Status: Resolved Family History Cancer Diabetes mellitus Heart disease Hypertension Social History Smoking Status: Never Smoker Drug Use: none Marital Status: Housing status: lives alone Occupational Status: retired Allergies Coded Allergies: Terazosin (Verified Allergy, Unknown, unkn, 05/25/17) Home Medications Scheduled Albuterol Hfa (Ventolin Hfa), 2-4 PUFFS INH Q6H Alfuzosin Hcl (Uroxatral), 10 MG PO DAILY Allopurinol (Allopurinol), 300 MG PO DAILY Ascorbic Acid (Vitamin C), 500 MG PO DAILY Baclofen (Lioresal), 10 MG PO TID Carvedilol (Coreg), 12.5 MG PO BID Cranberry (Vaccinium Macrocarp (Cranberry Extract), 200 MG PO DAILY Duloxetine HCl (Duloxetine HCl), 30 MG PO QAM Finasteride (Proscar), 5 MG PO DAILY Fish Oil ([place]-3), 1 CAP PO DAILY Gabapentin (Neurontin), 300 MG PO UD Garlic (Garlic), 1,000 MG PO DAILY Hydroxyurea (Hydrea Cap), 1,000 MG PO DAILY Insulin Isophane & Reg (Human) (Novolin 70/30 Relion), 36-40 UNITS SQ AMPM Lisinopril (Zestril), 20 MG PO DAILY Metformin Hcl (Glucophage), 2 TABS PO BIDM Misc Natural Products (Prostate Health), 1 CAP PO DAILY Multivitamin (Multivitamin), 1 TAB PO DAILY Omeprazole (Prilosec), 20 MG PO DAILY Scheduled PRN Acetaminophen (Tylenol), 500 MG PO Q6H PRN for Pain or Fever Review of Systems Constitutional: + fever, + chills, + weakness, + fatigue Eyes: No worsening of vision, No diplopia ENT: No nasal symptoms, No sore throat Respiratory: + cough, + sputum, + shortness of breath, + hemoptysis, No wheezing Cardiovascular: No chest pain, No orthopnea, No PND, No edema, No palpitations Abdomen: No pain, No nausea, No vomiting, No diarrhea, No constipation Musculoskeletal: + joint pain, + muscle pain Genitourinary - Male: No hematuria, No dysuria, No urinary frequency, No urinary urgency, No urinary retention Neurologic: No weakness, No numbness/tingling Hematologic / Lymphatic: No abnormal bleeding/bruising, No clotting problems Physical Exam Vital Signs Date Time Temp Pulse Resp B/P (MAP) Pulse Ox O2 Delivery O2 Flow Rate FiO2 05/25/17 17:59 79 18 95 Room Air 05/25/17 15:55 77 18 148/68 93 Room Air 05/25/17 14:16 36.5 79 16 128/58 97 Room Air General Appearance: + mild distress (SOB with exertion ) Head: normocephalic, atraumatic Eyes: normal inspection, PERRL, sclerae normal ENT: normal ENT inspection, hearing grossly normal, pharynx normal Neck: supple, no adenopathy, trachea midline Respiratory/Chest: chest non-tender, lungs clear, normal breath sounds, no respiratory distress, no accessory muscle use Cardiovascular: regular rate, rhythm, no murmur, normal peripheral pulses, + pertinent finding (Trace BLE edema) Abdomen/GI: non tender, soft, no organomegaly Back: normal inspection Extremities/Musculoskelatal: normal inspection, no calf tenderness, no pedal edema Neurologic/Psych: no motor/sensory deficits, alert, normal mood/affect, oriented x 3 Skin: warm/dry, no rash, + pallor Diagnostics Laboratory Results Results Past 24 Hours Test 05/25/17 15:19 05/25/17 15:38 05/25/17 15:43 Range/Units Creatine Kinase MB Ratio 2.6 0-3.0 White Blood Count 37.54 4.8-10.8 K/uL Red Blood Count 2.27 4.7-6.1 M/uL Hemoglobin 7.6 14.0-18.0 g/dL Hematocrit 22.6 42-52 % Mean Corpuscular Volume 99.6 80-100 fL Mean Corpuscular Hemoglobin 33.5 25-34 pg Mean Corpuscular Hemoglobin Concent 33.6 32-36 g/dl Platelet Count 32 130-400 K/uL Mean Platelet Volume 10.6 7.4-10.4 fL Neutrophils (%) (Auto) 89.4 % Lymphocytes (%) (Auto) 5.4 % Monocytes (%) (Auto) 3.4 % Eosinophils (%) (Auto) 0.2 % Basophils (%) (Auto) 0.1 % Neutrophils # (Auto) 33.55 1.4-6.5 K/uL Lymphocytes # (Auto) 2.01 1.2-3.4 K/uL Monocytes # (Auto) 1.29 0.11-0.59 K/uL Eosinophils # (Auto) 0.08 0-0.5 K/uL Basophils # (Auto) 0.04 0-0.2 K/uL RDW Standard Deviation 75.5 36.4-46.3 fL RDW Coefficient of Variation 21.3 11.5-14.5 % Immature Granulocyte % (Auto) 1.5 % Immature Granulocyte # (Auto) 0.57 0.00-0.02 K/uL Hypogranular Neutrophils 1+ Dohle Bodies 1+ Anisocytosis PRESENT Sodium Level 133 136-145 mmol/L Potassium Level 4.3 3.5-5.1 mmol/L Chloride Level 102 98-107 mmol/L Carbon Dioxide Level 22 21-32 mmol/L Anion Gap 9.0 3-11 mmol/L Blood Urea Nitrogen 31 7-18 mg/dl Creatinine 1.60 0.60-1.40 mg/dl Est Creatinine Clear Calc Drug Dose 37.4 ml/min Estimated GFR () 47.5 Estimated GFR (Non- 40.9 BUN/Creatinine Ratio 19.6 10-20 Random Glucose 204 70-99 mg/dl Calcium Level 8.3 8.5-10.1 mg/dl Total Bilirubin 0.7 0.2-1 mg/dl Direct Bilirubin 0.2 0-0.2 mg/dl Aspartate Amino Transf (AST/SGOT) 28 15-37 U/L Alanine Aminotransferase (ALT/SGPT) 26 12-78 U/L Alkaline Phosphatase 97 45-117 U/L Total Creatine Kinase 273 39-308 U/L Creatine Kinase MB 7.0 0.5-3.6 ng/ml Pro-B-Type Natriuretic Peptide 891 0-1800 pg/ml Total Protein 7.2 6.4-8.2 gm/dl Albumin 3.1 3.4-5.0 gm/dl Lipase 68 73-393 U/L Bedside Troponin I < 0.030 0-0.045 ng/ml Microbiology Results 05/25/17 Blood Culture, Received Pending 05/25/17 Blood Culture, Received Pending Diagnostic Radiology Head CT: IMPRESSION: No acute intracranial findings CXR: IMPRESSION: Interval development of bilateral reticulonodular airspace opacities. Likely diagnostic considerations include atypical pulmonary edema, or a bilateral infectious/inflammatory process. Clinical and radiographic follow-up is recommended. Chest/thorax CT: IMPRESSION: 1. Interval development of mild mediastinal lymphadenopathy possibly reactive 2. Interval development of multiple bilateral interstitial and nodular opacities. The rapid development of this process favors an infectious/inflammatory etiology. Clinical and radiographic follow-up is recommended 3. Small bilateral pleural effusions 4. Suspected splenomegaly EKG NSR at 77 bpm No change from prior EKG Impression Assessment and Plan Patient is a 76-year-old male with a past medical history of myeloproliferative disorder, thrombocytopenia, DM 2, HTN, BPH and other medical problems listed below who presents with worsening shortness of breath over the past 4 days. Anemia: -In setting of myeloproliferative disorder -Hgb of 7.6 -Typed and crossed, will transfuse 1 unit PRBCs -Lasix 20mg IV given before and after to avoid volume overload -Questionable hemoptysis -CT chest without presence of masses -Probable pneumonia -Consult Pulm -Monitor H/H, CBC Pneumonia: -Cefepime for empiric coverage -Blood cultures pending -Nebs as needed Myeloproliferative disorder: -Leukocytosis at baseline ~37 -Platelets downtrending to 32 -Heme/onc consulted -Monitor CBC Generalized weakness: -In setting of anemia, decreased activity, cancer -PT/OT consult for strengthening -Lives alone DM II: -Last a1c 8.5 in August 2016 -Repeat a1c -Hold home agents -SSI while in-patient -Glycemic consult placed -BSG AC HS HTN: -Lasix 20mg IV given before and after transfusion -Cont Coreg, lisinopril BPH: -Alfzosin, finasteride Chronic back pain, OA: -Cont gabapentin -Tylenol, tramadol PRN Mood disorder: -Cont SSRI GERD: -Cont PPI DVT Ppx: SCDs in setting of thrombocytopenia Code status: FULL PCP: [place] Dispo: Admitted to med/surg. Discharge planning ordered. Patient seen in collaboration with Dr. De Jesus. Please see addendum. Resuscitation Status VTE Prophylaxis Will order VTE Prophylaxis: Yes
[2017-05-25] MEDS ORDERED: PHARMACY GLYCEMIC MGMT CONSULT SCH (18:07)
[2017-05-25] MEDS ORDERED: METF500T PO (18:16)
[2017-05-25] MEDS ORDERED: ALBUTEROL HFA 8 GM INHALER INH PRN (19:00)
[2017-05-25] MEDS ORDERED: FUROSEMIDE INJ 20 MG in SYRINGE 0 ML IV ONE ×2 (19:00→23:00)
--- NOTE | 2017-05-25 19:12 | Pharmacy Progress Note ---
Glycemic Control Intl Consult Date of Service May 25, 2017. Scope Glycemic Pharmacist consulted by Thea Carney PA-C on 05/25/17 for glycemic control and to write orders per [facility] inpatient glycemic control protocol Objective Weight (Kilograms): 81.000 Accuchecks BSG (last 24hrs): Test 05/25/17 15:38 Random Glucose 204 mg/dl (70-99) Laboratory Data (last 24hrs) Test 05/25/17 15:38 Anion Gap 9.0 mmol/L BUN/Creatinine Ratio 19.6 Blood Urea Nitrogen 31 mg/dl Creatinine 1.60 mg/dl Potassium Level 4.3 mmol/L Sodium Level 133 mmol/L White Blood Count 37.54 K/uL Red Blood Count 2.27 M/uL Hemoglobin 7.6 g/dL Hematocrit 22.6 % Mean Corpuscular Volume 99.6 fL Mean Corpuscular Hemoglobin 33.5 pg Mean Corpuscular Hemoglobin Concent 33.6 g/dl Platelet Count 32 K/uL Mean Platelet Volume 10.6 fL Neutrophils (%) (Auto) 89.4 % Lymphocytes (%) (Auto) 5.4 % Monocytes (%) (Auto) 3.4 % Eosinophils (%) (Auto) 0.2 % Basophils (%) (Auto) 0.1 % Neutrophils # (Auto) 33.55 K/uL Lymphocytes # (Auto) 2.01 K/uL Monocytes # (Auto) 1.29 K/uL Eosinophils # (Auto) 0.08 K/uL Basophils # (Auto) 0.04 K/uL Recent Pertinent Medications Outpatient Anti-diabetic Regimen: * Novolin (Relion) 70/30 - 40 units SQ BID * A1c = 7.2 % 03/20/17 - likely unreliable, as pt receives blood transfusions Risk Factors for Insulin Resistance: * Infection: pneumonia - IV Cefepime * Diet:Type 2 DM Assessment & Plan ASSESSMENT: * 76 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 * Pre-mixed insulin is difficult to titrate since it is already in a fixed distribution of basal:prandial insulin. Continuing pre-mixed insulin for admission typically lead to hypoglycemia d/t changing PO status but rapid acting insulin is unable to be held. * Home regimen will be held for admission per pharmacy consult. Will utilize recommended regimen of SQ basal bolus insulin regimen with Lantus + NovoLog (CF+ CR), similar to previous admission and total daily dose of 80 units. * Check BSG overnight tonight since BSGs have been running high, BSG 204mg/dl upon admission PLAN FOR INPATIENT GLYCEMIC CONTROL: * Holding outpatient insulin * Basal insulin with LANTUS 20 units SQ BID * Correctional Insulin with NOVOLOG per scale ACHS or Q6hrs while NPO and overnight at 0200 tonight * Goal Range: Low 110 mg/dL - High 140 mg/dL * Correction Factor: 20 mg/dL/unit * Nutritional / Prandial insulin per carb ratio of 1 unit per 7 grams CHO consumed * Please note that the plan above was derived based on current level of insulin resistance and hospital stress. These recommendations are appropriate for inpatient admission only. Plan of care upon discharge will need to be reassessed to avoid potential outpatient hypo/hyperglycemia. Thank you.
[2017-05-25] MEDS: INSULIN ASPART 100 UNITS/ML 3 ML PEN SC SCH ×2 (19:15→20:38)
[2017-05-25] MEDS ORDERED: CEFEPIME CONSULT ACTIVE PRN (19:30)
--- NOTE | 2017-05-25 19:42 | History and Physical ---
History & Physical Date of Service May 25, 2017. History & Physical This is a 76 year old male with a PMH of myeloproliferative disorder, HTN, HLD, insulin dependent DM2, BPH, chronic shoulder and multiple joint pains - presents with shortness of breath for the past few days. Has been getting blood work as an outpatient and found to have a persistent elevated white count ( around baseline); low platelets. Patient states that he felt like a persistent cough and shortness of breath. VITALS: Last Vital Signs Documentation Date Time Temp Pulse Resp B/P (MAP) Pulse Ox O2 Delivery O2 Flow Rate FiO2 05/25/17 18:33 79 18 177/68 95 05/25/17 18:23 36.5 GEN: +mild distress secondary to shortness of breath HEENT: NC/AT CVS: +S1, S2, RRR LUNGS: CTA b/l, no wheezing ABD: soft, NT/ND EXT: trace pitting edema Plan: Will transfuse one unit of pRBCs check a CT chest consult pulm; questionable hemoptysis? nebs as needed will order Cefepime for possible pneumonia will give Lasix after transfusion - check kidney function, H/H, platelets oncology consulted for further input WBC is close to baseline platelets trending downwards
[2017-05-25] MEDS ORDERED: OPTIRAY 320 IV PRN (19:45)
--- NOTE | 2017-05-25 20:32 | DIAGNOSTIC IMAGING REPORT ---
CT OF THE CHEST WITH IV CONTRAST CLINICAL HISTORY: Atypical chest pain. Abnormal chest x-ray with bilateral reticulonodular airspace opacities COMPARISON STUDY: Chest x-ray dated 05/25/2017, CT scan dated 03/31/2017 TECHNIQUE: Following the IV administration of mL of Optiray-320, CT of the thorax was performed from the thoracic inlet to the lung bases. Images are reviewed in the axial, sagittal, and coronal planes. IV contrast was administered without complication. A dose lowering technique was utilized adhering to the principles of ALARA. CT DOSE: 412.46 mGy.cm FINDINGS: Thyroid: Imaged portions of the thyroid gland are normal in appearance. Thoracic aorta: The thoracic aorta is normal in course and caliber, noting standard 3-vessel arch anatomy. No aneurysm or dissection is seen. Pulmonary vasculature: The pulmonary trunk is normal in caliber. There are no central filling defects identified to suggest pulmonary embolus. Note that this examination was not protocoled for the evaluation of pulmonary emboli. HEART: The heart is normal in size and configuration, without pericardial effusion. Lungs and pleural spaces: There are small bilateral pleural effusions. Since the prior study, the patient has developed multiple bilateral interstitial and nodular opacities. Individual nodular opacities measure up to 19 mm in diameter. The rapid development of this process favors an infectious/inflammatory etiology. Radiographic follow-up is recommended. Mediastinum: Since the prior study, the patient has developed mild mediastinal lymphadenopathy, possibly reactive. Dotty: There is a borderline enlarged left hilar lymph node Axilla: There is no evidence of pathologic axillary lymphadenopathy Upper abdomen: Mild splenomegaly is suspected. There is adrenal gland thickening. Skeletal structures: There are no lytic or blastic osseous lesions. IMPRESSION: 1. Interval development of mild mediastinal lymphadenopathy possibly reactive 2. Interval development of multiple bilateral interstitial and nodular opacities. The rapid development of this process favors an infectious/inflammatory etiology. Clinical and radiographic follow-up is recommended 3. Small bilateral pleural effusions 4. Suspected splenomegaly Electronically signed by: Krishna Atwood M.D. 05/25/2017 8:31 PM Dictated Date/Time: 05/25/2017 8:23 PM
[2017-05-25] MEDS: CARVEDILOL 12.5 MG TAB PO SCH (20:34)
[2017-05-25] MEDS: BACLOFEN 10 MG TAB PO SCH (20:35)
[2017-05-25] MEDS ORDERED: INSULIN GLARGINE SOLOSTAR 100 UNITS/ML 3 ML PEN SC SCH (21:00)
[2017-05-26] VITALS (8 sets, daily range): BP systolic 103–168; BP diastolic 55–78; PULSE 66–89; TEMP 36.3–36.7; O2SAT 91–95
[2017-05-26] MEDS ORDERED: INSULIN ASPART 100 UNITS/ML 3 ML PEN SC SCH (02:00)
[2017-05-26] MEDS ORDERED: COUGH DROP (SUGAR FREE) LOZ 24 LOZ/1 BOX LOZ ONE (02:27)
[2017-05-26] MEDS ORDERED: COUGH DROP (SUGAR FREE) LOZ 24 LOZ/1 BOX LOZ PRN (02:30)
[2017-05-26] MEDS: CEFEPIME IV 2,000 MG in SYRINGE 7.5 ML IV SCH ×2 (04:08→15:54)
[2017-05-26 07:48] LABS: HEMATOCRIT 24.2 % (42-52); HEMOGLOBIN 8.1 g/dL (14.0-18.0); MEAN CELL VOLUME 95.7 fL (80-100); MEAN CORPUSCULAR HGB CONC 33.5 g/dl (32-36); RED CELL DISTRIBUTION WIDTH SD 70.5 fL (36.4-46.3); WHITE BLOOD COUNT 32.26 K/uL (4.8-10.8)
[2017-05-26] MEDS ORDERED: NATURAL PRODUCTS PO SCH (08:00)
[2017-05-26] MEDS ORDERED: CRANBERRY PO SCH (08:00)
[2017-05-26 08:18] LABS: CALCIUM 8.3 mg/dl (8.5-10.1); CREATININE 1.59 mg/dl (0.60-1.40); POTASSIUM 4.1 mmol/L (3.5-5.1)
[2017-05-26 08:24] LABS: MEAN PLATELET VOLUME 10.9 fL (7.4-10.4); NUCLEATED RED BLOOD CELL ABS 0.03 K/uL (0-0); PLATELET COUNT 28 K/uL (130-400)
[2017-05-26] MEDS: BACLOFEN 10 MG TAB PO SCH ×3 (08:29→20:09)
[2017-05-26] MEDS: CARVEDILOL 12.5 MG TAB PO SCH ×2 (08:29→20:08)
[2017-05-26] MEDS: CLONIDINE HCL 0.1 MG TAB PO PRN (08:29)
[2017-05-26] MEDS: PANTOprazole SOD 40 MG TAB PO SCH (08:29)
[2017-05-26] MEDS: GABAPENTIN 300 MG CAP PO SCH ×2 (08:30→12:34)
[2017-05-26] MEDS: LISINOPRIL 20 MG TAB PO SCH (08:30)
[2017-05-26] MEDS: MULTIVITAMIN TAB PO SCH (08:30)
[2017-05-26] MEDS: ASCORBIC ACID 500 MG TAB PO SCH (08:30)
[2017-05-26] MEDS: DULOXETINE (CYMBALTA) 30 MG CAP PO SCH (08:31)
[2017-05-26] MEDS: ALLOPURINOL 300 MG TAB PO SCH (08:31)
[2017-05-26] MEDS: FINASTERIDE 5 MG TAB PO SCH (08:31)
[2017-05-26] MEDS: ALFUZosin TAB 10 MG TAB PO SCH (08:31)
[2017-05-26] MEDS: ACETAMINOPHEN 325 MG TAB PO PRN ×2 (08:40→15:28)
[2017-05-26] MEDS: INSULIN ASPART 100 UNITS/ML 3 ML PEN SC SCH ×4 (08:42→21:27)
[2017-05-26] MEDS ORDERED: INSULIN GLARGINE SOLOSTAR 100 UNITS/ML 3 ML PEN SC ONE (09:00)
--- NOTE | 2017-05-26 11:21 | Pulmonary Consultation ---
History General Date of Service: May 26, 2017. Stated Complaint: Anemia, Pneumonia, Thrombocytopenia HPI Dear Dr. Loaiza: Thank you for your kind referral Mr. Yang to pulmonary service. This is 76 -year-old gentleman with a history of myeloproliferative disease, treated in the past with Hydrea, the patient has been off Hydrea since February due to profound anemia and thrombocytopenia. The patient did not have any symptoms a month ago up until 2 weeks ago when he started having increasing shortness of breath. The patient noted generalized weakness and bone pain. Mainly in the lower extremities. He does have occasional cough with no sputum production. No hemoptysis was reported. He did have one episode of blood-tinged sputum in the past week and no recurrence. Denies any melena no hematemesis and denies any rash or ecchymotic area. No recent falls and no history of recent pneumonia. The patient does not have any history of smoking in the past. 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 He did not have any oxygen at home. Does not use inhalers. His review of system did not reveal orthopnea, but he does have dyspnea on exertion walking less than 1 block. He did notice 8 pounds of weight loss compared to his body weight prior to arrival. The patient denies any palpitation or chest pain itself. Bone pain has been sporadic but nonspecific. On arrival to the hospital, the patient had blood work which revealed significant leukocytosis which is part of his myeloproliferative disease, the patient also had a CAT scan of the chest to rule out PE although his platelets were only 32,000, which showed diffuse groundglass opacification, multiple pulmonary nodules, peribronchial thickening, and sub-pleuritic changes as well. The patient was admitted to the hospital and was treated for infectious process with cefepime.. He is diabetic but he does not have endorgan complication. Historian: patient, other (Records) Review of Systems Constitutional: denies: no symptoms, as stated in HPI, chills, diaphoresis, fever, malaise, weakness, weight gain, weight loss, other Eyes: denies: no symptoms, as stated in HPI, eye pain, tearing, itching, redness, discharge, double vision, visual changes, blurred vision, photophobia, other ENT: denies: no symptoms, as stated in HPI, ear pain, ear discharge, loss of hearing, tinnitus, nasal pain, nasal congestion, rhinorrhea, epistaxis, sore throat, stridor, throat swelling, mouth pain, mouth swelling, dental pain, gum swelling, other Cardiovascular: denies: no symptoms, as stated in HPI, chest pain, chest pressure, chest tightness, diaphoresis, edema, intermittent claudication, orthopnea, palpitations, syncope, other Respiratory: reports: cough, shortness of breath Gastrointestinal: denies: no symptoms, as stated in HPI, abdominal pain, constipation, diarrhea, nausea, vomiting, hematemesis, hematochezia, hemorrhoids , anorexia, appetite changes, stool changes, flatulence, belching, food intolerance, jaundice, other Genitourinary - Male: denies: no symptoms, as stated in HPI, dysuria, hematuria , hesitancy, impotence, itching, penile discharge, rash, urinary frequency, urinary incontinence, urinary retention, urinary urgency, other Musculoskeletal: reports: joint pain (Bone pain), other (Generalized weakness) Neurologic: denies: no symptoms, as stated in HPI, headache, dizziness, general weakness, focal weakness, numbness, tingling, paresthesia, pre-existing deficit, tremors, tics, vertigo, seizure, lethargy, memory loss, other Psychiatric: denies: no symptoms, as stated in HPI, anxiety, depression, suicidal ideation, homicidal ideation, visual hallucinations, auditory hallucinations, mood changes, alcohol abuse, drug abuse, other Past Medical History Past Medical History: As above in the first section. Family History Cancer Diabetes mellitus Heart disease Hypertension Social History Hx Tobacco Use In Past Year?: No Smoking Status: Never Smoker Marital status: Housing status: lives alone Occupational Status: retired Allergies Coded Allergies: Terazosin (Verified Allergy, Unknown, unkn, 05/25/17) Current Medications Reported Home Medications Medications Dose Route/Sig Max Daily Dose Days Date Category Dose Instructions Glucophage (Metformin Hcl) 500 Mg Tab 2 Tabs PO BIDM 05/25/17 Reported Hydrea Cap (Hydroxyurea) 500 Mg Cap 1,000 Mg PO DAILY 05/25/17 Reported currently HELD Neurontin (Gabapentin) 300 Mg Cap 300 Mg PO UD 05/25/17 Reported Take 1 in AM, 1 at midday and 2 at bedtime Tylenol (Acetaminophen) 500 Mg Tab 500 Mg PO Q6H PRN 03/31/17 Reported Novolin 70/30 Relion (Insulin Isophane & Reg (Human)) 1 Inj Inj 36-40 Units SQ AMPM 03/30/17 Reported Allopurinol 300 Mg Tab 300 Mg PO DAILY 03/30/17 Reported Duloxetine HCl 30 Mg Cap 30 Mg PO QAM 30 08/26/16 Rx Zestril (Lisinopril) 20 Mg Tab 20 Mg PO DAILY 08/23/16 Reported Coreg (Carvedilol) 12.5 Mg Tab 12.5 Mg PO BID 08/23/16 Reported Ventolin Hfa (Albuterol) 200 Puffs/73294 Mcg Aers 2-4 Puffs INH Q6H 08/16/16 Reported Lioresal (Baclofen) 10 Mg Tab 10 Mg PO TID 08/16/16 Reported Multivitamin (Multivitamins) Tab 1 Tab PO DAILY 04/27/15 Reported Prostate Health ([facility]) 1 Cap Cap 1 Cap PO DAILY 04/27/15 Reported [place]-3 (Fish Oil) 1 Ea Cap 1 Cap PO DAILY 04/27/15 Reported Cranberry Extract (Cranberry (Vaccinium Macrocarp) 200 Mg Cap 200 Mg PO DAILY 04/27/15 Reported Garlic 1,000 Mg Cap 1,000 Mg PO DAILY 04/27/15 Reported Vitamin C (Ascorbic Acid) 500 Mg Tab 500 Mg PO DAILY 04/27/15 Reported Prilosec (Omeprazole) 20 Mg Capcr 20 Mg PO DAILY 04/27/15 Reported Proscar (Finasteride) 5 Mg Tab 5 Mg PO DAILY 04/27/15 Reported Uroxatral (Alfuzosin HCl) 10 Mg Tab 10 Mg PO DAILY 04/27/15 Reported Give after a meal Physical Physical Exam Vital Signs: Date Time Temp Pulse Resp B/P (MAP) Pulse Ox O2 Delivery O2 Flow Rate FiO2 05/26/17 10:58 94 Room Air 05/26/17 07:19 36.7 89 20 168/78 (108) 94 Room Air 05/26/17 03:32 36.7 75 18 144/67 (92) 91 Room Air 05/26/17 00:00 36.7 78 18 164/75 94 05/26/17 00:00 94 Room Air 05/25/17 23:10 36.8 81 18 158/87 92 05/25/17 22:43 37.5 83 18 155/64 96 05/25/17 22:11 36.7 85 16 172/70 95 05/25/17 21:58 36.9 86 16 162/72 95 05/25/17 21:37 37.2 86 16 163/69 91 05/25/17 20:33 97 177/71 (106) 05/25/17 19:15 36.4 82 22 160/72 (101) 95 Room Air 05/25/17 18:33 79 18 177/68 95 05/25/17 18:23 36.5 79 18 177/68 95 Room Air 05/25/17 17:59 79 18 177/68 95 Room Air 05/25/17 15:55 77 18 148/68 93 Room Air 05/25/17 14:16 36.5 79 16 128/58 97 Room Air General Appearance: uncomfortable Eyes: PERRLA, EOMI ENT: NORMAL THROAT EXAM Neck: TRACHEA MIDLINE Respiratory: BREATH SOUNDS NORMAL, other (Faint scattered crackles mainly at the right base) Cardiovasular: NORMAL S1S2, NO M/G/R, NO MURMUR Abdomen: NON TENDER, NO MASSES, NO GUARDING Back: NORMAL INSPECTION Lower Extremities: edema (Trace edema) Neuro: ALERT, ORIENTED x 3, NORMAL MOTOR EXAM, NORMAL SENSATION Psychiatric: NORMAL AFFECT Diagnostics Labs Results Past 24 Hours Test 05/25/17 15:19 05/25/17 15:38 05/25/17 15:43 05/25/17 16:04 Range/Units Creatine Kinase MB Ratio 2.6 0-3.0 White Blood Count 37.54 4.8-10.8 K/uL Red Blood Count 2.27 4.7-6.1 M/uL Hemoglobin 7.6 14.0-18.0 g/dL Hematocrit 22.6 42-52 % Mean Corpuscular Volume 99.6 80-100 fL Mean Corpuscular Hemoglobin 33.5 25-34 pg Mean Corpuscular Hemoglobin Concent 33.6 32-36 g/dl Platelet Count 32 130-400 K/uL Mean Platelet Volume 10.6 7.4-10.4 fL Neutrophils (%) (Auto) 89.4 % Lymphocytes (%) (Auto) 5.4 % Monocytes (%) (Auto) 3.4 % Eosinophils (%) (Auto) 0.2 % Basophils (%) (Auto) 0.1 % Neutrophils # (Auto) 33.55 1.4-6.5 K/uL Lymphocytes # (Auto) 2.01 1.2-3.4 K/uL Monocytes # (Auto) 1.29 0.11-0.59 K/uL Eosinophils # (Auto) 0.08 0-0.5 K/uL Basophils # (Auto) 0.04 0-0.2 K/uL RDW Standard Deviation 75.5 36.4-46.3 fL RDW Coefficient of Variation 21.3 11.5-14.5 % Immature Granulocyte % (Auto) 1.5 % Immature Granulocyte # (Auto) 0.57 0.00-0.02 K/uL Hypogranular Neutrophils 1+ Dohle Bodies 1+ Anisocytosis PRESENT Sodium Level 133 136-145 mmol/L Potassium Level 4.3 3.5-5.1 mmol/L Chloride Level 102 98-107 mmol/L Carbon Dioxide Level 22 21-32 mmol/L Anion Gap 9.0 3-11 mmol/L Blood Urea Nitrogen 31 7-18 mg/dl Creatinine 1.60 0.60-1.40 mg/dl Est Creatinine Clear Calc Drug Dose 37.4 ml/min Estimated GFR () 47.5 Estimated GFR (Non- 40.9 BUN/Creatinine Ratio 19.6 10-20 Random Glucose 204 70-99 mg/dl Calcium Level 8.3 8.5-10.1 mg/dl Total Bilirubin 0.7 0.2-1 mg/dl Direct Bilirubin 0.2 0-0.2 mg/dl Aspartate Amino Transf (AST/SGOT) 28 15-37 U/L Alanine Aminotransferase (ALT/SGPT) 26 12-78 U/L Alkaline Phosphatase 97 45-117 U/L Total Creatine Kinase 273 39-308 U/L Creatine Kinase MB 7.0 0.5-3.6 ng/ml Pro-B-Type Natriuretic Peptide 891 0-1800 pg/ml Total Protein 7.2 6.4-8.2 gm/dl Albumin 3.1 3.4-5.0 gm/dl Lipase 68 73-393 U/L Procalcitonin 1.01 0-0.5 ng/ml Bedside Troponin I < 0.030 0-0.045 ng/ml Bedside Glucose 215 70-99 mg/dl Test 05/25/17 19:31 05/26/17 02:10 05/26/17 07:06 05/26/17 07:48 Range/Units Bedside Glucose 184 204 204 70-99 mg/dl White Blood Count 32.26 4.8-10.8 K/uL Red Blood Count 2.53 4.7-6.1 M/uL Hemoglobin 8.1 14.0-18.0 g/dL Hematocrit 24.2 42-52 % Mean Corpuscular Volume 95.7 80-100 fL Mean Corpuscular Hemoglobin 32.0 25-34 pg Mean Corpuscular Hemoglobin Concent 33.5 32-36 g/dl Platelet Count 28 130-400 K/uL Mean Platelet Volume 10.9 7.4-10.4 fL RDW Standard Deviation 70.5 36.4-46.3 fL RDW Coefficient of Variation 21.0 11.5-14.5 % Nucleated RBC Absolute Count (auto) 0.03 0-0 K/uL Neutrophils % (Manual) 91.3 % Lymphocytes % (Manual) 6.1 % Monocytes % (Manual) 1.7 % Metamyelocytes % 0.9 % Nucleated Red Blood Cells % 0.1 % Neutrophils # (Manual) 29.45 1.4-6.5 K/uL Total Absolute Neutrophils 29.45 1.4-6.5 K/uL Lymphocytes # (Manual) 1.97 1.2-3.4 K/uL Total Absolute Lymphocytes 1.97 1.2-3.4 K/uL Monocytes # (Manual) 0.55 0.11-0.59 K/uL Metamyelocytes # 0.29 0-0 K/uL Hyposegmented Neutrophils 1+ Hypogranular Neutrophils 3+ Dohle Bodies 1+ Platelet Estimate SIGNIFIC DECREASED Sodium Level 134 136-145 mmol/L Potassium Level 4.1 3.5-5.1 mmol/L Chloride Level 101 98-107 mmol/L Carbon Dioxide Level 23 21-32 mmol/L Anion Gap 10.0 3-11 mmol/L Blood Urea Nitrogen 30 7-18 mg/dl Creatinine 1.59 0.60-1.40 mg/dl Est Creatinine Clear Calc Drug Dose 37.6 ml/min Estimated GFR () 47.8 Estimated GFR (Non- 41.3 BUN/Creatinine Ratio 19.1 10-20 Random Glucose 167 70-99 mg/dl Calcium Level 8.3 8.5-10.1 mg/dl Test 05/26/17 10:56 Range/Units Microbiology Results 05/25/17 Blood Culture, Received Pending 05/25/17 Blood Culture, Received Pending Diagnostic Radiology CAT scan of the chest was reviewed personally which showed the development of nonspecific interstitial pneumonitis. The pulmonary nodularity also was noted with some pleuritic changes. Lymphadenopathy in the mediastinum as well. Impression Assessment and Plan 1. Progressive dyspnea with cough no sputum production, minimal hemoptysis with blood-tinged sputum only, explained by profound thrombocytopenia, the findings on the CAT scan of the chest favor myeloproliferative disease with nodularity infiltration and lymphadenopathy as well. The changes also for in favor of LIP, fungal infection and latent reactivation of mycobacteria. The patient does not have a history of TB in the past. This is less likely to be community-acquired pneumonia. Similar findings were noted in the CAT scan from August 2016. 2. 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 3. History of diabetes. 4. Profound thrombocytopenia. Plan: 1. I will send Aspergillus antibody panel, and GOLD test with Mitogen and Nil assay. 2. no need for isolating the patient, as the process could represent latent mycobacterial infection not active infection. 3. I will start the patient on Solu-Medrol 40 mg IV every 12 hours. 4. Glucose control as the patient is diabetic. 5. I do the patient should have a biopsy, his thrombocytopenia is precluding him from having a biopsy. Transfusion of platelets is in adequate and the circumstances due to myeloproliferative disease. 6. Oncology consult, evaluation for alternative therapy. Thank you, will follow.
--- NOTE | 2017-05-26 14:05 | Pharmacy Progress Note ---
Glycemic Control Intl Consult Date of Service May 26, 2017. Scope Glycemic Pharmacist consulted by Thea Carney PA-C on 05/25/17 for glycemic control and to write orders per [facility] inpatient glycemic control protocol Objective Weight (Kilograms): 78.100 Accuchecks BSG (last 24hrs): Test 05/25/17 15:38 05/25/17 16:04 05/25/17 19:31 05/26/17 02:10 Random Glucose 204 mg/dl (70-99) Bedside Glucose 215 mg/dl (70-99) 184 mg/dl (70-99) 204 mg/dl (70-99) Test 05/26/17 07:06 05/26/17 07:48 05/26/17 11:35 Random Glucose 167 mg/dl (70-99) Bedside Glucose 204 mg/dl (70-99) 277 mg/dl (70-99) Laboratory Data (last 24hrs) Test 05/25/17 15:38 05/26/17 07:06 Anion Gap 9.0 mmol/L 10.0 mmol/L BUN/Creatinine Ratio 19.6 19.1 Blood Urea Nitrogen 31 mg/dl 30 mg/dl Creatinine 1.60 mg/dl 1.59 mg/dl Potassium Level 4.3 mmol/L 4.1 mmol/L Sodium Level 133 mmol/L 134 mmol/L White Blood Count 37.54 K/uL 32.26 K/uL Red Blood Count 2.27 M/uL 2.53 M/uL Hemoglobin 7.6 g/dL 8.1 g/dL Hematocrit 22.6 % 24.2 % Mean Corpuscular Volume 99.6 fL 95.7 fL Mean Corpuscular Hemoglobin 33.5 pg 32.0 pg Mean Corpuscular Hemoglobin Concent 33.6 g/dl 33.5 g/dl Platelet Count 32 K/uL 28 K/uL Mean Platelet Volume 10.6 fL 10.9 fL Neutrophils (%) (Auto) 89.4 % Lymphocytes (%) (Auto) 5.4 % Monocytes (%) (Auto) 3.4 % Eosinophils (%) (Auto) 0.2 % Basophils (%) (Auto) 0.1 % Neutrophils # (Auto) 33.55 K/uL Lymphocytes # (Auto) 2.01 K/uL Monocytes # (Auto) 1.29 K/uL Eosinophils # (Auto) 0.08 K/uL Basophils # (Auto) 0.04 K/uL Recent Pertinent Medications Outpatient Anti-diabetic Regimen: * Novolin 70/30 - 40 units twice daily * A1c = 8.5 % 08/24/16 The patient is currently receiving: * Basal insulin: Lantus 20 units every 12 hours (first dose last night) * Correctional Insulin: Novolog Correction per scale ACHS Goal Range: Low 110 mg/dL - High 140 mg/dL Correction Factor: 20 mg/dL/unit * Prandial insulin: Per carb ratio of 1 unit per 7 grams CHO consumed Risk Factors for Insulin Resistance: * Steroids: Solu-Medrol 40 mg IV q12 hours starting tonight * Infection: pneumonia on cefepime * Diet: type 2 diabetes Assessment & Plan ASSESSMENT: * Mr Yang is a 76 y/o M with a PMH of MPD with multiple transfusions, HTN, BPH, and type 2 diabetes with unknown control (has had multiple transfusions so that can affect HbA1C) who presents with worsening shortness of breath secondary to anemia or developing pneumonia. The patient's admitting blood sugar was 204 mg/dL which stayed steady at 184-184 and 204 mg/dL at 0200. Patient's fasting was 204 mg/dL (tightened Novolog slightly). This increased to 277 mg/dL. * For Lantus, patient was started on Lantus last night.... Since he is on Novolin 70/30 at home, gave slightly higher dose of Lantus today as a loading dose. Higher doses (determined from stressed doses of home rate of 80 units) were ordered for dinner since the patient will be started on steroids tonight. This is also compared with last admission's data were patient required at least 100 units of insulin on prednisone 40 mg daily. * For Novolog, the carbohydrate ratio was tightened for lunch, but the patient' s blood sugar still increased. Tightened Novolog for lunch and there will be subsequent tightening at bedtime with start of Solu-Medrol. PLAN FOR INPATIENT GLYCEMIC CONTROL: * Basal insulin with LANTUS 30 units SQ x 1 then 20 or 30 units SQ BID (30 units if blood sugar over 200 mg/dL) * Correctional Insulin with NOVOLOG per scale ACHS or Q6hrs while NPO * Goal Range: Low 110 mg/dL - High 140 mg/dL * Correction Factor: 15 mg/dL/unit (tighten tonight to 10 mg/dL/unit) * Nutritional / Prandial insulin per carb ratio of 1 unit per 4 grams CHO consumed (tighten tonight to 3 grams CHO consumed) * Please note that the plan above was derived based on current level of insulin resistance and hospital stress. These recommendations are appropriate for inpatient admission only. Plan of care upon discharge will need to be reassessed to avoid potential outpatient hypo/hyperglycemia. Thank you.
--- NOTE | 2017-05-26 14:16 | Progress Note ---
Internal Med Progress Note Date of Service: May 26, 2017. Provider Documentation: SUBJECTIVE: Patient at bedside. Able to eat food without discomfort. Denies abdominal pain. Denies blood in urine or stool. Reports shortness of breath with exertion. Denies lightheadedness. OBJECTIVE: General Appearance: no acute distress Head: normocephalic, atraumatic Eyes: normal inspection, EOMI ENT: normal ENT inspection, hearing grossly normal, pharynx normal Neck: supple, no adenopathy, trachea midline Respiratory/Chest: chest non-tender, lungs clear, normal breath sounds, no respiratory distress, no accessory muscle use Cardiovascular: regular rate, rhythm, no murmur Abdomen/GI: non tender, soft, no organomegaly Back: normal inspection Extremities/Musculoskelatal: normal inspection, no calf tenderness, no pedal edema Neurologic/Psych: no motor/sensory deficits, alert, normal mood/affect, oriented x 3 Skin: warm/dry, no rash ASSESSMENT & PLAN: Patient is a 76-year-old male with a past medical history of myeloproliferative disorder, thrombocytopenia, DM 2, HTN, BPH and other medical problems listed below who presents with worsening shortness of breath over the past 4 days. Patient was found to have anemia in setting of myeloproliferative disorder with Hgb 7.6 and transfused 1 unit PRBC with Lasix in setting of myeloproliferative disorder Patient also reported hemoptysis (some blood tinged sputum in the morning time as per patient) Patient was started on IV Cefepime for pulmonary coverage in case of pneumonia as the Chest X ray findings of "Interval development of bilateral reticulonodular airspace opacities. Likely diagnostic considerations include atypical pulmonary edema, or a bilateral infectious/inflammatory process" Pulmonary consultation 05/26/17 reports "Progressive dyspnea with cough no sputum production, minimal hemoptysis with blood-tinged sputum only, explained by profound thrombocytopenia, the findings on the CAT scan of the chest favor myeloproliferative disease with nodularity infiltration and lymphadenopathy as well. The changes also for in favor of LIP , fungal infection and latent reactivation of mycobacteria. The patient does not have a history of TB in the past. This is less likely to be community- acquired pneumonia. Similar findings were noted in the CAT scan from August 2016. 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 which placed the patient at risk of industrial lung such as pneumoconiosis)" -send Aspergillus antibody panel, and GOLD test with Mitogen and Nil assay -start the patient on Solu-Medrol 40 mg IV every 12 hours Myeloproliferative disorder: -Leukocytosis at baseline ~37 -Platelets downtrending to 32 to 28 -Heme/onc consulted -Monitor CBC Generalized weakness: -In setting of anemia, decreased activity, cancer -PT/OT consult for strengthening -Lives alone DM II: -Last a1c 8.5 in August 2016 -Glycemic consult following the patient's insulin requirements HTN: -Cont Coreg, lisinopril BPH: -Alfzosin, finasteride Chronic back pain, OA: -Cont gabapentin -Tylenol, tramadol PRN Mood disorder: -Cont SSRI GERD: -Cont PPI DVT Ppx: SCDs in setting of thrombocytopenia Code status: FULL Vital Signs: Date Time Temp Pulse Resp B/P (MAP) Pulse Ox O2 Delivery O2 Flow Rate FiO2 05/26/17 11:54 36.5 66 18 103/55 (71) 92 Room Air 05/26/17 10:58 94 Room Air 05/26/17 07:19 36.7 89 20 168/78 (108) 94 Room Air 05/26/17 03:32 36.7 75 18 144/67 (92) 91 Room Air 05/26/17 00:00 36.7 78 18 164/75 94 05/26/17 00:00 94 Room Air 05/25/17 23:10 36.8 81 18 158/87 92 05/25/17 22:43 37.5 83 18 155/64 96 05/25/17 22:11 36.7 85 16 172/70 95 05/25/17 21:58 36.9 86 16 162/72 95 05/25/17 21:37 37.2 86 16 163/69 91 05/25/17 20:33 97 177/71 (106) 05/25/17 19:15 36.4 82 22 160/72 (101) 95 Room Air 05/25/17 18:33 79 18 177/68 95 05/25/17 18:23 36.5 79 18 177/68 95 Room Air 05/25/17 17:59 79 18 177/68 95 Room Air 05/25/17 15:55 77 18 148/68 93 Room Air Lab Results: Results Past 24 Hours Test 05/25/17 15:19 05/25/17 15:38 05/25/17 15:43 05/25/17 16:04 Range/Units Creatine Kinase MB Ratio 2.6 0-3.0 White Blood Count 37.54 4.8-10.8 K/uL Red Blood Count 2.27 4.7-6.1 M/uL Hemoglobin 7.6 14.0-18.0 g/dL Hematocrit 22.6 42-52 % Mean Corpuscular Volume 99.6 80-100 fL Mean Corpuscular Hemoglobin 33.5 25-34 pg Mean Corpuscular Hemoglobin Concent 33.6 32-36 g/dl Platelet Count 32 130-400 K/uL Mean Platelet Volume 10.6 7.4-10.4 fL Neutrophils (%) (Auto) 89.4 % Lymphocytes (%) (Auto) 5.4 % Monocytes (%) (Auto) 3.4 % Eosinophils (%) (Auto) 0.2 % Basophils (%) (Auto) 0.1 % Neutrophils # (Auto) 33.55 1.4-6.5 K/uL Lymphocytes # (Auto) 2.01 1.2-3.4 K/uL Monocytes # (Auto) 1.29 0.11-0.59 K/uL Eosinophils # (Auto) 0.08 0-0.5 K/uL Basophils # (Auto) 0.04 0-0.2 K/uL RDW Standard Deviation 75.5 36.4-46.3 fL RDW Coefficient of Variation 21.3 11.5-14.5 % Immature Granulocyte % (Auto) 1.5 % Immature Granulocyte # (Auto) 0.57 0.00-0.02 K/uL Hypogranular Neutrophils 1+ Blood Smear Review Dohle Bodies 1+ Anisocytosis PRESENT Sodium Level 133 136-145 mmol/L Potassium Level 4.3 3.5-5.1 mmol/L Chloride Level 102 98-107 mmol/L Carbon Dioxide Level 22 21-32 mmol/L Anion Gap 9.0 3-11 mmol/L Blood Urea Nitrogen 31 7-18 mg/dl Creatinine 1.60 0.60-1.40 mg/dl Est Creatinine Clear Calc Drug Dose 37.4 ml/min Estimated GFR () 47.5 Estimated GFR (Non- 40.9 BUN/Creatinine Ratio 19.6 10-20 Random Glucose 204 70-99 mg/dl Calcium Level 8.3 8.5-10.1 mg/dl Total Bilirubin 0.7 0.2-1 mg/dl Direct Bilirubin 0.2 0-0.2 mg/dl Aspartate Amino Transf (AST/SGOT) 28 15-37 U/L Alanine Aminotransferase (ALT/SGPT) 26 12-78 U/L Alkaline Phosphatase 97 45-117 U/L Total Creatine Kinase 273 39-308 U/L Creatine Kinase MB 7.0 0.5-3.6 ng/ml Pro-B-Type Natriuretic Peptide 891 0-1800 pg/ml Total Protein 7.2 6.4-8.2 gm/dl Albumin 3.1 3.4-5.0 gm/dl Lipase 68 73-393 U/L Procalcitonin 1.01 0-0.5 ng/ml Bedside Troponin I < 0.030 0-0.045 ng/ml Bedside Glucose 215 70-99 mg/dl Test 05/25/17 19:31 05/26/17 02:10 05/26/17 07:06 05/26/17 07:48 Range/Units Bedside Glucose 184 204 204 70-99 mg/dl White Blood Count 32.26 4.8-10.8 K/uL Red Blood Count 2.53 4.7-6.1 M/uL Hemoglobin 8.1 14.0-18.0 g/dL Hematocrit 24.2 42-52 % Mean Corpuscular Volume 95.7 80-100 fL Mean Corpuscular Hemoglobin 32.0 25-34 pg Mean Corpuscular Hemoglobin Concent 33.5 32-36 g/dl Platelet Count 28 130-400 K/uL Mean Platelet Volume 10.9 7.4-10.4 fL RDW Standard Deviation 70.5 36.4-46.3 fL RDW Coefficient of Variation 21.0 11.5-14.5 % Nucleated RBC Absolute Count (auto) 0.03 0-0 K/uL Neutrophils % (Manual) 91.3 % Lymphocytes % (Manual) 6.1 % Monocytes % (Manual) 1.7 % Metamyelocytes % 0.9 % Nucleated Red Blood Cells % 0.1 % Neutrophils # (Manual) 29.45 1.4-6.5 K/uL Total Absolute Neutrophils 29.45 1.4-6.5 K/uL Lymphocytes # (Manual) 1.97 1.2-3.4 K/uL Total Absolute Lymphocytes 1.97 1.2-3.4 K/uL Monocytes # (Manual) 0.55 0.11-0.59 K/uL Metamyelocytes # 0.29 0-0 K/uL Hyposegmented Neutrophils 1+ Hypogranular Neutrophils 3+ Dohle Bodies 1+ Platelet Estimate SIGNIFIC DECREASED Sodium Level 134 136-145 mmol/L Potassium Level 4.1 3.5-5.1 mmol/L Chloride Level 101 98-107 mmol/L Carbon Dioxide Level 23 21-32 mmol/L Anion Gap 10.0 3-11 mmol/L Blood Urea Nitrogen 30 7-18 mg/dl Creatinine 1.59 0.60-1.40 mg/dl Est Creatinine Clear Calc Drug Dose 37.6 ml/min Estimated GFR () 47.8 Estimated GFR (Non- 41.3 BUN/Creatinine Ratio 19.1 10-20 Random Glucose 167 70-99 mg/dl Calcium Level 8.3 8.5-10.1 mg/dl Test 05/26/17 11:20 05/26/17 11:35 Range/Units Bedside Glucose 277 70-99 mg/dl Microbiology Results 05/25/17 Blood Culture, Received Pending 05/25/17 Blood Culture, Received Pending
--- NOTE | 2017-05-26 15:38 | Medical Consult ---
Consultation Date of Consultation: May 26, 2017. Attending Physician: Ramon Freeman M.D. Reason for Consultation: anemia and thrombocytopenia History of Present Illness 76 year old male with anemia, thrombocytopenia and leukocytosis. He had a bone marrow aspirate and biopsy in 08/2016 which showed a maarkedly hypercellular marrow with atypical megakaryotic and granulocytic proliferation suggestive of myeloproliferative neoplasm no excess blasts He was negative for BCR-ABL. 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, CSF3R, GNAS, SETBP1 and SRSF2 genes He was treated with hydrea but this was discontinued due to worsening anemia and thrombocytopenia He is admitted with fatigue and generalized weakness, cough and dyspnea He states that most times cough was nonproductive and had some wheezing,but occasionally earlier this week he had hemoptysis He states that since he was on hydrea was getting headaches on and off Takes tylenol as needed He denies any epistaxis or new bruising or any falls or injury or melena or hematochezia He feels that cough is improved since he has been admitted and received antibiotics He is on cefepime Spoke to Thea Carney PA-C who admitted patient and agreed with transfuse 1 unit of PRBC and recommended CT chest and pulmonary consultation for hemoptysis and the cxr findings as well to evaluate for possible pneumonia/infection Past Medical/Surgical History PMH: myeloproliferative disorder, COPD, degenerative disc disease L spine, diverticulosis, diabetes type 2 HTN, spinal stenosis PSH: back surgery Medical Problems: (1) Acute neck pain Status: Acute (2) Anemia Status: Acute (3) Leukemia Status: Acute (4) Leukemia Status: Acute (5) Leukemoid reaction Status: Acute (6) Leukocytosis Status: Acute (7) Low back pain Status: Acute (8) Low back pain Status: Acute (9) Neuropathic pain of left shoulder Status: Acute (10) Pleuritic chest pain Status: Acute (11) Pneumonia Status: Acute (12) Thrombocytopenia Status: Acute (13) Uncontrolled pain Status: Acute (14) Weakness Status: Acute Social History Problems: (1) Neuropathic pain of left shoulder Status: Acute Family History Cancer Diabetes mellitus Heart disease Hypertension He denies any FH of any blood disorder or leukemia Social History Smoking Status: Never Smoker Drug Use: none Marital Status: Housing Status: lives alone Occupation Status: retired Allergies Coded Allergies: Terazosin (Verified Allergy, Unknown, unkn, 4/6/18) Current Inpatient Medications Current Inpatient Medications Medications (Trade) Dose Ordered Sig/Karla Route Start Time Stop Time Status Last Admin Dose Admin Acetaminophen (Tylenol Tab) 650 mg Q4H PRN PO 05/25/17 18:00 06/24/17 17:59 05/26/17 08:40 650 MG Al Hydrox/Mg Hydrox/Simethicone (Maalox Max Susp) 15 ml Q4H PRN PO 05/25/17 18:00 06/24/17 17:59 Polyethylene (Miralax Powder Packet) 17 gm DAILY PRN PO 05/25/17 18:00 06/24/17 17:59 Ondansetron HCl (Zofran Inj) 4 mg Q6H PRN IV 05/25/17 18:00 06/24/17 17:59 Insulin Aspart (novoLOG ASPART) SLIDING SCALE If C... ACHS SC 05/25/17 19:15 05/26/17 20:00 05/26/17 12:36 22 UNITS Glucose (Glucose 40% Gel) 15-30 GRAMS 15 GRAMS... UD PRN PO 05/25/17 18:00 06/24/17 17:59 Glucose (Glucose Chew Tab) 4-8 Tablets 4 Tabl... UD PRN PO 05/25/17 18:00 06/24/17 17:59 Dextrose (Dextrose 50% 50ML Syringe) 25-50ML OF 50% DW IV FOR... UD PRN IV 05/25/17 18:00 06/24/17 17:59 Glucagon (Glucagon Inj) 1 mg UD PRN SQ 05/25/17 18:00 06/24/17 17:59 Miscellaneous Information (Consult Glycemic Management Pharmacy) 1 ea UD N/A 05/25/17 18:07 06/24/17 18:06 Cefepime HCl 2000 mg/Syringe 20 ml @ 5 mls/min Q12H IV 05/26/17 04:00 06/02/17 03:59 05/26/17 04:08 5 MLS/MIN Tramadol HCl (Ultram Tab) 50 mg Q8 PRN PO 05/25/17 18:00 06/24/17 17:59 Albuterol (Ventolin Hfa Inhaler) 2 puffs Q6H PRN INH 05/25/17 19:00 06/24/17 18:59 Alfuzosin HCl (Uroxatral Tab) 10 mg DAILY PO 05/26/17 08:00 06/25/17 07:59 05/26/17 08:31 10 MG Allopurinol (Zyloprim Tab) 300 mg DAILY PO 05/26/17 08:00 06/25/17 07:59 05/26/17 08:31 300 MG Ascorbic Acid (Vitamin C Tab) 500 mg DAILY PO 05/26/17 08:00 06/25/17 07:59 05/26/17 08:30 500 MG Baclofen (Lioresal Tab) 10 mg TID PO 05/25/17 20:00 06/24/17 19:59 05/26/17 13:29 10 MG Carvedilol (Coreg Tab) 12.5 mg BID PO 05/25/17 20:00 06/24/17 19:59 05/26/17 08:29 12.5 MG Duloxetine HCl (Cymbalta Cap) 30 mg QAM PO 05/26/17 08:00 06/25/17 07:59 05/26/17 08:31 30 MG Finasteride (Proscar Tab) 5 mg DAILY PO 05/26/17 08:00 06/25/17 07:59 05/26/17 08:31 5 MG Gabapentin (Neurontin Cap) 300 mg BID@0800,1300 PO 05/26/17 08:00 06/25/17 07:59 05/26/17 12:34 300 MG Lisinopril (Zestril Tab) 20 mg DAILY PO 05/26/17 08:00 06/25/17 07:59 05/26/17 08:30 20 MG Multivitamins (Multivitamin Tab) 1 tab DAILY PO 05/26/17 08:00 06/25/17 07:59 05/26/17 08:30 1 TAB Pantoprazole Sodium (Protonix Tab) 40 mg DAILY PO 05/26/17 08:00 06/25/17 07:59 05/26/17 08:29 40 MG Cefepime HCl (Consult) 1 ea UD PRN N/A 05/25/17 19:30 06/24/17 19:29 Ioversol (Optiray 320) 100 ml UD PRN IV 05/25/17 19:45 05/29/17 19:44 Clonidine HCl (Catapres Tab) 0.1 mg Q6 PRN PO 05/25/17 23:15 06/24/17 23:14 05/26/17 08:29 0.1 MG Menthol (Nice Desiree) 1 desiree PRN PRN DESIREE 05/26/17 02:30 06/25/17 02:29 Methylprednisolone Sodium Succinate 40 mg/Syringe 0.64 ml @ 1.5 mls/min Q12 IV 05/26/17 21:00 06/25/17 20:59 Insulin Glargine (Lantus Solostar Pen) SEE PROTOCOL TEXT BID SC 05/26/17 20:00 06/25/17 19:59 Insulin Aspart (novoLOG ASPART) SLIDING SCALE If C... TODAY@0200 NV 05/27/17 02:00 05/27/17 02:01 Insulin Aspart (novoLOG ASPART) SLIDING SCALE If C... ACHS NV 05/26/17 21:00 06/25/17 20:59 Review of Systems Constitutional: + weakness (generalized), + fatigue, No fever, No chills ENT: No unusual epistaxis, No nasal symptoms, No sore throat Respiratory: + cough, + wheezing, + dyspnea on exertion, + hemoptysis ( occasional - about 3 times earlier this week with heavy cough, none since admission and feels cough is improved) Cardiovascular: + problem reported (LH on and off - states since his blood counts have been low ), No chest pain, No edema Abdomen: No pain, No nausea, No vomiting, No diarrhea, No GI bleeding Musculoskeletal: No joint pain, No muscle pain, No swelling Genitourinary - Male: No hematuria, No dysuria Neurologic: + problem reported (headaches frontal and occipital on and off for several months), No numbness/tingling Endocrine: + fatigue Physical Exam Date Time Temp Pulse Resp B/P (MAP) Pulse Ox O2 Delivery O2 Flow Rate FiO2 05/26/17 11:54 36.5 66 18 103/55 (71) 92 Room Air 05/26/17 10:58 94 Room Air 05/26/17 07:19 36.7 89 20 168/78 (108) 94 Room Air 05/26/17 03:32 36.7 75 18 144/67 (92) 91 Room Air 05/26/17 00:00 36.7 78 18 164/75 94 05/26/17 00:00 94 Room Air 05/25/17 23:10 36.8 81 18 158/87 92 05/25/17 22:43 37.5 83 18 155/64 96 05/25/17 22:11 36.7 85 16 172/70 95 05/25/17 21:58 36.9 86 16 162/72 95 05/25/17 21:37 37.2 86 16 163/69 91 05/25/17 20:33 97 177/71 (106) 05/25/17 19:15 36.4 82 22 160/72 (101) 95 Room Air 05/25/17 18:33 79 18 177/68 95 05/25/17 18:23 36.5 79 18 177/68 95 Room Air 05/25/17 17:59 79 18 177/68 95 Room Air 05/25/17 15:55 77 18 148/68 93 Room Air General Appearance: WD/WN, no apparent distress Head: normocephalic, atraumatic Eyes: sclerae normal Neck: supple, no adenopathy, no JVD Respiratory/Chest: lungs clear, normal breath sounds, no respiratory distress Cardiovascular: regular rate, rhythm, no edema Abdomen/GI: normal bowel sounds, non tender, soft Extremities/Musculoskelatal: no pedal edema, non-tender Neurologic/Psych: no motor/sensory deficits, alert, oriented x 3 Skin: warm/dry Laboratory Results Last 24 Hours Test 05/25/17 15:19 05/25/17 15:38 05/25/17 15:43 05/25/17 16:04 Creatine Kinase MB Ratio 2.6 White Blood Count 37.54 K/uL Red Blood Count 2.27 M/uL Hemoglobin 7.6 g/dL Hematocrit 22.6 % Mean Corpuscular Volume 99.6 fL Mean Corpuscular Hemoglobin 33.5 pg Mean Corpuscular Hemoglobin Concent 33.6 g/dl Platelet Count 32 K/uL Mean Platelet Volume 10.6 fL Neutrophils (%) (Auto) 89.4 % Lymphocytes (%) (Auto) 5.4 % Monocytes (%) (Auto) 3.4 % Eosinophils (%) (Auto) 0.2 % Basophils (%) (Auto) 0.1 % Neutrophils # (Auto) 33.55 K/uL Lymphocytes # (Auto) 2.01 K/uL Monocytes # (Auto) 1.29 K/uL Eosinophils # (Auto) 0.08 K/uL Basophils # (Auto) 0.04 K/uL RDW Standard Deviation 75.5 fL RDW Coefficient of Variation 21.3 % Immature Granulocyte % (Auto) 1.5 % Immature Granulocyte # (Auto) 0.57 K/uL Hypogranular Neutrophils 1+ Blood Smear Review Dohle Bodies 1+ Anisocytosis PRESENT Sodium Level 133 mmol/L Potassium Level 4.3 mmol/L Chloride Level 102 mmol/L Carbon Dioxide Level 22 mmol/L Anion Gap 9.0 mmol/L Blood Urea Nitrogen 31 mg/dl Creatinine 1.60 mg/dl Est Creatinine Clear Calc Drug Dose 37.4 ml/min Estimated GFR () 47.5 Estimated GFR (Non- 40.9 BUN/Creatinine Ratio 19.6 Random Glucose 204 mg/dl Calcium Level 8.3 mg/dl Total Bilirubin 0.7 mg/dl Direct Bilirubin 0.2 mg/dl Aspartate Amino Transf (AST/SGOT) 28 U/L Alanine Aminotransferase (ALT/SGPT) 26 U/L Alkaline Phosphatase 97 U/L Total Creatine Kinase 273 U/L Creatine Kinase MB 7.0 ng/ml Pro-B-Type Natriuretic Peptide 891 pg/ml Total Protein 7.2 gm/dl Albumin 3.1 gm/dl Lipase 68 U/L Procalcitonin 1.01 ng/ml Bedside Troponin I < 0.030 ng/ml Bedside Glucose 215 mg/dl Test 05/25/17 19:31 05/26/17 02:10 05/26/17 07:06 05/26/17 07:48 Bedside Glucose 184 mg/dl 204 mg/dl 204 mg/dl White Blood Count 32.26 K/uL Red Blood Count 2.53 M/uL Hemoglobin 8.1 g/dL Hematocrit 24.2 % Mean Corpuscular Volume 95.7 fL Mean Corpuscular Hemoglobin 32.0 pg Mean Corpuscular Hemoglobin Concent 33.5 g/dl Platelet Count 28 K/uL Mean Platelet Volume 10.9 fL RDW Standard Deviation 70.5 fL RDW Coefficient of Variation 21.0 % Nucleated RBC Absolute Count (auto) 0.03 K/uL Neutrophils % (Manual) 91.3 % Lymphocytes % (Manual) 6.1 % Monocytes % (Manual) 1.7 % Metamyelocytes % 0.9 % Nucleated Red Blood Cells % 0.1 % Neutrophils # (Manual) 29.45 K/uL Total Absolute Neutrophils 29.45 K/uL Lymphocytes # (Manual) 1.97 K/uL Total Absolute Lymphocytes 1.97 K/uL Monocytes # (Manual) 0.55 K/uL Metamyelocytes # 0.29 K/uL Hyposegmented Neutrophils 1+ Hypogranular Neutrophils 3+ Dohle Bodies 1+ Platelet Estimate SIGNIFIC DECREASED Sodium Level 134 mmol/L Potassium Level 4.1 mmol/L Chloride Level 101 mmol/L Carbon Dioxide Level 23 mmol/L Anion Gap 10.0 mmol/L Blood Urea Nitrogen 30 mg/dl Creatinine 1.59 mg/dl Est Creatinine Clear Calc Drug Dose 37.6 ml/min Estimated GFR () 47.8 Estimated GFR (Non- 41.3 BUN/Creatinine Ratio 19.1 Random Glucose 167 mg/dl Calcium Level 8.3 mg/dl Test 05/26/17 11:20 05/26/17 11:35 Bedside Glucose 277 mg/dl CT chest as described below 1. Interval development of mild mediastinal lymphadenopathy possibly reactive 2. Interval development of multiple bilateral interstitial and nodular opacities. The rapid development of this process favors an infectious/inflammatory etiology. Clinical and radiographic follow-up is recommended 3. Small bilateral pleural effusions 4. Suspected splenomegaly ct head no acute intracranial findings CXR Interval development of bilateral reticulonodular airspace opacities. Likely diagnostic considerations include atypical pulmonary edema, or a bilateral infectious/inflammatory process. Clinical and radiographic follow-up is recommended. Assessment & Plan 76 year old male with chronic leukocytosis and anemia and thrombocytopenia and splenomegaly in setting of myeloproliferative disorder admitted with fatigue and cough and generalized weakness and had hemoptysis earlier in the week at his home with profound coughing and he is not coughing this afternoon Anemia improved after 1 unit of PRBC transfusion Monitor CBC daily continue with supportive transfusions as needed. Transfuse a second unit if hemoglobin <8 and symptomatic Monitor for any bleeding symptoms No bleeding symptoms at this time. Transfuse platelets if bleeding or if platelet count <20 Avoid any aspirin or NSAIDs , also fish oil was discontinued antibiotics as per primary team and pulmonary. He is not having hemoptysis at this time and he feels cough symptoms have improved since he has been admitted Follow up with Dr Ferguson his primary horse racing analyst. Hydrea was discontinued earlier this year due to his worsening cytopenias. Thank you for consult
[2017-05-26] MEDS ORDERED: INSULIN GLARGINE SOLOSTAR 100 UNITS/ML 3 ML PEN SC SCH (20:00)
[2017-05-26] MEDS ORDERED: METHYLPREDNISOLONE IV 40 MG in SYRINGE 0 ML IV SCH (21:00)
[2017-05-27] VITALS (9 sets, daily range): BP systolic 123–160; BP diastolic 62–75; PULSE 67–78; TEMP 36.3–36.9; O2SAT 93–96
[2017-05-27] MEDS ORDERED: INSULIN ASPART 100 UNITS/ML 3 ML PEN SC SCH ×2 (02:00→02:15)
[2017-05-27] MEDS: CEFEPIME IV 2,000 MG in SYRINGE 7.5 ML IV SCH ×2 (03:31→15:55)
[2017-05-27 06:17] LABS: ALBUMIN 2.6 gm/dl (3.4-5.0); CALCIUM 7.8 mg/dl (8.5-10.1); CREATININE 2.15 mg/dl (0.60-1.40); POTASSIUM 4.9 mmol/L (3.5-5.1); TOTAL PROTEIN 6.3 gm/dl (6.4-8.2)
[2017-05-27 06:26] LABS: MEAN CORPUSCULAR HGB CONC 33.9 g/dl (32-36); MEAN PLATELET VOLUME 10.7 fL (7.4-10.4); NUCLEATED RED BLOOD CELL ABS 0.03 K/uL (0-0); PLATELET COUNT 26 K/uL (130-400)
[2017-05-27 06:46] LABS: HEMATOCRIT 22.7 % (42-52); HEMOGLOBIN 7.7 g/dL (14.0-18.0); MEAN CORPUSCULAR HEMOGLOBIN 32.2 pg (25-34); RED CELL DISTRIBUTION WIDTH CV 20.8 % (11.5-14.5); RED CELL DISTRIBUTION WIDTH SD 68.6 fL (36.4-46.3); WHITE BLOOD COUNT 50.97 K/uL (4.8-10.8)
[2017-05-27] MEDS: GABAPENTIN 300 MG CAP PO SCH ×2 (08:15→14:19)
[2017-05-27] MEDS: ALFUZosin TAB 10 MG TAB PO SCH (08:15)
[2017-05-27] MEDS: DULOXETINE (CYMBALTA) 30 MG CAP PO SCH (08:15)
[2017-05-27] MEDS: BACLOFEN 10 MG TAB PO SCH ×3 (08:15→19:53)
[2017-05-27] MEDS: ALLOPURINOL 300 MG TAB PO SCH (08:16)
[2017-05-27] MEDS: MULTIVITAMIN TAB PO SCH (08:16)
[2017-05-27] MEDS: ASCORBIC ACID 500 MG TAB PO SCH (08:16)
[2017-05-27] MEDS: LISINOPRIL 20 MG TAB PO SCH (08:16)
[2017-05-27] MEDS: FINASTERIDE 5 MG TAB PO SCH (08:17)
[2017-05-27] MEDS: PANTOprazole SOD 40 MG TAB PO SCH (08:17)
[2017-05-27] MEDS: CARVEDILOL 12.5 MG TAB PO SCH ×2 (08:17→19:52)
[2017-05-27] MEDS: ACETAMINOPHEN 325 MG TAB PO PRN (08:20)
[2017-05-27] MEDS ORDERED: FUROSEMIDE INJ 40 MG in SYRINGE 0 ML IV SCH (08:30)
[2017-05-27] MEDS: INSULIN ASPART 100 UNITS/ML 3 ML PEN SC SCH ×4 (08:47→20:44)
[2017-05-27] MEDS: INSULIN GLARGINE SOLOSTAR 100 UNITS/ML 3 ML PEN SC SCH ×2 (08:48→19:59)
--- NOTE | 2017-05-27 11:45 | DIAGNOSTIC IMAGING REPORT ---
CHEST 2 VIEWS ROUTINE CLINICAL HISTORY: Shortness of breath. COMPARISON STUDY: 05/25/2017 FINDINGS: The cardiac and mediastinal contours remain stable. There are bilateral reticulonodular interstitial opacities. The findings remain similar to the prior study. There are small bilateral pleural effusions. There is no failure. [ IMPRESSION: 1. Stable bilateral interstitial and nodular opacities 2. Small bilateral pleural effusions Electronically signed by: Krishna Atwood M.D. 05/27/2017 11:44 AM Dictated Date/Time: 05/27/2017 11:42 AM
[2017-05-27 12:46] LABS: HEMATOCRIT 27.5 % (42-52); HEMOGLOBIN 9.4 g/dL (14.0-18.0); MEAN CELL VOLUME 92.9 fL (80-100); MEAN CORPUSCULAR HEMOGLOBIN 31.8 pg (25-34); MEAN CORPUSCULAR HGB CONC 34.2 g/dl (32-36); MEAN PLATELET VOLUME 10.4 fL (7.4-10.4); PLATELET COUNT 27 K/uL (130-400); RED CELL DISTRIBUTION WIDTH CV 20.4 % (11.5-14.5); RED CELL DISTRIBUTION WIDTH SD 66.8 fL (36.4-46.3)
--- NOTE | 2017-05-27 14:11 | Pharmacy Progress Note ---
Pharmacy Glycemic Short Note 2 Date of Service May 27, 2017. OUTPATIENT ANTIDIABETIC REGIMEN: * Novolin 70/30 - 40 units twice daily ASSESSMENT: * Mr Yang is a 76 y/o M with a PMH of MPD with multiple transfusions, HTN, BPH, and type 2 diabetes with unknown control (has had multiple transfusions so that can affect HbA1C) who presents with worsening shortness of breath secondary to anemia or developing pneumonia. * The patient's blood sugars yesterday were [phone]... Overnight he was 147 mg/dL. The patient received one dose of Solu-Medrol 40 mg IV at 2100. Today's fasting was 280 mg/dL. Lunch was 308 mg/dlL. (The patient refused 8 units with breakfast so lunch was artificially high.) Patient received 104 units yesterday with 50 units of basal. * Yesterday, for Lantus, provided a scale for a high dose of Lantus 30 units. Since steroids were already discontinued, will remove Lantus 30 units and just give 20 units twice daily. When patient was on half of his Novolin 70/30 dose at home and was admitted, he required at least 15 units of Lantus twice daily so therefore 20 units twice daily should be sufficient for now. Should trend downwards later. * For Novolog, loosened significant for breakfast and then loosened for lunch to what corresponds to a total daily dose of 80 units. This is also weight- based stress of 3 so should be sufficient for now. PLAN FOR INPATIENT GLYCEMIC CONTROL: * Basal insulin * Lantus 20 units SQ BID * Bolus insulin * NovoLog per scale ACHS or Q6hrs while NPO * Goal Range: Low 110 mg/dL - High 140 mg/dL * Correction Factor: 20 mg/dL/unit * Nutritional / Prandial insulin per carb ratio of 1 unit per 7 grams CHO consumed PLAN FOR DISCHARGE: * Patient's HbA1C will be altered since he has received transfusions. Monitor home blood sugar control through logs to determine how to change insulin doses.
--- NOTE | 2017-05-27 15:01 | ECHOCARDIOGRAM REPORT ---
*NOTICE TO RECEIVING CONSTITUTION PARTY AGENCY This information is strictly Confidential and protected under [place] law. [place] law prohibits you from making any further disclosure of this information unless further disclosure is expressly permitted by the written consent of the person to whom it pertains or is authorized by law. A general authorization for the release of medical or other information is not sufficient for this purpose. Hospital accepts no responsibility if the information is made available to any other person, INCLUDING THE PATIENT. Interpretation Summary * Name: JUDAH YOUSIF Study Date: 05/27/2017 10:39 AM BP: 123/62 mmHg * Patient Location: C.4E\S\E406\S\1 HR: 74 * : 1940 (M/d/yyyy) Gender: Male Height: 67 in * Age: 76 yrs Ethnicity: CA Weight: 176 lb * Ordering Physician: Ramon Freeman * Referring Physician: Self, Referred * Performed By: Zita Pérez RDCS * * Reason For Study: Dyspnea with exertion * BSA: 1.9 m2 * -- Conclusions -- * The left ventricle is normal in size. * There is mild concentric left ventricular hypertrophy. * Ejection Fraction = 60-65%. * Left ventricular systolic function is normal. * The right ventricular systolic function is normal. * The left atrial size is normal. * Right atrial size is normal. * Diastolic dysfunction, Grade II (pseudonormalization pattern). * No significant valvular pathology. Procedure Details * A complete two-dimensional transthoracic echocardiogram was performed (2D, M-mode, Doppler and color flow Doppler). Left Ventricle * The left ventricle is normal in size. * There is mild concentric left ventricular hypertrophy. * Ejection Fraction = 60-65%. * Left ventricular systolic function is normal. Right Ventricle * The right ventricle is normal in size and function. * There is normal right ventricular wall thickness. * The right ventricular systolic function is normal. Atria * The left atrial size is normal. * Right atrial size is normal. * The interatrial septum is intact with no evidence for an atrial septal defect. Mitral Valve * The mitral valve is normal in structure and function. * There is no mitral valve stenosis. * There is no mitral regurgitation noted. Tricuspid Valve * The tricuspid valve is normal in structure and function. * There is trace tricuspid regurgitation. Aortic Valve * The aortic valve is normal in structure and function. * No aortic regurgitation is present. Pulmonic Valve * The pulmonic valve is normal in structure and function. * There is no pulmonic valvular regurgitation. Great Vessels * The aortic root is normal size. * No obvious dissection could be visualized. * The pulmonary artery is normal size. Pericardium/Pleural * There is no pericardial effusion. Left Ventricular Diastolic Function * Diastolic dysfunction, Grade II (pseudonormalization pattern). MMode 2D Measurements and Calculations IVSd 1.0 cm IVSs 1.4 cm LVIDd 4.5 cm LVIDs 2.6 cm LVPWd 1.6 cm LVPWs 2.2 cm IVS/LVPW 0.61 FS 42.0 % EDV(Teich) 92.8 ml ESV(Teich) 25.0 ml EF(Teich) 73.1 % EDV(cubed) 91.6 ml ESV(cubed) 17.9 ml EF(cubed) 80.5 % % IVS thick 39.2 % % LVPW thick 33.6 % LV mass(C)d 228.9 grams LV mass(C)dI 119.5 grams/m\S\2 LV mass(C)s 184.4 grams LV mass(C)sI 96.3 grams/m\S\2 SV(Teich) 67.9 ml SI(Teich) 35.4 ml/m\S\2 SV(cubed) 73.7 ml SI(cubed) 38.5 ml/m\S\2 Ao root diam 3.1 cm Ao root area 7.5 cm\S\2 ACS 1.8 cm LA dimension 4.2 cm LA/Ao 1.4 LVAd ap4 30.9 cm\S\2 LVLd ap4 8.0 cm EDV(MOD-sp4) 101.5 ml EDV(sp4-el) 101.1 ml LVAs ap4 18.0 cm\S\2 LVLs ap4 6.5 cm ESV(MOD-sp4) 43.9 ml ESV(sp4-el) 42.0 ml EF(MOD-sp4) 56.7 % EF(sp4-el) 58.5 % LVAd ap2 31.2 cm\S\2 LVLd ap2 9.0 cm EDV(MOD-sp2) 93.2 ml EDV(sp2-el) 91.4 ml LVAs ap2 15.8 cm\S\2 LVLs ap2 6.8 cm ESV(MOD-sp2) 32.2 ml ESV(sp2-el) 30.9 ml EF(MOD-sp2) 65.5 % EF(sp2-el) 66.2 % LVLd %diff 11.6 % EDV(MOD-bp) 103.4 ml LVLs %diff 4.7 % ESV(MOD-bp) 38.3 ml EF(MOD-bp) 63.0 % SV(MOD-sp4) 57.5 ml SI(MOD-sp4) 30.0 ml/m\S\2 SV(MOD-sp2) 61.0 ml SI(MOD-sp2) 31.9 ml/m\S\2 SV(MOD-bp) 65.1 ml SI(MOD-bp) 34.0 ml/m\S\2 SV(sp4-el) 59.1 ml SI(sp4-el) 30.9 ml/m\S\2 SV(sp2-el) 60.6 ml SI(sp2-el) 31.6 ml/m\S\2 Doppler Measurements and Calculations MV E max martine 100.3 cm/sec MV A max martine 106.8 cm/sec MV E/A 0.94 MV dec time 0.21 sec Ao V2 max 147.5 cm/sec Ao max PG 8.7 mmHg Ao max PG (full) 3.6 mmHg LV V1 max PG 5.1 mmHg LV V1 max 113.5 cm/sec PA V2 max 130.3 cm/sec PA max PG 6.8 mmHg TR max martine 284.1 cm/sec
[2017-05-27] MEDS ORDERED: INSULIN ASPART 100 UNITS/ML 3 ML PEN SC ONE (16:00)
--- NOTE | 2017-05-27 16:10 | Pulmonology Progress Note ---
Pulmonary Progress Note Date of Service May 27, 2017. Attending Dr. Shrestha Subjective The patient today has been feeling better, he is not sure if it was a steroids or something else but I am sure it was the steroids effect. He is less short of breath, unfortunately, the steroids were stopped and probably because of the leukocytosis. The leukocytosis is likely related to his myeloproliferative disease not to a single dose of Solu-Medrol given yesterday. Objective Physical exam today revealed elderly gentleman, not in any apparent distress at the moment, minimal crackles scattered, S1-S2, no petechial hemorrhage, abdomen is benign no edema. Assessment & Plan 1. Bilateral groundglass opacity with multiple pulmonary nodules in a patient who had myeloproliferative disease, most likely representing disease progression. Other entities such as infectious process with latent infection cannot be excluded. This is not community-acquired pneumonia. The patient has similar features on a CAT scan in August 2016. Ideally, open lung biopsy would be a better option, his platelet counts preclude such a procedure. Same applied to bronchoscopy. 2. History of diabetes. 3. Myeloproliferative disease, currently off treatment with Hydrea which she has been treated until recently. 4. Awaiting the results of serology for Aspergillus and gold test. 5. Highly recommended to continue with the steroids regardless what the white count is. I am concerned of worsening of myeloproliferative disease, oncology input in that regard is extremely helpful. Data Medications: Current Inpatient Medications Medications (Trade) Dose Ordered Sig/Karla Route Start Time Stop Time Status Last Admin Dose Admin Acetaminophen (Tylenol Tab) 650 mg Q4H PRN PO 05/25/17 18:00 06/24/17 17:59 05/27/17 08:20 650 MG Al Hydrox/Mg Hydrox/Simethicone (Maalox Max Susp) 15 ml Q4H PRN PO 05/25/17 18:00 06/24/17 17:59 Polyethylene (Miralax Powder Packet) 17 gm DAILY PRN PO 05/25/17 18:00 06/24/17 17:59 Ondansetron HCl (Zofran Inj) 4 mg Q6H PRN IV 05/25/17 18:00 06/24/17 17:59 Glucose (Glucose 40% Gel) 15-30 GRAMS 15 GRAMS... UD PRN PO 05/25/17 18:00 5/6/18 17:59 Glucose (Glucose Chew Tab) 4-8 Tablets 4 Tabl... UD PRN PO 05/25/17 18:00 06/24/17 17:59 Dextrose (Dextrose 50% 50ML Syringe) 25-50ML OF 50% DW IV FOR... UD PRN IV 05/25/17 18:00 06/24/17 17:59 Glucagon (Glucagon Inj) 1 mg UD PRN SQ 05/25/17 18:00 06/24/17 17:59 Miscellaneous Information (Consult Glycemic Management Pharmacy) 1 ea UD N/A 05/25/17 18:07 06/24/17 18:06 Cefepime HCl 2000 mg/Syringe 20 ml @ 5 mls/min Q12H IV 05/26/17 04:00 06/02/17 03:59 05/27/17 15:55 5 MLS/MIN Tramadol HCl (Ultram Tab) 50 mg Q8 PRN PO 05/25/17 18:00 06/24/17 17:59 Albuterol (Ventolin Hfa Inhaler) 2 puffs Q6H PRN INH 05/25/17 19:00 06/24/17 18:59 Alfuzosin HCl (Uroxatral Tab) 10 mg DAILY PO 05/26/17 08:00 06/25/17 07:59 05/27/17 08:15 10 MG Allopurinol (Zyloprim Tab) 300 mg DAILY PO 05/26/17 08:00 06/25/17 07:59 05/27/17 08:16 300 MG Ascorbic Acid (Vitamin C Tab) 500 mg DAILY PO 05/26/17 08:00 06/25/17 07:59 05/27/17 08:16 500 MG Baclofen (Lioresal Tab) 10 mg TID PO 05/25/17 20:00 06/24/17 19:59 05/27/17 14:19 10 MG Carvedilol (Coreg Tab) 12.5 mg BID PO 05/25/17 20:00 06/24/17 19:59 05/27/17 08:17 12.5 MG Duloxetine HCl (Cymbalta Cap) 30 mg QAM PO 05/26/17 08:00 06/25/17 07:59 05/27/17 08:15 30 MG Finasteride (Proscar Tab) 5 mg DAILY PO 05/26/17 08:00 06/25/17 07:59 05/27/17 08:17 5 MG Gabapentin (Neurontin Cap) 300 mg BID@0800,1300 PO 05/26/17 08:00 06/25/17 07:59 05/27/17 14:19 300 MG Lisinopril (Zestril Tab) 20 mg DAILY PO 05/26/17 08:00 06/25/17 07:59 05/27/17 08:16 20 MG Multivitamins (Multivitamin Tab) 1 tab DAILY PO 05/26/17 08:00 06/25/17 07:59 05/27/17 08:16 1 TAB Pantoprazole Sodium (Protonix Tab) 40 mg DAILY PO 05/26/17 08:00 06/25/17 07:59 05/27/17 08:17 40 MG Cefepime HCl (Consult) 1 ea UD PRN N/A 05/25/17 19:30 06/24/17 19:29 Ioversol (Optiray 320) 100 ml UD PRN IV 05/25/17 19:45 05/29/17 19:44 Clonidine HCl (Catapres Tab) 0.1 mg Q6 PRN PO 05/25/17 23:15 06/24/17 23:14 05/26/17 08:29 0.1 MG Menthol (Nice Marquez) 1 marquez PRN PRN MARQUEZ 05/26/17 02:30 06/25/17 02:29 Insulin Aspart (novoLOG ASPART) SLIDING SCALE If C... ACHS SC 05/26/17 21:00 06/25/17 20:59 05/27/17 12:43 17 UNITS Furosemide 40 mg/ Syringe 4 ml @ 4 mls/min TODAY@0830 IV 05/27/17 08:30 05/27/17 18:00 05/27/17 10:57 4 MLS/MIN Insulin Glargine (Lantus Solostar Pen) 20 units BID SC 05/27/17 08:00 06/26/17 07:59 05/27/17 08:48 20 UNITS I & O: 24-Hour Column 05/28/17 07:59 Intake Total 1035 ml Output Total 900 ml Balance 135 ml Vital Signs: Date Time Temp Pulse Resp B/P (MAP) Pulse Ox O2 Delivery O2 Flow Rate FiO2 05/27/17 14:52 36.3 68 18 123/69 (87) 93 Room Air 05/27/17 10:30 36.4 67 20 129/72 05/27/17 10:28 70 96 05/27/17 10:00 36.3 78 20 124/66 05/27/17 09:15 36.4 74 18 123/62 95 05/27/17 09:00 36.6 77 20 160/75 94 05/27/17 08:30 Room Air 05/27/17 07:11 36.4 67 19 150/75 (100) 93 Room Air 05/27/17 04:34 36.3 67 18 131/71 (91) 95 Room Air 05/27/17 00:00 Room Air 05/26/17 22:44 36.5 71 19 152/72 (98) 95 Room Air 05/26/17 19:25 36.3 69 21 128/69 (88) 92 Room Air Laboratory Results: Last 24 Hours Test 05/26/17 16:27 05/26/17 16:49 05/26/17 17:58 05/26/17 20:21 Bedside Glucose 63 mg/dl 77 mg/dl 134 mg/dl 162 mg/dl Test 05/27/17 02:02 05/27/17 03:59 05/27/17 05:04 05/27/17 07:49 Bedside Glucose 147 mg/dl 201 mg/dl 280 mg/dl White Blood Count 50.97 K/uL Red Blood Count 2.39 M/uL Hemoglobin 7.7 g/dL Hematocrit 22.7 % Mean Corpuscular Volume 95.0 fL Mean Corpuscular Hemoglobin 32.2 pg Mean Corpuscular Hemoglobin Concent 33.9 g/dl Platelet Count 26 K/uL Mean Platelet Volume 10.7 fL RDW Standard Deviation 68.6 fL RDW Coefficient of Variation 20.8 % Nucleated RBC Absolute Count (auto) 0.03 K/uL Neutrophils % (Manual) 94.8 % Lymphocytes % (Manual) 3.5 % Monocytes % (Manual) 1.7 % Nucleated Red Blood Cells % 0.1 % Neutrophils # (Manual) 48.32 K/uL Total Absolute Neutrophils 48.32 K/uL Lymphocytes # (Manual) 1.78 K/uL Total Absolute Lymphocytes 1.78 K/uL Monocytes # (Manual) 0.87 K/uL Hyposegmented Neutrophils 1+ Hypogranular Neutrophils 1+ Dohle Bodies 2+ Anisocytosis PRESENT Sodium Level 130 mmol/L Potassium Level 4.9 mmol/L Chloride Level 101 mmol/L Carbon Dioxide Level 21 mmol/L Anion Gap 8.0 mmol/L Blood Urea Nitrogen 47 mg/dl Creatinine 2.15 mg/dl Est Creatinine Clear Calc Drug Dose 27.8 ml/min Estimated GFR () 33.2 Estimated GFR (Non- 28.6 BUN/Creatinine Ratio 21.6 Random Glucose 237 mg/dl Calcium Level 7.8 mg/dl Total Bilirubin 0.9 mg/dl Aspartate Amino Transf (AST/SGOT) 28 U/L Alanine Aminotransferase (ALT/SGPT) 22 U/L Alkaline Phosphatase 79 U/L Total Protein 6.3 gm/dl Albumin 2.6 gm/dl Globulin 3.7 gm/dl Albumin/Globulin Ratio 0.7 Test 05/27/17 11:49 05/27/17 12:35 05/27/17 15:38 Bedside Glucose 308 mg/dl 352 mg/dl White Blood Count 61.30 K/uL Red Blood Count 2.96 M/uL Hemoglobin 9.4 g/dL Hematocrit 27.5 % Mean Corpuscular Volume 92.9 fL Mean Corpuscular Hemoglobin 31.8 pg Mean Corpuscular Hemoglobin Concent 34.2 g/dl Platelet Count 27 K/uL Mean Platelet Volume 10.4 fL RDW Standard Deviation 66.8 fL RDW Coefficient of Variation 20.4 % Neutrophils % (Manual) 94.8 % Lymphocytes % (Manual) 1.7 % Monocytes % (Manual) 1.7 % Metamyelocytes % 0.9 % Myelocytes % 0.9 % Neutrophils # (Manual) 58.11 K/uL Total Absolute Neutrophils 58.11 K/uL Lymphocytes # (Manual) 1.04 K/uL Total Absolute Lymphocytes 1.04 K/uL Monocytes # (Manual) 1.04 K/uL Metamyelocytes # 0.55 K/uL Myelocytes # 0.55 K/uL Hypogranular Neutrophils 2+ Dohle Bodies 2+ Anisocytosis PRESENT
--- NOTE | 2017-05-27 18:16 | Progress Note ---
Internal Med Progress Note Date of Service: May 27, 2017. Provider Documentation: SUBJECTIVE: Patient felt unwell overnight. Patient did receive solumedrol which was a new medication. Patient's WBC count doubled from yesterday to 61,000. IV solumedrol stopped and Dr. Jackson oncologist by telephone had recommended additional unit of PRBC today because Hgb 7.7 which was less than target of 8. Hospitalist also discussed with Dr. Jackson what would be the threshold fo plasmapheresis of the the leukocytosis and she states that the number would be 100,000 WBC OBJECTIVE: General Appearance: no acute distress Head: normocephalic, atraumatic Eyes: normal inspection, EOMI ENT: normal ENT inspection, hearing grossly normal, pharynx normal Neck: supple, trachea midline Respiratory/Chest: chest non-tender, lungs clear, normal breath sounds, no respiratory distress, no accessory muscle use Cardiovascular: regular rate, rhythm, no murmur Abdomen/GI: non tender, soft, positive bowel sounds Back: normal inspection Extremities/Musculoskelatal: normal inspection, no calf tenderness, no pedal edema Neurologic/Psych: no motor/sensory deficits, alert, normal mood/affect, oriented x 3 Skin: warm/dry, no rash ASSESSMENT & PLAN: Patient is a 76-year-old male with a past medical history of myeloproliferative disorder, thrombocytopenia, DM 2, HTN, BPH who presents with worsening shortness of breath over the past 4 days. Anemia in setting of myeloproliferative disorder -Patient also reported hemoptysis (some blood tinged sputum in the morning time as per patient) but no obvious oral bleeding inpatient -Hgb 7.6 and transfused 1 unit PRBC on admission which raised Hgb to 8.1 on -Hgb decreased to 7.7 on 05/27/[address] Jackson of oncology recommended 1 unit of PRBC which raised Hgb to 9.4 -Leukocytosis increased from 32K on 05/26/17 and labs on 05/27/17 with WBC increasing from 51K to 61K; Oncologist Dr. Jackson states by telephone that a threshold for plasmapheresis of the leukocytosis and would be when WBC is the ranges of 100K or above. -Thrombocytopenia: Platelets downtrending to 32 to 27; Oncologist notes recommended transfusion of platelet if less than 20 Dyspnea worse with exertion -Patient was started on IV Cefepime for pulmonary coverage in case of pneumonia as admission Chest X ray findings of "Interval development of bilateral reticulonodular airspace opacities. Likely diagnostic considerations include atypical pulmonary edema, or a bilateral infectious/inflammatory process" CT chest on 05/25/17 1. Interval development of mild mediastinal lymphadenopathy possibly reactive 2. Interval development of multiple bilateral interstitial and nodular opacities. The rapid development of this process favors an infectious/ inflammatory etiology. Clinical and radiographic follow-up is recommended 3. Small bilateral pleural effusions 4. Suspected splenomegaly -Pulmonary consult ordered Aspergillus antibody panel, and GOLD test with Mitogen and Nil assay and results pending -IV solumedrol was given on 05/26/17 as per pulmonary service but WBC has increased substantially since 05/27/17 and with patient reporting general malaise possibly from solumedrol, no further solumedrol given on 05/27/17 -Stable bilateral interstitial and nodular opacities, Small bilateral pleural effusions on 05/27/17 X ray -CT chest ordered Generally unremarkable echocardiogram 05/27/17 The left ventricle is normal in size. There is mild concentric left ventricular hypertrophy. Ejection Fraction = 60-65%. Left ventricular systolic function is normal. The right ventricular systolic function is normal. The left atrial size is normal. Right atrial size is normal. Diastolic dysfunction, Grade II (pseudonormalization pattern). No significant valvular pathology. Generalized weakness: -In setting of anemia, decreased activity, cancer -PT/OT consult to assist with functional status DM II: -Last a1c 8.5 in August 2016 -Glycemic consult following the patient's insulin requirements HTN: -Cont Coreg, lisinopril BPH: -Alfzosin, finasteride Chronic back pain, OA: -Cont gabapentin -Tylenol, tramadol PRN Mood disorder: -Cont SSRI GERD: -Cont PPI DVT Ppx: SCDs in setting of thrombocytopenia Code status: FULL Disposition: Appreciate pulmonary consult service evaluation that the dose of solumedrol given to the patient on 05/26/17 should not be the trigger to a steroid -induced leukocyte response that doubles the patient's WBC.However, the patient' s pulmonary status has not changed significantly between 05/26/17 and 05/27/17. The patient's elevated WBC may be more likely due to malignancy. But hospitalist would like to hold off on the solumedrol for 1 more day until further Oncology evaluation. If in fact that the patient has Allergic bronchopulmonary aspergillosis for which a treatment is High-dose IV-pulse methylprednisolone then perhaps a bronchoscopy may be needed to make definitive diagnosis however will ask pulmonary service expertise whether this is necessary. I surmise that without lab results of aspergillus studies returning as of yet it is hard to confirm that this is the case or whether antifungals should be started for a cavitary aspergillosis or aspergilloma which is not apparent on recent CT chest imaging. Will also need Oncology to further assess the patient because at this point in time, there is no clear evidence at this time that it is an infection that is driving the leukocytosis. Vital Signs: Date Time Temp Pulse Resp B/P (MAP) Pulse Ox O2 Delivery O2 Flow Rate FiO2 05/27/17 16:00 Room Air 05/27/17 14:52 36.3 68 18 123/69 (87) 93 Room Air 05/27/17 10:30 36.4 67 20 129/72 05/27/17 10:28 70 96 05/27/17 10:00 36.3 78 20 124/66 05/27/17 09:15 36.4 74 18 123/62 95 05/27/17 09:00 36.6 77 20 160/75 94 05/27/17 08:30 Room Air 05/27/17 07:11 36.4 67 19 150/75 (100) 93 Room Air 05/27/17 04:34 36.3 67 18 131/71 (91) 95 Room Air 05/27/17 00:00 Room Air 05/26/17 22:44 36.5 71 19 152/72 (98) 95 Room Air 05/26/17 19:25 36.3 69 21 128/69 (88) 92 Room Air Lab Results: Results Past 24 Hours Test 05/26/17 20:21 05/27/17 02:02 05/27/17 03:59 05/27/17 05:04 Range/Units Bedside Glucose 162 147 201 70-99 mg/dl White Blood Count 50.97 4.8-10.8 K/uL Red Blood Count 2.39 4.7-6.1 M/uL Hemoglobin 7.7 14.0-18.0 g/dL Hematocrit 22.7 42-52 % Mean Corpuscular Volume 95.0 80-100 fL Mean Corpuscular Hemoglobin 32.2 25-34 pg Mean Corpuscular Hemoglobin Concent 33.9 32-36 g/dl Platelet Count 26 130-400 K/uL Mean Platelet Volume 10.7 7.4-10.4 fL RDW Standard Deviation 68.6 36.4-46.3 fL RDW Coefficient of Variation 20.8 11.5-14.5 % Nucleated RBC Absolute Count (auto) 0.03 0-0 K/uL Neutrophils % (Manual) 94.8 % Lymphocytes % (Manual) 3.5 % Monocytes % (Manual) 1.7 % Nucleated Red Blood Cells % 0.1 % Neutrophils # (Manual) 48.32 1.4-6.5 K/uL Total Absolute Neutrophils 48.32 1.4-6.5 K/uL Lymphocytes # (Manual) 1.78 1.2-3.4 K/uL Total Absolute Lymphocytes 1.78 1.2-3.4 K/uL Monocytes # (Manual) 0.87 0.11-0.59 K/uL Hyposegmented Neutrophils 1+ Hypogranular Neutrophils 1+ Dohle Bodies 2+ Anisocytosis PRESENT Sodium Level 130 136-145 mmol/L Potassium Level 4.9 3.5-5.1 mmol/L Chloride Level 101 98-107 mmol/L Carbon Dioxide Level 21 21-32 mmol/L Anion Gap 8.0 3-11 mmol/L Blood Urea Nitrogen 47 7-18 mg/dl Creatinine 2.15 0.60-1.40 mg/dl Est Creatinine Clear Calc Drug Dose 27.8 ml/min Estimated GFR () 33.2 Estimated GFR (Non- 28.6 BUN/Creatinine Ratio 21.6 10-20 Random Glucose 237 70-99 mg/dl Calcium Level 7.8 8.5-10.1 mg/dl Total Bilirubin 0.9 0.2-1 mg/dl Aspartate Amino Transf (AST/SGOT) 28 15-37 U/L Alanine Aminotransferase (ALT/SGPT) 22 12-78 U/L Alkaline Phosphatase 79 45-117 U/L Total Protein 6.3 6.4-8.2 gm/dl Albumin 2.6 3.4-5.0 gm/dl Globulin 3.7 2.5-4.0 gm/dl Albumin/Globulin Ratio 0.7 0.9-2 Test 4/818 07:49 05/27/17 11:49 05/27/17 12:35 05/27/17 15:38 Range/Units Bedside Glucose 280 308 352 70-99 mg/dl White Blood Count 61.30 4.8-10.8 K/uL Red Blood Count 2.96 4.7-6.1 M/uL Hemoglobin 9.4 14.0-18.0 g/dL Hematocrit 27.5 42-52 % Mean Corpuscular Volume 92.9 80-100 fL Mean Corpuscular Hemoglobin 31.8 25-34 pg Mean Corpuscular Hemoglobin Concent 34.2 32-36 g/dl Platelet Count 27 130-400 K/uL Mean Platelet Volume 10.4 7.4-10.4 fL RDW Standard Deviation 66.8 36.4-46.3 fL RDW Coefficient of Variation 20.4 11.5-14.5 % Neutrophils % (Manual) 94.8 % Lymphocytes % (Manual) 1.7 % Monocytes % (Manual) 1.7 % Metamyelocytes % 0.9 % Myelocytes % 0.9 % Neutrophils # (Manual) 58.11 1.4-6.5 K/uL Total Absolute Neutrophils 58.11 1.4-6.5 K/uL Lymphocytes # (Manual) 1.04 1.2-3.4 K/uL Total Absolute Lymphocytes 1.04 1.2-3.4 K/uL Monocytes # (Manual) 1.04 0.11-0.59 K/uL Metamyelocytes # 0.55 0-0 K/uL Myelocytes # 0.55 0-0 K/uL Hypogranular Neutrophils 2+ Dohle Bodies 2+ Anisocytosis PRESENT Test 05/27/17 16:44 Range/Units Bedside Glucose 300 70-99 mg/dl
[2017-05-28] VITALS (7 sets, daily range): BP systolic 122–169; BP diastolic 75–80; PULSE 69–80; TEMP 36.4–36.9; O2SAT 94–99
[2017-05-28] MEDS: CEFEPIME IV 2,000 MG in SYRINGE 7.5 ML IV SCH ×2 (04:16→16:35)
--- NOTE | 2017-05-28 08:04 | Clinical Documentation Query ---
CLINICAL DOCUMENTATION QUERY 76 yo male admitted with myeloproliferative disorder and thrombocytopenia. Creatinine level 1.60 on admission, now 2.15. GFR 40.9 trending down to 28.6. In your clinical opinion is this patient being managed for: ( x ) Acute kidney failure ( ) Not Agree ( ) Other explanation of clinical findings (Please Explain) ( ) Unable to determine (Please Define) ( ) Need to Discuss The medical record reflects the following clinical findings, treatment, and risk factors. Clinical Indicators: As above Treatment: Serial PRPs Risk Factors: Transfusion, Lasix IV Please clarify and document your clinical opinion in the progress notes and discharge summary. Terms such as "probable", "suspected", "likely", "questionable", "possible", or "still to be ruled out" are acceptable. IF IN AGREEMENT, YOU MUST DOCUMENT ABOVE DIAGNOSTIC STATEMENT IN DAILY PROGRESS NOTES AND DISCHARGE SUMMARY. This document is not part of the patient's record. Thank You, Elvia Mario RN [phone]
[2017-05-28] MEDS: CARVEDILOL 12.5 MG TAB PO SCH ×2 (08:06→22:04)
[2017-05-28] MEDS: DULOXETINE (CYMBALTA) 30 MG CAP PO SCH (08:07)
[2017-05-28] MEDS: MULTIVITAMIN TAB PO SCH (08:08)
[2017-05-28] MEDS: GABAPENTIN 300 MG CAP PO SCH ×2 (08:08→12:53)
[2017-05-28] MEDS: BACLOFEN 10 MG TAB PO SCH ×3 (08:08→22:04)
[2017-05-28] MEDS: FINASTERIDE 5 MG TAB PO SCH (08:09)
[2017-05-28] MEDS: PANTOprazole SOD 40 MG TAB PO SCH (08:10)
[2017-05-28] MEDS: ALFUZosin TAB 10 MG TAB PO SCH (08:10)
[2017-05-28 08:11] LABS: HEMATOCRIT 28.1 % (42-52); HEMOGLOBIN 9.6 g/dL (14.0-18.0); MEAN CELL VOLUME 92.7 fL (80-100); MEAN CORPUSCULAR HEMOGLOBIN 31.7 pg (25-34); MEAN CORPUSCULAR HGB CONC 34.2 g/dl (32-36); MEAN PLATELET VOLUME 10.5 fL (7.4-10.4); NUCLEATED RED BLOOD CELL ABS 0.03 K/uL (0-0); PLATELET COUNT 30 K/uL (130-400); RED CELL DISTRIBUTION WIDTH CV 21.1 % (11.5-14.5); RED CELL DISTRIBUTION WIDTH SD 67.5 fL (36.4-46.3)
[2017-05-28] MEDS: ASCORBIC ACID 500 MG TAB PO SCH (08:11)
[2017-05-28] MEDS: LISINOPRIL 20 MG TAB PO SCH (08:12)
[2017-05-28] MEDS: ALLOPURINOL 300 MG TAB PO SCH (08:12)
[2017-05-28 08:22] LABS: ALBUMIN 2.8 gm/dl (3.4-5.0); CALCIUM 8.4 mg/dl (8.5-10.1); CREATININE 1.99 mg/dl (0.60-1.40); POTASSIUM 4.4 mmol/L (3.5-5.1); TOTAL PROTEIN 6.8 gm/dl (6.4-8.2)
[2017-05-28 08:23] LABS: BASO % 0.1 %; BASO ABS # 0.03 K/uL (0-0.2); EOS % 0.1 %; EOS ABS # 0.04 K/uL (0-0.5); IG# 1.92 K/uL (0.00-0.02); MONO % 4.3 %; MONO ABS # 1.54 K/uL (0.11-0.59); NEUT % 85.1 %; NEUT ABS # 30.47 K/uL (1.4-6.5)
[2017-05-28] MEDS: INSULIN GLARGINE SOLOSTAR 100 UNITS/ML 3 ML PEN SC SCH ×2 (08:39→22:07)
[2017-05-28] MEDS: INSULIN ASPART 100 UNITS/ML 3 ML PEN SC SCH ×4 (08:39→22:08)
[2017-05-28] MEDS: SODIUM CHLORIDE 0.9% 1000ML 1,000 ML IV SCH ×2 (09:06→17:57)
[2017-05-28] MEDS: ACETAMINOPHEN 325 MG TAB PO PRN (09:23)
--- NOTE | 2017-05-28 13:15 | Hematology/Oncology Prog Note ---
Hematology/Onc Progress Note Date of Service May 28, 2017. Subjective Patient was rounded on at bedside. He states his cough has improved, no further hemoptysis. He denies dyspnea. He has not had hematuria, hematochezia, melena, epistaxis. He has been afebrile. He has a good appetite. He had many questions regarding his blood counts and treatment for his MDS- see A/P for discussion. Review of Systems: Constitutional: No fever Respiratory: + cough, No shortness of breath Abdomen: No GI bleeding Male : No hematuria Vital Signs Vital Signs Past 12 Hours Date Time Temp Pulse Resp B/P (MAP) Pulse Ox O2 Delivery O2 Flow Rate FiO2 05/28/17 11:48 36.4 71 19 122/80 (94) 94 Room Air 05/28/17 09:00 95 Room Air 05/28/17 07:47 95 Room Air 05/28/17 07:30 36.6 69 18 164/80 (108) 95 Room Air Physical Exam Constitutional: General Apperance: well-nourished, well-developed Level of Distress: NAD ENMT: hearing grossly normal Lungs: Respiratory Effort: no dyspnea Auscuitation: breath sounds normal Cardiovascular: Heart Auscultation: RRR Laboratory 05/25/17 15:38 Red Blood Count 2.27, Mean Corpuscular Volume 99.6, Mean Corpuscular Hemoglobin 33.5, Mean Corpuscular Hemoglobin Concent 33.6, Mean Platelet Volume 10.6, Neutrophils (%) (Auto) 89.4, Lymphocytes (%) (Auto) 5.4, Monocytes (%) (Auto) 3.4, Eosinophils (%) (Auto) 0.2, Basophils (%) (Auto) 0.1, Neutrophils # (Auto) 33.55, Lymphocytes # (Auto) 2.01, Monocytes # (Auto) 1.29, Eosinophils # (Auto) 0.08, Basophils # (Auto) 0.04 05/26/17 07:06 Red Blood Count 2.53, Mean Corpuscular Volume 95.7, Mean Corpuscular Hemoglobin 32.0, Mean Corpuscular Hemoglobin Concent 33.5, Mean Platelet Volume 10.9 05/27/17 05:04 Red Blood Count 2.39, Mean Corpuscular Volume 95.0, Mean Corpuscular Hemoglobin 32.2, Mean Corpuscular Hemoglobin Concent 33.9, Mean Platelet Volume 10.7 05/27/17 12:35 Red Blood Count 2.96, Mean Corpuscular Volume 92.9, Mean Corpuscular Hemoglobin 31.8, Mean Corpuscular Hemoglobin Concent 34.2, Mean Platelet Volume 10.4 05/28/17 07:49 Red Blood Count 3.03, Mean Corpuscular Volume 92.7, Mean Corpuscular Hemoglobin 31.7, Mean Corpuscular Hemoglobin Concent 34.2, Mean Platelet Volume 10.5, Neutrophils (%) (Auto) 85.1, Lymphocytes (%) (Auto) 5.0, Monocytes (%) (Auto) 4.3, Eosinophils (%) (Auto) 0.1, Basophils (%) (Auto) 0.1, Neutrophils # (Auto) 30.47, Lymphocytes # (Auto) 1.80, Monocytes # (Auto) 1.54, Eosinophils # (Auto) 0.04, Basophils # (Auto) 0.03 05/25/17 15:38 05/26/17 07:06 05/27/17 05:04 05/28/17 07:49 Test 05/25/17 15:19 05/25/17 15:38 05/25/17 15:43 05/25/17 16:04 Creatine Kinase MB Ratio (0-3.0) 2.6 (0-3.0) White Blood Count 37.54 K/uL (4.8-10.8) Red Blood Count 2.27 M/uL (4.7-6.1) Hemoglobin 7.6 g/dL (14.0-18.0) Hematocrit 22.6 % (42-52) Mean Corpuscular Volume 99.6 fL (80-100) Mean Corpuscular Hemoglobin 33.5 pg (25-34) Mean Corpuscular Hemoglobin Concent 33.6 g/dl (32-36) Platelet Count 32 K/uL (130-400) Mean Platelet Volume 10.6 fL (7.4-10.4) Neutrophils (%) (Auto) 89.4 % Lymphocytes (%) (Auto) 5.4 % Monocytes (%) (Auto) 3.4 % Eosinophils (%) (Auto) 0.2 % Basophils (%) (Auto) 0.1 % Neutrophils # (Auto) 33.55 K/uL (1.4-6.5) Lymphocytes # (Auto) 2.01 K/uL (1.2-3.4) Monocytes # (Auto) 1.29 K/uL (0.11-0.59) Eosinophils # (Auto) 0.08 K/uL (0-0.5) Basophils # (Auto) 0.04 K/uL (0-0.2) RDW Standard Deviation 75.5 fL (36.4-46.3) RDW Coefficient of Variation 21.3 % (11.5-14.5) Immature Granulocyte % (Auto) 1.5 % Immature Granulocyte # (Auto) 0.57 K/uL (0.00-0.02) Hypogranular Neutrophils 1+ Blood Smear Review Dohle Bodies 1+ Anisocytosis PRESENT Anion Gap 9.0 mmol/L (3-11) Est Creatinine Clear Calc Drug Dose 37.4 ml/min Estimated GFR () 47.5 Estimated GFR (Non- 40.9 BUN/Creatinine Ratio 19.6 (10-20) Calcium Level 8.3 mg/dl (8.5-10.1) Total Bilirubin 0.7 mg/dl (0.2-1) Direct Bilirubin 0.2 mg/dl (0-0.2) Aspartate Amino Transf (AST/SGOT) 28 U/L (15-37) Alanine Aminotransferase (ALT/SGPT) 26 U/L (12-78) Alkaline Phosphatase 97 U/L (45-117) Total Creatine Kinase 273 U/L (39-308) Creatine Kinase MB 7.0 ng/ml (0.5-3.6) Pro-B-Type Natriuretic Peptide 891 pg/ml (0-1800) Total Protein 7.2 gm/dl (6.4-8.2) Albumin 3.1 gm/dl (3.4-5.0) Lipase 68 U/L (73-393) Procalcitonin 1.01 ng/ml (0-0.5) Bedside Troponin I < 0.030 ng/ml (0-0.045) Bedside Glucose 215 mg/dl (70-99) Test 05/25/17 19:31 05/26/17 02:10 05/26/17 07:06 05/26/17 07:48 Bedside Glucose 184 mg/dl (70-99) 204 mg/dl (70-99) 204 mg/dl (70-99) White Blood Count 32.26 K/uL (4.8-10.8) Red Blood Count 2.53 M/uL (4.7-6.1) Hemoglobin 8.1 g/dL (14.0-18.0) Hematocrit 24.2 % (42-52) Mean Corpuscular Volume 95.7 fL (80-100) Mean Corpuscular Hemoglobin 32.0 pg (25-34) Mean Corpuscular Hemoglobin Concent 33.5 g/dl (32-36) Platelet Count 28 K/uL (130-400) Mean Platelet Volume 10.9 fL (7.4-10.4) RDW Standard Deviation 70.5 fL (36.4-46.3) RDW Coefficient of Variation 21.0 % (11.5-14.5) Nucleated RBC Absolute Count (auto) 0.03 K/uL (0-0) Neutrophils % (Manual) 91.3 % Lymphocytes % (Manual) 6.1 % Monocytes % (Manual) 1.7 % Metamyelocytes % 0.9 % Nucleated Red Blood Cells % 0.1 % Neutrophils # (Manual) 29.45 K/uL (1.4-6.5) Total Absolute Neutrophils 29.45 K/uL (1.4-6.5) Lymphocytes # (Manual) 1.97 K/uL (1.2-3.4) Total Absolute Lymphocytes 1.97 K/uL (1.2-3.4) Monocytes # (Manual) 0.55 K/uL (0.11-0.59) Metamyelocytes # 0.29 K/uL (0-0) Hyposegmented Neutrophils 1+ Hypogranular Neutrophils 3+ Dohle Bodies 1+ Platelet Estimate SIGNIFIC DECREASED Anion Gap 10.0 mmol/L (3-11) Est Creatinine Clear Calc Drug Dose 37.6 ml/min Estimated GFR () 47.8 Estimated GFR (Non- 41.3 BUN/Creatinine Ratio 19.1 (10-20) Calcium Level 8.3 mg/dl (8.5-10.1) Test 05/26/17 11:20 05/26/17 11:35 05/26/17 16:27 05/26/17 16:49 Bedside Glucose 277 mg/dl (70-99) 63 mg/dl (70-99) 77 mg/dl (70-99) Test 05/26/17 17:58 05/26/17 20:21 05/27/17 02:02 05/27/17 03:59 Bedside Glucose 134 mg/dl (70-99) 162 mg/dl (70-99) 147 mg/dl (70-99) 201 mg/dl (70-99) Test 05/27/17 05:04 05/27/17 07:49 05/27/17 11:49 05/27/17 12:35 White Blood Count 50.97 K/uL (4.8-10.8) 61.30 K/uL (4.8-10.8) Red Blood Count 2.39 M/uL (4.7-6.1) 2.96 M/uL (4.7-6.1) Hemoglobin 7.7 g/dL (14.0-18.0) 9.4 g/dL (14.0-18.0) Hematocrit 22.7 % (42-52) 27.5 % (42-52) Mean Corpuscular Volume 95.0 fL (80-100) 92.9 fL (80-100) Mean Corpuscular Hemoglobin 32.2 pg (25-34) 31.8 pg (25-34) Mean Corpuscular Hemoglobin Concent 33.9 g/dl (32-36) 34.2 g/dl (32-36) Platelet Count 26 K/uL (130-400) 27 K/uL (130-400) Mean Platelet Volume 10.7 fL (7.4-10.4) 10.4 fL (7.4-10.4) RDW Standard Deviation 68.6 fL (36.4-46.3) 66.8 fL (36.4-46.3) RDW Coefficient of Variation 20.8 % (11.5-14.5) 20.4 % (11.5-14.5) Nucleated RBC Absolute Count (auto) 0.03 K/uL (0-0) Neutrophils % (Manual) 94.8 % 94.8 % Lymphocytes % (Manual) 3.5 % 1.7 % Monocytes % (Manual) 1.7 % 1.7 % Nucleated Red Blood Cells % 0.1 % Neutrophils # (Manual) 48.32 K/uL (1.4-6.5) 58.11 K/uL (1.4-6.5) Total Absolute Neutrophils 48.32 K/uL (1.4-6.5) 58.11 K/uL (1.4-6.5) Lymphocytes # (Manual) 1.78 K/uL (1.2-3.4) 1.04 K/uL (1.2-3.4) Total Absolute Lymphocytes 1.78 K/uL (1.2-3.4) 1.04 K/uL (1.2-3.4) Monocytes # (Manual) 0.87 K/uL (0.11-0.59) 1.04 K/uL (0.11-0.59) Hyposegmented Neutrophils 1+ Hypogranular Neutrophils 1+ 2+ Dohle Bodies 2+ 2+ Anisocytosis PRESENT PRESENT Anion Gap 8.0 mmol/L (3-11) Est Creatinine Clear Calc Drug Dose 27.8 ml/min Estimated GFR () 33.2 Estimated GFR (Non- 28.6 BUN/Creatinine Ratio 21.6 (10-20) Calcium Level 7.8 mg/dl (8.5-10.1) Total Bilirubin 0.9 mg/dl (0.2-1) Aspartate Amino Transf (AST/SGOT) 28 U/L (15-37) Alanine Aminotransferase (ALT/SGPT) 22 U/L (12-78) Alkaline Phosphatase 79 U/L (45-117) Total Protein 6.3 gm/dl (6.4-8.2) Albumin 2.6 gm/dl (3.4-5.0) Globulin 3.7 gm/dl (2.5-4.0) Albumin/Globulin Ratio 0.7 (0.9-2) Bedside Glucose 280 mg/dl (70-99) 308 mg/dl (70-99) Metamyelocytes % 0.9 % Myelocytes % 0.9 % Metamyelocytes # 0.55 K/uL (0-0) Myelocytes # 0.55 K/uL (0-0) Test 05/27/17 15:38 05/27/17 16:44 05/27/17 20:18 05/28/17 07:41 Bedside Glucose 352 mg/dl (70-99) 300 mg/dl (70-99) 208 mg/dl (70-99) 102 mg/dl (70-99) Test 05/28/17 07:49 05/28/17 09:33 05/28/17 10:26 05/28/17 11:44 White Blood Count 35.80 K/uL (4.8-10.8) Red Blood Count 3.03 M/uL (4.7-6.1) Hemoglobin 9.6 g/dL (14.0-18.0) Hematocrit 28.1 % (42-52) Mean Corpuscular Volume 92.7 fL (80-100) Mean Corpuscular Hemoglobin 31.7 pg (25-34) Mean Corpuscular Hemoglobin Concent 34.2 g/dl (32-36) Platelet Count 30 K/uL (130-400) Mean Platelet Volume 10.5 fL (7.4-10.4) Neutrophils (%) (Auto) 85.1 % Lymphocytes (%) (Auto) 5.0 % Monocytes (%) (Auto) 4.3 % Eosinophils (%) (Auto) 0.1 % Basophils (%) (Auto) 0.1 % Neutrophils # (Auto) 30.47 K/uL (1.4-6.5) Lymphocytes # (Auto) 1.80 K/uL (1.2-3.4) Monocytes # (Auto) 1.54 K/uL (0.11-0.59) Eosinophils # (Auto) 0.04 K/uL (0-0.5) Basophils # (Auto) 0.03 K/uL (0-0.2) RDW Standard Deviation 67.5 fL (36.4-46.3) RDW Coefficient of Variation 21.1 % (11.5-14.5) Immature Granulocyte % (Auto) 5.4 % Immature Granulocyte # (Auto) 1.92 K/uL (0.00-0.02) Nucleated RBC Absolute Count (auto) 0.03 K/uL (0-0) Nucleated Red Blood Cells % 0.1 % Hypogranular Neutrophils 2+ Dohle Bodies 2+ Anisocytosis PRESENT Anion Gap 10.0 mmol/L (3-11) Est Creatinine Clear Calc Drug Dose 30.1 ml/min Estimated GFR () 36.5 Estimated GFR (Non- 31.5 BUN/Creatinine Ratio 23.6 (10-20) Calcium Level 8.4 mg/dl (8.5-10.1) Total Bilirubin 0.7 mg/dl (0.2-1) Aspartate Amino Transf (AST/SGOT) 29 U/L (15-37) Alanine Aminotransferase (ALT/SGPT) 24 U/L (12-78) Alkaline Phosphatase 78 U/L (45-117) Total Protein 6.8 gm/dl (6.4-8.2) Albumin 2.8 gm/dl (3.4-5.0) Globulin 4.0 gm/dl (2.5-4.0) Albumin/Globulin Ratio 0.7 (0.9-2) Arterial Blood pH 7.45 (7.35-7.45) Arterial Blood Partial Pressure CO2 31 mmHg (35-46) Arterial Blood Partial Pressure O2 75 mm/Hg (80-95) Arterial Blood HCO3 21 mmol/L (19-24) Arterial Blood Oxygen Saturation 92.9 % (90-95) Arterial Blood Base Excess -2.7 mEq/L (-9-1.8) Arterial Blood Gas Delivery ROOM AIR Michael Test POSITIVE (POS) Bedside Glucose 232 mg/dl (70-99) Assessment & Plan 1. Myeloproliferative neoplasm, NOS 3. Thrombocytopenia 4. Anemia * Patient was counseled that his WBC appears to be downtrending since he has refused steroid for his lung condition, Dr. Ferguson believes WBC was exacerbated by steroid * In regards to the lung findings, would not typically see any lung parenchymal involvement with this bone marrow disorder * Anemia/thrombocytopenia induced by Hydrea while on treatment for MPN, since discontinued about 8 weeks ago without count recovery * S/p 1 unit PRBC, recommending to keep Hgb above 8 g/dL * Patient wanted to know about Hematology opinion in regards to his treatment for MPN, we discussed with his current cytopenia would not consider for further suppressive therapy at this time * Patient has not bleeding complications, continue to monitor * Check CBCD daily while admitted Dr. Ferguson is the attending window machine operator- please see his addendum I performed history and physical examination of the patient. I have discussed the patient's case, impression and plan with Heidi Acosta PA-C. Her note reflects my findings and plan. In summary he has myeloproliferative disorder with elevated white blood cell count, worsening anemia, thrombocytopenia, received briefly hydroxyurea but because of worsening thrombocytopenia decided discontinue hydroxyurea therapy, nowadays he is receiving periodic blood transfusion support. BCR-ABL gene mutation is negative so no role of Gleevec therapy. He received briefly steroid therapy with significant rise in the white blood cell count which is expected, now he is off the steroid therapy, now white blood cell count has dropped down to around 30,000 thousand. His white blood cell count is likely to go up in the future, he will need periodic blood transfusion support, may also require platelet transfusion if he has bleeding complications or platelet count dropped down to around less than 10-15,000. Earlier we checked a EPO level in his case, it was slightly over 500 and so based on the current guidelines, could not qualify for the Procrit therapy but will check with insurance company regarding brief trial of Procrit. Will try to get insurance approval as an outpatient. He is likely to go home soon. Will check CBCD every weekly. Dr. Salomon Ferguson Hem/Onc
--- NOTE | 2017-05-28 14:21 | Pharmacy Progress Note ---
Pharmacy Glycemic Short Note 2 Date of Service May 28, 2017. OUTPATIENT ANTIDIABETIC REGIMEN: * Novolin 70/30 - 40 units twice daily Item Value Date Time Bedside Glucose 280 mg/dl H 05/27/17 0749 Bedside Glucose 308 mg/dl H 05/27/17 1149 Bedside Glucose 352 mg/dl *H 05/27/17 1538 Bedside Glucose 300 mg/dl H 05/27/17 1644 Bedside Glucose 208 mg/dl H 05/27/172017 Bedside Glucose 102 mg/dl H 05/28/17 0741 Bedside Glucose 232 mg/dl H 05/28/17 1144 ASSESSMENT: * Mr Yang is a 76 y/o M with a PMH of MPD with multiple transfusions, HTN, BPH, and type 2 diabetes with unknown control (has had multiple transfusions so that can affect HbA1C) who presents with worsening shortness of breath secondary to anemia or developing pneumonia. * BSGs significantly elevated yesterday secondary to infection and Solumedrol. * Pt has been receiving ~ 100 units of insulin with suboptimal control * Solumedrol D/C yesterday - BSGs should start improving as Solumedrol hyperglycemic effects wear off * Anticipate new total daily dose without steroids will be c/w outpatient dosing of ~ 80 units/day PLAN FOR INPATIENT GLYCEMIC CONTROL: no change, continue dosing based on total daily dose of ~ 80 units/day * Basal insulin * Lantus 20 units SQ BID * Bolus insulin * NovoLog per scale ACHS or Q6hrs while NPO * Goal Range: Low 100 mg/dL - High 140 mg/dL * Correction Factor: 20 mg/dL/unit * Nutritional / Prandial insulin per carb ratio of 1 unit per 7 grams CHO consumed
--- NOTE | 2017-05-28 18:50 | Pulmonology Progress Note ---
Pulmonary Progress Note Date of Service May 28, 2017. Attending Dr. Dow Subjective Patient states he is greatly improved since his admission. He currently has an intermittent cough with associated rhinitis Objective Patient is doing well today sitting up at bedside able to ambulate throughout the room with no signs of respiratory insufficiency. He currently denies: Fever, chills, productive cough, hemoptysis, pleurisy, unintentional weight loss , B type symptoms, classic cardiac chest pain Vital signs: Stable on room air Two step: 2 step performed showing no signs of desaturation Respiratory: Mild rhonchi appreciated with minimal expiratory wheeze at the end of expiration Cardiac: S1-S2 distant heart sounds but regular rate rhythm Abdomen: Positive bowel sounds soft nontender Extremities: No clubbing cyanosis or edema noted Radiology CT scans reviewed: CT abdomen 08/16/2016, CT angio chest 08/24/2016, CT chest 03/31/2017, CT chest 05/25/2017 Assessment & Plan 76-year-old male with MDS admitted for progressive dyspnea on exertion notably with anemia and abnormal CT of the thorax: 1. Abnormal CT: Patient has had progressive changes since initial CT of the abdomen performed 08/16/2016 with increased bilateral ground-glass changes as well as pulmonary nodules, bronchiectasis, scar tissue and notable pleural calcifications/plaquing. This is a difficult diagnosis to make as there are noninfectious pulmonary complications associated with MDS such as: Pulmonary fibrosis, vasculitic disorders, organizing pneumonia/PHYSICAL THERAPY COORDINATOR. But also this patient has a history of asbestos exposure which could now be presenting with pleural plaquing and possibly even asbestosis of the lung. His progressive pulmonary disease as well as pulmonary nodules are worrisome for even a malignancy, primary lung carcinoma. The patient has a new right lower lobe 10 mm pulmonary nodule which will require workup as an outpatient. I suggest this patient have Pulmonary consultation with pulmonary function studies PET scan and possibly more definitive diagnoses/invasive procedures performed as an outpatient. 2. Hypoxia: Patient did well on 2 step no oxygen supplementation is required at this time. 3. Id: Patient has responded well to antibiotics but his dyspnea was most likely secondary to his anemia and patient more likely has a chronic progressive underlying pulmonary dysfunction. I would complete a 10 day course of Augmentin and/or a 7 day course of Levaquin 750 mg. I believe this patient can be discharged but will require pulmonary follow-up. Data Medications: Current Inpatient Medications Medications (Trade) Dose Ordered Sig/Karla Route Start Time Stop Time Status Last Admin Dose Admin Acetaminophen (Tylenol Tab) 650 mg Q4H PRN PO 05/25/17 18:00 06/24/17 17:59 05/28/17 09:23 650 MG Al Hydrox/Mg Hydrox/Simethicone (Maalox Max Susp) 15 ml Q4H PRN PO 05/25/17 18:00 06/24/17 17:59 Polyethylene (Miralax Powder Packet) 17 gm DAILY PRN PO 05/25/17 18:00 06/24/17 17:59 Ondansetron HCl (Zofran Inj) 4 mg Q6H PRN IV 05/25/17 18:00 06/24/17 17:59 Glucose (Glucose 40% Gel) 15-30 GRAMS 15 GRAMS... UD PRN PO 05/25/17 18:00 06/24/17 17:59 Glucose (Glucose Chew Tab) 4-8 Tablets 4 Tabl... UD PRN PO 05/25/17 18:00 06/24/17 17:59 Dextrose (Dextrose 50% 50ML Syringe) 25-50ML OF 50% DW IV FOR... UD PRN IV 05/25/17 18:00 06/24/17 17:59 Glucagon (Glucagon Inj) 1 mg UD PRN SQ 05/25/17 18:00 06/24/17 17:59 Miscellaneous Information (Consult Glycemic Management Pharmacy) 1 ea UD N/A 05/25/17 18:07 06/24/17 18:06 Cefepime HCl 2000 mg/Syringe 20 ml @ 5 mls/min Q12H IV 05/26/17 04:00 06/02/17 03:59 05/28/17 16:35 5 MLS/MIN Tramadol HCl (Ultram Tab) 50 mg Q8 PRN PO 05/25/17 18:00 06/24/17 17:59 Albuterol (Ventolin Hfa Inhaler) 2 puffs Q6H PRN INH 05/25/17 19:00 06/24/17 18:59 Alfuzosin HCl (Uroxatral Tab) 10 mg DAILY PO 05/26/17 08:00 06/25/17 07:59 05/28/17 08:10 10 MG Allopurinol (Zyloprim Tab) 300 mg DAILY PO 05/26/17 08:00 06/25/17 07:59 05/28/17 08:12 300 MG Ascorbic Acid (Vitamin C Tab) 500 mg DAILY PO 05/26/17 08:00 06/25/17 07:59 05/28/17 08:11 500 MG Baclofen (Lioresal Tab) 10 mg TID PO 05/25/17 20:00 06/24/17 19:59 05/28/17 14:00 10 MG Carvedilol (Coreg Tab) 12.5 mg BID PO 05/25/17 20:00 06/24/17 19:59 05/28/17 08:06 12.5 MG Duloxetine HCl (Cymbalta Cap) 30 mg QAM PO 05/26/17 08:00 06/25/17 07:59 05/28/17 08:07 30 MG Finasteride (Proscar Tab) 5 mg DAILY PO 05/26/17 08:00 06/25/17 07:59 05/28/17 08:09 5 MG Gabapentin (Neurontin Cap) 300 mg BID@0800,1300 PO 05/26/17 08:00 06/25/17 07:59 05/28/17 12:53 300 MG Lisinopril (Zestril Tab) 20 mg DAILY PO 05/26/17 08:00 06/25/17 07:59 05/28/17 08:12 20 MG Multivitamins (Multivitamin Tab) 1 tab DAILY PO 05/26/17 08:00 06/25/17 07:59 05/28/17 08:08 1 TAB Pantoprazole Sodium (Protonix Tab) 40 mg DAILY PO 05/26/17 08:00 06/25/17 07:59 05/28/17 08:10 40 MG Cefepime HCl (Consult) 1 ea UD PRN N/A 05/25/17 19:30 06/24/17 19:29 Ioversol (Optiray 320) 100 ml UD PRN IV 05/25/17 19:45 05/29/17 19:44 Clonidine HCl (Catapres Tab) 0.1 mg Q6 PRN PO 05/25/17 23:15 06/24/17 23:14 05/26/17 08:29 0.1 MG Menthol (Nice Desiree) 1 desiree PRN PRN DESIREE 05/26/17 02:30 06/25/17 02:29 Insulin Aspart (novoLOG ASPART) SLIDING SCALE If C... ACHS SC 05/26/17 21:00 06/25/17 20:59 05/28/17 17:57 12 UNITS Insulin Glargine (Lantus Solostar Pen) 20 units BID SC 05/27/17 08:00 06/26/17 07:59 05/28/17 08:39 20 UNITS Sodium Chloride 1,000 ml @ 100 mls/hr Q10H IV 05/28/17 08:15 06/27/17 08:14 05/28/17 17:57 100 MLS/HR I & O: 24-Hour Column 05/29/17 08:00 Intake Total 1546 ml Output Total 1070 ml Balance 476 ml Vital Signs: Date Time Temp Pulse Resp B/P (MAP) Pulse Ox O2 Delivery O2 Flow Rate FiO2 05/28/17 16:34 36.7 70 18 147/79 (101) 94 Room Air 05/28/17 16:30 99 Room Air 05/28/17 11:48 36.4 71 19 122/80 (94) 94 Room Air 05/28/17 09:00 95 Room Air 05/28/17 07:47 95 Room Air 05/28/17 07:30 36.6 69 18 164/80 (108) 95 Room Air 05/28/17 00:00 Room Air 05/27/17 23:46 36.9 69 19 142/73 (96) 96 Room Air Laboratory Results: Last 24 Hours Test 05/27/17 20:18 05/28/17 07:41 05/28/17 07:49 05/28/17 09:33 Bedside Glucose 208 mg/dl 102 mg/dl White Blood Count 35.80 K/uL Red Blood Count 3.03 M/uL Hemoglobin 9.6 g/dL Hematocrit 28.1 % Mean Corpuscular Volume 92.7 fL Mean Corpuscular Hemoglobin 31.7 pg Mean Corpuscular Hemoglobin Concent 34.2 g/dl Platelet Count 30 K/uL Mean Platelet Volume 10.5 fL Neutrophils (%) (Auto) 85.1 % Lymphocytes (%) (Auto) 5.0 % Monocytes (%) (Auto) 4.3 % Eosinophils (%) (Auto) 0.1 % Basophils (%) (Auto) 0.1 % Neutrophils # (Auto) 30.47 K/uL Lymphocytes # (Auto) 1.80 K/uL Monocytes # (Auto) 1.54 K/uL Eosinophils # (Auto) 0.04 K/uL Basophils # (Auto) 0.03 K/uL RDW Standard Deviation 67.5 fL RDW Coefficient of Variation 21.1 % Immature Granulocyte % (Auto) 5.4 % Immature Granulocyte # (Auto) 1.92 K/uL Nucleated RBC Absolute Count (auto) 0.03 K/uL Nucleated Red Blood Cells % 0.1 % Hypogranular Neutrophils 2+ Dohle Bodies 2+ Anisocytosis PRESENT Sodium Level 136 mmol/L Potassium Level 4.4 mmol/L Chloride Level 105 mmol/L Carbon Dioxide Level 22 mmol/L Anion Gap 10.0 mmol/L Blood Urea Nitrogen 47 mg/dl Creatinine 1.99 mg/dl Est Creatinine Clear Calc Drug Dose 30.1 ml/min Estimated GFR () 36.5 Estimated GFR (Non- 31.5 BUN/Creatinine Ratio 23.6 Random Glucose 95 mg/dl Calcium Level 8.4 mg/dl Total Bilirubin 0.7 mg/dl Aspartate Amino Transf (AST/SGOT) 29 U/L Alanine Aminotransferase (ALT/SGPT) 24 U/L Alkaline Phosphatase 78 U/L Total Protein 6.8 gm/dl Albumin 2.8 gm/dl Globulin 4.0 gm/dl Albumin/Globulin Ratio 0.7 Arterial Blood pH 7.45 Arterial Blood Partial Pressure CO2 31 mmHg Arterial Blood Partial Pressure O2 75 mm/Hg Arterial Blood HCO3 21 mmol/L Arterial Blood Oxygen Saturation 92.9 % Arterial Blood Base Excess -2.7 mEq/L Arterial Blood Gas Delivery ROOM AIR Michael Test POSITIVE Test 05/28/17 10:26 05/28/17 11:44 05/28/17 16:47 Bedside Glucose 232 mg/dl 174 mg/dl
--- NOTE | 2017-05-28 20:29 | Progress Note ---
Internal Med Progress Note Date of Service: May 28, 2017. Provider Documentation: SUBJECTIVE: Patient performed 6 minute walk test without needing oxygen supplementation. He has IV fluids running as there was elevation in his creatinine. He denies shortness of breath rest or with ambulation OBJECTIVE: General Appearance: no acute distress Head: normocephalic, atraumatic Eyes: normal inspection, EOMI ENT: normal ENT inspection, hearing grossly normal, pharynx normal Neck: supple, trachea midline Respiratory/Chest: chest non-tender, lungs clear, normal breath sounds, no respiratory distress, no accessory muscle use Cardiovascular: regular rate, rhythm, no murmur Abdomen/GI: non tender, soft, positive bowel sounds Back: normal inspection Extremities/Musculoskelatal: normal inspection, no calf tenderness Neurologic/Psych: no motor/sensory deficits, alert, normal mood/affect, oriented x 3 Skin: warm/dry, no rash ASSESSMENT & PLAN: Patient is a 76-year-old male with a past medical history of myeloproliferative disorder, thrombocytopenia, DM 2, HTN, BPH who presents with worsening shortness of breath over the past 4 days. Anemia in setting of myeloproliferative disorder -Patient also reported hemoptysis (some blood tinged sputum in the morning time as per patient) but no obvious oral bleeding inpatient -Hgb 7.6 and transfused 1 unit PRBC on admission which raised Hgb to 8.1 on -Hgb decreased to 7.7 on 05/27/[address] Jackson of oncology recommended 1 unit of PRBC which raised Hgb to 9.4 -Leukocytosis increased from 32K on 05/26/17 and labs on 05/27/17 with WBC increasing from 51K to 61K; Oncologist Dr. Jackson states by telephone that a threshold for plasmapheresis of the leukocytosis and would be when WBC is the ranges of 100K or above. -Thrombocytopenia: Platelets downtrending to 32 to 27; Oncologist notes recommended transfusion of platelet if less than 20 Dyspnea worse with exertion -Patient was started on IV Cefepime for pulmonary coverage in case of pneumonia as admission Chest X ray findings of "Interval development of bilateral reticulonodular airspace opacities. Likely diagnostic considerations include atypical pulmonary edema, or a bilateral infectious/inflammatory process" CT chest on 05/25/17 1. Interval development of mild mediastinal lymphadenopathy possibly reactive 2. Interval development of multiple bilateral interstitial and nodular opacities. The rapid development of this process favors an infectious/ inflammatory etiology. Clinical and radiographic follow-up is recommended 3. Small bilateral pleural effusions 4. Suspected splenomegaly -Pulmonary consult ordered Aspergillus antibody panel, and GOLD test with Mitogen and Nil assay and results pending -IV solumedrol was given on 05/26/17 as per pulmonary service but WBC has increased substantially since 05/27/17 and with patient reporting general malaise possibly from solumedrol, no further solumedrol given on 05/27/17 -Stable bilateral interstitial and nodular opacities, Small bilateral pleural effusions on 05/27/17 X ray Pulmonary service reviewed the 05/25/17 CT again "Abnormal CT: Patient has had progressive changes since initial CT of the abdomen performed 08/16/2016 with increased bilateral ground-glass changes as well as pulmonary nodules, bronchiectasis, scar tissue and notable pleural calcifications/plaquing. This is a difficult diagnosis to make as there are noninfectious pulmonary complications associated with MDS such as: Pulmonary fibrosis, vasculitic disorders, organizing pneumonia/FUR MATCHER. But also this patient has a history of asbestos exposure which could now be presenting with pleural plaquing and possibly even asbestosis of the lung. His progressive pulmonary disease as well as pulmonary nodules are worrisome for even a malignancy, primary lung carcinoma. The patient has a new right lower lobe 10 mm pulmonary nodule which will require workup as an outpatient." Pulmonary service recommends outpatient pulmonary function studies PET scan and possibly more definitive diagnoses/invasive procedures performed as an outpatient but the patient has expressed reservations about doing invasive procedure Patient passed 6 minute walk test on 05/28/17 and does not need oxygen for exertion Pulmonary service recommends a 10 day course of Augmentin and/or a 7 day course of Levaquin 750 mg; Cefepime IV stopped on 05/28/17 and will begin oral antibiotic on 05/29/17 Echocardiogram 05/27/17, generally unremarkable echocardiogram The left ventricle is normal in size. There is mild concentric left ventricular hypertrophy. Ejection Fraction = 60-65%. Left ventricular systolic function is normal. The right ventricular systolic function is normal. The left atrial size is normal. Right atrial size is normal. Diastolic dysfunction, Grade II (pseudonormalization pattern). No significant valvular pathology. DM II: -Last a1c 8.5 in August 2016 -Glycemic consult following the patient's insulin requirements Acute kidney injury -patient receiving IV fluids, will repeat renal labs on 05/29/17 HTN: -Cont Coreg, lisinopril BPH: -Alfzosin, finasteride Chronic back pain, OA: -Cont gabapentin -Tylenol, tramadol PRN Mood disorder: -Cont SSRI GERD: -Cont PPI DVT Ppx: SCDs in setting of thrombocytopenia Code status: FULL Vital Signs: Date Time Temp Pulse Resp B/P (MAP) Pulse Ox O2 Delivery O2 Flow Rate FiO2 05/28/17 16:34 36.7 70 18 147/79 (101) 94 Room Air 05/28/17 16:30 99 Room Air 05/28/17 11:48 36.4 71 19 122/80 (94) 94 Room Air 05/28/17 09:00 95 Room Air 05/28/17 07:47 95 Room Air 05/28/17 07:30 36.6 69 18 164/80 (108) 95 Room Air 05/28/17 00:00 Room Air 05/27/17 23:46 36.9 69 19 142/73 (96) 96 Room Air Lab Results: Results Past 24 Hours Test 05/28/17 07:41 05/28/17 07:49 05/28/17 09:33 05/28/17 10:26 Range/Units Bedside Glucose 102 70-99 mg/dl White Blood Count 35.80 4.8-10.8 K/uL Red Blood Count 3.03 4.7-6.1 M/uL Hemoglobin 9.6 14.0-18.0 g/dL Hematocrit 28.1 42-52 % Mean Corpuscular Volume 92.7 80-100 fL Mean Corpuscular Hemoglobin 31.7 25-34 pg Mean Corpuscular Hemoglobin Concent 34.2 32-36 g/dl Platelet Count 30 130-400 K/uL Mean Platelet Volume 10.5 7.4-10.4 fL Neutrophils (%) (Auto) 85.1 % Lymphocytes (%) (Auto) 5.0 % Monocytes (%) (Auto) 4.3 % Eosinophils (%) (Auto) 0.1 % Basophils (%) (Auto) 0.1 % Neutrophils # (Auto) 30.47 1.4-6.5 K/uL Lymphocytes # (Auto) 1.80 1.2-3.4 K/uL Monocytes # (Auto) 1.54 0.11-0.59 K/uL Eosinophils # (Auto) 0.04 0-0.5 K/uL Basophils # (Auto) 0.03 0-0.2 K/uL RDW Standard Deviation 67.5 36.4-46.3 fL RDW Coefficient of Variation 21.1 11.5-14.5 % Immature Granulocyte % (Auto) 5.4 % Immature Granulocyte # (Auto) 1.92 0.00-0.02 K/uL Nucleated RBC Absolute Count (auto) 0.03 0-0 K/uL Nucleated Red Blood Cells % 0.1 % Hypogranular Neutrophils 2+ Dohle Bodies 2+ Anisocytosis PRESENT Sodium Level 136 136-145 mmol/L Potassium Level 4.4 3.5-5.1 mmol/L Chloride Level 105 98-107 mmol/L Carbon Dioxide Level 22 21-32 mmol/L Anion Gap 10.0 3-11 mmol/L Blood Urea Nitrogen 47 7-18 mg/dl Creatinine 1.99 0.60-1.40 mg/dl Est Creatinine Clear Calc Drug Dose 30.1 ml/min Estimated GFR () 36.5 Estimated GFR (Non- 31.5 BUN/Creatinine Ratio 23.6 10-20 Random Glucose 95 70-99 mg/dl Calcium Level 8.4 8.5-10.1 mg/dl Total Bilirubin 0.7 0.2-1 mg/dl Aspartate Amino Transf (AST/SGOT) 29 15-37 U/L Alanine Aminotransferase (ALT/SGPT) 24 12-78 U/L Alkaline Phosphatase 78 45-117 U/L Total Protein 6.8 6.4-8.2 gm/dl Albumin 2.8 3.4-5.0 gm/dl Globulin 4.0 2.5-4.0 gm/dl Albumin/Globulin Ratio 0.7 0.9-2 Arterial Blood pH 7.45 7.35-7.45 Arterial Blood Partial Pressure CO2 31 35-46 mmHg Arterial Blood Partial Pressure O2 75 80-95 mm/Hg Arterial Blood HCO3 21 19-24 mmol/L Arterial Blood Oxygen Saturation 92.9 90-95 % Arterial Blood Base Excess -2.7 -9-1.8 mEq/L Arterial Blood Gas Delivery ROOM AIR Michael Test POSITIVE POS Test 05/28/17 11:44 05/28/17 16:47 Range/Units Bedside Glucose 232 174 70-99 mg/dl
[2017-05-29] MEDS: CLONIDINE HCL 0.1 MG TAB PO PRN (00:24)
[2017-05-29] MEDS: SODIUM CHLORIDE 0.9% 1000ML 1,000 ML IV SCH (04:09)
[2017-05-29 04:20] VITALS: BP 164/71; PULSE 71; TEMP 36.4; O2SAT 96
[2017-05-29 06:56] LABS: CREATININE 1.77 mg/dl (0.60-1.40)
[2017-05-29 07:31] VITALS: BP 174/73; PULSE 69; TEMP 36.5; O2SAT 94
[2017-05-29] MEDS ORDERED: AMOXICILLIN/CLAVULANATE TAB 875 MG TAB PO SCH (08:00)
[2017-05-29] MEDS: BACLOFEN 10 MG TAB PO SCH (08:04)
[2017-05-29] MEDS: FINASTERIDE 5 MG TAB PO SCH (08:05)
[2017-05-29] MEDS: ALLOPURINOL 300 MG TAB PO SCH (08:05)
[2017-05-29] MEDS: LISINOPRIL 20 MG TAB PO SCH (08:06)
[2017-05-29] MEDS: GABAPENTIN 300 MG CAP PO SCH (08:06)
[2017-05-29] MEDS: PANTOprazole SOD 40 MG TAB PO SCH (08:07)
[2017-05-29] MEDS: DULOXETINE (CYMBALTA) 30 MG CAP PO SCH (08:07)
[2017-05-29] MEDS: CARVEDILOL 12.5 MG TAB PO SCH (08:08)
[2017-05-29] MEDS: MULTIVITAMIN TAB PO SCH (08:09)
[2017-05-29] MEDS: ALFUZosin TAB 10 MG TAB PO SCH (08:09)
[2017-05-29] MEDS: ASCORBIC ACID 500 MG TAB PO SCH (08:09)
[2017-05-29] MEDS ORDERED: INSULIN GLARGINE SOLOSTAR 100 UNITS/ML 3 ML PEN SC SCH (08:15)
[2017-05-29] MEDS: INSULIN ASPART 100 UNITS/ML 3 ML PEN SC SCH (08:15)
[2017-05-29] MEDS: INSULIN GLARGINE SOLOSTAR 100 UNITS/ML 3 ML PEN SC SCH (08:26)
[2017-05-29 10:22] VITALS: BP 174/73; PULSE 69; TEMP 36.5; O2SAT 94
--- NOTE | 2017-05-29 10:46 | Progress Note ---
Internal Med Progress Note Date of Service: May 29, 2017. Provider Documentation: SUBJECTIVE: Patient continued to received IV fluids overnight. He reported his sleep interrupted because of being on IV fluids and beeping noises from the machine but otherwise no worsening breathing symptoms OBJECTIVE: General Appearance: no acute distress Head: normocephalic, atraumatic Eyes: normal inspection, EOMI ENT: normal ENT inspection, hearing grossly normal, pharynx normal Neck: supple, trachea midline Respiratory/Chest: chest non-tender, lungs clear, normal breath sounds, no respiratory distress, no accessory muscle use Cardiovascular: regular rate, rhythm, no murmur Abdomen/GI: non tender, soft, positive bowel sounds Back: normal inspection Extremities/Musculoskelatal: normal inspection, no calf tenderness Neurologic/Psych: no motor/sensory deficits, alert, normal mood/affect, oriented x 3 Skin: warm/dry, no rash ASSESSMENT & PLAN: Hospital Course Patient is a 76-year-old male with a past medical history of myeloproliferative disorder, thrombocytopenia, DM 2, HTN, BPH who presents with worsening shortness of breath over the past 4 days prior to hospital admission Anemia in setting of myeloproliferative disorder -Patient also reported hemoptysis (some blood tinged sputum in the morning time as per patient) but no obvious oral bleeding inpatient -Hgb 7.6 and transfused 1 unit PRBC on admission which raised Hgb to 8.1 on -Hgb decreased to 7.7 on 05/27/[address] Jackson of oncology recommended 1 unit of PRBC which raised Hgb to 9.4 -Leukocytosis increased from 32K on 05/26/17 and labs on 05/27/17 with WBC increasing from 51K to 61K; [place] [address] on 05/28/17 -Thrombocytopenia: Platelets consistently from high 20s to low 30s. Dyspnea worse with exertion -Patient was started on IV Cefepime for pulmonary coverage in case of pneumonia as admission Chest X ray findings of "Interval development of bilateral reticulonodular airspace opacities. Likely diagnostic considerations include atypical pulmonary edema, or a bilateral infectious/inflammatory process" CT chest on 05/25/17: 1. Interval development of mild mediastinal lymphadenopathy possibly reactive 2. Interval development of multiple bilateral interstitial and nodular opacities. The rapid development of this process favors an infectious/ inflammatory etiology. Clinical and radiographic follow-up is recommended 3. Small bilateral pleural effusions 4. Suspected splenomegaly -Pulmonary consult ordered Aspergillus antibody panel, and GOLD test with Mitogen and Nil assay and results pending but these results may not be positive in a potentially immunocompromised patient -IV solumedrol was given on 05/26/17 as per pulmonary service but WBC has increased substantially since 05/27/17 and with patient reporting general malaise possibly from solumedrol, no further solumedrol given on 05/27/17 -Stable bilateral interstitial and nodular opacities, Small bilateral pleural effusions on 05/27/17 X ray Pulmonary service reviewed the 05/25/17 CT again; Dr. Dow: "Abnormal CT: Patient has had progressive changes since initial CT of the abdomen performed 08/16/2016 with increased bilateral ground-glass changes as well as pulmonary nodules, bronchiectasis, scar tissue and notable pleural calcifications/plaquing. 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 But also this patient has a history of asbestos exposure which could now be presenting with pleural plaquing and possibly even asbestosis of the lung. His progressive pulmonary disease as well as pulmonary nodules are worrisome for even a malignancy, primary lung carcinoma. The patient has a new right lower lobe 10 mm pulmonary nodule which will require workup as an outpatient." Pulmonary service recommends outpatient pulmonary function studies PET scan and possibly more definitive diagnoses/invasive procedures performed as an outpatient but the patient has expressed reservations about doing invasive procedure Patient passed 6 minute walk test on 05/28/17 and does not need oxygen for exertion Pulmonary service recommends a 10 day course of Augmentin and/or a 7 day course of Levaquin 750 mg; Cefepime IV stopped on 05/28/17 and will begin oral antibiotic on 05/29/17 Echocardiogram 05/27/17, generally unremarkable echocardiogram The left ventricle is normal in size. There is mild concentric left ventricular hypertrophy. Ejection Fraction = 60-65%. Left ventricular systolic function is normal. The right ventricular systolic function is normal. The left atrial size is normal. Right atrial size is normal. Diastolic dysfunction, Grade II (pseudonormalization pattern). No significant valvular pathology. Other hospital diagnosis and management Acute kidney injury (resolved after IV fluids), Diabetes Mellitus II on insulin Discharge instructions Patient to have new antibiotic prescription for Augmentin - Take for 10 days Patient has follow up appointments: 06/04/2017 9:00 AM [facility] Hem[facility]Onc [facility] Hematology Oncology [facility] 06/05/2017 3:00 PM Royce Gaviria MD Internal Medicine [facility] 06/08/[address] Dow Pulmonary clinic [address], [address] [place] [address] 06/19/2017 11:15 AM Salomon Ferguson MD Hematology/Oncology [facility] Patient can call [phone] with [facility] affiliated clinics for re- scheduling of needed and the [facility] pulmonary clinic number is [phone] Vital Signs: Date Time Temp Pulse Resp B/P (MAP) Pulse Ox O2 Delivery O2 Flow Rate FiO2 05/29/17 10:22 36.5 69 20 94 Room Air 05/29/17 08:00 Room Air 05/29/17 07:31 36.5 69 20 174/73 (106) 94 Room Air 05/29/17 04:20 36.4 71 18 164/71 (102) 96 Room Air 05/29/17 00:00 Room Air 05/28/17 23:47 36.9 80 20 169/75 (106) 95 Room Air 05/28/17 20:00 Room Air 05/28/17 16:34 36.7 70 18 147/79 (101) 94 Room Air 05/28/17 16:30 99 Room Air 05/28/17 11:48 36.4 71 19 122/80 (94) 94 Room Air Lab Results: Results Past 24 Hours Test 05/28/17 11:44 05/28/17 16:47 05/28/17 20:38 05/29/17 02:55 Range/Units Bedside Glucose 232 174 212 95 70-99 mg/dl Test 05/29/17 05:35 05/29/17 07:32 Range/Units Creatinine 1.77 0.60-1.40 mg/dl Est Creatinine Clear Calc Drug Dose 33.8 ml/min Estimated GFR () 42.0 Estimated GFR (Non- 36.2 Bedside Glucose 76 70-99 mg/dl
[2017-05-29] MEDS ORDERED: AMOX1TAB43 PO (10:48)
--- NOTE | 2017-05-29 10:56 | Discharge Instructions ---
Discharge Instructions Date of Service May 29, 2017. Admission Reason for Admission: Anemia, Pneumonia, Thrombocytopenia Discharge Discharge Diagnosis / Problem: myeloproliferative disease, pulmonary nodules, anemia, thrombocytopenia, DM Discharge Goals Goal(s): Improve function, Improve disease control Activity Recommendations Activity Limitations: per Instructions/Follow-up section Shower/Bathe: no limitations . Instructions / Follow-Up Instructions / Follow-Up Hospital Course Patient is a 76-year-old male with a past medical history of myeloproliferative disorder, thrombocytopenia, DM 2, HTN, BPH who presents with worsening shortness of breath over the past 4 days prior to hospital admission Anemia in setting of myeloproliferative disorder -Patient also reported hemoptysis (some blood tinged sputum in the morning time as per patient) but no obvious oral bleeding inpatient -Hgb 7.6 and transfused 1 unit PRBC on admission which raised Hgb to 8.1 on -Hgb decreased to 7.7 on 05/27/[address] Jackson of oncology recommended 1 unit of PRBC which raised Hgb to 9.4 -Leukocytosis increased from 32K on 05/26/17 and labs on 05/27/17 with WBC increasing from 51K to 61K; [place] [address] on 05/28/17 -Thrombocytopenia: Platelets consistently from high 20s to low 30s. Dyspnea worse with exertion -Patient was started on IV Cefepime for pulmonary coverage in case of pneumonia as admission Chest X ray findings of "Interval development of bilateral reticulonodular airspace opacities. Likely diagnostic considerations include atypical pulmonary edema, or a bilateral infectious/inflammatory process" CT chest on 05/25/17: 1. Interval development of mild mediastinal lymphadenopathy possibly reactive 2. Interval development of multiple bilateral interstitial and nodular opacities. The rapid development of this process favors an infectious/ inflammatory etiology. Clinical and radiographic follow-up is recommended 3. Small bilateral pleural effusions 4. Suspected splenomegaly -Pulmonary consult ordered Aspergillus antibody panel, and GOLD test with Mitogen and Nil assay and results pending but these results may not be positive in a potentially immunocompromised patient -IV solumedrol was given on 05/26/17 as per pulmonary service but WBC has increased substantially since 05/27/17 and with patient reporting general malaise possibly from solumedrol, no further solumedrol given on 05/27/17 -Stable bilateral interstitial and nodular opacities, Small bilateral pleural effusions on 05/27/17 X ray Pulmonary service reviewed the 05/25/17 CT again; Dr. Dow: "Abnormal CT: Patient has had progressive changes since initial CT of the abdomen performed 08/16/2016 with increased bilateral ground-glass changes as well as pulmonary nodules, bronchiectasis, scar tissue and notable pleural calcifications/plaquing. 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 But also this patient has a history of asbestos exposure which could now be presenting with pleural plaquing and possibly even asbestosis of the lung. His progressive pulmonary disease as well as pulmonary nodules are worrisome for even a malignancy, primary lung carcinoma. The patient has a new right lower lobe 10 mm pulmonary nodule which will require workup as an outpatient." Pulmonary service recommends outpatient pulmonary function studies PET scan and possibly more definitive diagnoses/invasive procedures performed as an outpatient but the patient has expressed reservations about doing invasive procedure Patient passed 6 minute walk test on 05/28/17 and does not need oxygen for exertion Pulmonary service recommends a 10 day course of Augmentin and/or a 7 day course of Levaquin 750 mg; Cefepime IV stopped on 05/28/17 and will begin oral antibiotic on 05/29/17 Echocardiogram 05/27/17, generally unremarkable echocardiogram The left ventricle is normal in size. There is mild concentric left ventricular hypertrophy. Ejection Fraction = 60-65%. Left ventricular systolic function is normal. The right ventricular systolic function is normal. The left atrial size is normal. Right atrial size is normal. Diastolic dysfunction, Grade II (pseudonormalization pattern). No significant valvular pathology. Other hospital diagnosis and management Acute kidney injury (resolved after IV fluids), Diabetes Mellitus II on insulin Discharge instructions Patient to have new antibiotic prescription for Augmentin - Take for 10 days Patient has follow up appointments: 06/04/2017 9:00 AM [facility] 06/05/2017 3:00 PM Royce Gaviria MD Internal Medicine [facility] 06/08/[address] Dow Pulmonary clinic [address], [address] [place] [address] 06/19/2017 11:15 AM Salomon Ferguson MD Hematology/Oncology [facility] Patient can call [phone] with [facility] affiliated clinics for re- scheduling of needed and [facility] number is [phone] Current Hospital Diet Patient's current hospital diet: Diabetes Type 2 Diet Discharge Diet Recommended Diet: Diabetes Type 2 Diet Pending Studies Studies pending at discharge: yes List of pending studies: Pulmonary consult ordered Aspergillus antibody panel, and GOLD test with Mitogen and Nil assay and results pending but these results may not be positive in a potentially immunocompromised patient Laboratory Results 05/28/17 07:49 Red Blood Count 3.03, Mean Corpuscular Volume 92.7, Mean Corpuscular Hemoglobin 31.7, Mean Corpuscular Hemoglobin Concent 34.2, Mean Platelet Volume 10.5, Neutrophils (%) (Auto) 85.1, Lymphocytes (%) (Auto) 5.0, Monocytes (%) (Auto) 4.3, Eosinophils (%) (Auto) 0.1, Basophils (%) (Auto) 0.1, Neutrophils # (Auto) 30.47, Lymphocytes # (Auto) 1.80, Monocytes # (Auto) 1.54, Eosinophils # (Auto) 0.04, Basophils # (Auto) 0.03 05/28/17 07:49 05/29/17 05:35 Test 05/25/17 15:38 05/25/17 15:43 05/26/17 07:06 05/26/17 11:20 Blood Smear Review Direct Bilirubin 0.2 mg/dl (0-0.2) Total Creatine Kinase 273 U/L (39-308) Creatine Kinase MB 7.0 ng/ml (0.5-3.6) Creatine Kinase MB Ratio 2.6 (0-3.0) Pro-B-Type Natriuretic Peptide 891 pg/ml (0-1800) Lipase 68 U/L (73-393) Procalcitonin 1.01 ng/ml (0-0.5) Bedside Troponin I < 0.030 ng/ml (0-0.045) Platelet Estimate SIGNIFIC DECREASED Test 05/27/17 05:04 05/27/17 12:35 05/28/17 07:49 05/28/17 09:33 Hyposegmented Neutrophils 1+ Neutrophils % (Manual) 94.8 % Lymphocytes % (Manual) 1.7 % Monocytes % (Manual) 1.7 % Metamyelocytes % 0.9 % Myelocytes % 0.9 % Neutrophils # (Manual) 58.11 K/uL (1.4-6.5) Total Absolute Neutrophils 58.11 K/uL (1.4-6.5) Lymphocytes # (Manual) 1.04 K/uL (1.2-3.4) Total Absolute Lymphocytes 1.04 K/uL (1.2-3.4) Monocytes # (Manual) 1.04 K/uL (0.11-0.59) Metamyelocytes # 0.55 K/uL (0-0) Myelocytes # 0.55 K/uL (0-0) White Blood Count 35.80 K/uL (4.8-10.8) Red Blood Count 3.03 M/uL (4.7-6.1) Hemoglobin 9.6 g/dL (14.0-18.0) Hematocrit 28.1 % (42-52) Mean Corpuscular Volume 92.7 fL (80-100) Mean Corpuscular Hemoglobin 31.7 pg (25-34) Mean Corpuscular Hemoglobin Concent 34.2 g/dl (32-36) Platelet Count 30 K/uL (130-400) Mean Platelet Volume 10.5 fL (7.4-10.4) Neutrophils (%) (Auto) 85.1 % Lymphocytes (%) (Auto) 5.0 % Monocytes (%) (Auto) 4.3 % Eosinophils (%) (Auto) 0.1 % Basophils (%) (Auto) 0.1 % Neutrophils # (Auto) 30.47 K/uL (1.4-6.5) Lymphocytes # (Auto) 1.80 K/uL (1.2-3.4) Monocytes # (Auto) 1.54 K/uL (0.11-0.59) Eosinophils # (Auto) 0.04 K/uL (0-0.5) Basophils # (Auto) 0.03 K/uL (0-0.2) RDW Standard Deviation 67.5 fL (36.4-46.3) RDW Coefficient of Variation 21.1 % (11.5-14.5) Immature Granulocyte % (Auto) 5.4 % Immature Granulocyte # (Auto) 1.92 K/uL (0.00-0.02) Nucleated RBC Absolute Count (auto) 0.03 K/uL (0-0) Nucleated Red Blood Cells % 0.1 % Hypogranular Neutrophils 2+ Dohle Bodies 2+ Anisocytosis PRESENT Anion Gap 10.0 mmol/L (3-11) BUN/Creatinine Ratio 23.6 (10-20) Calcium Level 8.4 mg/dl (8.5-10.1) Total Bilirubin 0.7 mg/dl (0.2-1) Aspartate Amino Transf (AST/SGOT) 29 U/L (15-37) Alanine Aminotransferase (ALT/SGPT) 24 U/L (12-78) Alkaline Phosphatase 78 U/L (45-117) Total Protein 6.8 gm/dl (6.4-8.2) Albumin 2.8 gm/dl (3.4-5.0) Globulin 4.0 gm/dl (2.5-4.0) Albumin/Globulin Ratio 0.7 (0.9-2) Arterial Blood pH 7.45 (7.35-7.45) Arterial Blood Partial Pressure CO2 31 mmHg (35-46) Arterial Blood Partial Pressure O2 75 mm/Hg (80-95) Arterial Blood HCO3 21 mmol/L (19-24) Arterial Blood Oxygen Saturation 92.9 % (90-95) Arterial Blood Base Excess -2.7 mEq/L (-9-1.8) Arterial Blood Gas Delivery ROOM AIR Michael Test POSITIVE (POS) Test 05/28/17 10:26 05/29/17 05:35 05/29/17 07:32 Est Creatinine Clear Calc Drug Dose 33.8 ml/min Estimated GFR () 42.0 Estimated GFR (Non- 36.2 Bedside Glucose 76 mg/dl (70-99) Date/Time Source Procedure Growth Status 05/25/17 15:58 Blood Blood Culture - Preliminary NO GROWTH TO DATE. Resulted Medical Emergencies . Who to Call and When: Medical Emergencies: If at any time you feel your situation is an emergency, please call 911 immediately. . Non-Emergent Contact Non-Emergency issues call your: Primary Care Provider, Oncologist, Habilitation Specialist Call Non-Emergent contact if: you have any medication questions . . "Provider Documentation" section prepared by Ramon Freeman. .
[2017-05-29] MEDS ORDERED: INSULIN GLARGINE SOLOSTAR 100 UNITS/ML 3 ML PEN SC ONE (20:00)
[2017-05-31 15:51] LABS: QUANTIF MITOGEN-NIL >10.00 IU/ML; QUANTIFERON NEGATIVE (NEGATIVE); QUANTIFERON NIL 0.16 IU/ML
--- NOTE | 2017-06-03 18:36 | Discharge Summary ---
Discharge Summary Date of Service Jun 03, 2017. Discharge Summary Admission Date: May 25, 2017 at 17:52 Discharge Date: May 29, 2017 Discharge Disposition: Home Principal Diagnosis: myeloproliferative disease with leukocytosis vs leukemoid reaction, pulmonary nodules, anemia, thrombocytopenia, DM Medication Reconciliation New Medications: Amoxicillin & Pot Clavulanate (Amoxicillin/Clavulanate P) 1 Tab Tab 875 MG PO BIDM for 10 Days, #20 TAB Continued Medications: Acetaminophen (Tylenol) 500 Mg Tab 500 MG PO Q6H PRN for Pain or Fever, TAB Albuterol Hfa (Ventolin Hfa) 200 Puffs/86468 Mcg Aers 2-4 PUFFS INH Q6H, #1 INHALER Alfuzosin Hcl (Uroxatral) 10 Mg Tab 10 MG PO DAILY, TAB Give after a meal Allopurinol (Allopurinol) 300 Mg Tab 300 MG PO DAILY Ascorbic Acid (Vitamin C) 500 Mg Tab 500 MG PO DAILY Baclofen (Lioresal) 10 Mg Tab 10 MG PO TID, TAB Carvedilol (Coreg) 12.5 Mg Tab 12.5 MG PO BID, TAB Cranberry (Vaccinium Macrocarp (Cranberry Extract) 200 Mg Cap 200 MG PO DAILY Duloxetine HCl (Duloxetine HCl) 30 Mg Cap 30 MG PO QAM for 30 Days, CAP Finasteride (Proscar) 5 Mg Tab 5 MG PO DAILY, TAB Fish Oil (Estill-3) 1 Ea Cap 1 CAP PO DAILY, CAP Gabapentin (Neurontin) 300 Mg Cap 300 MG PO UD, CAP Take 1 in AM, 1 at midday and 2 at bedtime Garlic (Garlic) 1,000 Mg Cap 1000 MG PO DAILY Insulin Isophane & Reg (Human) (Novolin 70/30 Relion) 1 Inj Inj 36-40 UNITS SQ AMPM Lisinopril (Zestril) 20 Mg Tab 20 MG PO DAILY, TAB Metformin Hcl (Glucophage) 500 Mg Tab 2 TABS PO BIDM, TAB Misc Natural Products (Prostate Health) 1 Cap Cap 1 CAP PO DAILY Multivitamin (Multivitamin) Tab 1 TAB PO DAILY, TAB Omeprazole (Prilosec) 20 Mg Capcr 20 MG PO DAILY, CAP Discontinued Medications: Hydroxyurea (Hydrea Cap) 500 Mg Cap 1000 MG PO DAILY, CAP currently HELD Admission Information HPI (per Admitting provider): Patient is a 76-year-old male with a past medical history of myeloproliferative disorder, thrombocytopenia, DM 2, HTN, BPH and other medical problems listed below who presents with worsening shortness of breath over the past 4 days. Patient has been congested and developed a cough with productive yellow sputum. Also endorses for episodes of hemoptysis over the past few days, which he has not experienced in the past. Endorses chills and subjective fever. Also endorses SOB at rest, lightheadedness and fatigue as well as a dull frontal headache. Denies syncopal events, confusion, sore throat, palpitations, chest pain, orthopnea, PND, wheezing, abdominal pain, nausea, vomiting, bowel or bladder changes or worsening LE swelling. Follows with Dr. Ferguson and was receiving hydroxy urea treatment until this past February, when patient developed thrombocytopenia. Medication has been on hold since then. Has required multiple transfusions of PRBCs over the past few months, most recently last week. Maintains a persistent elevated white count, which is currently at baseline. Physical Exam (per Admitting): General Appearance: + mild distress (SOB with exertion ) Head: normocephalic, atraumatic Eyes: normal inspection, PERRL, sclerae normal ENT: normal ENT inspection, hearing grossly normal, pharynx normal Neck: supple, no adenopathy, trachea midline Respiratory/Chest: chest non-tender, lungs clear, normal breath sounds, no respiratory distress, no accessory muscle use Cardiovascular: regular rate, rhythm, no murmur, normal peripheral pulses, + pertinent finding (Trace BLE edema) Abdomen/GI: non tender, soft, no organomegaly Back: normal inspection Extremities/Musculoskelatal: normal inspection, no calf tenderness, no pedal edema Neurologic/Psych: no motor/sensory deficits, alert, normal mood/affect, oriented x 3 Skin: warm/dry, no rash, + pallor Hospital Course Hospital Course Patient is a 76-year-old male with a past medical history of myeloproliferative disorder, thrombocytopenia, DM 2, HTN, BPH who presents with worsening shortness of breath over the past 4 days prior to hospital admission Anemia in setting of myeloproliferative disorder -Patient also reported hemoptysis (some blood tinged sputum in the morning time as per patient) but no obvious oral bleeding inpatient -Hgb 7.6 and transfused 1 unit PRBC on admission which raised Hgb to 8.1 on -Hgb decreased to 7.7 on 05/27/[address] Jackson of oncology recommended 1 unit of PRBC which raised Hgb to 9.4 -Leukocytosis increased from 32K on 05/26/17 and labs on 05/27/17 with WBC increasing from 51K to 61K; [place] [id number] on 05/28/17 -Thrombocytopenia: Platelets consistently from high 20s to low 30s. Dyspnea worse with exertion -Patient was started on IV Cefepime for pulmonary coverage in case of pneumonia as admission Chest X ray findings of "Interval development of bilateral reticulonodular airspace opacities. Likely diagnostic considerations include atypical pulmonary edema, or a bilateral infectious/inflammatory process" CT chest on 05/25/17: 1. Interval development of mild mediastinal lymphadenopathy possibly reactive 2. Interval development of multiple bilateral interstitial and nodular opacities. The rapid development of this process favors an infectious/ inflammatory etiology. Clinical and radiographic follow-up is recommended 3. Small bilateral pleural effusions 4. Suspected splenomegaly -Pulmonary consult ordered Aspergillus antibody panel, and GOLD test with Mitogen and Nil assay and results pending but these results may not be positive in a potentially immunocompromised patient -IV solumedrol was given on 05/26/17 as per pulmonary service but WBC has increased substantially since 05/27/17 and with patient reporting general malaise possibly from solumedrol, no further solumedrol given on 05/27/17 -Stable bilateral interstitial and nodular opacities, Small bilateral pleural effusions on 05/27/17 X ray Pulmonary service reviewed the 05/25/17 CT again; Dr. Dow: "Abnormal CT: Patient has had progressive changes since initial CT of the abdomen performed 08/16/2016 with increased bilateral ground-glass changes as well as pulmonary nodules, bronchiectasis, scar tissue and notable pleural calcifications/plaquing. This is a difficult diagnosis to make as there are noninfectious pulmonary complications associated with MDS such as: Pulmonary fibrosis, vasculitic disorders, organizing pneumonia/[employer]. But also this patient has a history of asbestos exposure which could now be presenting with pleural plaquing and possibly even asbestosis of the lung. His progressive pulmonary disease as well as pulmonary nodules are worrisome for even a malignancy, primary lung carcinoma. The patient has a new right lower lobe 10 mm pulmonary nodule which will require workup as an outpatient." Pulmonary service recommends outpatient pulmonary function studies PET scan and possibly more definitive diagnoses/invasive procedures performed as an outpatient but the patient has expressed reservations about doing invasive procedure Patient passed 6 minute walk test on 05/28/17 and does not need oxygen for exertion Pulmonary service recommends a 10 day course of Augmentin and/or a 7 day course of Levaquin 750 mg; Cefepime IV stopped on 05/28/17 and will begin oral antibiotic on 05/29/17 Echocardiogram 05/27/17, generally unremarkable echocardiogram The left ventricle is normal in size. There is mild concentric left ventricular hypertrophy. Ejection Fraction = 60-65%. Left ventricular systolic function is normal. The right ventricular systolic function is normal. The left atrial size is normal. Right atrial size is normal. Diastolic dysfunction, Grade II (pseudonormalization pattern). No significant valvular pathology. Other hospital diagnosis and management Acute kidney injury (resolved after IV fluids), Diabetes Mellitus II on insulin Discharge instructions Patient to have new antibiotic prescription for Augmentin - Take for 10 days Patient has follow up appointments: 06/04/2017 9:00 AM [facility] Hem/Onc [facility] Hematology Oncology [facility] 06/05/2017 3:00 PM Royce Gaviria MD Internal Medicine [facility] 06/08/[address] Dow Pulmonary clinic [address], [address] [place] [address] 06/19/2017 11:15 AM Salomon Ferguson MD Hematology/Oncology [facility] Patient can call [phone] with [facility] affiliated clinics for re- scheduling of needed and the [facility] pulmonary clinic number is Total time spent on discharge = 60 minutes This includes examination of the patient, discharge planning, medication reconciliation, and communication with other providers. Discharge Instructions see above
== END 2017-05-29 12:26 | disposition home health service (06) | DRG 841 ==
LOC: C.EDB 14:11 → C.4E 17:52 → EDBEDREQ 18:08 → ENRESERV 18:23
PROVIDERS: ADMIT Family Medicine; ATTEND Hospitalist
DX: D47.1 Chronic myeloproliferative disease (principal); N17.9 Acute kidney failure, unspecified; E11.9 Type 2 diabetes mellitus without complications; E78.5 Hyperlipidemia, unspecified; K21.9 Gastro-esophageal reflux disease without esophagitis; I10 Essential (primary) hypertension; Z79.4 Long term (current) use of insulin; Z79.84 Long term (current) use of oral hypoglycemic drugs; D64.9 Anemia, unspecified; D69.6 Thrombocytopenia, unspecified; N40.0 Benign prostatic hyperplasia without lower urinary tract symptoms; R91.1 Solitary pulmonary nodule